=== PATIENT | female | born 1935 | race Caucasian/White ===

== ENCOUNTER 2016-08-18 16:01 | Inpatient (IN) | payer MEDICARE, OTHER ==
[2016-08-18 17:35] LABS: PROTHROMBIN TIME 16.2 SEC (11.4-15.4)
[2016-08-18 17:36] LABS: PARTIAL THROMBOPLASTIN TIME 37.5 SEC (23.5-35.8)
[2016-08-18] MEDS ORDERED: OXYCODONE-ACETAMINOPHEN 5-325 MG TABLET PO ONE (17:42)
[2016-08-18 17:47] LABS: HEMOGLOBIN 9.7 g/dL (12.0-15.5); HGB HCT DIFFERENCE -0.9; MEAN CORPUSCULAR HGB CONC 32.4 g/dL (32.0-36.0); MEAN CORPUSCULAR VOLUME 89 fl (80-97); RED BLOOD COUNT 3.36 10^6/uL (3.72-5.28); RED CELL DISTRIBUTION WIDTH 15.4 % (11.5-14.0); WHITE BLOOD COUNT 16.3 10^3/uL (4.0-10.5)
[2016-08-18 17:50] LABS: ALANINE AMINOTRANSFERASE 32 U/L (9-52); ALKALINE PHOSPHATASE 145 U/L (38-126); ANION GAP 8 (5-19); ASPARTATE AMINO TRANSFERASE 19 U/L (14-36); BILIRUBIN,TOTAL 0.3 mg/dL (0.2-1.3); BLOOD UREA NITROGEN 19 mg/dL (7-20); CALCIUM 9.3 mg/dL (8.4-10.2); CARBON DIOXIDE 27 mmol/L (22-30); CHLORIDE 100 mmol/L (98-107); CREATININE RESULT 0.64 mg/dL (0.52-1.25); GLUCOSE 133 mg/dL (75-110); POTASSIUM 3.1 mmol/L (3.6-5.0); SODIUM 135.3 mmol/L (137-145); TOTAL PROTEIN 6.3 g/dL (6.3-8.2)
[2016-08-18 17:56] LABS: BAND NEUTROPHILS % (MANUAL) 7 % (3-5); BASOPHILS % (MANUAL) 0 % (0-2); EOSINOPHILS % (MANUAL) 0 % (0-6); LYMPHOCYTES % (MANUAL) 4 % (13-45); TOTAL CELLS COUNTED 100
[2016-08-18 17:57] LABS: ANISOCYTOSIS SLIGHT; HYPOCHROMASIA SLIGHT
[2016-08-18 17:58] LABS: PLATELET CLUMPS PRESENT
--- NOTE | 2016-08-18 18:04 | ER Document Report ---
ED Extremity Problem, Lower - General Mode of Arrival: Medic Information source: Patient TRAVEL OUTSIDE OF THE [place] IN LAST 30 DAYS: No - HPI Patient complains to provider of: Pain, Swelling Location: Ankle, Leg Occurred: Other - see HPI Recent injury: No <KARMA MAYEN - Last Filed: 08/18/16 21:47> <ARIANECTOR CRUZ MIKE - Last Filed: 08/18/16 22:16> - General Chief Complaint: Leg Swelling Stated Complaint: LEFT FOOT/LEG SWELLING Notes: Patient is an 80 year old female presenting to the emergency department complaining of leg pain and swelling to her left leg. Patient states that her pain has been present for about 1 week and the swelling was noticed this afternoon. Patient's lower leg is quite swollen but the patient does not have any pain to the lower area of her leg. Patient states that she has some tightness and discomfort in her leg. Patient states that she also has some pain in her groin. Patient ambulates with a walker at home. Patient states she is not short of breath while walking and does not have a history of any blood clots. Patient states that it is difficult to walk since her leg is so swollen. Patient is allergic to sulfa drugs. (KARMA MAYEN) - Related Data Allergies/Adverse Reactions: Sulfa (Sulfonamide Antibiotics) Adverse Reaction (Intermediate, Verified 12:39) tingling Home Medications: Current Home Medications Hydroxychloroquine Sulfate [Plaquenil 200 mg Tablet] 200 mg PO DAILY 08/18/16 [ History] Past Medical History - General Information source: Patient, Relative - Social History Smoking Status: Never Smoker Cigarette use (# per day): No Chew tobacco use (# tins/day): No Frequency of alcohol use: None Drug Abuse: None Family History: Reviewed & Not Pertinent Patient has suicidal ideation: No Patient has homicidal ideation: No - Past Medical History Cardiac Medical History: Reports: Hx Hypercholesterolemia, Hx Hypertension - on meds Pulmonary Medical History: Reports: Hx Bronchitis Endocrine Medical History: Reports: Hx Hyperthyroidism, Hx Hypothyroidism Malignancy Medical History: Reports: Hx Cervical Cancer GI Medical History: Reports: Hx Gastroesophageal Reflux Disease, Hx Ulcer - 1995 Musculoskeltal Medical History: Reports Hx Arthritis Psychiatric Medical History: Reports: Hx Depression - self-diagnosed Infectious Medical History: Reports: Hx MRSA Past Surgical History: Reports: Hx Abdominal Surgery - Hysterectomy, Hx Orthopedic Surgery - left hand - Immunizations Hx Diphtheria, Pertussis, Tetanus Vaccination: Yes Hx Pneumococcal Vaccination: 06/01/11 <WOO MAYENINE - Last Filed: 08/18/16 21:47> Review of Systems - Review of Systems Constitutional: No symptoms reported EENT: No symptoms reported Cardiovascular: No symptoms reported Respiratory: No symptoms reported Gastrointestinal: No symptoms reported Genitourinary: No symptoms reported Female Genitourinary: No symptoms reported Musculoskeletal: See HPI Skin: No symptoms reported Hematologic/Lymphatic: No symptoms reported Neurological/Psychological: No symptoms reported -: Yes All other systems reviewed and negative <KARMA MAYEN - Last Filed: 08/18/16 21:47> Physical Exam - Vital signs Interpretation: Normal - General General appearance: Appears well, Alert In distress: Mild - HEENT Head: Normocephalic, Atraumatic Eyes: Normal Pupils: PERRL Mucous membranes: Normal - Respiratory Respiratory status: No respiratory distress Chest status: Nontender Breath sounds: Normal Chest palpation: Normal - Cardiovascular Rhythm: Regular Heart sounds: Normal auscultation - Abdominal Inspection: Normal Distension: No distension Bowel sounds: Normal Tenderness: Nontender Organomegaly: No organomegaly - Back Back: Normal, Nontender - Extremities General upper extremity: Normal inspection, Normal ROM, Normal strength Thigh: Tender - left proximal medial thigh is tender to palpation Calf: Other - swelling of left calf with ecchymosis to the distal medial left tibia - Neurological Neuro grossly intact: Yes Cognition: Normal Orientation: AAOx4 [place] Coma Scale Eye Opening: Spontaneous Kimberly Coma Scale Verbal: Oriented Kimberly Coma Scale Motor: Obeys Commands Kimbelry Coma Scale Total: 15 Speech: Normal Sensory: Normal - Psychological Associated symptoms: Normal affect, Normal mood - Skin Skin Temperature: Warm Skin Moisture: Dry <KARMA MAYEN - Last Filed: 08/18/16 21:47> Course - Laboratory Result Diagrams: 08/18/16 17:15 08/18/16 17:15 - Consults Dr. Zhao (Oncology) Time consulted: 20:15 Dr. Dan Time consulted: 20:45 <KARMA MAYEN - Last Filed: 08/18/16 21:47> - Laboratory Result Diagrams: 08/18/16 17:15 08/18/16 17:15 - Diagnostic Test Radiology reviewed: Reports reviewed <ECTOR PEREZ - Last Filed: 08/18/16 22:16> - Re-evaluation Re-evalutation: 08/18/16 22:14 Patient is an 80-year-old female with a history of cervical cancer currently undergoing treatment, who presents with leg swelling. Patient has a DVT in her left leg. Patient was discussed with her oncologist who recommends giving the patient Lovenox and then starting her on Xarelto. Patient denies any chest pain or difficulty breathing. Patient was discussed with her primary care doctor who will admit the patient. Stable time of admission. Family agrees with this plan. (CETOR PEREZ) - Vital Signs Vital signs: Temp Pulse Resp BP Pulse Ox 97.7 F 66 12 139/62 H 96 08/18/16 22:06 08/18/16 22:06 08/18/16 22:06 08/18/16 22:06 08/18/16 22:06 (KARMA MAYEN) (ECTOR PEREZ) - Laboratory Laboratory results interpreted by me: 08/18/16 08/18/16 08/18/16 17:15 17:15 17:15 WBC 16.3 H RBC 3.36 L Hgb 9.7 L Hct 30.0 L RDW 15.4 H Seg Neuts % (Manual) 85 H Band Neutrophils % 7 H Lymphocytes % (Manual) 4 L Abs Neuts (Manual) 15.0 H PT 16.2 H APTT 37.5 H Sodium 135.3 L Potassium 3.1 L Glucose 133 H Alkaline Phosphatase 145 H Albumin 3.0 L (KARMA MAYEN) (ECTOR PEREZ) - Consults Dr. Zhao (Oncology) Reason for consultation: 08/18/16 20:[address] Zhao, recommends that the patient be started on blood thinners. (KARMA MAYEN) Dr. Dan Reason for consultation: 08/18/16 20:[address] Dan for possible admission; patient will be admitted. (KARMA MAYEN) Discharge <KARMA MAYEN - Last Filed: 08/18/16 21:47> - Discharge Admitting Provider: Ni Unit Admitted: Medical Floor <ECTOR PEREZ - Last Filed: 08/18/16 22:16> - Discharge Clinical Impression: DVT (deep venous thrombosis) Qualifiers: DVT location: lower extremity Affected thrombotic vein of extremity: popliteal Laterality: left Chronicity: acute Qualified Code(s): I82.432 - Acute embolism and thrombosis of left popliteal vein Condition: Stable Disposition: ADMITTED INPATIENT Scribe Attestation: 08/18/16 22:16 I personally performed the services described in the documentation, reviewed and edited the documentation which was dictated to the scribe in my presence, and it accurately records my words and actions. (ECTOR PEREZ) Scribe Documentation - Scribe Written by Scribe:: Karma Mayen (08/18/16) acting as scribe for :: Zabrina <KARMA MAYEN - Last Filed: 08/18/16 21:47>
[2016-08-18] MEDS ORDERED: NORMAL SALINE 1000 ML 1,000 ML IV ONE (20:50)
[2016-08-18] MEDS ORDERED: ENOXAPARIN SODIUM INJ 100 MG/1 ML DISP.SYRIN SUBCUT SCH (22:00)
--- NOTE | 2016-08-19 01:09 | EKG REPORT ---
SEVERITY:- NORMAL ECG - SINUS RHYTHM : Confirmed by: Pastora Umanzor 19-Aug-2016 01:09:00
[2016-08-19] MEDS: OXYCODONE-ACETAMINOPHEN 5-325 MG TABLET PO PRN ×2 (03:21→14:06)
[2016-08-19 06:40] LABS: HEMATOCRIT 29.4 % (36.0-47.0); HEMOGLOBIN 9.6 g/dL (12.0-15.5); HGB HCT DIFFERENCE -0.6; MEAN CORPUSCULAR HEMOGLOBIN 28.9 pg (27.0-33.4); MEAN CORPUSCULAR HGB CONC 32.6 g/dL (32.0-36.0); MEAN CORPUSCULAR VOLUME 89 fl (80-97); RED BLOOD COUNT 3.31 10^6/uL (3.72-5.28); RED CELL DISTRIBUTION WIDTH 15.4 % (11.5-14.0); WHITE BLOOD COUNT 15.2 10^3/uL (4.0-10.5)
--- NOTE | 2016-08-19 08:35 | PDOC H&P ---
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 17oct hysterectomy BSO. 31oct twisted L knee. 1nov L doppler Screen Stretcher's cyst no dvt. Walker. 8nov carboPlatinum & taxol. 15dec [facility] found joint narrowing & spurs and injected knee & hip. These pains improved. 11d new medial L thigh discomfort & leg swelling. Past Medical History Cardiac Medical History: Reports: Hyperlipidema, Hypertension - on meds Denies: Coronary Artery Disease, Myocardial Infarction Pulmonary Medical History: Reports: Asthma, Bronchitis, Pneumonia Denies: Chronic Obstructive Pulmonary Disease (COPD), Tuberculosis EENT Medical History: Reports: Nose - allergic rhinitis Neurological Medical History: Reports: Migraine Denies: Hemorrhagic CVA, Ischemic CVA, Seizures Endocrine Medical History: Reports: Hypothyroidism Renal/ Medical History: Reports: Other - uti's Malignancy Medical History: Reports: Other - endometrial GI Medical History: Reports: Gastroesophageal Reflux Disease, Peptic Ulcer Disease Musculoskeltal Medical History: Reports: Arthritis Psychiatric Medical History: Reports: Depression Traumatic Medical History: Reports: None Hematology: Reports: Anemia - orif L zygoma & orbit 2010 Infectious Medical History: Reports: Methicillin-Resistant Staph Aureus Past Surgical History Past Surgical History: Reports: Hysterectomy, Orthopedic Surgery - left hand 2014 R knee prosthesis & R bunion Denies: Pacemaker Social History Information Source: Patient, DrJosi Office Lives with: Alone Smoking Status: Never Smoker Frequency of Alcohol Use: None Hx Recreational Drug Use: No Hx Prescription Drug Abuse: No - Advance Directive Resuscitation Status: Full Code Family History Family History: Malignancy, Thyroid Disfunction Parental Family History Reviewed: Yes Children Family History Reviewed: Yes Sibling(s) Family History Reviewed.: Yes Medication/Allergy Home Medications: Omeprazole [Prilosec 20 mg Capsule] 20 cap PO BID 08/01/11 Cyclosporine 0.05% Oph Emulsio [Restasis 0.05% Oph Emulsion Pf 0.4 ml] 1 drop ASDIR PRN 05/23/16 Metoprolol Succinate [Toprol XL 100 mg Tablet] 100 mg PO DAILY 05/23/16 Naproxen [Naprosyn 250 mg Tablet] 500 mg PO ASDIR 05/23/16 Levothyroxine Sodium [Synthroid 0.025 mg Tablet] 0.025 mg PO DAILY #0 tablet Oxycodone HCl/Acetaminophen [Percocet 5-325 mg Tablet] 2 tab PO Q4HP PRN #0 tablet 05/25/16 Simvastatin [Zocor 40 mg Tablet] 40 mg PO QHS #0 tablet 05/25/16 Hydroxychloroquine Sulfate [Plaquenil 200 mg Tablet] 200 mg PO DAILY 08/18/16 Allergies/Adverse Reactions: Sulfa (Sulfonamide Antibiotics) Adverse Reaction (Intermediate, Verified 12:39) tingling Review of Systems Constitutional: ABSENT: fever(s), weight loss Nose, Mouth, and Throat: ABSENT: sore throat Cardiovascular: ABSENT: chest pain, orthropnea Respiratory: ABSENT: cough, dyspnea Gastrointestinal: PRESENT: constipation. ABSENT: abdominal pain, diarrhea, hematochezia, melena, vomiting Genitourinary: ABSENT: dysuria, hematuria Integumentary: ABSENT: rash Physical Exam Vital Signs: Temp Pulse Resp BP Pulse Ox 98 F 74 18 156/90 H 99 08/18/16 23:55 08/18/16 23:55 08/18/16 23:55 08/18/16 23:55 08/18/16 23:55 Intake & Output 08/18/16 08/19/16 08/20/16 07:59 07:59 07:59 Weight 186 lb 8.177 oz General appearance: PRESENT: no acute distress Respiratory exam: PRESENT: clear to auscultation avery Cardiovascular exam: ABSENT: diastolic murmur, irregular rhythm, systolic murmur GI/Abdominal exam: PRESENT: tenderness. ABSENT: mass, organolmegaly Extremities exam: PRESENT: pedal edema - L2+ Homans negative L thigh nontnd Musculoskeletal exam: ABSENT: tenderness - L knee Neurological exam: PRESENT: oriented to situation Psychiatric exam: PRESENT: appropriate affect Results Laboratory Results: 08/19/16 06:30 08/19/16 06:30 WBC 15.2 H RBC 3.31 L Hgb 9.6 L Hct 29.4 L MCV 89 MCH 28.9 MCHC 32.6 RDW 15.4 H Plt Count 138 L Impressions: Venous Doppler Study 08/18/16 16:19 IMPRESSION: 1. Right lower extremity DVT, popliteal and femoral veins. Suspect they meant left Hip X-Ray 08/18/16 17:43 IMPRESSION: No acute findings. DJD. Assessment & Plan - Diagnosis (1) Phlebitis and thrombophlebitis of left popliteal vein Is this a current diagnosis for this admission?: YesPlan: lovenox yesterday and today xarelto 15bid tomorrow consult Dr Zhao - Time Time Spent: 30 to 50 Minutes Medications reviewed and adjusted accordingly: Yes Anticipated discharge: Home Within: within 48 hours - Inpatient Certification Medical Necessity: Failure to Improve With Outpatient Therapy, Significant Comorbidiites Make Outpatient Treatment Too Risky, Need Close Monitoring Due to Risk of Patient Decompensation, Need For Continuous Telemetry Monitoring, Need for Pain Control, Risk of Complication if Not Cared For in Hospital, Risk of Diagnosis Which Will Require Inpatient Eval/Care/Monitoring
--- NOTE | 2016-08-19 08:45 | PDOC CONSULTATION ---
Consultation Consult Date: 08/19/16 Attending physician:: ALFREDO PANDA Consult reason:: Newly noted DVT, hx stage III endometrial ca History of Present Illness Admission Date/PCP: 08/19/16 03:10 ALFREDO PANDA MD Patient complains of: LE swelling and pain, stage III endometrial ca History of Present Illness: 80 y/o F well known to our oncology clinic with Stage III endometrial ca s/p surgery now about 2m ago at [place], Dr. Alexandre. She was seen by our clinic now about 6 wk ago and started on adjuvant chemo/rx. Actually, in our office she had left lower extremity swelling. Ultimately, she had a ultrasound done in [place], and this was negative for DVT at that time. So we felt like it may be arthritic changes causing these problems, and she has severe osteoarthritis and bilateral hips and knees. She recently had a left hip steroid injection, she ultimately had worsening left lower extremity swelling and pain, could not walk on it, came into the ED, ultrasound indicated a DVT in the left lower extremity. Actually, the report says right lower extremity, but I talked with Dr. Boss, it is mislabeled. She actually has a DVT in the left lower extremity. She is on Lovenox right now. Past Medical History Cardiac Medical History: Reports: Hyperlipidema, Hypertension - on meds Denies: Coronary Artery Disease, Myocardial Infarction Pulmonary Medical History: Reports: Asthma, Bronchitis, Pneumonia Denies: Chronic Obstructive Pulmonary Disease (COPD), Tuberculosis EENT Medical History: Reports: Nose - allergic rhinitis Neurological Medical History: Reports: Migraine Denies: Hemorrhagic CVA, Ischemic CVA, Seizures Endocrine Medical History: Reports: Hyperthyroidism, Hypothyroidism Renal/ Medical History: Reports: Other - uti's Malignancy Medical History: Reports: Other - endometrial cancer, stage III, receiving adjuvant chemotherapy with carbo/Taxol, last given about 2 weeks ago, is due for next chemotherapy dose in one week GI Medical History: Reports: Gastroesophageal Reflux Disease, Peptic Ulcer Disease Musculoskeltal Medical History: Reports: Arthritis Psychiatric Medical History: Reports: Depression Hematology: Denies: Anemia - Iron deficiency, given IV iron Infectious Medical History: Reports: Methicillin-Resistant Staph Aureus Past Surgical History Past Surgical History: Reports: Orthopedic Surgery - left hand, Other - STU/BSO Denies: Pacemaker Social History Smoking Status: Never Smoker Frequency of Alcohol Use: None Hx Recreational Drug Use: No Hx Prescription Drug Abuse: No - Advance Directive Resuscitation Status: Full Code Family History Family History: Reviewed & Not Pertinent Parental Family History Reviewed: Yes Children Family History Reviewed: Yes Sibling(s) Family History Reviewed.: Yes Medication/Allergy Home Medications: Omeprazole [Prilosec 20 mg Capsule] 20 cap PO BID 08/01/11 Cyclosporine 0.05% Oph Emulsio [Restasis 0.05% Oph Emulsion Pf 0.4 ml] 1 drop ASDIR PRN 05/23/16 Metoprolol Succinate [Toprol XL 100 mg Tablet] 100 mg PO DAILY 05/23/16 Naproxen [Naprosyn 250 mg Tablet] 500 mg PO ASDIR 05/23/16 Levothyroxine Sodium [Synthroid 0.025 mg Tablet] 0.025 mg PO DAILY #0 tablet Oxycodone HCl/Acetaminophen [Percocet 5-325 mg Tablet] 2 tab PO Q4HP PRN #0 tablet 05/25/16 Simvastatin [Zocor 40 mg Tablet] 40 mg PO QHS #0 tablet 05/25/16 Hydroxychloroquine Sulfate [Plaquenil 200 mg Tablet] 200 mg PO DAILY 08/18/16 Allergies/Adverse Reactions: Sulfa (Sulfonamide Antibiotics) Adverse Reaction (Intermediate, Verified 12:39) tingling Review of Systems Constitutional: ABSENT: chills, fever(s), headache(s), weight gain, weight loss Eyes: ABSENT: visual disturbances Ears: ABSENT: hearing changes Cardiovascular: ABSENT: chest pain, dyspnea on exertion, edema, orthropnea, palpitations Respiratory: ABSENT: cough, hemoptysis Gastrointestinal: ABSENT: abdominal pain, constipation, diarrhea, hematemesis, hematochezia, nausea, vomiting Genitourinary: ABSENT: dysuria, hematuria Musculoskeletal: PRESENT: joint swelling, other - Left lower extremity swelling and pain Integumentary: ABSENT: rash, wounds Neurological: ABSENT: abnormal gait, abnormal speech, confusion, dizziness, focal weakness, syncope Psychiatric: ABSENT: anxiety, depression, homidical ideation, suicidal ideation Endocrine: ABSENT: cold intolerance, heat intolerance, polydipsia, polyuria Hematologic/Lymphatic: ABSENT: easy bleeding, easy bruising Physical Exam Vital Signs: Temp Pulse Resp BP Pulse Ox 98 F 87 18 156/90 H 99 08/18/16 23:55 08/19/16 07:00 08/18/16 23:55 08/18/16 23:55 08/18/16 23:55 Intake & Output 08/18/16 08/19/16 08/20/16 06:59 06:59 06:59 Intake Total 3 Balance 3 Weight 84.6 kg General appearance: PRESENT: no acute distress, well-developed, well-nourished Head exam: PRESENT: atraumatic, normocephalic Eye exam: PRESENT: conjunctiva pink, EOMI, PERRLA. ABSENT: scleral icterus Ear exam: PRESENT: normal external ear exam Mouth exam: PRESENT: moist, tongue midline Neck exam: ABSENT: carotid bruit, JVD, lymphadenopathy, thyromegaly Respiratory exam: PRESENT: clear to auscultation avery. ABSENT: rales, rhonchi, wheezes Cardiovascular exam: PRESENT: RRR. ABSENT: diastolic murmur, rubs, systolic murmur Pulses: PRESENT: normal dorsalis pedis pul Vascular exam: PRESENT: normal capillary refill GI/Abdominal exam: PRESENT: normal bowel sounds, soft. ABSENT: distended, guarding, mass, organolmegaly, rebound, tenderness Rectal exam: PRESENT: deferred Extremities exam: PRESENT: calf tenderness, other - Left lower extremity swelling Neurological exam: PRESENT: alert, awake, oriented to person, oriented to place , oriented to time, oriented to situation, CN II-XII grossly intact. ABSENT: motor sensory deficit Psychiatric exam: PRESENT: appropriate affect, normal mood. ABSENT: homicidal ideation, suicidal ideation Skin exam: PRESENT: dry, intact, warm. ABSENT: cyanosis, rash Results Laboratory Results: 08/19/16 06:30 08/19/16 06:30 WBC 15.2 H RBC 3.31 L Hgb 9.6 L Hct 29.4 L MCV 89 MCH 28.9 MCHC 32.6 RDW 15.4 H Plt Count 138 L Impressions: Venous Doppler Study 08/18/16 16:19 IMPRESSION: 1. Right lower extremity DVT, popliteal and femoral veins. Hip X-Ray 08/18/16 17:43 IMPRESSION: No acute findings. DJD. Status: Image reviewed by me Assessment & Plan - Diagnosis (2) DVT (deep venous thrombosis) Qualifiers: DVT location: lower extremity Affected thrombotic vein of extremity: femoral Laterality: left Chronicity: acute Qualified Code(s): I82.412 - Acute embolism and thrombosis of left femoral vein Plan: New onset left lower extremity DVT, likely provoked by total picture with chemotherapy, immobilization,, continue with Lovenox, agree with transition to Xarelto 15 mg twice a day for 21 days then 20 mg daily. (3) Uterus cancer Qualifiers: Malignant neoplasm of uterus location: body of uterus Malignant neoplasm of body of uterus location: endometrium Qualified Code(s): C54.1 - Malignant neoplasm of endometrium Is this a current diagnosis for this admission?: YesPlan: Known endometrial cancer, continue with chemotherapy as an outpatient, she was due next week but we will hold next week's chemotherapy and probably treat the following week (4) Other iron deficiency anemias Is this a current diagnosis for this admission?: YesPlan: Secondary to previous blood loss from surgery, she was due for IV iron this week in our office, we will hold on that and do that as an outpatient probably next week or the following week. - Time Time Spent: 50 to 70 Minutes Critical Time spent with patient: 35 or more minutes Medications reviewed and adjusted accordingly: Yes - Inpatient Certification Based on my medical assessment, after consideration of the patient's comorbidities, presenting symptoms, or acuity I expect that the services needed warrant INPATIENT care.: Yes I certify that my determination is in accordance with my understanding of Medicare's requirements for reasonable and necessary INPATIENT services [42 CFR 412.3e].: Yes Medical Necessity: Failure to Improve With Outpatient Therapy, Risk of Complication if Not Cared For in Hospital
[2016-08-19] MEDS ORDERED: NA PHOS,M-B/NA PHOS,DI-BA (ADULT) 133 ML ENEMA PR ONE ×2 (10:00→18:00)
[2016-08-19] MEDS ORDERED: METOPROLOL SUCCINATE 50 MG TAB.SR.24H PO SCH (10:00)
[2016-08-19] MEDS ORDERED: OMEPRAZOLE PO SCH (10:00)
[2016-08-19] MEDS: LEVOTHYROXINE SODIUM 0.025 MG TABLET PO SCH (12:19)
[2016-08-19] MEDS: HYDROXYCHLOROQUINE SULFATE 200 MG TABLET PO SCH (12:20)
[2016-08-19] MEDS: SENNOSIDES/DOCUSATE 8.6-50 MG 1 EACH TABLET PO SCH ×2 (12:20→17:15)
[2016-08-19] MEDS: ENOXAPARIN SODIUM INJ 100 MG/1 ML DISP.SYRIN SUBCUT SCH ×2 (12:22→22:22)
[2016-08-19] MEDS ORDERED: LOSARTAN POTASSIUM 50 MG TABLET PO ONE (16:00)
[2016-08-19] MEDS: LANSOPRAZOLE 15 MG TAB.RAP.DR PO SCH (17:15)
[2016-08-19] MEDS: SIMVASTATIN 40 MG TABLET PO SCH (22:22)
[2016-08-19 22:23] LABS: APPEARANCE,URINE SLIGHTLY-CLOUDY; BILIRUBIN,URINE NEGATIVE (NEGATIVE); GLUCOSE, URINE NEGATIVE (NEGATIVE); KETONES,URINE NEGATIVE (NEGATIVE); LEUKOCYTE ESTERASE,URINE SMALL (NEGATIVE); NITRITE,URINE NEGATIVE (NEGATIVE); PROTEIN,URINE NEGATIVE (NEGATIVE); URINE SPECIFIC GRAVITY 1.009; UROBILINOGEN,URINE NEGATIVE mg/dL (<2.0)
[2016-08-20] MEDS: OXYCODONE-ACETAMINOPHEN 5-325 MG TABLET PO PRN ×2 (02:39→21:38)
[2016-08-20] MEDS: LANSOPRAZOLE 15 MG TAB.RAP.DR PO SCH ×2 (06:45→17:00)
--- NOTE | 2016-08-20 07:41 | PDOC PROGRESS REPORT ---
Subjective Progress Note for:: 08/20/16 Subjective:: Still Lleg pain. Cant care for self. No help at home. Physical Exam Vital Signs: Temp Pulse Resp BP Pulse Ox 97.7 F 71 18 178/86 H 97 08/20/16 04:53 08/20/16 04:53 08/20/16 04:53 08/20/16 04:53 08/20/16 04:53 Intake & Output 08/18/16 08/19/16 08/20/16 07:59 07:59 07:59 Intake Total 3 1450 Balance 3 1450 Weight 186 lb 8.177 oz 200 lb 13.458 oz General appearance: PRESENT: no acute distress Respiratory exam: PRESENT: clear to auscultation avery Cardiovascular exam: ABSENT: diastolic murmur, irregular rhythm, systolic murmur GI/Abdominal exam: ABSENT: mass, organolmegaly, tenderness Rectal exam: PRESENT: heme (+) stool Extremities exam: PRESENT: pedal edema - less on L Results Laboratory Results: 08/19/16 06:30 08/19/16 08/19/16 12:58 21:45 Urine Color YELLOW Urine Appearance SLIGHTLY-CLOUDY Urine pH 6.0 Ur Specific [place] 1.009 Urine Protein NEGATIVE Urine Glucose (UA) NEGATIVE Urine Ketones NEGATIVE Urine Blood NEGATIVE Urine Nitrite NEGATIVE Ur Leukocyte Esterase SMALL H Urine WBC (Auto) 43 Urine RBC (Auto) 6 Stool Occult Blood POSITIVE EKG Comments: Abnormal - 24 hr 08/19/16 21:45 Ur Leukocyte Esterase SMALL H Impressions: Venous Doppler Study 08/18/16 16:19 IMPRESSION: 1. Right lower extremity DVT, popliteal and femoral veins. Hip X-Ray 08/18/16 17:43 IMPRESSION: No acute findings. DJD. Assessment & Plan - Diagnosis (1) Phlebitis and thrombophlebitis of left popliteal vein Is this a current diagnosis for this admission?: YesPlan: switch to xarelto today. Needs rehab (2) Essential (primary) hypertension Is this a current diagnosis for this admission?: YesPlan: increase losartan & metoprolol
--- NOTE | 2016-08-20 08:24 | PDOC PROGRESS REPORT ---
Subjective Progress Note for:: 08/20/16 Subjective:: Patient doing better today, energy level has been better, she still hasn't got up from bed. Physical therapy supposed to see her today. Leg pain is less. It looks better. Physical Exam Vital Signs: Temp Pulse Resp BP Pulse Ox 97.7 F 71 18 178/86 H 97 08/20/16 04:53 08/20/16 04:53 08/20/16 04:53 08/20/16 04:53 08/20/16 04:53 Intake & Output 08/19/16 08/20/16 08/21/16 06:59 06:59 06:59 Intake Total 3 1450 Balance 3 1450 Weight 84.6 kg 91.1 kg General appearance: PRESENT: no acute distress, well-developed, well-nourished Head exam: PRESENT: atraumatic, normocephalic Eye exam: PRESENT: conjunctiva pink, EOMI, PERRLA. ABSENT: scleral icterus Ear exam: PRESENT: normal external ear exam Mouth exam: PRESENT: moist, tongue midline Neck exam: ABSENT: carotid bruit, JVD, lymphadenopathy, thyromegaly Respiratory exam: PRESENT: clear to auscultation avery. ABSENT: rales, rhonchi, wheezes Cardiovascular exam: PRESENT: RRR. ABSENT: diastolic murmur, rubs, systolic murmur Pulses: PRESENT: normal dorsalis pedis pul Vascular exam: PRESENT: normal capillary refill GI/Abdominal exam: PRESENT: normal bowel sounds, soft. ABSENT: distended, guarding, mass, organolmegaly, rebound, tenderness Rectal exam: PRESENT: deferred Extremities exam: PRESENT: full ROM. ABSENT: calf tenderness, clubbing, pedal edema Neurological exam: PRESENT: alert, awake, oriented to person, oriented to place , oriented to time, oriented to situation, CN II-XII grossly intact. ABSENT: motor sensory deficit Psychiatric exam: PRESENT: appropriate affect, normal mood. ABSENT: homicidal ideation, suicidal ideation Skin exam: PRESENT: dry, intact, warm. ABSENT: cyanosis, rash Results Laboratory Results: 08/19/16 06:30 08/19/16 08/19/16 12:58 21:45 Urine Color YELLOW Urine Appearance SLIGHTLY-CLOUDY Urine pH 6.0 Ur Specific [place] 1.009 Urine Protein NEGATIVE Urine Glucose (UA) NEGATIVE Urine Ketones NEGATIVE Urine Blood NEGATIVE Urine Nitrite NEGATIVE Ur Leukocyte Esterase SMALL H Urine WBC (Auto) 43 Urine RBC (Auto) 6 Stool Occult Blood POSITIVE Impressions: Venous Doppler Study 08/18/16 16:19 IMPRESSION: 1. Right lower extremity DVT, popliteal and femoral veins. Hip X-Ray 08/18/16 17:43 IMPRESSION: No acute findings. DJD. Assessment & Plan - Diagnosis (1) Lower leg DVT (deep venous thromboembolism), acute Qualifiers: Laterality: left Qualified Code(s): I82.4Z2 - Acute embolism and thrombosis of unspecified deep veins of left distal lower extremity Is this a current diagnosis for this admission?: YesPlan: Continue with anticoagulation, switched to Xarelto 15mg BID for 21 days then 20 mg daily. 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 Is this a current diagnosis for this admission?: YesPlan: Further chemotherapy planned as an outpatient (4) Other iron deficiency anemias Is this a current diagnosis for this admission?: YesPlan: Hemoglobin stable continue to monitor - Time Time Spent with patient: 25-34 minutes Critical Time spent with patient: 25-34 minutes - Inpatient Certification Based on my medical assessment, after consideration of the patient's comorbidities, presenting symptoms, or acuity I expect that the services needed warrant INPATIENT care.: Yes I certify that my determination is in accordance with my understanding of Medicare's requirements for reasonable and necessary INPATIENT services [42 CFR 412.3e].: Yes Medical Necessity: Risk of Complication if Not Cared For in Hospital
[2016-08-20] MEDS: RIVAROXABAN 15 MG TABLET PO SCH ×2 (08:45→17:00)
[2016-08-20] MEDS: METOPROLOL SUCCINATE 50 MG TAB.SR.24H PO SCH (09:12)
[2016-08-20] MEDS: LEVOTHYROXINE SODIUM 0.025 MG TABLET PO SCH (09:12)
[2016-08-20] MEDS: LOSARTAN POTASSIUM 50 MG TABLET PO SCH (09:12)
[2016-08-20] MEDS: SENNOSIDES/DOCUSATE 8.6-50 MG 1 EACH TABLET PO SCH ×2 (09:12→17:00)
[2016-08-20] MEDS: HYDROXYCHLOROQUINE SULFATE 200 MG TABLET PO SCH (09:13)
[2016-08-20] MEDS ORDERED: LOSARTAN POTASSIUM 50 MG TABLET PO SCH (10:00)
[2016-08-20] MEDS: ONDANSETRON 4 MG TAB.RAPDIS SL PRN ×2 (16:59→21:42)
[2016-08-20] MEDS: SIMVASTATIN 40 MG TABLET PO SCH (21:38)
[2016-08-21 04:37] LABS: HEMATOCRIT 29.9 % (36.0-47.0); HEMOGLOBIN 9.9 g/dL (12.0-15.5); HGB HCT DIFFERENCE -0.2; MEAN CORPUSCULAR HGB CONC 32.9 g/dL (32.0-36.0); MEAN CORPUSCULAR VOLUME 88 fl (80-97); RED CELL DISTRIBUTION WIDTH 15.3 % (11.5-14.0); WHITE BLOOD COUNT 20.8 10^3/uL (4.0-10.5)
[2016-08-21] MEDS: OXYCODONE-ACETAMINOPHEN 5-325 MG TABLET PO PRN (06:27)
[2016-08-21] MEDS: LANSOPRAZOLE 15 MG TAB.RAP.DR PO SCH ×2 (06:28→17:52)
[2016-08-21] MEDS ORDERED: SIMVASTATIN 40 MG TABLET PO SCH (08:00)
[2016-08-21] MEDS ORDERED: GABAPENTIN 300 MG CAPSULE PO PRN (08:18)
[2016-08-21] MEDS ORDERED: PROMETHAZINE HCL 25 MG TABLET PO PRN (08:19)
--- NOTE | 2016-08-21 08:23 | PDOC PROGRESS REPORT ---
Subjective Progress Note for:: 08/21/16 Subjective:: Patient got up and moved with physical therapy, walking 30 feet with minimal assist, pain is better. Physical Exam Vital Signs: Temp Pulse Resp BP Pulse Ox 97.9 F 67 16 199/89 H 97 08/21/16 03:13 08/21/16 03:13 08/21/16 03:13 08/21/16 03:13 08/21/16 03:13 Intake & Output 08/20/16 08/21/16 08/22/16 06:59 06:59 06:59 Intake Total 1450 1545 Output Total 800 Balance 1450 745 Weight 91.1 kg 91 kg General appearance: PRESENT: no acute distress, well-developed, well-nourished Head exam: PRESENT: atraumatic, normocephalic Eye exam: PRESENT: conjunctiva pink, EOMI, PERRLA. ABSENT: scleral icterus Ear exam: PRESENT: normal external ear exam Mouth exam: PRESENT: moist, tongue midline Neck exam: ABSENT: carotid bruit, JVD, lymphadenopathy, thyromegaly Respiratory exam: PRESENT: clear to auscultation avery. ABSENT: rales, rhonchi, wheezes Cardiovascular exam: PRESENT: RRR. ABSENT: diastolic murmur, rubs, systolic murmur Pulses: PRESENT: normal dorsalis pedis pul Vascular exam: PRESENT: normal capillary refill GI/Abdominal exam: PRESENT: normal bowel sounds, soft. ABSENT: distended, guarding, mass, organolmegaly, rebound, tenderness Rectal exam: PRESENT: deferred Extremities exam: PRESENT: full ROM. ABSENT: calf tenderness, clubbing, pedal edema Neurological exam: PRESENT: alert, awake, oriented to person, oriented to place , oriented to time, oriented to situation, CN II-XII grossly intact. ABSENT: motor sensory deficit Psychiatric exam: PRESENT: appropriate affect, normal mood. ABSENT: homicidal ideation, suicidal ideation Skin exam: PRESENT: dry, intact, warm. ABSENT: cyanosis, rash Results Laboratory Results: 08/21/16 04:18 08/21/16 04:18 WBC 20.8 H RBC 3.40 L Hgb 9.9 L Hct 29.9 L MCV 88 MCH 29.0 MCHC 32.9 RDW 15.3 H Plt Count 150 08/19/16 07:30 Nasophary ([facility] Only) MRSA Surveillance Culture - Final NO MRSA RECOVERED Impressions: Venous Doppler Study 08/18/16 16:19 IMPRESSION: 1. Right lower extremity DVT, popliteal and femoral veins. Hip X-Ray 08/18/16 17:43 IMPRESSION: No acute findings. DJD. Assessment & Plan - Diagnosis (1) Lower leg DVT (deep venous thromboembolism), acute Qualifiers: Laterality: left Qualified Code(s): I82.4Z2 - Acute embolism and thrombosis of unspecified deep veins of left distal lower extremity Is this a current diagnosis for this admission?: YesPlan: Likely plan for discharge soon with Xarelto 15 mg twice a day for 21 days then 20 mg daily. We will follow this in the office. 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
--- NOTE | 2016-08-21 08:27 | PDOC PROGRESS REPORT ---
Subjective Progress Note for:: 08/21/16 Subjective:: agony & nausea all day on percocet & zofran. Insomnia. No confidence can make it at home but refuses rehab because of chemo. Physical Exam Vital Signs: Temp Pulse Resp BP Pulse Ox 97.9 F 67 16 199/89 H 97 08/21/16 03:13 08/21/16 03:13 08/21/16 03:13 08/21/16 03:13 08/21/16 03:13 Intake & Output 08/20/16 08/21/16 08/22/16 07:59 07:59 07:59 Intake Total 1450 1545 Output Total 800 Balance 1450 745 Weight 200 lb 13.458 oz 200 lb 9.93 oz General appearance: PRESENT: mild distress Respiratory exam: PRESENT: clear to auscultation avery Cardiovascular exam: ABSENT: diastolic murmur, irregular rhythm, systolic murmur GI/Abdominal exam: ABSENT: mass, organolmegaly, soft Extremities exam: PRESENT: pedal edema - L 1+ Results Laboratory Results: 08/21/16 04:18 08/21/16 04:18 WBC 20.8 H RBC 3.40 L Hgb 9.9 L Hct 29.9 L MCV 88 MCH 29.0 MCHC 32.9 RDW 15.3 H Plt Count 150 08/19/16 07:30 Nasophary ([facility] Only) MRSA Surveillance Culture - Final NO MRSA RECOVERED Impressions: Venous Doppler Study 08/18/16 16:19 IMPRESSION: 1. Right lower extremity DVT, popliteal and femoral veins. Hip X-Ray 08/18/16 17:43 IMPRESSION: No acute findings. DJD. Assessment & Plan - Diagnosis (1) Phlebitis and thrombophlebitis of left popliteal vein Is this a current diagnosis for this admission?: YesPlan: switch to gabapentin & promethazine (2) Essential (primary) hypertension Is this a current diagnosis for this admission?: YesPlan: added amlodipine
[2016-08-21] MEDS: RIVAROXABAN 15 MG TABLET PO SCH ×2 (09:39→17:52)
[2016-08-21] MEDS: METOPROLOL SUCCINATE 50 MG TAB.SR.24H PO SCH (09:39)
[2016-08-21] MEDS: AMLODIPINE BESYLATE 10 MG TABLET PO SCH (09:41)
[2016-08-21] MEDS: SENNOSIDES/DOCUSATE 8.6-50 MG 1 EACH TABLET PO SCH ×2 (09:41→18:01)
[2016-08-21] MEDS: LEVOTHYROXINE SODIUM 0.05 MG TABLET PO SCH (09:41)
[2016-08-21] MEDS: LOSARTAN POTASSIUM 50 MG TABLET PO SCH (09:41)
[2016-08-21] MEDS: HYDROXYCHLOROQUINE SULFATE 200 MG TABLET PO SCH (09:43)
[2016-08-21] MEDS: LUBIPROSTONE 24 MCG CAPSULE PO SCH ×2 (09:43→18:01)
[2016-08-21 15:06] LABS: APPEARANCE,URINE CLOUDY; BILIRUBIN,URINE NEGATIVE (NEGATIVE); GLUCOSE, URINE NEGATIVE (NEGATIVE); KETONES,URINE NEGATIVE (NEGATIVE); LEUKOCYTE ESTERASE,URINE NEGATIVE (NEGATIVE); NITRITE,URINE NEGATIVE (NEGATIVE); PROTEIN,URINE NEGATIVE (NEGATIVE); URINE SPECIFIC GRAVITY 1.009; UROBILINOGEN,URINE NEGATIVE mg/dL (<2.0)
[2016-08-21] MEDS: PROCHLORPERAZINE MALEATE 5 MG TABLET PO PRN ×2 (17:59→23:31)
[2016-08-21] MEDS: SIMVASTATIN 10 MG TABLET PO SCH (21:36)
[2016-08-22] MEDS: PROCHLORPERAZINE MALEATE 5 MG TABLET PO PRN (04:44)
[2016-08-22] MEDS: LANSOPRAZOLE 15 MG TAB.RAP.DR PO SCH ×2 (05:09→17:37)
[2016-08-22] MEDS ORDERED: NORMAL SALINE 1000 ML 1,000 ML IV PRN ×2 (07:23→08:37)
[2016-08-22] MEDS ORDERED: PROCHLORPERAZINE MALEATE 5 MG TABLET PO PRN (07:30)
--- NOTE | 2016-08-22 07:37 | PDOC PROGRESS REPORT ---
Subjective Progress Note for:: 08/22/16 Subjective:: vomited stooled. Promethazine failed. Compazine 5mg q4h worked. Cant rest here. Doses but wakes frequently. Pain R flank & L leg. Gabapentin failed. Physical Exam Vital Signs: Temp Pulse Resp BP Pulse Ox 97.4 F 84 20 138/81 H 97 08/22/16 05:17 08/22/16 05:17 08/22/16 05:17 08/22/16 05:17 08/22/16 05:17 Intake & Output 08/20/16 08/21/16 08/22/16 07:59 07:59 07:59 Intake Total 1450 1545 1100 Output Total 800 500 Balance 1450 745 600 Weight 200 lb 13.458 oz 194 lb 14.218 oz 192 lb 14.472 oz General appearance: PRESENT: severe distress Respiratory exam: PRESENT: clear to auscultation avery Cardiovascular exam: ABSENT: diastolic murmur, irregular rhythm, systolic murmur GI/Abdominal exam: PRESENT: hypoactive bowel sounds, tenderness - mild RUQ. ABSENT: distended, guarding, mass, organolmegaly Extremities exam: PRESENT: pedal edema - L trace Psychiatric exam: PRESENT: anxious, depressed Results Laboratory Results: 08/21/16 04:18 08/21/16 14:40 Urine Color YELLOW Urine Appearance CLOUDY Urine pH 6.0 Ur Specific [place] 1.009 Urine Protein NEGATIVE Urine Glucose (UA) NEGATIVE Urine Ketones NEGATIVE Urine Blood NEGATIVE Urine Nitrite NEGATIVE Ur Leukocyte Esterase NEGATIVE Urine WBC (Auto) 1 Urine RBC (Auto) 3 08/19/16 21:45 Clean Catch Midstream Urine Culture - Final Mixed Skin. Possible Pathogen Impressions: Venous Doppler Study 08/18/16 16:19 IMPRESSION: 1. Right lower extremity DVT, popliteal and femoral veins. Hip X-Ray 08/18/16 17:43 IMPRESSION: No acute findings. DJD. Assessment & Plan - Diagnosis (1) Phlebitis and thrombophlebitis of left popliteal vein Is this a current diagnosis for this admission?: YesPlan: stop gabapentin (2) Essential (primary) hypertension Is this a current diagnosis for this admission?: YesPlan: better (3) Chemotherapy-induced vomiting Is this a current diagnosis for this admission?: YesPlan: stop amitiza. Increase compazine to 10mg q4h prn. NS125
--- NOTE | 2016-08-22 08:18 | PDOC PROGRESS REPORT ---
Subjective Progress Note for:: 08/22/16 Subjective:: Confusion this am, pt has some speech difficulty also, pt was uncomfortable yesterday, +nausea, compazine started yesterday. Physical Exam Vital Signs: Temp Pulse Resp BP Pulse Ox 97.4 F 84 20 138/81 H 97 08/22/16 05:17 08/22/16 05:17 08/22/16 05:17 08/22/16 05:17 08/22/16 05:17 Intake & Output 08/21/16 08/22/16 08/23/16 06:59 06:59 06:59 Intake Total 1545 725 375 Output Total 800 500 Balance 745 225 375 Weight 88.4 kg 87.5 kg General appearance: PRESENT: no acute distress, well-developed, well-nourished Head exam: PRESENT: atraumatic, normocephalic Eye exam: PRESENT: conjunctiva pink, EOMI, PERRLA. ABSENT: scleral icterus Ear exam: PRESENT: normal external ear exam Mouth exam: PRESENT: moist, tongue midline Neck exam: ABSENT: carotid bruit, JVD, lymphadenopathy, thyromegaly Respiratory exam: PRESENT: clear to auscultation avery. ABSENT: rales, rhonchi, wheezes Cardiovascular exam: PRESENT: RRR. ABSENT: diastolic murmur, rubs, systolic murmur Pulses: PRESENT: normal dorsalis pedis pul Vascular exam: PRESENT: normal capillary refill GI/Abdominal exam: PRESENT: normal bowel sounds, soft. ABSENT: distended, guarding, mass, organolmegaly, rebound, tenderness Rectal exam: PRESENT: deferred Extremities exam: PRESENT: full ROM. ABSENT: calf tenderness, clubbing, pedal edema Neurological exam: PRESENT: alert, awake, oriented to person, oriented to place , oriented to time, oriented to situation, CN II-XII grossly intact. ABSENT: motor sensory deficit Psychiatric exam: PRESENT: appropriate affect, normal mood. ABSENT: homicidal ideation, suicidal ideation Skin exam: PRESENT: dry, intact, warm. ABSENT: cyanosis, rash Results Laboratory Results: 08/21/16 04:18 08/21/16 14:40 Urine Color YELLOW Urine Appearance CLOUDY Urine pH 6.0 Ur Specific [place] 1.009 Urine Protein NEGATIVE Urine Glucose (UA) NEGATIVE Urine Ketones NEGATIVE Urine Blood NEGATIVE Urine Nitrite NEGATIVE Ur Leukocyte Esterase NEGATIVE Urine WBC (Auto) 1 Urine RBC (Auto) 3 08/19/16 21:45 Clean Catch Midstream Urine Culture - Final Mixed Skin. Possible Pathogen Impressions: Venous Doppler Study 08/18/16 16:19 IMPRESSION: 1. Right lower extremity DVT, popliteal and femoral veins. Hip X-Ray 08/18/16 17:43 IMPRESSION: No acute findings. DJD. Assessment & Plan - Diagnosis (1) Lower leg DVT (deep venous thromboembolism), acute Qualifiers: Laterality: left Qualified Code(s): I82.4Z2 - Acute embolism and thrombosis of unspecified deep veins of left distal lower extremity Is this a current diagnosis for this admission?: YesPlan: Will d/c xarelto and start lovenox, unlikely xarelto causing the confusion but was a new med started so will do that. 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 Is this a current diagnosis for this admission?: YesPlan: Planned for further chemo as outpt but pt definitely has to get stronger (4) Other iron deficiency anemias Is this a current diagnosis for this admission?: YesPlan: Hb stable, monitor (5) Altered mental status Qualifiers: Altered mental status type: disorientation Qualified Code(s): R41.0 - Disorientation, unspecified Is this a current diagnosis for this admission?: YesPlan: Unsure of cause, could be med related so change xarelto, d/c compazine, minimize any sedatory meds, will do CT head w/out contrast to ensure nothing like bleed on going, start IVF as pt w/ poor PO x 1 day so maybe related to dehydration. - Time Time Spent with patient: 35 or more minutes Critical Time spent with patient: 35 or more minutes - Inpatient Certification Based on my medical assessment, after consideration of the patient's comorbidities, presenting symptoms, or acuity I expect that the services needed warrant INPATIENT care.: Yes I certify that my determination is in accordance with my understanding of Medicare's requirements for reasonable and necessary INPATIENT services [42 CFR 412.3e].: Yes Medical Necessity: Need For IV Fluids, Need For Continuous Telemetry Monitoring , Risk of Complication if Not Cared For in Hospital
[2016-08-22] MEDS: METOPROLOL SUCCINATE 50 MG TAB.SR.24H PO SCH (10:48)
[2016-08-22] MEDS: AMLODIPINE BESYLATE 10 MG TABLET PO SCH (10:48)
[2016-08-22] MEDS: LEVOTHYROXINE SODIUM 0.05 MG TABLET PO SCH (10:49)
[2016-08-22] MEDS: SENNOSIDES/DOCUSATE 8.6-50 MG 1 EACH TABLET PO SCH ×2 (10:49→17:37)
[2016-08-22] MEDS: LOSARTAN POTASSIUM 50 MG TABLET PO SCH (10:50)
[2016-08-22] MEDS: HYDROXYCHLOROQUINE SULFATE 200 MG TABLET PO SCH (10:52)
[2016-08-22 16:43] LABS: ANION GAP 11 (5-19); BLOOD UREA NITROGEN 14 mg/dL (7-20); CALCIUM 8.9 mg/dL (8.4-10.2); CARBON DIOXIDE 30 mmol/L (22-30); CHLORIDE 93 mmol/L (98-107); CREATININE RESULT 0.65 mg/dL (0.52-1.25); GLUCOSE 163 mg/dL (75-110); POTASSIUM 3.3 mmol/L (3.6-5.0); SODIUM 133.8 mmol/L (137-145)
[2016-08-22] MEDS: ENOXAPARIN SODIUM INJ 100 MG/1 ML DISP.SYRIN SUBCUT SCH (21:33)
[2016-08-22] MEDS: SIMVASTATIN 10 MG TABLET PO SCH (21:34)
[2016-08-22] MEDS ORDERED: ENOXAPARIN SODIUM INJ 100 MG/1 ML DISP.SYRIN SUBCUT SCH (22:00)
[2016-08-23] MEDS: LANSOPRAZOLE 15 MG TAB.RAP.DR PO SCH ×2 (05:34→18:29)
[2016-08-23 06:07] LABS: HEMATOCRIT 32.3 % (36.0-47.0); HEMOGLOBIN 10.3 g/dL (12.0-15.5); HGB HCT DIFFERENCE -1.4; MEAN CORPUSCULAR HEMOGLOBIN 28.3 pg (27.0-33.4); MEAN CORPUSCULAR VOLUME 88 fl (80-97); RED BLOOD COUNT 3.66 10^6/uL (3.72-5.28); RED CELL DISTRIBUTION WIDTH 15.4 % (11.5-14.0); WHITE BLOOD COUNT 24.4 10^3/uL (4.0-10.5)
--- NOTE | 2016-08-23 06:16 | PDOC PROGRESS REPORT ---
Subjective Progress Note for:: 08/23/16 Subjective:: less nausea & RUQ pain. No cough, dyspnea, chest pain, vomiting, dysuria. Physical Exam Vital Signs: Temp Pulse Resp BP Pulse Ox 97.5 F 69 20 135/76 H 96 08/22/16 20:08 08/23/16 02:00 08/22/16 20:08 08/22/16 20:08 08/22/16 20:08 Intake & Output 08/21/16 08/22/16 08/23/16 07:59 07:59 07:59 Intake Total 1545 1100 720 Output Total 800 500 Balance 745 600 720 Weight 194 lb 14.218 oz 192 lb 14.472 oz 193 lb 12.581 oz General appearance: PRESENT: no acute distress Respiratory exam: PRESENT: clear to auscultation avery Cardiovascular exam: ABSENT: diastolic murmur, irregular rhythm, systolic murmur GI/Abdominal exam: PRESENT: tenderness - moderate RUQ with slight rebound but no guarding. ABSENT: mass, organolmegaly Extremities exam: PRESENT: pedal edema - L 1+ Results Laboratory Results: 08/22/16 16:20 08/22/16 16:20 Sodium 133.8 L Potassium 3.3 L Chloride 93 L Carbon Dioxide 30 Anion Gap 11 BUN 14 Creatinine 0.65 Est GFR ( Amer) > 60 Est GFR (Non-Af Amer) > 60 Glucose 163 H Calcium 8.9 Abnormal - 24 hr 08/22/16 16:20 Sodium 133.8 L Potassium 3.3 L Chloride 93 L Glucose 163 H Impressions: Venous Doppler Study 08/18/16 16:19 IMPRESSION: 1. Right lower extremity DVT, popliteal and femoral veins. Hip X-Ray 08/18/16 17:43 IMPRESSION: No acute findings. DJD. Head CT 08/22/16 00:00 IMPRESSION: MILD CHRONIC CHANGES OF ATROPHY AND MICROVASCULAR ISCHEMIA. NO ACUTE PROCESS. Assessment & Plan - Diagnosis (1) Right upper quadrant pain Is this a current diagnosis for this admission?: YesPlan: June ct negative for gall stones. WBC 16 on 4dec & on admission, now 21. RUQ more tender than yesterday. Repeat lft. Lipase & US. (2) Phlebitis and thrombophlebitis of left popliteal vein Is this a current diagnosis for this admission?: Yes (3) Essential (primary) hypertension Is this a current diagnosis for this admission?: Yes (4) Chemotherapy-induced vomiting Is this a current diagnosis for this admission?: Yes
[2016-08-23 09:02] LABS: ALBUMIN 2.5 g/dL (3.5-5.0); BILIRUBIN,TOTAL 0.5 mg/dL (0.2-1.3); LIPASE 66.2 U/L (23-300); TOTAL PROTEIN 5.2 g/dL (6.3-8.2)
[2016-08-23] MEDS: ENOXAPARIN SODIUM INJ 100 MG/1 ML DISP.SYRIN SUBCUT SCH ×2 (10:14→21:54)
[2016-08-23] MEDS: LOSARTAN POTASSIUM 50 MG TABLET PO SCH (10:15)
[2016-08-23] MEDS: METOPROLOL SUCCINATE 50 MG TAB.SR.24H PO SCH (10:15)
[2016-08-23] MEDS: AMLODIPINE BESYLATE 10 MG TABLET PO SCH (10:15)
[2016-08-23] MEDS: SENNOSIDES/DOCUSATE 8.6-50 MG 1 EACH TABLET PO SCH ×2 (10:16→18:31)
[2016-08-23] MEDS: LEVOTHYROXINE SODIUM 0.05 MG TABLET PO SCH (10:16)
[2016-08-23] MEDS: HYDROXYCHLOROQUINE SULFATE 200 MG TABLET PO SCH (14:57)
[2016-08-23 15:54] LABS: APPEARANCE,URINE SLIGHTLY-CLOUDY; BILIRUBIN,URINE NEGATIVE (NEGATIVE); GLUCOSE, URINE NEGATIVE (NEGATIVE); KETONES,URINE TRACE mg/dL (NEGATIVE); LEUKOCYTE ESTERASE,URINE NEGATIVE (NEGATIVE); NITRITE,URINE NEGATIVE (NEGATIVE); PROTEIN,URINE 30 mg/dL (NEGATIVE); URINE SPECIFIC GRAVITY 1.017
[2016-08-23] MEDS: ERTAPENEM SODIUM 1 GM in NORMAL SALINE 50 ML IV SCH (16:14)
[2016-08-23 16:34] LABS: ANION GAP 11 (5-19); BLOOD UREA NITROGEN 12 mg/dL (7-20); CALCIUM 8.7 mg/dL (8.4-10.2); CARBON DIOXIDE 31 mmol/L (22-30); CHLORIDE 92 mmol/L (98-107); CREATININE RESULT 0.55 mg/dL (0.52-1.25); GLUCOSE 101 mg/dL (75-110); SODIUM 133.7 mmol/L (137-145)
[2016-08-23 16:47] LABS: POTASSIUM 2.8 mmol/L (3.6-5.0)
[2016-08-23] MEDS ORDERED: POTASSI CL 20 MEQ/NS 1L 1000 ML IV PRN (17:02)
[2016-08-23] MEDS: SIMVASTATIN 10 MG TABLET PO SCH (21:54)
[2016-08-24] MEDS: LANSOPRAZOLE 15 MG TAB.RAP.DR PO SCH ×2 (05:40→17:53)
[2016-08-24] MEDS: POTASSI CL 20 MEQ/NS 1L 1,000 ML IV PRN ×2 (06:07→18:53)
--- NOTE | 2016-08-24 09:02 | PDOC PROGRESS REPORT ---
Subjective Progress Note for:: 08/24/16 Subjective:: less nausea Physical Exam Vital Signs: Temp Pulse Resp BP Pulse Ox 97.9 F 74 15 168/81 H 97 08/23/16 23:32 08/24/16 02:00 08/23/16 23:32 08/23/16 23:32 08/23/16 23:32 Intake & Output 08/23/16 08/24/16 08/25/16 07:59 07:59 07:59 Intake Total 2351 1243 Balance 2351 1243 Weight 193 lb 12.581 oz 200 lb 13.458 oz General appearance: PRESENT: no acute distress Respiratory exam: PRESENT: clear to auscultation avery Cardiovascular exam: ABSENT: diastolic murmur, irregular rhythm, systolic murmur GI/Abdominal exam: PRESENT: tenderness - tender RUQ and to deep palpation LLQ and suprapubic. No guarding or rebouond. Neurological exam: PRESENT: alert Psychiatric exam: PRESENT: appropriate affect Results Laboratory Results: 08/23/16 05:04 08/23/16 16:05 08/23/16 08/23/16 08/23/16 08:30 15:17 16:05 Sodium 133.7 L Potassium 2.8 L* Chloride 92 L Carbon Dioxide 31 H Anion Gap 11 BUN 12 Creatinine 0.55 Est GFR ( Amer) > 60 Est GFR (Non-Af Amer) > 60 Glucose 101 Calcium 8.7 Total Bilirubin 0.5 AST 28 ALT 55 H Alkaline Phosphatase 154 H Total Protein 5.2 L Albumin 2.5 L Lipase 66.2 Urine Color YELLOW Urine Appearance SLIGHTLY-CLOUDY Urine pH 5.0 Ur Specific [place] 1.017 Urine Protein 30 H Urine Glucose (UA) NEGATIVE Urine Ketones TRACE H Urine Blood NEGATIVE Urine Nitrite NEGATIVE Ur Leukocyte Esterase NEGATIVE Urine WBC (Auto) 18 Urine RBC (Auto) 1 Stool Occult Blood 08/24/16 03:30 Sodium Potassium Chloride Carbon Dioxide Anion Gap BUN Creatinine Est GFR ( Amer) Est GFR (Non-Af Amer) Glucose Calcium Total Bilirubin AST ALT Alkaline Phosphatase Total Protein Albumin Lipase Urine Color Urine Appearance Urine pH Ur Specific [place] Urine Protein Urine Glucose (UA) Urine Ketones Urine Blood Urine Nitrite Ur Leukocyte Esterase Urine WBC (Auto) Urine RBC (Auto) Stool Occult Blood POSITIVE Impressions: Venous Doppler Study 08/18/16 16:19 IMPRESSION: 1. Right lower extremity DVT, popliteal and femoral veins. Hip X-Ray 08/18/16 17:43 IMPRESSION: No acute findings. DJD. Head CT 08/22/16 00:00 IMPRESSION: MILD CHRONIC CHANGES OF ATROPHY AND MICROVASCULAR ISCHEMIA. NO ACUTE PROCESS. Abdomen Ultrasound 08/23/16 00:00 IMPRESSION: NORMAL RIGHT UPPER QUADRANT ULTRASOUND. Abdomen/Pelvis CT 08/23/16 00:00 IMPRESSION: NORMAL CT OF THE CHEST WITH IV CONTRAST. IMPRESSION: 11 cm multilocular abscess in the left pelvis which extends along the iliopsoas musculature into the left femoral canal. There is also a separate 6.5 cm abscess in the deep right pelvis. Diffuse inflammatory changes are present throughout the pelvic fat. There is thickening throughout the sigmoid colon with probable diverticulitis as the origin of the adjacent abscesses. Chest CT 08/23/16 00:00 IMPRESSION: NORMAL CT OF THE CHEST WITH IV CONTRAST. IMPRESSION: 11 cm multilocular abscess in the left pelvis which extends along the iliopsoas musculature into the left femoral canal. There is also a separate 6.5 cm abscess in the deep right pelvis. Diffuse inflammatory changes are present throughout the pelvic fat. There is thickening throughout the sigmoid colon with probable diverticulitis as the origin of the adjacent abscesses. Assessment & Plan - Diagnosis (1) Right upper quadrant pain Is this a current diagnosis for this admission?: Yes (2) Phlebitis and thrombophlebitis of left popliteal vein Is this a current diagnosis for this admission?: Yes (3) Essential (primary) hypertension Is this a current diagnosis for this admission?: Yes (4) Chemotherapy-induced vomiting Is this a current diagnosis for this admission?: Yes (5) Abdominopelvic abscess Is this a current diagnosis for this admission?: YesPlan: afebrile on ertapenem. May need drainage. Suspect from recent neutropenia and or diverticulitis. Tephlitis is usually cecal, but the sigmoid is thick.
[2016-08-24] MEDS: LEVOTHYROXINE SODIUM 0.05 MG TABLET PO SCH (11:11)
[2016-08-24] MEDS: METOPROLOL SUCCINATE 50 MG TAB.SR.24H PO SCH (11:12)
[2016-08-24] MEDS: LOSARTAN POTASSIUM 50 MG TABLET PO SCH (11:12)
[2016-08-24] MEDS: AMLODIPINE BESYLATE 10 MG TABLET PO SCH (11:12)
[2016-08-24] MEDS: ENOXAPARIN SODIUM INJ 100 MG/1 ML DISP.SYRIN SUBCUT SCH ×2 (11:13→21:37)
[2016-08-24] MEDS: SENNOSIDES/DOCUSATE 8.6-50 MG 1 EACH TABLET PO SCH ×2 (11:18→17:34)
[2016-08-24] MEDS: HYDROXYCHLOROQUINE SULFATE 200 MG TABLET PO SCH (11:28)
--- NOTE | 2016-08-24 11:34 | PDOC PROGRESS REPORT ---
Subjective Progress Note for:: 08/24/16 Subjective:: Pain controlled, still w/ recurrent nausea, CT imaging indicated abcess b/l pelvis. Wt ct increasing. Physical Exam Vital Signs: Temp Pulse Resp BP Pulse Ox 98.4 F 83 21 H 165/77 H 98 08/24/16 08:18 08/24/16 08:18 08/24/16 08:18 08/24/16 08:18 08/24/16 08:18 Intake & Output 08/23/16 08/24/16 08/25/16 06:59 06:59 06:59 Intake Total 2726 1243 Balance 2726 1243 Weight 87.9 kg 91.1 kg General appearance: PRESENT: no acute distress, well-developed, well-nourished Head exam: PRESENT: atraumatic, normocephalic Eye exam: PRESENT: conjunctiva pink, EOMI, PERRLA. ABSENT: scleral icterus Ear exam: PRESENT: normal external ear exam Mouth exam: PRESENT: moist, tongue midline Neck exam: ABSENT: carotid bruit, JVD, lymphadenopathy, thyromegaly Respiratory exam: PRESENT: clear to auscultation avery. ABSENT: rales, rhonchi, wheezes Cardiovascular exam: PRESENT: RRR. ABSENT: diastolic murmur, rubs, systolic murmur Pulses: PRESENT: normal dorsalis pedis pul Vascular exam: PRESENT: normal capillary refill GI/Abdominal exam: PRESENT: normal bowel sounds, soft. ABSENT: distended, guarding, mass, organolmegaly, rebound, tenderness Rectal exam: PRESENT: deferred Extremities exam: PRESENT: full ROM. ABSENT: calf tenderness, clubbing, pedal edema Neurological exam: PRESENT: alert, awake, oriented to person, oriented to place , oriented to time, oriented to situation, CN II-XII grossly intact. ABSENT: motor sensory deficit Psychiatric exam: PRESENT: appropriate affect, normal mood. ABSENT: homicidal ideation, suicidal ideation Skin exam: PRESENT: dry, intact, warm. ABSENT: cyanosis, rash Results Laboratory Results: 08/23/16 05:04 08/23/16 16:05 08/23/16 08/23/16 08/24/16 15:17 16:05 03:30 Sodium 133.7 L Potassium 2.8 L* Chloride 92 L Carbon Dioxide 31 H Anion Gap 11 BUN 12 Creatinine 0.55 Est GFR ( Amer) > 60 Est GFR (Non-Af Amer) > 60 Glucose 101 Calcium 8.7 Urine Color YELLOW Urine Appearance SLIGHTLY-CLOUDY Urine pH 5.0 Ur Specific [place] 1.017 Urine Protein 30 H Urine Glucose (UA) NEGATIVE Urine Ketones TRACE H Urine Blood NEGATIVE Urine Nitrite NEGATIVE Ur Leukocyte Esterase NEGATIVE Urine WBC (Auto) 18 Urine RBC (Auto) 1 Stool Occult Blood POSITIVE Impressions: Venous Doppler Study 08/18/16 16:19 IMPRESSION: 1. Right lower extremity DVT, popliteal and femoral veins. Hip X-Ray 08/18/16 17:43 IMPRESSION: No acute findings. DJD. Head CT 08/22/16 00:00 IMPRESSION: MILD CHRONIC CHANGES OF ATROPHY AND MICROVASCULAR ISCHEMIA. NO ACUTE PROCESS. Abdomen Ultrasound 08/23/16 00:00 IMPRESSION: NORMAL RIGHT UPPER QUADRANT ULTRASOUND. Abdomen/Pelvis CT 08/23/16 00:00 IMPRESSION: NORMAL CT OF THE CHEST WITH IV CONTRAST. IMPRESSION: 11 cm multilocular abscess in the left pelvis which extends along the iliopsoas musculature into the left femoral canal. There is also a separate 6.5 cm abscess in the deep right pelvis. Diffuse inflammatory changes are present throughout the pelvic fat. There is thickening throughout the sigmoid colon with probable diverticulitis as the origin of the adjacent abscesses. Chest CT 08/23/16 00:00 IMPRESSION: NORMAL CT OF THE CHEST WITH IV CONTRAST. IMPRESSION: 11 cm multilocular abscess in the left pelvis which extends along the iliopsoas musculature into the left femoral canal. There is also a separate 6.5 cm abscess in the deep right pelvis. Diffuse inflammatory changes are present throughout the pelvic fat. There is thickening throughout the sigmoid colon with probable diverticulitis as the origin of the adjacent abscesses. Status: Image reviewed by me Assessment & Plan - Diagnosis (1) Lower leg DVT (deep venous thromboembolism), acute Qualifiers: Laterality: left Qualified Code(s): I82.4Z2 - Acute embolism and thrombosis of unspecified deep veins of left distal lower extremity Is this a current diagnosis for this admission?: YesPlan: Con't lovenox. NO bleeding at this time. 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 Dan if he feels any surgical/IR intervention needed. - Time Time Spent with patient: 35 or more minutes Critical Time spent with patient: 35 or more minutes Medications reviewed and adjusted accordingly: Yes - Inpatient Certification Based on my medical assessment, after consideration of the patient's comorbidities, presenting symptoms, or acuity I expect that the services needed warrant INPATIENT care.: Yes I certify that my determination is in accordance with my understanding of Medicare's requirements for reasonable and necessary INPATIENT services [42 CFR 412.3e].: Yes Medical Necessity: Failure to Improve With Outpatient Therapy, Need For IV Fluids, Need for IV Antibiotics, Need for Surgery
[2016-08-24] MEDS: ERTAPENEM SODIUM 1 GM in NORMAL SALINE 50 ML IV SCH (16:28)
[2016-08-24 16:30] LABS: ANION GAP 9 (5-19); BLOOD UREA NITROGEN 11 mg/dL (7-20); CALCIUM 8.4 mg/dL (8.4-10.2); CARBON DIOXIDE 30 mmol/L (22-30); CHLORIDE 95 mmol/L (98-107); CREATININE RESULT 0.55 mg/dL (0.52-1.25); GLUCOSE 91 mg/dL (75-110); SODIUM 133.7 mmol/L (137-145)
[2016-08-24 16:34] LABS: POTASSIUM 2.6 mmol/L (3.6-5.0)
[2016-08-24] MEDS: SPIRONOLACTONE 25 MG TABLET PO SCH (21:37)
[2016-08-24] MEDS: SIMVASTATIN 10 MG TABLET PO SCH (21:38)
[2016-08-25] MEDS: POTASSI CL 20 MEQ/NS 1L 1,000 ML IV PRN ×2 (03:56→16:19)
[2016-08-25] MEDS: LANSOPRAZOLE 15 MG TAB.RAP.DR PO SCH ×2 (05:37→17:24)
--- NOTE | 2016-08-25 09:11 | PDOC PROGRESS REPORT ---
Subjective Progress Note for:: 08/25/16 Subjective:: feels like she could "melt away". No pain, dyspnea, nausea. Physical Exam Vital Signs: Temp Pulse Resp BP Pulse Ox 97.7 F 71 20 157/60 H 96 08/25/16 04:10 08/25/16 07:00 08/25/16 04:10 08/25/16 04:10 08/25/16 04:10 Intake & Output 08/24/16 08/25/16 08/26/16 07:59 07:59 07:59 Intake Total 1243 2724 Balance 1243 2724 Weight 200 lb 13.458 oz 198 lb 6.656 oz General appearance: PRESENT: mild distress Respiratory exam: PRESENT: clear to auscultation avery Cardiovascular exam: ABSENT: diastolic murmur, irregular rhythm, systolic murmur GI/Abdominal exam: PRESENT: tenderness - less LLQ. ABSENT: mass, organolmegaly Extremities exam: ABSENT: pedal edema Neurological exam: PRESENT: alert, oriented to situation Psychiatric exam: PRESENT: depressed Results Laboratory Results: 08/23/16 05:04 08/24/16 15:58 08/24/16 15:58 Sodium 133.7 L Potassium 2.6 L* Chloride 95 L Carbon Dioxide 30 Anion Gap 9 BUN 11 Creatinine 0.55 Est GFR ( Amer) > 60 Est GFR (Non-Af Amer) > 60 Glucose 91 Calcium 8.4 Impressions: Venous Doppler Study 08/18/16 16:19 IMPRESSION: 1. Right lower extremity DVT, popliteal and femoral veins. Hip X-Ray 08/18/16 17:43 IMPRESSION: No acute findings. DJD. Head CT 08/22/16 00:00 IMPRESSION: MILD CHRONIC CHANGES OF ATROPHY AND MICROVASCULAR ISCHEMIA. NO ACUTE PROCESS. Abdomen Ultrasound 08/23/16 00:00 IMPRESSION: NORMAL RIGHT UPPER QUADRANT ULTRASOUND. Abdomen/Pelvis CT 08/23/16 00:00 IMPRESSION: NORMAL CT OF THE CHEST WITH IV CONTRAST. IMPRESSION: 11 cm multilocular abscess in the left pelvis which extends along the iliopsoas musculature into the left femoral canal. There is also a separate 6.5 cm abscess in the deep right pelvis. Diffuse inflammatory changes are present throughout the pelvic fat. There is thickening throughout the sigmoid colon with probable diverticulitis as the origin of the adjacent abscesses. Chest CT 08/23/16 00:00 IMPRESSION: NORMAL CT OF THE CHEST WITH IV CONTRAST. IMPRESSION: 11 cm multilocular abscess in the left pelvis which extends along the iliopsoas musculature into the left femoral canal. There is also a separate 6.5 cm abscess in the deep right pelvis. Diffuse inflammatory changes are present throughout the pelvic fat. There is thickening throughout the sigmoid colon with probable diverticulitis as the origin of the adjacent abscesses. Catheter Change 08/24/16 00:00 IMPRESSION: Successful CT-guided placement of drainage catheter for pelvic abscess as described. Assessment & Plan - Diagnosis (1) Abdominopelvic abscess Is this a current diagnosis for this admission?: YesPlan: Dr Zhao suggested IVR drainage of L abscess which was accomplished. Will culture bag. Will repeat ct tomorrow for status of smaller abscess on R. (2) Hypokalemia Is this a current diagnosis for this admission?: YesPlan: lower inspite of IV potassium & losartan. Started oral & spironolactone (3) Phlebitis and thrombophlebitis of left popliteal vein Is this a current diagnosis for this admission?: Yes (4) Essential (primary) hypertension Is this a current diagnosis for this admission?: Yes (5) Chemotherapy-induced vomiting Is this a current diagnosis for this admission?: Yes (6) Right upper quadrant pain Is this a current diagnosis for this admission?: Yes
[2016-08-25] MEDS: LEVOTHYROXINE SODIUM 0.05 MG TABLET PO SCH (11:08)
[2016-08-25] MEDS: LOSARTAN POTASSIUM 50 MG TABLET PO SCH (11:09)
[2016-08-25] MEDS: AMLODIPINE BESYLATE 10 MG TABLET PO SCH (11:09)
[2016-08-25] MEDS: METOPROLOL SUCCINATE 50 MG TAB.SR.24H PO SCH (11:09)
[2016-08-25] MEDS: POTASSIUM CHLORIDE 10 MEQ TABLET.SA PO SCH ×2 (11:10→17:24)
[2016-08-25] MEDS: HYDROXYCHLOROQUINE SULFATE 200 MG TABLET PO SCH (11:12)
[2016-08-25] MEDS: ENOXAPARIN SODIUM INJ 100 MG/1 ML DISP.SYRIN SUBCUT SCH ×2 (11:12→22:04)
[2016-08-25] MEDS: SENNOSIDES/DOCUSATE 8.6-50 MG 1 EACH TABLET PO SCH ×2 (11:13→17:24)
[2016-08-25] MEDS: ERTAPENEM SODIUM 1 GM in NORMAL SALINE 50 ML IV SCH (16:18)
[2016-08-25 17:47] LABS: ANION GAP 9 (5-19); BLOOD UREA NITROGEN 8 mg/dL (7-20); CALCIUM 8.3 mg/dL (8.4-10.2); CARBON DIOXIDE 28 mmol/L (22-30); CHLORIDE 98 mmol/L (98-107); CREATININE RESULT 0.54 mg/dL (0.52-1.25); GLUCOSE 84 mg/dL (75-110); POTASSIUM 3.2 mmol/L (3.6-5.0); SODIUM 135.2 mmol/L (137-145)
[2016-08-25] MEDS: SIMVASTATIN 10 MG TABLET PO SCH (22:04)
[2016-08-26] MEDS: POTASSI CL 20 MEQ/NS 1L 1,000 ML IV PRN ×2 (02:27→15:19)
[2016-08-26] MEDS: LANSOPRAZOLE 15 MG TAB.RAP.DR PO SCH ×2 (06:23→17:24)
--- NOTE | 2016-08-26 07:46 | PDOC PROGRESS REPORT ---
Subjective Progress Note for:: 08/26/16 Subjective:: no pain dyspnea. Slight nausea Physical Exam Vital Signs: Temp Pulse Resp BP Pulse Ox 97.9 F 80 18 153/86 H 97 08/26/16 03:43 08/26/16 03:43 08/26/16 03:43 08/26/16 03:43 08/26/16 03:43 Intake & Output 08/24/16 08/25/16 08/26/16 07:59 07:59 07:59 Intake Total 1243 2724 3730 Output Total 100 Balance 1243 2724 3630 Weight 200 lb 13.458 oz 198 lb 6.656 oz 199 lb 4.766 oz General appearance: PRESENT: no acute distress Respiratory exam: PRESENT: clear to auscultation avery Cardiovascular exam: ABSENT: diastolic murmur, irregular rhythm, systolic murmur GI/Abdominal exam: PRESENT: tenderness - less LLQ. No guarding rebound Extremities exam: PRESENT: pedal edema - L 1+ Neurological exam: PRESENT: alert, oriented to situation Results Laboratory Results: 08/23/16 05:04 08/25/16 17:08 08/25/16 17:08 Sodium 135.2 L Potassium 3.2 L Chloride 98 Carbon Dioxide 28 Anion Gap 9 BUN 8 Creatinine 0.54 Est GFR ( Amer) > 60 Est GFR (Non-Af Amer) > 60 Glucose 84 Calcium 8.3 L Impressions: Venous Doppler Study 08/18/16 16:19 IMPRESSION: 1. Right lower extremity DVT, popliteal and femoral veins. Hip X-Ray 08/18/16 17:43 IMPRESSION: No acute findings. DJD. Head CT 08/22/16 00:00 IMPRESSION: MILD CHRONIC CHANGES OF ATROPHY AND MICROVASCULAR ISCHEMIA. NO ACUTE PROCESS. Abdomen Ultrasound 08/23/16 00:00 IMPRESSION: NORMAL RIGHT UPPER QUADRANT ULTRASOUND. Abdomen/Pelvis CT 08/23/16 00:00 IMPRESSION: NORMAL CT OF THE CHEST WITH IV CONTRAST. IMPRESSION: 11 cm multilocular abscess in the left pelvis which extends along the iliopsoas musculature into the left femoral canal. There is also a separate 6.5 cm abscess in the deep right pelvis. Diffuse inflammatory changes are present throughout the pelvic fat. There is thickening throughout the sigmoid colon with probable diverticulitis as the origin of the adjacent abscesses. Chest CT 08/23/16 00:00 IMPRESSION: NORMAL CT OF THE CHEST WITH IV CONTRAST. IMPRESSION: 11 cm multilocular abscess in the left pelvis which extends along the iliopsoas musculature into the left femoral canal. There is also a separate 6.5 cm abscess in the deep right pelvis. Diffuse inflammatory changes are present throughout the pelvic fat. There is thickening throughout the sigmoid colon with probable diverticulitis as the origin of the adjacent abscesses. Catheter Change 08/24/16 00:00 IMPRESSION: Successful CT-guided placement of drainage catheter for pelvic abscess as described. Assessment & Plan - Diagnosis (1) Abdominopelvic abscess Is this a current diagnosis for this admission?: YesPlan: 100ml in drain. CT pending (2) Hypokalemia Is this a current diagnosis for this admission?: Yes (3) Phlebitis and thrombophlebitis of left popliteal vein Is this a current diagnosis for this admission?: Yes (4) Essential (primary) hypertension Is this a current diagnosis for this admission?: Yes (5) Chemotherapy-induced vomiting Is this a current diagnosis for this admission?: Yes (6) Right upper quadrant pain Is this a current diagnosis for this admission?: Yes (7) Atrial flutter Qualifiers: Atrial flutter type: typical Qualified Code(s): I48.3 - Typical atrial flutter Is this a current diagnosis for this admission?: YesPlan: about 10s on monitor
[2016-08-26 08:56] LABS: HEMATOCRIT 32.3 % (36.0-47.0); HEMOGLOBIN 10.5 g/dL (12.0-15.5); HGB HCT DIFFERENCE -0.8; MEAN CORPUSCULAR HEMOGLOBIN 28.7 pg (27.0-33.4); MEAN CORPUSCULAR HGB CONC 32.5 g/dL (32.0-36.0); MEAN CORPUSCULAR VOLUME 88 fl (80-97); RED BLOOD COUNT 3.66 10^6/uL (3.72-5.28); RED CELL DISTRIBUTION WIDTH 15.5 % (11.5-14.0)
[2016-08-26 09:10] LABS: ANION GAP 8 (5-19); BLOOD UREA NITROGEN 9 mg/dL (7-20); CALCIUM 8.3 mg/dL (8.4-10.2); CARBON DIOXIDE 29 mmol/L (22-30); CHLORIDE 98 mmol/L (98-107); CREATININE RESULT 0.57 mg/dL (0.52-1.25); GLUCOSE 81 mg/dL (75-110); POTASSIUM 3.4 mmol/L (3.6-5.0); SODIUM 135.4 mmol/L (137-145)
[2016-08-26] MEDS: SENNOSIDES/DOCUSATE 8.6-50 MG 1 EACH TABLET PO SCH ×2 (09:14→17:24)
[2016-08-26] MEDS: AMLODIPINE BESYLATE 10 MG TABLET PO SCH (09:19)
[2016-08-26] MEDS: POTASSIUM CHLORIDE 10 MEQ TABLET.SA PO SCH ×2 (09:19→17:24)
[2016-08-26] MEDS: LOSARTAN POTASSIUM 50 MG TABLET PO SCH (09:20)
[2016-08-26] MEDS: SPIRONOLACTONE 25 MG TABLET PO SCH (09:20)
[2016-08-26] MEDS: LEVOTHYROXINE SODIUM 0.05 MG TABLET PO SCH (09:21)
[2016-08-26] MEDS: METOPROLOL SUCCINATE 50 MG TAB.SR.24H PO SCH (09:21)
[2016-08-26] MEDS: HYDROXYCHLOROQUINE SULFATE 200 MG TABLET PO SCH (09:22)
[2016-08-26] MEDS: ENOXAPARIN SODIUM INJ 100 MG/1 ML DISP.SYRIN SUBCUT SCH ×2 (09:23→21:12)
--- NOTE | 2016-08-26 10:19 | PDOC PROGRESS REPORT ---
Subjective Progress Note for:: 08/26/16 Subjective:: No acute events overnight, since I saw her last she did have interventional radiology place a drain in the left pelvic abscess site, there was purulent drainage, she is drinking contrast now for a CT pelvis with oral contrast to look at the abscess after 2 days post drain. Physical Exam Vital Signs: Temp Pulse Resp BP Pulse Ox 97.9 F 78 14 156/83 H 95 08/26/16 07:54 08/26/16 07:54 08/26/16 07:54 08/26/16 07:54 08/26/16 07:54 Intake & Output 08/25/16 08/26/16 08/27/16 06:59 06:59 06:59 Intake Total 2724 3730 Output Total 100 Balance 2724 3630 Weight 90 kg 90.4 kg General appearance: PRESENT: no acute distress, well-developed, well-nourished Head exam: PRESENT: atraumatic, normocephalic Eye exam: PRESENT: conjunctiva pink, EOMI, PERRLA. ABSENT: scleral icterus Ear exam: PRESENT: normal external ear exam Mouth exam: PRESENT: moist, tongue midline Neck exam: ABSENT: carotid bruit, JVD, lymphadenopathy, thyromegaly Respiratory exam: PRESENT: clear to auscultation avery. ABSENT: rales, rhonchi, wheezes Cardiovascular exam: PRESENT: RRR. ABSENT: diastolic murmur, rubs, systolic murmur Pulses: PRESENT: normal dorsalis pedis pul Vascular exam: PRESENT: normal capillary refill GI/Abdominal exam: PRESENT: normal bowel sounds, soft. ABSENT: distended, guarding, mass, organolmegaly, rebound, tenderness Rectal exam: PRESENT: deferred Extremities exam: PRESENT: full ROM. ABSENT: calf tenderness, clubbing, pedal edema Neurological exam: PRESENT: alert, awake, oriented to person, oriented to place , oriented to time, oriented to situation, CN II-XII grossly intact. ABSENT: motor sensory deficit Psychiatric exam: PRESENT: appropriate affect, normal mood. ABSENT: homicidal ideation, suicidal ideation Skin exam: PRESENT: dry, intact, warm. ABSENT: cyanosis, rash Results Laboratory Results: 08/26/16 08:19 08/26/16 08:19 12/25/16 12/26/16 12/26/16 17:08 08:19 08:19 WBC 12.0 H RBC 3.66 L Hgb 10.5 L Hct 32.3 L MCV 88 MCH 28.7 MCHC 32.5 RDW 15.5 H Plt Count 193 Sodium 135.2 L 135.4 L Potassium 3.2 L 3.4 L Chloride 98 98 Carbon Dioxide 28 29 Anion Gap 9 8 BUN 8 9 Creatinine 0.54 0.57 Est GFR ( Amer) > 60 > 60 Est GFR (Non-Af Amer) > 60 > 60 Glucose 84 81 Calcium 8.3 L 8.3 L 08/23/16 15:17 Clean Catch Midstream Urine Culture - Final Klebsiella Pneumoniae Impressions: Venous Doppler Study 08/18/16 16:19 IMPRESSION: 1. Right lower extremity DVT, popliteal and femoral veins. Hip X-Ray 08/18/16 17:43 IMPRESSION: No acute findings. DJD. Head CT 08/22/16 00:00 IMPRESSION: MILD CHRONIC CHANGES OF ATROPHY AND MICROVASCULAR ISCHEMIA. NO ACUTE PROCESS. Abdomen Ultrasound 08/23/16 00:00 IMPRESSION: NORMAL RIGHT UPPER QUADRANT ULTRASOUND. Abdomen/Pelvis CT 08/23/16 00:00 IMPRESSION: NORMAL CT OF THE CHEST WITH IV CONTRAST. IMPRESSION: 11 cm multilocular abscess in the left pelvis which extends along the iliopsoas musculature into the left femoral canal. There is also a separate 6.5 cm abscess in the deep right pelvis. Diffuse inflammatory changes are present throughout the pelvic fat. There is thickening throughout the sigmoid colon with probable diverticulitis as the origin of the adjacent abscesses. Chest CT 08/23/16 00:00 IMPRESSION: NORMAL CT OF THE CHEST WITH IV CONTRAST. IMPRESSION: 11 cm multilocular abscess in the left pelvis which extends along the iliopsoas musculature into the left femoral canal. There is also a separate 6.5 cm abscess in the deep right pelvis. Diffuse inflammatory changes are present throughout the pelvic fat. There is thickening throughout the sigmoid colon with probable diverticulitis as the origin of the adjacent abscesses. Catheter Change 08/24/16 00:00 IMPRESSION: Successful CT-guided placement of drainage catheter for pelvic abscess as described. Assessment & Plan - Diagnosis (1) Lower leg DVT (deep venous thromboembolism), acute Qualifiers: Laterality: left Qualified Code(s): I82.4Z2 - Acute embolism and thrombosis of unspecified deep veins of left distal lower extremity Is this a current diagnosis for this admission?: YesPlan: Continue with Lovenox, ultimately when we are ready to transition her to rehabilitation, we could switch her to oral anticoagulation, alternatively would be reasonable to continue the Lovenox as well. She will need at least 3 months of therapy and then retesting ultrasound. 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 But most likely , once the abscess issue is worked out, and patient is transition to rehabilitation, we would see her as an outpatient. At that point we would probably just initiate a surveillance approach. (3) Other iron deficiency anemias Is this a current diagnosis for this admission?: YesPlan: Hemoglobin stable, no need for further intervention right now. (4) Abdominopelvic abscess Is this a current diagnosis for this admission?: YesPlan: Drain is placed, this is being managed by primary team, as well as interventional radiology. Further imaging plan today, agree with antibiotic approach. - Time Time Spent with patient: 35 or more minutes Critical Time spent with patient: 35 or more minutes - Inpatient Certification Based on my medical assessment, after consideration of the patient's comorbidities, presenting symptoms, or acuity I expect that the services needed warrant INPATIENT care.: Yes I certify that my determination is in accordance with my understanding of Medicare's requirements for reasonable and necessary INPATIENT services [42 CFR 412.3e].: Yes Medical Necessity: Failure to Improve With Outpatient Therapy, Need For IV Fluids, Need For Continuous Telemetry Monitoring, Need for IV Antibiotics, Need for Surgery
[2016-08-26] MEDS: ERTAPENEM SODIUM 1 GM in NORMAL SALINE 50 ML IV SCH (15:19)
[2016-08-26] MEDS: SIMVASTATIN 10 MG TABLET PO SCH (21:12)
[2016-08-27] MEDS: POTASSI CL 20 MEQ/NS 1L 1,000 ML IV PRN ×3 (00:21→19:55)
[2016-08-27] MEDS: LANSOPRAZOLE 15 MG TAB.RAP.DR PO SCH ×2 (05:46→17:16)
--- NOTE | 2016-08-27 06:38 | PDOC PROGRESS REPORT ---
Subjective Progress Note for:: 08/27/16 Subjective:: "pretty good" Physical Exam Vital Signs: Temp Pulse Resp BP Pulse Ox 97.6 F 82 16 142/74 H 98 08/27/16 04:09 08/27/16 04:09 08/27/16 04:09 08/27/16 04:09 08/27/16 04:09 Intake & Output 08/25/16 08/26/16 08/27/16 07:59 07:59 07:59 Intake Total 2724 3730 3997 Output Total 100 0 Balance 2724 3630 3997 Weight 198 lb 6.656 oz 199 lb 4.766 oz 199 lb 8.293 oz General appearance: PRESENT: no acute distress Respiratory exam: PRESENT: clear to auscultation avery Cardiovascular exam: ABSENT: diastolic murmur, irregular rhythm, systolic murmur GI/Abdominal exam: PRESENT: tenderness - slight LLQ & suprapubic. ABSENT: mass , organolmegaly Extremities exam: PRESENT: pedal edema - L 1+ Results Laboratory Results: 08/26/16 08:19 08/26/16 08:19 08/26/16 08/26/16 08:19 08:19 WBC 12.0 H RBC 3.66 L Hgb 10.5 L Hct 32.3 L MCV 88 MCH 28.7 MCHC 32.5 RDW 15.5 H Plt Count 193 Sodium 135.4 L Potassium 3.4 L Chloride 98 Carbon Dioxide 29 Anion Gap 8 BUN 9 Creatinine 0.57 Est GFR ( Amer) > 60 Est GFR (Non-Af Amer) > 60 Glucose 81 Calcium 8.3 L 08/23/16 15:17 Clean Catch Midstream Urine Culture - Final Klebsiella Pneumoniae Impressions: Venous Doppler Study 08/18/16 16:19 IMPRESSION: 1. Right lower extremity DVT, popliteal and femoral veins. Hip X-Ray 08/18/16 17:43 IMPRESSION: No acute findings. DJD. Head CT 08/22/16 00:00 IMPRESSION: MILD CHRONIC CHANGES OF ATROPHY AND MICROVASCULAR ISCHEMIA. NO ACUTE PROCESS. Abdomen Ultrasound 08/23/16 00:00 IMPRESSION: NORMAL RIGHT UPPER QUADRANT ULTRASOUND. Abdomen/Pelvis CT 08/23/16 00:00 IMPRESSION: NORMAL CT OF THE CHEST WITH IV CONTRAST. IMPRESSION: 11 cm multilocular abscess in the left pelvis which extends along the iliopsoas musculature into the left femoral canal. There is also a separate 6.5 cm abscess in the deep right pelvis. Diffuse inflammatory changes are present throughout the pelvic fat. There is thickening throughout the sigmoid colon with probable diverticulitis as the origin of the adjacent abscesses. Chest CT 08/23/16 00:00 IMPRESSION: NORMAL CT OF THE CHEST WITH IV CONTRAST. IMPRESSION: 11 cm multilocular abscess in the left pelvis which extends along the iliopsoas musculature into the left femoral canal. There is also a separate 6.5 cm abscess in the deep right pelvis. Diffuse inflammatory changes are present throughout the pelvic fat. There is thickening throughout the sigmoid colon with probable diverticulitis as the origin of the adjacent abscesses. Catheter Change 08/24/16 00:00 IMPRESSION: Successful CT-guided placement of drainage catheter for pelvic abscess as described. Pelvis CT 08/26/16 00:00 IMPRESSION: Pelvic abscesses for cyst. Despite the presence of a drainage catheter in the left-sided abscess there has been minimal improvement. Assessment & Plan - Diagnosis (1) Abdominopelvic abscess Is this a current diagnosis for this admission?: YesPlan: wbc down to 12. CT unchanged at R cul de sac abscess. IR plans new drain. Ate yesterday (2) Hypokalemia Is this a current diagnosis for this admission?: Yes (3) Phlebitis and thrombophlebitis of left popliteal vein Is this a current diagnosis for this admission?: Yes (4) Essential (primary) hypertension Is this a current diagnosis for this admission?: Yes (5) Chemotherapy-induced vomiting Is this a current diagnosis for this admission?: Yes (6) Right upper quadrant pain Is this a current diagnosis for this admission?: Yes (7) Atrial flutter Qualifiers: Atrial flutter type: typical Qualified Code(s): I48.3 - Typical atrial flutter Is this a current diagnosis for this admission?: Yes
[2016-08-27] MEDS: ENOXAPARIN SODIUM INJ 100 MG/1 ML DISP.SYRIN SUBCUT SCH (10:35)
[2016-08-27] MEDS: SPIRONOLACTONE 25 MG TABLET PO SCH (10:38)
[2016-08-27] MEDS: METOPROLOL SUCCINATE 50 MG TAB.SR.24H PO SCH (10:39)
[2016-08-27] MEDS: LOSARTAN POTASSIUM 50 MG TABLET PO SCH (10:39)
[2016-08-27] MEDS: POTASSIUM CHLORIDE 10 MEQ TABLET.SA PO SCH ×2 (10:40→17:16)
[2016-08-27] MEDS: LEVOTHYROXINE SODIUM 0.05 MG TABLET PO SCH (10:40)
[2016-08-27] MEDS: AMLODIPINE BESYLATE 10 MG TABLET PO SCH (10:41)
[2016-08-27] MEDS: HYDROXYCHLOROQUINE SULFATE 200 MG TABLET PO SCH (10:48)
[2016-08-27] MEDS: SENNOSIDES/DOCUSATE 8.6-50 MG 1 EACH TABLET PO SCH ×2 (10:49→17:08)
[2016-08-27 16:33] LABS: ANION GAP 7 (5-19); BLOOD UREA NITROGEN 8 mg/dL (7-20); CALCIUM 8.3 mg/dL (8.4-10.2); CARBON DIOXIDE 28 mmol/L (22-30); CHLORIDE 100 mmol/L (98-107); CREATININE RESULT 0.47 mg/dL (0.52-1.25); GLUCOSE 94 mg/dL (75-110); POTASSIUM 3.8 mmol/L (3.6-5.0); SODIUM 134.7 mmol/L (137-145)
[2016-08-27] MEDS: ERTAPENEM SODIUM 1 GM in NORMAL SALINE 50 ML IV SCH (17:16)
[2016-08-27] MEDS: SIMVASTATIN 10 MG TABLET PO SCH (21:06)
[2016-08-28] MEDS: POTASSI CL 20 MEQ/NS 1L 1,000 ML IV PRN ×2 (05:20→15:45)
[2016-08-28] MEDS: LANSOPRAZOLE 15 MG TAB.RAP.DR PO SCH ×2 (05:21→17:45)
--- NOTE | 2016-08-28 06:28 | PDOC PROGRESS REPORT ---
Subjective Progress Note for:: 08/28/16 Subjective:: no pain nausea dyspnea Physical Exam Vital Signs: Temp Pulse Resp BP Pulse Ox 97.5 F 83 16 150/85 H 98 08/28/16 03:46 08/28/16 03:46 08/28/16 03:46 08/28/16 03:46 08/28/16 03:46 Intake & Output 08/26/16 08/27/16 08/28/16 07:59 07:59 07:59 Intake Total 3730 3997 4536 Output Total 100 0 20 Balance 3630 3997 4516 Weight 199 lb 4.766 oz 199 lb 8.293 oz 199 lb 8.293 oz General appearance: PRESENT: no acute distress Respiratory exam: PRESENT: clear to auscultation avery Cardiovascular exam: ABSENT: diastolic murmur, irregular rhythm, systolic murmur GI/Abdominal exam: PRESENT: tenderness - less suprapubic Extremities exam: PRESENT: pedal edema - L1+ Results Laboratory Results: 08/26/16 08:19 08/27/16 16:10 08/27/16 16:10 Sodium 134.7 L Potassium 3.8 Chloride 100 Carbon Dioxide 28 Anion Gap 7 BUN 8 Creatinine 0.47 L Est GFR ( Amer) > 60 Est GFR (Non-Af Amer) > 60 Glucose 94 Calcium 8.3 L Impressions: Venous Doppler Study 08/18/16 16:19 IMPRESSION: 1. Right lower extremity DVT, popliteal and femoral veins. Hip X-Ray 08/18/16 17:43 IMPRESSION: No acute findings. DJD. Head CT 08/22/16 00:00 IMPRESSION: MILD CHRONIC CHANGES OF ATROPHY AND MICROVASCULAR ISCHEMIA. NO ACUTE PROCESS. Abdomen Ultrasound 08/23/16 00:00 IMPRESSION: NORMAL RIGHT UPPER QUADRANT ULTRASOUND. Abdomen/Pelvis CT 08/23/16 00:00 IMPRESSION: NORMAL CT OF THE CHEST WITH IV CONTRAST. IMPRESSION: 11 cm multilocular abscess in the left pelvis which extends along the iliopsoas musculature into the left femoral canal. There is also a separate 6.5 cm abscess in the deep right pelvis. Diffuse inflammatory changes are present throughout the pelvic fat. There is thickening throughout the sigmoid colon with probable diverticulitis as the origin of the adjacent abscesses. Chest CT 08/23/16 00:00 IMPRESSION: NORMAL CT OF THE CHEST WITH IV CONTRAST. IMPRESSION: 11 cm multilocular abscess in the left pelvis which extends along the iliopsoas musculature into the left femoral canal. There is also a separate 6.5 cm abscess in the deep right pelvis. Diffuse inflammatory changes are present throughout the pelvic fat. There is thickening throughout the sigmoid colon with probable diverticulitis as the origin of the adjacent abscesses. Catheter Change 08/24/16 00:00 IMPRESSION: Successful CT-guided placement of drainage catheter for pelvic abscess as described. Pelvis CT 08/26/16 00:00 IMPRESSION: Pelvic abscesses for cyst. Despite the presence of a drainage catheter in the left-sided abscess there has been minimal improvement. Assessment & Plan - Diagnosis (1) Abdominopelvic abscess Is this a current diagnosis for this admission?: YesPlan: CT drain postponed till this am for NPO status (2) Hypokalemia Is this a current diagnosis for this admission?: YesPlan: improved. Stop spironolactone & oral KCl (3) Phlebitis and thrombophlebitis of left popliteal vein Is this a current diagnosis for this admission?: Yes (4) Essential (primary) hypertension Is this a current diagnosis for this admission?: Yes (5) Chemotherapy-induced vomiting Is this a current diagnosis for this admission?: Yes (6) Right upper quadrant pain Is this a current diagnosis for this admission?: Yes (7) Atrial flutter Qualifiers: Atrial flutter type: typical Qualified Code(s): I48.3 - Typical atrial flutter Is this a current diagnosis for this admission?: Yes (8) UTI (urinary tract infection) Qualifiers: Urinary tract infection type: acute cystitis Hematuria presence: without hematuria Qualified Code(s): N30.00 - Acute cystitis without hematuria Is this a current diagnosis for this admission?: YesPlan: urine grew 60k kleb sensitive to ertapenem & others
[2016-08-28 07:11] LABS: HEMATOCRIT 30.4 % (36.0-47.0); HGB HCT DIFFERENCE -0.4; MEAN CORPUSCULAR HEMOGLOBIN 28.8 pg (27.0-33.4); MEAN CORPUSCULAR HGB CONC 32.9 g/dL (32.0-36.0); MEAN CORPUSCULAR VOLUME 88 fl (80-97); RED BLOOD COUNT 3.47 10^6/uL (3.72-5.28); RED CELL DISTRIBUTION WIDTH 15.7 % (11.5-14.0); WHITE BLOOD COUNT 9.1 10^3/uL (4.0-10.5)
--- NOTE | 2016-08-28 08:25 | PDOC PROGRESS REPORT ---
Subjective Progress Note for:: 08/27/16 Subjective:: Left leg still painful Physical Exam Vital Signs: Temp Pulse Resp BP Pulse Ox 97.5 F 83 16 150/85 H 98 08/28/16 03:46 08/28/16 03:46 08/28/16 03:46 08/28/16 03:46 08/28/16 03:46 Intake & Output 08/27/16 08/28/16 08/29/16 06:59 06:59 06:59 Intake Total 3997 4536 Output Total 0 20 Balance 3997 4516 Weight 90.5 kg 90.5 kg General appearance: PRESENT: no acute distress Head exam: PRESENT: other - alopecia Eye exam: PRESENT: EOMI, PERRLA Ear exam: PRESENT: normal external ear exam Mouth exam: PRESENT: dry mucosa Neck exam: PRESENT: full ROM Respiratory exam: PRESENT: clear to auscultation avery Cardiovascular exam: PRESENT: RRR GI/Abdominal exam: PRESENT: soft, other - Left lower quadrant drain Extremities exam: PRESENT: +1 edema - on Left LE Neurological exam: PRESENT: alert, awake Results Laboratory Results: 08/28/16 07:00 08/27/16 16:10 08/27/16 08/28/16 16:10 07:00 WBC 9.1 RBC 3.47 L Hgb 10.0 L Hct 30.4 L MCV 88 MCH 28.8 MCHC 32.9 RDW 15.7 H Plt Count 204 Sodium 134.7 L Potassium 3.8 Chloride 100 Carbon Dioxide 28 Anion Gap 7 BUN 8 Creatinine 0.47 L Est GFR ( Amer) > 60 Est GFR (Non-Af Amer) > 60 Glucose 94 Calcium 8.3 L Impressions: Venous Doppler Study 08/18/16 16:19 IMPRESSION: 1. Right lower extremity DVT, popliteal and femoral veins. Hip X-Ray 08/18/16 17:43 IMPRESSION: No acute findings. DJD. Head CT 08/22/16 00:00 IMPRESSION: MILD CHRONIC CHANGES OF ATROPHY AND MICROVASCULAR ISCHEMIA. NO ACUTE PROCESS. Abdomen Ultrasound 08/23/16 00:00 IMPRESSION: NORMAL RIGHT UPPER QUADRANT ULTRASOUND. Abdomen/Pelvis CT 08/23/16 00:00 IMPRESSION: NORMAL CT OF THE CHEST WITH IV CONTRAST. IMPRESSION: 11 cm multilocular abscess in the left pelvis which extends along the iliopsoas musculature into the left femoral canal. There is also a separate 6.5 cm abscess in the deep right pelvis. Diffuse inflammatory changes are present throughout the pelvic fat. There is thickening throughout the sigmoid colon with probable diverticulitis as the origin of the adjacent abscesses. Chest CT 08/23/16 00:00 IMPRESSION: NORMAL CT OF THE CHEST WITH IV CONTRAST. IMPRESSION: 11 cm multilocular abscess in the left pelvis which extends along the iliopsoas musculature into the left femoral canal. There is also a separate 6.5 cm abscess in the deep right pelvis. Diffuse inflammatory changes are present throughout the pelvic fat. There is thickening throughout the sigmoid colon with probable diverticulitis as the origin of the adjacent abscesses. Catheter Change 08/24/16 00:00 IMPRESSION: Successful CT-guided placement of drainage catheter for pelvic abscess as described. Pelvis CT 08/26/16 00:00 IMPRESSION: Pelvic abscesses for cyst. Despite the presence of a drainage catheter in the left-sided abscess there has been minimal improvement. Assessment & Plan - Diagnosis (1) Abdominopelvic abscess Is this a current diagnosis for this admission?: YesPlan: Continue present drain and plan for the right on 08/28 (2) Lower leg DVT (deep venous thromboembolism), acute Qualifiers: Laterality: left Qualified Code(s): I82.4Z2 - Acute embolism and thrombosis of unspecified deep veins of left distal lower extremity Is this a current diagnosis for this admission?: YesPlan: continue anticoagulation (3) Uterus cancer Qualifiers: Malignant neoplasm of uterus location: body of uterus Malignant neoplasm of body of uterus location: endometrium Qualified Code(s): 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
--- NOTE | 2016-08-28 08:28 | PDOC PROGRESS REPORT ---
Subjective Progress Note for:: 08/28/16 Subjective:: Left leg feeling better but very weak Physical Exam Vital Signs: Temp Pulse Resp BP Pulse Ox 97.5 F 83 16 150/85 H 98 08/28/16 03:46 08/28/16 03:46 08/28/16 03:46 08/28/16 03:46 08/28/16 03:46 Intake & Output 08/27/16 08/28/16 08/29/16 06:59 06:59 06:59 Intake Total 3997 4536 Output Total 0 20 Balance 3997 4516 Weight 90.5 kg 90.5 kg General appearance: PRESENT: no acute distress Head exam: PRESENT: normocephalic, other - alopecia Eye exam: PRESENT: EOMI, PERRLA Mouth exam: PRESENT: dry mucosa Neck exam: PRESENT: full ROM Respiratory exam: PRESENT: clear to auscultation avery Cardiovascular exam: PRESENT: RRR GI/Abdominal exam: PRESENT: soft - LLQ drain Rectal exam: PRESENT: deferred Extremities exam: PRESENT: other - LLE edema improved and SCD on the right Neurological exam: PRESENT: alert, awake Results Laboratory Results: 08/28/16 07:00 08/27/16 16:10 08/27/16 08/28/16 16:10 07:00 WBC 9.1 RBC 3.47 L Hgb 10.0 L Hct 30.4 L MCV 88 MCH 28.8 MCHC 32.9 RDW 15.7 H Plt Count 204 Sodium 134.7 L Potassium 3.8 Chloride 100 Carbon Dioxide 28 Anion Gap 7 BUN 8 Creatinine 0.47 L Est GFR ( Amer) > 60 Est GFR (Non-Af Amer) > 60 Glucose 94 Calcium 8.3 L Impressions: Venous Doppler Study 08/18/16 16:19 IMPRESSION: 1. Right lower extremity DVT, popliteal and femoral veins. Hip X-Ray 08/18/16 17:43 IMPRESSION: No acute findings. DJD. Head CT 08/22/16 00:00 IMPRESSION: MILD CHRONIC CHANGES OF ATROPHY AND MICROVASCULAR ISCHEMIA. NO ACUTE PROCESS. Abdomen Ultrasound 08/23/16 00:00 IMPRESSION: NORMAL RIGHT UPPER QUADRANT ULTRASOUND. Abdomen/Pelvis CT 08/23/16 00:00 IMPRESSION: NORMAL CT OF THE CHEST WITH IV CONTRAST. IMPRESSION: 11 cm multilocular abscess in the left pelvis which extends along the iliopsoas musculature into the left femoral canal. There is also a separate 6.5 cm abscess in the deep right pelvis. Diffuse inflammatory changes are present throughout the pelvic fat. There is thickening throughout the sigmoid colon with probable diverticulitis as the origin of the adjacent abscesses. Chest CT 08/23/16 00:00 IMPRESSION: NORMAL CT OF THE CHEST WITH IV CONTRAST. IMPRESSION: 11 cm multilocular abscess in the left pelvis which extends along the iliopsoas musculature into the left femoral canal. There is also a separate 6.5 cm abscess in the deep right pelvis. Diffuse inflammatory changes are present throughout the pelvic fat. There is thickening throughout the sigmoid colon with probable diverticulitis as the origin of the adjacent abscesses. Catheter Change 08/24/16 00:00 IMPRESSION: Successful CT-guided placement of drainage catheter for pelvic abscess as described. Pelvis CT 08/26/16 00:00 IMPRESSION: Pelvic abscesses for cyst. Despite the presence of a drainage catheter in the left-sided abscess there has been minimal improvement. Assessment & Plan - Diagnosis (1) Abdominopelvic abscess Is this a current diagnosis for this admission?: YesPlan: right sided drain today (2) Lower leg DVT (deep venous thromboembolism), acute Qualifiers: Laterality: left Qualified Code(s): I82.4Z2 - Acute embolism and thrombosis of unspecified deep veins of left distal lower extremity Is this a current diagnosis for this admission?: YesPlan: Hold Lovenox for the procedure then resume (3) Uterus cancer Qualifiers: Malignant neoplasm of uterus location: body of uterus Malignant neoplasm of body of uterus location: endometrium Qualified Code(s): 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
[2016-08-28 11:47] LABS: PARTIAL THROMBOPLASTIN TIME 35.1 SEC (23.5-35.8)
[2016-08-28] MEDS ORDERED: MIDAZOLAM 2 MG/2 ML INJ ONE (13:10)
[2016-08-28] MEDS ORDERED: FENTANYL CITRATE INJ/PF 100 MCG/2 ML AMPUL ONE (13:11)
[2016-08-28] MEDS: LEVOTHYROXINE SODIUM 0.025 MG TABLET PO SCH (15:36)
[2016-08-28] MEDS: LEVOTHYROXINE SODIUM 0.1 MG TABLET PO SCH (15:36)
[2016-08-28] MEDS: ENOXAPARIN SODIUM INJ 100 MG/1 ML DISP.SYRIN SUBCUT SCH ×2 (15:37→21:20)
[2016-08-28] MEDS: ERTAPENEM SODIUM 1 GM in NORMAL SALINE 50 ML IV SCH (15:45)
[2016-08-28] MEDS: SENNOSIDES/DOCUSATE 8.6-50 MG 1 EACH TABLET PO SCH ×2 (16:01→17:46)
[2016-08-28] MEDS: AMLODIPINE BESYLATE 10 MG TABLET PO SCH (16:08)
[2016-08-28] MEDS: METOPROLOL SUCCINATE 50 MG TAB.SR.24H PO SCH (16:10)
[2016-08-28] MEDS: HYDROXYCHLOROQUINE SULFATE 200 MG TABLET PO SCH (16:11)
[2016-08-28] MEDS: LOSARTAN POTASSIUM 50 MG TABLET PO SCH (16:11)
[2016-08-28 17:16] LABS: ANION GAP 13 (5-19); BLOOD UREA NITROGEN 7 mg/dL (7-20); CALCIUM 8.6 mg/dL (8.4-10.2); CARBON DIOXIDE 28 mmol/L (22-30); CHLORIDE 95 mmol/L (98-107); CREATININE RESULT 0.49 mg/dL (0.52-1.25); GLUCOSE 92 mg/dL (75-110); POTASSIUM 3.9 mmol/L (3.6-5.0); SODIUM 135.5 mmol/L (137-145)
[2016-08-28] MEDS: SIMVASTATIN 10 MG TABLET PO SCH (21:19)
[2016-08-29] MEDS: POTASSI CL 20 MEQ/NS 1L 1,000 ML IV PRN ×3 (02:50→21:56)
[2016-08-29] MEDS: LANSOPRAZOLE 15 MG TAB.RAP.DR PO SCH ×2 (05:58→21:50)
--- NOTE | 2016-08-29 07:55 | PDOC PROGRESS REPORT ---
Subjective Progress Note for:: 08/29/16 Subjective:: "good" Physical Exam Vital Signs: Temp Pulse Resp BP Pulse Ox 98.0 F 82 19 126/68 H 96 08/28/16 23:23 08/29/16 02:00 08/28/16 23:23 08/28/16 23:23 08/28/16 23:23 Intake & Output 08/27/16 08/28/16 08/29/16 07:59 07:59 07:59 Intake Total 3997 4536 150 Output Total 0 20 10 Balance 3997 4516 140 Weight 199 lb 8.293 oz 199 lb 8.293 oz 199 lb 8.293 oz General appearance: PRESENT: no acute distress Respiratory exam: PRESENT: clear to auscultation avery Cardiovascular exam: ABSENT: diastolic murmur, irregular rhythm, systolic murmur GI/Abdominal exam: ABSENT: mass, organolmegaly, tenderness Extremities exam: PRESENT: pedal edema - L+ Results Laboratory Results: 08/28/16 07:00 08/28/16 16:46 08/28/16 16:46 Sodium 135.5 L Potassium 3.9 Chloride 95 L Carbon Dioxide 28 Anion Gap 13 BUN 7 Creatinine 0.49 L Est GFR ( Amer) > 60 Est GFR (Non-Af Amer) > 60 Glucose 92 Calcium 8.6 08/23/16 16:38 Blood Blood Culture - Final NO GROWTH IN 5 DAYS 08/23/16 16:05 Blood Blood Culture - Final NO GROWTH IN 5 DAYS Impressions: Venous Doppler Study 08/18/16 16:19 IMPRESSION: 1. Right lower extremity DVT, popliteal and femoral veins. Hip X-Ray 08/18/16 17:43 IMPRESSION: No acute findings. DJD. Head CT 08/22/16 00:00 IMPRESSION: MILD CHRONIC CHANGES OF ATROPHY AND MICROVASCULAR ISCHEMIA. NO ACUTE PROCESS. Abdomen Ultrasound 08/23/16 00:00 IMPRESSION: NORMAL RIGHT UPPER QUADRANT ULTRASOUND. Abdomen/Pelvis CT 08/23/16 00:00 IMPRESSION: NORMAL CT OF THE CHEST WITH IV CONTRAST. IMPRESSION: 11 cm multilocular abscess in the left pelvis which extends along the iliopsoas musculature into the left femoral canal. There is also a separate 6.5 cm abscess in the deep right pelvis. Diffuse inflammatory changes are present throughout the pelvic fat. There is thickening throughout the sigmoid colon with probable diverticulitis as the origin of the adjacent abscesses. Chest CT 08/23/16 00:00 IMPRESSION: NORMAL CT OF THE CHEST WITH IV CONTRAST. IMPRESSION: 11 cm multilocular abscess in the left pelvis which extends along the iliopsoas musculature into the left femoral canal. There is also a separate 6.5 cm abscess in the deep right pelvis. Diffuse inflammatory changes are present throughout the pelvic fat. There is thickening throughout the sigmoid colon with probable diverticulitis as the origin of the adjacent abscesses. Catheter Change 08/24/16 00:00 IMPRESSION: Successful CT-guided placement of drainage catheter for pelvic abscess as described. Pelvis CT 08/26/16 00:00 IMPRESSION: Pelvic abscesses for cyst. Despite the presence of a drainage catheter in the left-sided abscess there has been minimal improvement. Percutaneous Drainage 08/28/16 00:00 IMPRESSION: CT GUIDED DRAINAGE OF TWO SEPARATE PELVIC ABSCESSES PERFORMED WITHOUT IMMEDIATE COMPLICATION. Assessment & Plan - Diagnosis (1) Abdominopelvic abscess Is this a current diagnosis for this admission?: YesPlan: L drain grew+ grpF beta strep. R abscess drained posteriorly. WBC normal. Continue ertapenem. (2) Hypokalemia Is this a current diagnosis for this admission?: Yes (3) Phlebitis and thrombophlebitis of left popliteal vein Is this a current diagnosis for this admission?: Yes (4) Essential (primary) hypertension Is this a current diagnosis for this admission?: Yes (5) Chemotherapy-induced vomiting Is this a current diagnosis for this admission?: Yes (6) Right upper quadrant pain Is this a current diagnosis for this admission?: Yes (7) Atrial flutter Qualifiers: Atrial flutter type: typical Qualified Code(s): I48.3 - Typical atrial flutter Is this a current diagnosis for this admission?: Yes (8) UTI (urinary tract infection) Qualifiers: Urinary tract infection type: acute cystitis Hematuria presence: without hematuria Qualified Code(s): N30.00 - Acute cystitis without hematuria Is this a current diagnosis for this admission?: Yes
[2016-08-29] MEDS: LEVOTHYROXINE SODIUM 0.1 MG TABLET PO SCH (08:04)
[2016-08-29] MEDS: LEVOTHYROXINE SODIUM 0.025 MG TABLET PO SCH (08:04)
[2016-08-29] MEDS: AMLODIPINE BESYLATE 10 MG TABLET PO SCH (10:18)
[2016-08-29] MEDS: ENOXAPARIN SODIUM INJ 100 MG/1 ML DISP.SYRIN SUBCUT SCH ×2 (10:18→21:56)
[2016-08-29] MEDS: LOSARTAN POTASSIUM 50 MG TABLET PO SCH (10:18)
[2016-08-29] MEDS: HYDROXYCHLOROQUINE SULFATE 200 MG TABLET PO SCH (10:19)
[2016-08-29] MEDS: METOPROLOL SUCCINATE 50 MG TAB.SR.24H PO SCH (10:19)
[2016-08-29] MEDS: SENNOSIDES/DOCUSATE 8.6-50 MG 1 EACH TABLET PO SCH ×2 (10:20→21:50)
[2016-08-29] MEDS: ERTAPENEM SODIUM 1 GM in NORMAL SALINE 50 ML IV SCH (15:58)
[2016-08-29] MEDS: SIMVASTATIN 10 MG TABLET PO SCH (21:56)
[2016-08-30 04:48] LABS: APPEARANCE,URINE CLEAR; BILIRUBIN,URINE NEGATIVE (NEGATIVE); GLUCOSE, URINE NEGATIVE (NEGATIVE); KETONES,URINE TRACE mg/dL (NEGATIVE); LEUKOCYTE ESTERASE,URINE NEGATIVE (NEGATIVE); NITRITE,URINE NEGATIVE (NEGATIVE); PROTEIN,URINE NEGATIVE (NEGATIVE); URINE SPECIFIC GRAVITY 1.008
[2016-08-30] MEDS: LANSOPRAZOLE 15 MG TAB.RAP.DR PO SCH ×2 (05:02→17:57)
[2016-08-30 06:49] LABS: HEMATOCRIT 31.9 % (36.0-47.0); HEMOGLOBIN 10.6 g/dL (12.0-15.5); HGB HCT DIFFERENCE -0.1; MEAN CORPUSCULAR HGB CONC 33.1 g/dL (32.0-36.0); MEAN CORPUSCULAR VOLUME 87 fl (80-97); RED BLOOD COUNT 3.66 10^6/uL (3.72-5.28); RED CELL DISTRIBUTION WIDTH 15.6 % (11.5-14.0); WHITE BLOOD COUNT 9.4 10^3/uL (4.0-10.5)
--- NOTE | 2016-08-30 07:54 | PDOC PROGRESS REPORT ---
Subjective Progress Note for:: 08/30/16 Subjective:: hungry Physical Exam Vital Signs: Temp Pulse Resp BP Pulse Ox 97.4 F 89 18 130/86 H 95 08/30/16 04:44 08/30/16 04:44 08/30/16 04:44 08/30/16 04:44 08/30/16 04:44 Intake & Output 08/28/16 08/29/16 08/30/16 07:59 07:59 07:59 Intake Total 4536 150 3682 Output Total 20 10 240 Balance 4516 140 3442 Weight 199 lb 8.293 oz 199 lb 8.293 oz 199 lb 8.293 oz General appearance: PRESENT: no acute distress Respiratory exam: PRESENT: clear to auscultation avery Cardiovascular exam: ABSENT: diastolic murmur, irregular rhythm, systolic murmur GI/Abdominal exam: ABSENT: mass, organolmegaly, tenderness Extremities exam: PRESENT: pedal edema - L trace Results Laboratory Results: 08/30/16 06:22 08/28/16 16:46 08/30/16 08/30/16 04:25 06:22 WBC 9.4 RBC 3.66 L Hgb 10.6 L Hct 31.9 L MCV 87 MCH 29.0 MCHC 33.1 RDW 15.6 H Plt Count 206 Urine Color STRAW Urine Appearance CLEAR Urine pH 7.0 Ur Specific [place] 1.008 Urine Protein NEGATIVE Urine Glucose (UA) NEGATIVE Urine Ketones TRACE H Urine Blood NEGATIVE Urine Nitrite NEGATIVE Ur Leukocyte Esterase NEGATIVE Urine WBC (Auto) 3 Urine RBC (Auto) 6 Impressions: Venous Doppler Study 08/18/16 16:19 IMPRESSION: 1. Right lower extremity DVT, popliteal and femoral veins. Hip X-Ray 08/18/16 17:43 IMPRESSION: No acute findings. DJD. Head CT 08/22/16 00:00 IMPRESSION: MILD CHRONIC CHANGES OF ATROPHY AND MICROVASCULAR ISCHEMIA. NO ACUTE PROCESS. Abdomen Ultrasound 08/23/16 00:00 IMPRESSION: NORMAL RIGHT UPPER QUADRANT ULTRASOUND. Abdomen/Pelvis CT 08/23/16 00:00 IMPRESSION: NORMAL CT OF THE CHEST WITH IV CONTRAST. IMPRESSION: 11 cm multilocular abscess in the left pelvis which extends along the iliopsoas musculature into the left femoral canal. There is also a separate 6.5 cm abscess in the deep right pelvis. Diffuse inflammatory changes are present throughout the pelvic fat. There is thickening throughout the sigmoid colon with probable diverticulitis as the origin of the adjacent abscesses. Chest CT 08/23/16 00:00 IMPRESSION: NORMAL CT OF THE CHEST WITH IV CONTRAST. IMPRESSION: 11 cm multilocular abscess in the left pelvis which extends along the iliopsoas musculature into the left femoral canal. There is also a separate 6.5 cm abscess in the deep right pelvis. Diffuse inflammatory changes are present throughout the pelvic fat. There is thickening throughout the sigmoid colon with probable diverticulitis as the origin of the adjacent abscesses. Catheter Change 08/24/16 00:00 IMPRESSION: Successful CT-guided placement of drainage catheter for pelvic abscess as described. Pelvis CT 08/26/16 00:00 IMPRESSION: Pelvic abscesses for cyst. Despite the presence of a drainage catheter in the left-sided abscess there has been minimal improvement. Percutaneous Drainage 08/28/16 00:00 IMPRESSION: CT GUIDED DRAINAGE OF TWO SEPARATE PELVIC ABSCESSES PERFORMED WITHOUT IMMEDIATE COMPLICATION. Assessment & Plan - Diagnosis (1) Abdominopelvic abscess Is this a current diagnosis for this admission?: YesPlan: 2 drains working. Both abscesses growing grpF strep. R also gram negatives. Continue ertapenem into 2nd week. Up to chair (2) Phlebitis and thrombophlebitis of left popliteal vein Is this a current diagnosis for this admission?: Yes (3) UTI (urinary tract infection) Qualifiers: Urinary tract infection type: acute cystitis Hematuria presence: without hematuria Qualified Code(s): N30.00 - Acute cystitis without hematuria Is this a current diagnosis for this admission?: Yes (4) Hypokalemia Is this a current diagnosis for this admission?: Yes (5) Essential (primary) hypertension Is this a current diagnosis for this admission?: Yes (6) Chemotherapy-induced vomiting Is this a current diagnosis for this admission?: Yes (7) Right upper quadrant pain Is this a current diagnosis for this admission?: Yes (8) Atrial flutter Qualifiers: Atrial flutter type: typical Qualified Code(s): I48.3 - Typical atrial flutter Is this a current diagnosis for this admission?: Yes
[2016-08-30] MEDS: ENOXAPARIN SODIUM INJ 100 MG/1 ML DISP.SYRIN SUBCUT SCH ×2 (10:03→21:24)
[2016-08-30] MEDS: POTASSI CL 20 MEQ/NS 1L 1,000 ML IV PRN ×2 (10:06→21:23)
[2016-08-30] MEDS: METOPROLOL SUCCINATE 50 MG TAB.SR.24H PO SCH (10:08)
[2016-08-30] MEDS: HYDROXYCHLOROQUINE SULFATE 200 MG TABLET PO SCH (10:09)
[2016-08-30] MEDS: SENNOSIDES/DOCUSATE 8.6-50 MG 1 EACH TABLET PO SCH ×2 (10:09→17:57)
[2016-08-30] MEDS: LOSARTAN POTASSIUM 50 MG TABLET PO SCH (10:09)
[2016-08-30] MEDS: AMLODIPINE BESYLATE 10 MG TABLET PO SCH (10:09)
[2016-08-30] MEDS: LEVOTHYROXINE SODIUM 0.025 MG TABLET PO SCH (10:10)
[2016-08-30] MEDS: LEVOTHYROXINE SODIUM 0.1 MG TABLET PO SCH (10:10)
[2016-08-30] MEDS: ERTAPENEM SODIUM 1 GM in NORMAL SALINE 50 ML IV SCH (17:57)
[2016-08-30] MEDS: SIMVASTATIN 10 MG TABLET PO SCH (21:24)
--- NOTE | 2016-08-31 01:32 | PDOC PROGRESS REPORT ---
Subjective Progress Note for:: 08/31/16 Subjective:: Feeling better but so very weak that she can't sit up to feed herself Physical Exam Vital Signs: Temp Pulse Resp BP Pulse Ox 97.6 F 86 16 137/75 H 97 08/30/16 23:37 08/30/16 23:37 08/30/16 23:37 08/30/16 23:37 08/30/16 23:37 Intake & Output 08/29/16 08/30/16 08/31/16 06:59 06:59 06:59 Intake Total 150 3682 1891 Output Total 10 240 Balance 140 3442 1891 Weight 90.5 kg 90.5 kg 88 kg General appearance: PRESENT: no acute distress Head exam: PRESENT: normocephalic Eye exam: PRESENT: EOMI, PERRLA Ear exam: PRESENT: normal external ear exam Mouth exam: PRESENT: dry mucosa Respiratory exam: PRESENT: clear to auscultation avery Cardiovascular exam: PRESENT: RRR GI/Abdominal exam: PRESENT: soft - Drains in place Neurological exam: PRESENT: alert, awake, oriented to person, oriented to place , oriented to time, oriented to situation Results Laboratory Results: 08/30/16 06:22 08/28/16 16:46 08/30/16 08/30/16 04:25 06:22 WBC 9.4 RBC 3.66 L Hgb 10.6 L Hct 31.9 L MCV 87 MCH 29.0 MCHC 33.1 RDW 15.6 H Plt Count 206 Urine Color STRAW Urine Appearance CLEAR Urine pH 7.0 Ur Specific Cameron 1.008 Urine Protein NEGATIVE Urine Glucose (UA) NEGATIVE Urine Ketones TRACE H Urine Blood NEGATIVE Urine Nitrite NEGATIVE Ur Leukocyte Esterase NEGATIVE Urine WBC (Auto) 3 Urine RBC (Auto) 6 08/26/16 15:52 Abdominal Fluid Gram Stain - Final 08/26/16 15:52 Abdominal Fluid Body Fluid Culture - Final Group F Beta Streptococcus Bacteroides Fragilis Group Peptostreptococcus Species Prevotella Species 08/28/16 14:10 Abdominal Fluid Gram Stain - Final 08/23/16 16:38 Blood Blood Culture - Final NO GROWTH IN 5 DAYS 08/23/16 16:05 Blood Blood Culture - Final NO GROWTH IN 5 DAYS Impressions: Venous Doppler Study 08/18/16 16:19 IMPRESSION: 1. Right lower extremity DVT, popliteal and femoral veins. Hip X-Ray 08/18/16 17:43 IMPRESSION: No acute findings. DJD. Head CT 08/22/16 00:00 IMPRESSION: MILD CHRONIC CHANGES OF ATROPHY AND MICROVASCULAR ISCHEMIA. NO ACUTE PROCESS. Abdomen Ultrasound 08/23/16 00:00 IMPRESSION: NORMAL RIGHT UPPER QUADRANT ULTRASOUND. Abdomen/Pelvis CT 08/23/16 00:00 IMPRESSION: NORMAL CT OF THE CHEST WITH IV CONTRAST. IMPRESSION: 11 cm multilocular abscess in the left pelvis which extends along the iliopsoas musculature into the left femoral canal. There is also a separate 6.5 cm abscess in the deep right pelvis. Diffuse inflammatory changes are present throughout the pelvic fat. There is thickening throughout the sigmoid colon with probable diverticulitis as the origin of the adjacent abscesses. Chest CT 08/23/16 00:00 IMPRESSION: NORMAL CT OF THE CHEST WITH IV CONTRAST. IMPRESSION: 11 cm multilocular abscess in the left pelvis which extends along the iliopsoas musculature into the left femoral canal. There is also a separate 6.5 cm abscess in the deep right pelvis. Diffuse inflammatory changes are present throughout the pelvic fat. There is thickening throughout the sigmoid colon with probable diverticulitis as the origin of the adjacent abscesses. Catheter Change 08/24/16 00:00 IMPRESSION: Successful CT-guided placement of drainage catheter for pelvic abscess as described. Pelvis CT 08/26/16 00:00 IMPRESSION: Pelvic abscesses for cyst. Despite the presence of a drainage catheter in the left-sided abscess there has been minimal improvement. Percutaneous Drainage 08/28/16 00:00 IMPRESSION: CT GUIDED DRAINAGE OF TWO SEPARATE PELVIC ABSCESSES PERFORMED WITHOUT IMMEDIATE COMPLICATION. Assessment & Plan - Diagnosis (1) Abdominopelvic abscess Is this a current diagnosis for this admission?: YesPlan: Continue Etrapenem for multiorganism abscess (2) Lower leg DVT (deep venous thromboembolism), acute Qualifiers: Laterality: left Qualified Code(s): I82.4Z2 - Acute embolism and thrombosis of unspecified deep veins of left distal lower extremity Is this a current diagnosis for this admission?: YesPlan: Her leg is improved (3) Uterus cancer Qualifiers: Malignant neoplasm of uterus location: body of uterus Malignant neoplasm of body of uterus location: endometrium Qualified Code(s): C54.1 - Malignant neoplasm of endometrium Is this a current diagnosis for this admission?: YesPlan: Holding therapy - Time Time Spent with patient: 25-34 minutes Critical Time spent with patient: 15-24 minutes Medications reviewed and adjusted accordingly: Yes Anticipated discharge: SNF - Inpatient Certification Based on my medical assessment, after consideration of the patient's comorbidities, presenting symptoms, or acuity I expect that the services needed warrant INPATIENT care.: Yes I certify that my determination is in accordance with my understanding of Medicare's requirements for reasonable and necessary INPATIENT services [42 CFR 412.3e].: Yes Medical Necessity: Need for IV Antibiotics
[2016-08-31] MEDS: LANSOPRAZOLE 15 MG TAB.RAP.DR PO SCH ×2 (05:14→17:47)
[2016-08-31] MEDS: POTASSI CL 20 MEQ/NS 1L 1,000 ML IV PRN ×2 (06:53→16:37)
--- NOTE | 2016-08-31 07:00 | PDOC PROGRESS REPORT ---
Subjective Progress Note for:: 08/31/16 Subjective:: feels too weak to open food on tray and too nauseated to eat it. Still full code. Refused antidepressant because it might change her personality. Knees buckled with PT. Physical Exam Vital Signs: Temp Pulse Resp BP Pulse Ox 97.6 F 82 16 137/75 H 97 08/30/16 23:37 08/31/16 02:00 08/30/16 23:37 08/30/16 23:37 08/30/16 23:37 Intake & Output 08/29/16 08/30/16 08/31/16 07:59 07:59 07:59 Intake Total 150 3904 3391 Output Total 10 240 Balance 140 3664 3391 Weight 199 lb 8.293 oz 199 lb 8.293 oz 194 lb 0.108 oz General appearance: PRESENT: no acute distress Respiratory exam: PRESENT: clear to auscultation avery Cardiovascular exam: ABSENT: diastolic murmur, irregular rhythm, systolic murmur GI/Abdominal exam: PRESENT: tenderness - deep palpation LLQ Extremities exam: ABSENT: pedal edema Psychiatric exam: PRESENT: depressed Results Laboratory Results: 08/30/16 06:22 08/28/16 16:46 08/30/16 06:22 WBC 9.4 RBC 3.66 L Hgb 10.6 L Hct 31.9 L MCV 87 MCH 29.0 MCHC 33.1 RDW 15.6 H Plt Count 206 08/28/16 14:10 Abdominal Fluid Gram Stain - Final 08/28/16 14:10 Abdominal Fluid Body Fluid Culture - Final Citrobacter Freundii Klebsiella Pneumoniae Group F Beta Streptococcus Peptostreptococcus Species Bacteroides Fragilis Group 08/26/16 15:52 Abdominal Fluid Gram Stain - Final 08/26/16 15:52 Abdominal Fluid Body Fluid Culture - Final Group F Beta Streptococcus Bacteroides Fragilis Group Peptostreptococcus Species Prevotella Species 08/23/16 16:38 Blood Blood Culture - Final NO GROWTH IN 5 DAYS 08/23/16 16:05 Blood Blood Culture - Final NO GROWTH IN 5 DAYS Impressions: Venous Doppler Study 08/18/16 16:19 IMPRESSION: 1. Right lower extremity DVT, popliteal and femoral veins. Hip X-Ray 08/18/16 17:43 IMPRESSION: No acute findings. DJD. Head CT 08/22/16 00:00 IMPRESSION: MILD CHRONIC CHANGES OF ATROPHY AND MICROVASCULAR ISCHEMIA. NO ACUTE PROCESS. Abdomen Ultrasound 08/23/16 00:00 IMPRESSION: NORMAL RIGHT UPPER QUADRANT ULTRASOUND. Abdomen/Pelvis CT 08/23/16 00:00 IMPRESSION: NORMAL CT OF THE CHEST WITH IV CONTRAST. IMPRESSION: 11 cm multilocular abscess in the left pelvis which extends along the iliopsoas musculature into the left femoral canal. There is also a separate 6.5 cm abscess in the deep right pelvis. Diffuse inflammatory changes are present throughout the pelvic fat. There is thickening throughout the sigmoid colon with probable diverticulitis as the origin of the adjacent abscesses. Chest CT 08/23/16 00:00 IMPRESSION: NORMAL CT OF THE CHEST WITH IV CONTRAST. IMPRESSION: 11 cm multilocular abscess in the left pelvis which extends along the iliopsoas musculature into the left femoral canal. There is also a separate 6.5 cm abscess in the deep right pelvis. Diffuse inflammatory changes are present throughout the pelvic fat. There is thickening throughout the sigmoid colon with probable diverticulitis as the origin of the adjacent abscesses. Catheter Change 08/24/16 00:00 IMPRESSION: Successful CT-guided placement of drainage catheter for pelvic abscess as described. Pelvis CT 08/26/16 00:00 IMPRESSION: Pelvic abscesses for cyst. Despite the presence of a drainage catheter in the left-sided abscess there has been minimal improvement. Percutaneous Drainage 08/28/16 00:00 IMPRESSION: CT GUIDED DRAINAGE OF TWO SEPARATE PELVIC ABSCESSES PERFORMED WITHOUT IMMEDIATE COMPLICATION. Assessment & Plan - Diagnosis (1) Abdominopelvic abscess Is this a current diagnosis for this admission?: Yes (2) Phlebitis and thrombophlebitis of left popliteal vein Is this a current diagnosis for this admission?: Yes (3) UTI (urinary tract infection) Qualifiers: Urinary tract infection type: acute cystitis Hematuria presence: without hematuria Qualified Code(s): N30.00 - Acute cystitis without hematuria Is this a current diagnosis for this admission?: Yes (4) Hypokalemia Is this a current diagnosis for this admission?: Yes (5) Essential (primary) hypertension Is this a current diagnosis for this admission?: Yes (6) Chemotherapy-induced vomiting Is this a current diagnosis for this admission?: Yes (7) Right upper quadrant pain Is this a current diagnosis for this admission?: Yes (8) Atrial flutter Qualifiers: Atrial flutter type: typical Qualified Code(s): I48.3 - Typical atrial flutter Is this a current diagnosis for this admission?: Yes (9) Nausea Is this a current diagnosis for this admission?: YesPlan: [facility]
[2016-08-31] MEDS: LEVOTHYROXINE SODIUM 0.1 MG TABLET PO SCH (08:53)
[2016-08-31] MEDS: LEVOTHYROXINE SODIUM 0.025 MG TABLET PO SCH (08:53)
[2016-08-31 09:03] LABS: ALANINE AMINOTRANSFERASE 45 U/L (9-52); ALBUMIN 2.3 g/dL (3.5-5.0); ALKALINE PHOSPHATASE 110 U/L (38-126); ANION GAP 9 (5-19); ASPARTATE AMINO TRANSFERASE 26 U/L (14-36); BILIRUBIN,TOTAL 0.3 mg/dL (0.2-1.3); BLOOD UREA NITROGEN 6 mg/dL (7-20); CALCIUM 8.5 mg/dL (8.4-10.2); CARBON DIOXIDE 27 mmol/L (22-30); CHLORIDE 99 mmol/L (98-107); GLUCOSE 79 mg/dL (75-110); POTASSIUM 3.9 mmol/L (3.6-5.0); SODIUM 135.4 mmol/L (137-145); TOTAL PROTEIN 5.7 g/dL (6.3-8.2)
[2016-08-31] MEDS: METOPROLOL SUCCINATE 50 MG TAB.SR.24H PO SCH (09:08)
[2016-08-31] MEDS: SENNOSIDES/DOCUSATE 8.6-50 MG 1 EACH TABLET PO SCH ×2 (09:09→17:41)
[2016-08-31] MEDS: LOSARTAN POTASSIUM 50 MG TABLET PO SCH (09:10)
[2016-08-31] MEDS: AMLODIPINE BESYLATE 10 MG TABLET PO SCH (09:10)
[2016-08-31] MEDS: ENOXAPARIN SODIUM INJ 100 MG/1 ML DISP.SYRIN SUBCUT SCH ×2 (09:10→21:34)
[2016-08-31] MEDS: HYDROXYCHLOROQUINE SULFATE 200 MG TABLET PO SCH (09:16)
[2016-08-31] MEDS: DRONABINOL 2.5 MG CAPSULE PO SCH ×2 (13:03→17:47)
[2016-08-31] MEDS: ERTAPENEM SODIUM 1 GM in NORMAL SALINE 50 ML IV SCH (16:15)
[2016-08-31] MEDS: SIMVASTATIN 10 MG TABLET PO SCH (21:36)
[2016-08-31] MEDS: TRAMADOL HCL 50 MG TABLET PO PRN (21:36)
[2016-09-01] MEDS: DRONABINOL 2.5 MG CAPSULE PO SCH ×5 (02:30→23:25)
[2016-09-01] MEDS: POTASSI CL 20 MEQ/NS 1L 1,000 ML IV PRN ×2 (02:33→11:40)
[2016-09-01] MEDS: LANSOPRAZOLE 15 MG TAB.RAP.DR PO SCH ×2 (05:45→17:50)
--- NOTE | 2016-09-01 07:55 | PDOC PROGRESS REPORT ---
Subjective Progress Note for:: 09/01/16 Subjective:: L drain leaked flush & hurts. Physical Exam Vital Signs: Temp Pulse Resp BP Pulse Ox 98.4 F 73 18 122/69 95 08/31/16 19:53 09/01/16 02:00 08/31/16 19:53 08/31/16 19:53 08/31/16 19:53 Intake & Output 08/30/16 08/31/16 09/01/16 07:59 07:59 07:59 Intake Total 3904 3391 3335 Output Total 240 Balance 3664 3391 3335 Weight 199 lb 8.293 oz 194 lb 0.108 oz 194 lb 14.218 oz General appearance: PRESENT: no acute distress Respiratory exam: PRESENT: clear to auscultation avery Cardiovascular exam: ABSENT: diastolic murmur, irregular rhythm, systolic murmur GI/Abdominal exam: PRESENT: tenderness - just at LLQ drain. Pigtail curl showing. We removed drain.. ABSENT: mass, organolmegaly Extremities exam: ABSENT: pedal edema Neurological exam: PRESENT: oriented to time, oriented to situation Results Laboratory Results: 08/30/16 06:22 08/31/16 07:50 08/31/16 07:50 Sodium 135.4 L Potassium 3.9 Chloride 99 Carbon Dioxide 27 Anion Gap 9 BUN 6 L Creatinine 0.50 L Est GFR ( Amer) > 60 Est GFR (Non-Af Amer) > 60 Glucose 79 Calcium 8.5 Total Bilirubin 0.3 AST 26 ALT 45 Alkaline Phosphatase 110 Total Protein 5.7 L Albumin 2.3 L 08/28/16 14:10 Abdominal Fluid Gram Stain - Final 08/28/16 14:10 Abdominal Fluid Body Fluid Culture - Final Citrobacter Freundii Klebsiella Pneumoniae Group F Beta Streptococcus Peptostreptococcus Species Bacteroides Fragilis Group Impressions: Venous Doppler Study 08/18/16 16:19 IMPRESSION: 1. Right lower extremity DVT, popliteal and femoral veins. Hip X-Ray 08/18/16 17:43 IMPRESSION: No acute findings. DJD. Head CT 08/22/16 00:00 IMPRESSION: MILD CHRONIC CHANGES OF ATROPHY AND MICROVASCULAR ISCHEMIA. NO ACUTE PROCESS. Abdomen Ultrasound 08/23/16 00:00 IMPRESSION: NORMAL RIGHT UPPER QUADRANT ULTRASOUND. Abdomen/Pelvis CT 08/23/16 00:00 IMPRESSION: NORMAL CT OF THE CHEST WITH IV CONTRAST. IMPRESSION: 11 cm multilocular abscess in the left pelvis which extends along the iliopsoas musculature into the left femoral canal. There is also a separate 6.5 cm abscess in the deep right pelvis. Diffuse inflammatory changes are present throughout the pelvic fat. There is thickening throughout the sigmoid colon with probable diverticulitis as the origin of the adjacent abscesses. Chest CT 08/23/16 00:00 IMPRESSION: NORMAL CT OF THE CHEST WITH IV CONTRAST. IMPRESSION: 11 cm multilocular abscess in the left pelvis which extends along the iliopsoas musculature into the left femoral canal. There is also a separate 6.5 cm abscess in the deep right pelvis. Diffuse inflammatory changes are present throughout the pelvic fat. There is thickening throughout the sigmoid colon with probable diverticulitis as the origin of the adjacent abscesses. Catheter Change 08/24/16 00:00 IMPRESSION: Successful CT-guided placement of drainage catheter for pelvic abscess as described. Pelvis CT 08/26/16 00:00 IMPRESSION: Pelvic abscesses for cyst. Despite the presence of a drainage catheter in the left-sided abscess there has been minimal improvement. Percutaneous Drainage 08/28/16 00:00 IMPRESSION: CT GUIDED DRAINAGE OF TWO SEPARATE PELVIC ABSCESSES PERFORMED WITHOUT IMMEDIATE COMPLICATION. Assessment & Plan - Diagnosis (1) Abdominopelvic abscess Is this a current diagnosis for this admission?: YesPlan: IR suggested surgical consult about failed 2nd L drain. Dr Saldaña reviewed record and suggested pelvic clean out after caval filter at [facility] for a better chance of resolving abscesses. She is considering. (2) Phlebitis and thrombophlebitis of left popliteal vein Is this a current diagnosis for this admission?: Yes (3) UTI (urinary tract infection) Qualifiers: Urinary tract infection type: acute cystitis Hematuria presence: without hematuria Qualified Code(s): N30.00 - Acute cystitis without hematuria Is this a current diagnosis for this admission?: Yes (4) Hypokalemia Is this a current diagnosis for this admission?: Yes (5) Essential (primary) hypertension Is this a current diagnosis for this admission?: Yes (6) Chemotherapy-induced vomiting Is this a current diagnosis for this admission?: Yes (7) Right upper quadrant pain Is this a current diagnosis for this admission?: Yes (8) Atrial flutter Qualifiers: Atrial flutter type: typical Qualified Code(s): I48.3 - Typical atrial flutter Is this a current diagnosis for this admission?: Yes (9) Nausea Is this a current diagnosis for this admission?: Yes
[2016-09-01] MEDS: LEVOTHYROXINE SODIUM 0.1 MG TABLET PO SCH (08:33)
[2016-09-01] MEDS: LEVOTHYROXINE SODIUM 0.025 MG TABLET PO SCH (08:33)
[2016-09-01] MEDS: ENOXAPARIN SODIUM INJ 100 MG/1 ML DISP.SYRIN SUBCUT SCH ×2 (09:30→21:02)
[2016-09-01] MEDS: METOPROLOL SUCCINATE 50 MG TAB.SR.24H PO SCH (09:37)
[2016-09-01] MEDS: AMLODIPINE BESYLATE 10 MG TABLET PO SCH (09:39)
[2016-09-01] MEDS: SENNOSIDES/DOCUSATE 8.6-50 MG 1 EACH TABLET PO SCH ×2 (09:39→18:15)
[2016-09-01] MEDS: LOSARTAN POTASSIUM 50 MG TABLET PO SCH (09:39)
[2016-09-01] MEDS: HYDROXYCHLOROQUINE SULFATE 200 MG TABLET PO SCH (09:40)
[2016-09-01] MEDS: ERTAPENEM SODIUM 1 GM in NORMAL SALINE 50 ML IV SCH (16:34)
--- NOTE | 2016-09-01 18:18 | PDOC CONSULTATION ---
History of Present Illness Admission Date/PCP: 08/19/16 03:10 ALFREDO PANDA MD History of Present Illness: 81-year-old white female with stage III endometrial cancer. The patient is somewhat confused and cannot remember the timing of her cancer treatment. According to other providers, she underwent total abdominal hysterectomy 2.5 months ago in [place] by Dr. Alexandre. She has been receiving chemotherapy in [place], having started approximately 2 months ago. Per the patient and her last 2 treatments were on July 30 and August 08. She reports that she has occasional abdominal pain for years as well as hip and joint pain. She's also been diagnosed with left lower shortly DVT and is on 90 mg of Lovenox twice a day. During her hospital course she complained of increased abdominal pain and had an increase in white count, which led to a CT scan approximately week ago. This revealed an 11 cm and a 6 cm abscess in her pelvis. These abscesses were due to perforated diverticular disease while immunocompromise due to chemotherapy. She was managed with antibiotics, nothing by mouth status and she was sent to interventional radiology where a drain was placed in her fluid collection. She was reevaluated on the and another drain was placed. The left-sided drain became loose and was eventually removed/fell out this morning on 09/01/2016. Surgery was consulted for recommendations on continued management drains and pelvic abscesses. The patient reports that she is passing gas, denies nausea or vomiting, denies recent bowel movement. Denies blood in her stools. Reports mild abdominal pain across her lower abdomen and in her pelvis, with moderate pain around the drain sites when manipulated or examined. On 08/23/2016, her white count was 24.4. On 2015 her white count was 9.4. She has been afebrile with normal vital signs for 4 days, with the exception of a transient heart rate 3 days ago of 102. Review of systems: She is somewhat confused but other than weakness, confusion, slurred speech, leg swelling, leg pain, abdominal pain, nausea, bloated stomach and joint pain, she denies extensive review of systems. Past Medical History Cardiac Medical History: Reports: DVT, Hyperlipidema, Hypertension - on meds Denies: Coronary Artery Disease, Myocardial Infarction Pulmonary Medical History: Reports: Asthma, Bronchitis, Pneumonia Denies: Chronic Obstructive Pulmonary Disease (COPD), Tuberculosis EENT Medical History: Reports: Nose - allergic rhinitis Neurological Medical History: Reports: Migraine Denies: Hemorrhagic CVA, Ischemic CVA, Seizures Endocrine Medical History: Reports: Hypothyroidism Renal/ Medical History: Reports: Other - uti's Malignancy Medical History: Reports: Other - endometrial cancer, stage III, receiving adjuvant chemotherapy with carbo/Taxol, last given about 2 weeks ago, is due for next chemotherapy dose in one week GI Medical History: Reports: Gastroesophageal Reflux Disease, Peptic Ulcer Disease Musculoskeltal Medical History: Reports: Arthritis Psychiatric Medical History: Reports: Depression Hematology: Reports: Anemia Past Surgical History Past Surgical History: Reports: Hysterectomy, Orthopedic Surgery - Right foot bunionectomy. Right total knee replacement., Tonsillectomy, Other Social History Information Source: Patient Lives with: Alone Smoking Status: Never Smoker Frequency of Alcohol Use: None Hx Recreational Drug Use: No Hx Prescription Drug Abuse: No - Advance Directive Resuscitation Status: Full Code Family History Family History: Hypertension - Mother age 105., Malignancy - Prostate cancer. Father at age 65. Parental Family History Reviewed: Yes Children Family History Reviewed: Yes Sibling(s) Family History Reviewed.: Yes Medication/Allergy Home Medications: Omeprazole [Prilosec 20 mg Capsule] 20 cap PO BID 08/01/11 Cyclosporine 0.05% Oph Emulsio [Restasis 0.05% Oph Emulsion Pf 0.4 ml] 1 drop ASDIR PRN 05/23/16 Oxycodone HCl/Acetaminophen [Percocet 5-325 mg Tablet] 2 tab PO Q4HP PRN #0 tablet 05/25/16 Hydroxychloroquine Sulfate [Plaquenil 200 mg Tablet] 200 mg PO DAILY 08/18/16 Rivaroxaban [Xarelto 15 mg Tablet] 15 mg PO BIDBS #40 tablet 08/20/16 Amlodipine Besylate [Norvasc 10 mg Tablet] 10 mg PO DAILY #30 tablet 08/21/16 Levothyroxine Sodium [Synthroid] 125 mcg PO DAILY #30 tablet 08/21/16 Metoprolol Tartrate [Lopressor] 100 mg PO BID #60 tablet 08/21/16 Simvastatin [Zocor 40 mg Tablet] 20 mg PO QHS #30 tablet 08/21/16 Allergies/Adverse Reactions: Sulfa (Sulfonamide Antibiotics) Adverse Reaction (Intermediate, Verified 12:39) tingling Review of Systems ROS unobtainable: Due to mental status All systems: reviewed and no additional remarkable complaints except as stated Physical Exam Vital Signs: Temp Pulse Resp BP Pulse Ox 98.4 F 76 18 122/69 95 08/31/16 19:53 09/01/16 14:00 08/31/16 19:53 08/31/16 19:53 08/31/16 19:53 Intake & Output 08/31/16 09/01/16 09/02/16 06:59 06:59 06:59 Intake Total 3391 3335 Balance 3391 3335 Weight 88 kg 88.4 kg General appearance: PRESENT: no acute distress, obese Head exam: PRESENT: other - Acquired alopecia Eye exam: PRESENT: EOMI Mouth exam: PRESENT: tongue midline Neck exam: ABSENT: JVD, lymphadenopathy, tenderness, thyromegaly Respiratory exam: PRESENT: clear to auscultation avery Cardiovascular exam: PRESENT: RRR GI/Abdominal exam: PRESENT: distended, normal bowel sounds, soft, tenderness - Mild tenderness to palpation over the previous left lower quadrant drain site. No significant palpitation over the right posterior drain site. This drain remains in with purulent drainage in the bag.. ABSENT: guarding, rebound, rigid Extremities exam: PRESENT: +1 edema Neurological exam: PRESENT: oriented to person, oriented to place, other - Generally awake and alert, but some mild memory deficits and confusion. Psychiatric exam: PRESENT: normal mood Skin exam: ABSENT: jaundice, rash Results Laboratory Results: 08/30/16 06:22 08/31/16 07:50 Impressions: Venous Doppler Study 08/18/16 16:19 IMPRESSION: 1. Right lower extremity DVT, popliteal and femoral veins. Hip X-Ray 08/18/16 17:43 IMPRESSION: No acute findings. DJD. Head CT 08/22/16 00:00 IMPRESSION: MILD CHRONIC CHANGES OF ATROPHY AND MICROVASCULAR ISCHEMIA. NO ACUTE PROCESS. Abdomen Ultrasound 08/23/16 00:00 IMPRESSION: NORMAL RIGHT UPPER QUADRANT ULTRASOUND. Abdomen/Pelvis CT 08/23/16 00:00 IMPRESSION: NORMAL CT OF THE CHEST WITH IV CONTRAST. IMPRESSION: 11 cm multilocular abscess in the left pelvis which extends along the iliopsoas musculature into the left femoral canal. There is also a separate 6.5 cm abscess in the deep right pelvis. Diffuse inflammatory changes are present throughout the pelvic fat. There is thickening throughout the sigmoid colon with probable diverticulitis as the origin of the adjacent abscesses. Chest CT 08/23/16 00:00 IMPRESSION: NORMAL CT OF THE CHEST WITH IV CONTRAST. IMPRESSION: 11 cm multilocular abscess in the left pelvis which extends along the iliopsoas musculature into the left femoral canal. There is also a separate 6.5 cm abscess in the deep right pelvis. Diffuse inflammatory changes are present throughout the pelvic fat. There is thickening throughout the sigmoid colon with probable diverticulitis as the origin of the adjacent abscesses. Catheter Change 08/24/16 00:00 IMPRESSION: Successful CT-guided placement of drainage catheter for pelvic abscess as described. Pelvis CT 08/26/16 00:00 IMPRESSION: Pelvic abscesses for cyst. Despite the presence of a drainage catheter in the left-sided abscess there has been minimal improvement. Percutaneous Drainage 08/28/16 00:00 IMPRESSION: CT GUIDED DRAINAGE OF TWO SEPARATE PELVIC ABSCESSES PERFORMED WITHOUT IMMEDIATE COMPLICATION. Status: Image reviewed by me Assessment & Plan - Diagnosis (1) Acute abscess of female pelvis Is this a current diagnosis for this admission?: YesPlan: Spoke extensively last night and today with the [facility] care provider. Also spoke with the patient and the radiologist and radiologist Asst. Spoke with the patient about goals of treatment, DO NOT RESUSCITATE/DO NOT INTUBATE versus full code. I spoke with her about her pelvic abscesses and the drainage procedures done less far. We discussed options of transfer to tertiary care center and aggressive management with this exploration, but recommended this is less preferable due to her malnutrition, immunosuppression, weakness, comorbidities, age, DVT with active anticoagulation. Recommend we repeat the CT scan and ask interventional radiology to place more drains if other drainable areas are seen. She seems to be doing well with management of the pelvic abscesses this far with normalization of white count, normal, stable vitals, tolerating oral intake, return of some bowel function. Proceed with CT scan, abdomen and pelvis with oral contrast. (2) Endometrial cancer Is this a current diagnosis for this admission?: Yes (3) Chemotherapy-induced vomiting Is this a current diagnosis for this admission?: Yes (4) Lower leg DVT (deep venous thromboembolism), acute Qualifiers: Laterality: left Qualified Code(s): I82.4Z2 - Acute embolism and thrombosis of unspecified deep veins of left distal lower extremity Is this a current diagnosis for this admission?: Yes (5) Nausea Is this a current diagnosis for this admission?: Yes (6) UTI (urinary tract infection) Qualifiers: Urinary tract infection type: acute cystitis Hematuria presence: without hematuria Qualified Code(s): N30.00 - Acute cystitis without hematuria Is this a current diagnosis for this admission?: Yes
[2016-09-01] MEDS: SIMVASTATIN 10 MG TABLET PO SCH (21:03)
[2016-09-02] MEDS: POTASSI CL 20 MEQ/NS 1L 1,000 ML IV PRN ×3 (01:15→23:26)
[2016-09-02] MEDS: LANSOPRAZOLE 15 MG TAB.RAP.DR PO SCH ×2 (05:35→18:34)
[2016-09-02] MEDS: DRONABINOL 2.5 MG CAPSULE PO SCH ×4 (05:35→23:27)
[2016-09-02 07:00] LABS: HEMATOCRIT 29.4 % (36.0-47.0); HEMOGLOBIN 9.9 g/dL (12.0-15.5); HGB HCT DIFFERENCE 0.3; MEAN CORPUSCULAR HEMOGLOBIN 29.6 pg (27.0-33.4); MEAN CORPUSCULAR HGB CONC 33.5 g/dL (32.0-36.0); MEAN CORPUSCULAR VOLUME 89 fl (80-97); RED BLOOD COUNT 3.32 10^6/uL (3.72-5.28); WHITE BLOOD COUNT 5.5 10^3/uL (4.0-10.5)
--- NOTE | 2016-09-02 08:38 | PDOC PROGRESS REPORT ---
Subjective Progress Note for:: 09/02/16 Subjective:: no pain. No nausea on marinol Physical Exam Vital Signs: Temp Pulse Resp BP Pulse Ox 98.3 F 82 16 146/75 H 97 09/02/16 07:47 09/02/16 07:47 09/02/16 07:47 09/02/16 07:47 09/02/16 07:47 Intake & Output 09/01/16 09/02/16 09/03/16 07:59 07:59 07:59 Intake Total 3335 7633 Balance 3335 7633 Weight 194 lb 14.218 oz 188 lb 7.924 oz General appearance: PRESENT: no acute distress Respiratory exam: PRESENT: clear to auscultation avery Cardiovascular exam: ABSENT: diastolic murmur, irregular rhythm, systolic murmur GI/Abdominal exam: ABSENT: mass, organolmegaly, tenderness Extremities exam: ABSENT: pedal edema Neurological exam: PRESENT: other - lelthargic Results Laboratory Results: 09/02/16 06:33 08/31/16 07:50 09/02/16 06:33 WBC 5.5 RBC 3.32 L Hgb 9.9 L Hct 29.4 L MCV 89 MCH 29.6 MCHC 33.5 RDW 16.0 H Plt Count 212 Impressions: Venous Doppler Study 08/18/16 16:19 IMPRESSION: 1. Right lower extremity DVT, popliteal and femoral veins. Hip X-Ray 08/18/16 17:43 IMPRESSION: No acute findings. DJD. Head CT 08/22/16 00:00 IMPRESSION: MILD CHRONIC CHANGES OF ATROPHY AND MICROVASCULAR ISCHEMIA. NO ACUTE PROCESS. Abdomen Ultrasound 08/23/16 00:00 IMPRESSION: NORMAL RIGHT UPPER QUADRANT ULTRASOUND. Chest CT 08/23/16 00:00 IMPRESSION: NORMAL CT OF THE CHEST WITH IV CONTRAST. IMPRESSION: 11 cm multilocular abscess in the left pelvis which extends along the iliopsoas musculature into the left femoral canal. There is also a separate 6.5 cm abscess in the deep right pelvis. Diffuse inflammatory changes are present throughout the pelvic fat. There is thickening throughout the sigmoid colon with probable diverticulitis as the origin of the adjacent abscesses. Catheter Change 08/24/16 00:00 IMPRESSION: Successful CT-guided placement of drainage catheter for pelvic abscess as described. Pelvis CT 08/26/16 00:00 IMPRESSION: Pelvic abscesses for cyst. Despite the presence of a drainage catheter in the left-sided abscess there has been minimal improvement. Percutaneous Drainage 08/28/16 00:00 IMPRESSION: CT GUIDED DRAINAGE OF TWO SEPARATE PELVIC ABSCESSES PERFORMED WITHOUT IMMEDIATE COMPLICATION. Abdomen/Pelvis CT 09/01/16 00:00 IMPRESSION: 1. Pelvic abscesses. Left iliopsoas collection looks smaller but no drain in place. Right jesu pelvic collection has decreased in size, drain in place with minimal persistent fluid. Assessment & Plan - Diagnosis (1) Abdominopelvic abscess Is this a current diagnosis for this admission?: YesPlan: R abscess 4cm draining. L abscess smaller at 10cm, to be drained. Dr Saldaña suggested drains rather than major surgery in view of comorbidities. (2) Nausea Is this a current diagnosis for this admission?: YesPlan: albumin 2.3. Continue marinol. (3) Phlebitis and thrombophlebitis of left popliteal vein Is this a current diagnosis for this admission?: YesPlan: resume lovenox after drain placed (4) UTI (urinary tract infection) Qualifiers: Urinary tract infection type: acute cystitis Hematuria presence: without hematuria Qualified Code(s): N30.00 - Acute cystitis without hematuria Is this a current diagnosis for this admission?: Yes (5) Hypokalemia Is this a current diagnosis for this admission?: Yes (6) Essential (primary) hypertension Is this a current diagnosis for this admission?: Yes (7) Chemotherapy-induced vomiting Is this a current diagnosis for this admission?: Yes (8) Right upper quadrant pain Is this a current diagnosis for this admission?: Yes (9) Atrial flutter Qualifiers: Atrial flutter type: typical Qualified Code(s): I48.3 - Typical atrial flutter Is this a current diagnosis for this admission?: Yes
[2016-09-02] MEDS ORDERED: MIDAZOLAM 2 MG/2 ML INJ ONE (09:15)
[2016-09-02] MEDS ORDERED: FENTANYL CITRATE INJ/PF 100 MCG/2 ML AMPUL ONE (09:15)
[2016-09-02] MEDS ORDERED: ONDANSETRON HCL INJ/PF 4 MG/2 ML SDV ONE (09:40)
--- NOTE | 2016-09-02 10:36 | PDOC PROGRESS REPORT ---
Subjective Progress Note for:: 09/02/16 Subjective:: No complaints; patient pleasantly confused Physical Exam Vital Signs: Temp Pulse Resp BP Pulse Ox 98.3 F 83 20 144/85 H 97 09/02/16 07:47 09/02/16 09:41 09/02/16 09:41 09/02/16 09:41 09/02/16 09:41 Intake & Output 09/01/16 09/02/16 09/03/16 06:59 06:59 06:59 Intake Total 3335 7633 Balance 3335 7633 Weight 88.4 kg 85.5 kg General appearance: PRESENT: no acute distress GI/Abdominal exam: PRESENT: other - Abdomen is soft; there is active pus draining from the previous low left lower quadrant drain site Results Laboratory Results: 09/02/16 06:33 08/31/16 07:50 09/02/16 06:33 WBC 5.5 RBC 3.32 L Hgb 9.9 L Hct 29.4 L MCV 89 MCH 29.6 MCHC 33.5 RDW 16.0 H Plt Count 212 Impressions: Venous Doppler Study 08/18/16 16:19 IMPRESSION: 1. Right lower extremity DVT, popliteal and femoral veins. Hip X-Ray 08/18/16 17:43 IMPRESSION: No acute findings. DJD. Head CT 08/22/16 00:00 IMPRESSION: MILD CHRONIC CHANGES OF ATROPHY AND MICROVASCULAR ISCHEMIA. NO ACUTE PROCESS. Abdomen Ultrasound 08/23/16 00:00 IMPRESSION: NORMAL RIGHT UPPER QUADRANT ULTRASOUND. Chest CT 08/23/16 00:00 IMPRESSION: NORMAL CT OF THE CHEST WITH IV CONTRAST. IMPRESSION: 11 cm multilocular abscess in the left pelvis which extends along the iliopsoas musculature into the left femoral canal. There is also a separate 6.5 cm abscess in the deep right pelvis. Diffuse inflammatory changes are present throughout the pelvic fat. There is thickening throughout the sigmoid colon with probable diverticulitis as the origin of the adjacent abscesses. Catheter Change 08/24/16 00:00 IMPRESSION: Successful CT-guided placement of drainage catheter for pelvic abscess as described. Pelvis CT 08/26/16 00:00 IMPRESSION: Pelvic abscesses for cyst. Despite the presence of a drainage catheter in the left-sided abscess there has been minimal improvement. Percutaneous Drainage 08/28/16 00:00 IMPRESSION: CT GUIDED DRAINAGE OF TWO SEPARATE PELVIC ABSCESSES PERFORMED WITHOUT IMMEDIATE COMPLICATION. Abdomen/Pelvis CT 09/01/16 00:00 IMPRESSION: 1. Pelvic abscesses. Left iliopsoas collection looks smaller but no drain in place. Right jesu pelvic collection has decreased in size, drain in place with minimal persistent fluid. Assessment & Plan - Diagnosis (1) Abdominopelvic abscess Is this a current diagnosis for this admission?: YesPlan: 1. Abscess appears to be spontaneously draining through previous percutaneous drainage tract. I spoke with Dr. Kenney, radiologist, and suggested the largest caliber tube reinserted into this tract facilitate drainage. We'll continue to follow the patient with the primary care team. If more vigorous drainage required, a visit to the operating room under local LMAC anesthesia with mechanical debridement may be required. Spoke with Dr. Green regarding the above. - Time Time Spent with patient: 15-24 minutes
[2016-09-02] MEDS: LEVOTHYROXINE SODIUM 0.1 MG TABLET PO SCH (11:30)
[2016-09-02] MEDS: LEVOTHYROXINE SODIUM 0.025 MG TABLET PO SCH (11:30)
[2016-09-02] MEDS: HYDROXYCHLOROQUINE SULFATE 200 MG TABLET PO SCH (11:31)
[2016-09-02] MEDS: AMLODIPINE BESYLATE 10 MG TABLET PO SCH (11:31)
[2016-09-02] MEDS: SENNOSIDES/DOCUSATE 8.6-50 MG 1 EACH TABLET PO SCH ×2 (11:31→18:34)
[2016-09-02] MEDS: LOSARTAN POTASSIUM 50 MG TABLET PO SCH (11:32)
[2016-09-02] MEDS: METOPROLOL SUCCINATE 50 MG TAB.SR.24H PO SCH (11:32)
[2016-09-02] MEDS: ERTAPENEM SODIUM 1 GM in NORMAL SALINE 50 ML IV SCH (15:09)
[2016-09-02] MEDS: SIMVASTATIN 10 MG TABLET PO SCH (21:07)
[2016-09-03] MEDS: DRONABINOL 2.5 MG CAPSULE PO SCH ×4 (06:39→23:00)
[2016-09-03] MEDS: LANSOPRAZOLE 15 MG TAB.RAP.DR PO SCH ×2 (06:39→18:24)
--- NOTE | 2016-09-03 06:43 | PDOC PROGRESS REPORT ---
Subjective Progress Note for:: 09/03/16 Subjective:: no pain Physical Exam Vital Signs: Temp Pulse Resp BP Pulse Ox 97.8 F 75 17 134/73 H 96 09/03/16 03:28 09/03/16 03:28 09/03/16 03:28 09/02/16 22:47 09/03/16 03:28 Intake & Output 09/01/16 09/02/16 09/03/16 07:59 07:59 07:59 Intake Total 3335 7633 2385 Balance 3335 7633 2385 Weight 194 lb 14.218 oz 188 lb 7.924 oz 186 lb 15.232 oz General appearance: PRESENT: no acute distress Respiratory exam: PRESENT: clear to auscultation avery Cardiovascular exam: ABSENT: diastolic murmur, irregular rhythm, systolic murmur GI/Abdominal exam: ABSENT: tenderness Extremities exam: ABSENT: pedal edema Results Laboratory Results: 09/02/16 06:33 08/31/16 07:50 09/02/16 06:33 WBC 5.5 RBC 3.32 L Hgb 9.9 L Hct 29.4 L MCV 89 MCH 29.6 MCHC 33.5 RDW 16.0 H Plt Count 212 Impressions: Venous Doppler Study 08/18/16 16:19 IMPRESSION: 1. Right lower extremity DVT, popliteal and femoral veins. Hip X-Ray 08/18/16 17:43 IMPRESSION: No acute findings. DJD. Head CT 08/22/16 00:00 IMPRESSION: MILD CHRONIC CHANGES OF ATROPHY AND MICROVASCULAR ISCHEMIA. NO ACUTE PROCESS. Abdomen Ultrasound 08/23/16 00:00 IMPRESSION: NORMAL RIGHT UPPER QUADRANT ULTRASOUND. Chest CT 08/23/16 00:00 IMPRESSION: NORMAL CT OF THE CHEST WITH IV CONTRAST. IMPRESSION: 11 cm multilocular abscess in the left pelvis which extends along the iliopsoas musculature into the left femoral canal. There is also a separate 6.5 cm abscess in the deep right pelvis. Diffuse inflammatory changes are present throughout the pelvic fat. There is thickening throughout the sigmoid colon with probable diverticulitis as the origin of the adjacent abscesses. Catheter Change 08/24/16 00:00 IMPRESSION: Successful CT-guided placement of drainage catheter for pelvic abscess as described. Pelvis CT 08/26/16 00:00 IMPRESSION: Pelvic abscesses for cyst. Despite the presence of a drainage catheter in the left-sided abscess there has been minimal improvement. Percutaneous Drainage 08/28/16 00:00 IMPRESSION: CT GUIDED DRAINAGE OF TWO SEPARATE PELVIC ABSCESSES PERFORMED WITHOUT IMMEDIATE COMPLICATION. Abdomen/Pelvis CT 09/01/16 00:00 IMPRESSION: 1. Pelvic abscesses. Left iliopsoas collection looks smaller but no drain in place. Right jesu pelvic collection has decreased in size, drain in place with minimal persistent fluid. Retroperitoneal Abscess Drainage 09/02/16 07:00 IMPRESSION: CT guided replacement of left lower quadrant abdominal abscess drain (12 [place] pigtail catheter placed). Assessment & Plan - Diagnosis (1) Abdominopelvic abscess Is this a current diagnosis for this admission?: YesPlan: ct drain now deep into L abscess again (2) Nausea Is this a current diagnosis for this admission?: YesPlan: ate all of full liquid dinner. Adding beneprotein snacks (3) Phlebitis and thrombophlebitis of left popliteal vein Is this a current diagnosis for this admission?: Yes (4) UTI (urinary tract infection) Qualifiers: Urinary tract infection type: acute cystitis Hematuria presence: without hematuria Qualified Code(s): N30.00 - Acute cystitis without hematuria Is this a current diagnosis for this admission?: Yes (5) Hypokalemia Is this a current diagnosis for this admission?: Yes (6) Essential (primary) hypertension Is this a current diagnosis for this admission?: Yes (7) Chemotherapy-induced vomiting Is this a current diagnosis for this admission?: Yes (8) Right upper quadrant pain Is this a current diagnosis for this admission?: Yes (9) Atrial flutter Qualifiers: Atrial flutter type: typical Qualified Code(s): I48.3 - Typical atrial flutter Is this a current diagnosis for this admission?: Yes
--- NOTE | 2016-09-03 07:48 | PDOC PROGRESS REPORT ---
Subjective Progress Note for:: 09/03/16 Subjective:: Pt had CT guided drain yesterday, per nursing, after procedure did have output from drain. Surgery following also. Pt not having pain at present in flank or legs Physical Exam Vital Signs: Temp Pulse Resp BP Pulse Ox 97.8 F 71 17 134/73 H 96 09/03/16 03:28 09/03/16 07:00 09/03/16 03:28 09/02/16 22:47 09/03/16 03:28 Intake & Output 09/02/16 09/03/16 09/04/16 06:59 06:59 06:59 Intake Total 7633 3731 Balance 7633 3731 Weight 85.5 kg 84.8 kg General appearance: PRESENT: thin Head exam: PRESENT: atraumatic Mouth exam: PRESENT: dry mucosa Neck exam: ABSENT: carotid bruit, JVD, lymphadenopathy, thyromegaly Respiratory exam: PRESENT: clear to auscultation avery. ABSENT: rales, rhonchi, wheezes Cardiovascular exam: PRESENT: RRR. ABSENT: diastolic murmur, rubs, systolic murmur GI/Abdominal exam: PRESENT: soft Rectal exam: PRESENT: deferred Extremities exam: PRESENT: full ROM. ABSENT: calf tenderness, clubbing, pedal edema Neurological exam: PRESENT: alert, awake Results Laboratory Results: 09/02/16 06:33 08/31/16 07:50 Impressions: Venous Doppler Study 08/18/16 16:19 IMPRESSION: 1. Right lower extremity DVT, popliteal and femoral veins. Hip X-Ray 08/18/16 17:43 IMPRESSION: No acute findings. DJD. Head CT 08/22/16 00:00 IMPRESSION: MILD CHRONIC CHANGES OF ATROPHY AND MICROVASCULAR ISCHEMIA. NO ACUTE PROCESS. Abdomen Ultrasound 08/23/16 00:00 IMPRESSION: NORMAL RIGHT UPPER QUADRANT ULTRASOUND. Chest CT 08/23/16 00:00 IMPRESSION: NORMAL CT OF THE CHEST WITH IV CONTRAST. IMPRESSION: 11 cm multilocular abscess in the left pelvis which extends along the iliopsoas musculature into the left femoral canal. There is also a separate 6.5 cm abscess in the deep right pelvis. Diffuse inflammatory changes are present throughout the pelvic fat. There is thickening throughout the sigmoid colon with probable diverticulitis as the origin of the adjacent abscesses. Catheter Change 08/24/16 00:00 IMPRESSION: Successful CT-guided placement of drainage catheter for pelvic abscess as described. Pelvis CT 08/26/16 00:00 IMPRESSION: Pelvic abscesses for cyst. Despite the presence of a drainage catheter in the left-sided abscess there has been minimal improvement. Percutaneous Drainage 08/28/16 00:00 IMPRESSION: CT GUIDED DRAINAGE OF TWO SEPARATE PELVIC ABSCESSES PERFORMED WITHOUT IMMEDIATE COMPLICATION. Abdomen/Pelvis CT 09/01/16 00:00 IMPRESSION: 1. Pelvic abscesses. Left iliopsoas collection looks smaller but no drain in place. Right jesu pelvic collection has decreased in size, drain in place with minimal persistent fluid. Retroperitoneal Abscess Drainage 09/02/16 07:00 IMPRESSION: CT guided replacement of left lower quadrant abdominal abscess drain (12 [place] pigtail catheter placed). Status: Image reviewed by me Assessment & Plan - Diagnosis (1) Lower leg DVT (deep venous thromboembolism), acute Qualifiers: Laterality: left Qualified Code(s): I82.4Z2 - Acute embolism and thrombosis of unspecified deep veins of left distal lower extremity Is this a current diagnosis for this admission?: YesPlan: As noted prev, con't w/ anticoagulation, will need atleast 3m but we will re- eval that as outpt. Once we are sure no further surgical procedures needed, can transition to oral anticoag like Xarelto or Eliquis. Con't lovenox for now. 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 multiple CT imaging negative for any recurrence at present. her abcess and fluid collection is 2nd to diverticular abcess. (3) Other iron deficiency anemias Is this a current diagnosis for this admission?: Yes (4) Abdominopelvic abscess Is this a current diagnosis for this admission?: YesPlan: S/P another CT guided drain, thus far the antibx coverage is appropriate. Con't per medical and surgical teams. (5) Physical deconditioning Is this a current diagnosis for this admission?: YesPlan: 2nd to complicated hospital stay. Con't w/ PT/OT as tolerated. Will ultimately need rehab placement. - Time Time Spent with patient: 35 or more minutes Critical Time spent with patient: 35 or more minutes - Inpatient Certification Based on my medical assessment, after consideration of the patient's comorbidities, presenting symptoms, or acuity I expect that the services needed warrant INPATIENT care.: Yes I certify that my determination is in accordance with my understanding of Medicare's requirements for reasonable and necessary INPATIENT services [42 CFR 412.3e].: Yes Medical Necessity: Need for IV Antibiotics, Need for Surgery
[2016-09-03] MEDS: LEVOTHYROXINE SODIUM 0.025 MG TABLET PO SCH (08:12)
[2016-09-03] MEDS: LEVOTHYROXINE SODIUM 0.1 MG TABLET PO SCH (08:13)
[2016-09-03] MEDS: POTASSI CL 20 MEQ/NS 1L 1,000 ML IV PRN ×2 (09:44→18:26)
[2016-09-03] MEDS: SENNOSIDES/DOCUSATE 8.6-50 MG 1 EACH TABLET PO SCH ×2 (09:47→18:25)
[2016-09-03] MEDS: AMLODIPINE BESYLATE 10 MG TABLET PO SCH (09:47)
[2016-09-03] MEDS: METOPROLOL SUCCINATE 50 MG TAB.SR.24H PO SCH (09:47)
[2016-09-03] MEDS: LOSARTAN POTASSIUM 50 MG TABLET PO SCH (09:47)
[2016-09-03] MEDS: HYDROXYCHLOROQUINE SULFATE 200 MG TABLET PO SCH (09:48)
[2016-09-03] MEDS: ERTAPENEM SODIUM 1 GM in NORMAL SALINE 50 ML IV SCH (15:10)
--- NOTE | 2016-09-03 16:08 | PDOC PROGRESS REPORT ---
Subjective Progress Note for:: 09/03/16 Subjective:: Patient denies nausea, vomiting, fever, she underwent percutaneous placement of drain in the left pelvic abscess yesterday. Physical Exam Vital Signs: Temp Pulse Resp BP Pulse Ox 99.2 F 81 20 117/70 97 09/03/16 11:40 09/03/16 14:00 09/03/16 11:40 09/03/16 11:40 09/03/16 11:40 Intake & Output 09/02/16 09/03/16 09/04/16 06:59 06:59 06:59 Intake Total 7633 3731 Balance 7633 3731 Weight 85.5 kg 84.8 kg General appearance: PRESENT: no acute distress Head exam: PRESENT: atraumatic, normocephalic GI/Abdominal exam: PRESENT: soft, tenderness, other - Anterior and posterior drains are in place.. ABSENT: firm, guarding, rigid Rectal exam: PRESENT: deferred Neurological exam: PRESENT: alert Results Laboratory Results: 09/02/16 06:33 08/31/16 07:50 Impressions: Venous Doppler Study 08/18/16 16:19 IMPRESSION: 1. Right lower extremity DVT, popliteal and femoral veins. Hip X-Ray 08/18/16 17:43 IMPRESSION: No acute findings. DJD. Head CT 08/22/16 00:00 IMPRESSION: MILD CHRONIC CHANGES OF ATROPHY AND MICROVASCULAR ISCHEMIA. NO ACUTE PROCESS. Abdomen Ultrasound 08/23/16 00:00 IMPRESSION: NORMAL RIGHT UPPER QUADRANT ULTRASOUND. Chest CT 08/23/16 00:00 IMPRESSION: NORMAL CT OF THE CHEST WITH IV CONTRAST. IMPRESSION: 11 cm multilocular abscess in the left pelvis which extends along the iliopsoas musculature into the left femoral canal. There is also a separate 6.5 cm abscess in the deep right pelvis. Diffuse inflammatory changes are present throughout the pelvic fat. There is thickening throughout the sigmoid colon with probable diverticulitis as the origin of the adjacent abscesses. Catheter Change 08/24/16 00:00 IMPRESSION: Successful CT-guided placement of drainage catheter for pelvic abscess as described. Pelvis CT 08/26/16 00:00 IMPRESSION: Pelvic abscesses for cyst. Despite the presence of a drainage catheter in the left-sided abscess there has been minimal improvement. Percutaneous Drainage 08/28/16 00:00 IMPRESSION: CT GUIDED DRAINAGE OF TWO SEPARATE PELVIC ABSCESSES PERFORMED WITHOUT IMMEDIATE COMPLICATION. Abdomen/Pelvis CT 09/01/16 00:00 IMPRESSION: 1. Pelvic abscesses. Left iliopsoas collection looks smaller but no drain in place. Right jesu pelvic collection has decreased in size, drain in place with minimal persistent fluid. Retroperitoneal Abscess Drainage 09/02/16 07:00 IMPRESSION: CT guided replacement of left lower quadrant abdominal abscess drain (12 Citizen [place] pigtail catheter placed). Assessment & Plan - Diagnosis (1) Abdominopelvic abscess Is this a current diagnosis for this admission?: YesPlan: Likely due to perforated diverticulitis, patient status post percutaneous drains placement in the abscess cavity, she tolerated full liquid diet, she has no leukocytosis and no fever. plan: Monitor drain output, continue IV antibiotics, full liquid diet. We'll follow.
[2016-09-03] MEDS: TRAMADOL HCL 50 MG TABLET PO PRN (16:49)
[2016-09-03] MEDS ORDERED: ENOXAPARIN SODIUM INJ 100 MG/1 ML DISP.SYRIN SUBCUT ONE (22:45)
[2016-09-03] MEDS: SIMVASTATIN 10 MG TABLET PO SCH (22:54)
[2016-09-04 04:44] LABS: HEMATOCRIT 29.6 % (36.0-47.0); HEMOGLOBIN 9.8 g/dL (12.0-15.5); HGB HCT DIFFERENCE -0.2; MEAN CORPUSCULAR HGB CONC 33.1 g/dL (32.0-36.0); MEAN CORPUSCULAR VOLUME 88 fl (80-97); RED BLOOD COUNT 3.38 10^6/uL (3.72-5.28); RED CELL DISTRIBUTION WIDTH 16.2 % (11.5-14.0); WHITE BLOOD COUNT 4.8 10^3/uL (4.0-10.5)
[2016-09-04] MEDS: LANSOPRAZOLE 15 MG TAB.RAP.DR PO SCH ×2 (05:10→18:15)
[2016-09-04] MEDS: DRONABINOL 2.5 MG CAPSULE PO SCH ×3 (05:16→18:15)
--- NOTE | 2016-09-04 07:23 | PDOC PROGRESS REPORT ---
Subjective Progress Note for:: 09/04/16 Subjective:: intermittant confusion noted by son. Denies pain,nausea Physical Exam Vital Signs: Temp Pulse Resp BP Pulse Ox 97.9 F 66 16 132/59 H 95 09/04/16 03:43 09/04/16 03:43 09/04/16 03:43 09/04/16 03:43 09/04/16 03:43 Intake & Output 09/02/16 09/03/16 09/04/16 07:59 07:59 07:59 Intake Total 7633 3731 2727 Balance 7633 3731 2729 Weight 188 lb 7.924 oz 186 lb 15.232 oz 185 lb 10.067 oz General appearance: PRESENT: no acute distress Respiratory exam: PRESENT: clear to auscultation avery Cardiovascular exam: ABSENT: diastolic murmur, irregular rhythm, systolic murmur GI/Abdominal exam: PRESENT: tenderness - minimal LLQ to deep palpaiton. ABSENT : mass, organolmegaly Extremities exam: ABSENT: pedal edema Results Laboratory Results: 09/04/16 04:12 08/31/16 07:50 09/04/16 04:12 WBC 4.8 RBC 3.38 L Hgb 9.8 L Hct 29.6 L MCV 88 MCH 29.0 MCHC 33.1 RDW 16.2 H Plt Count 197 Impressions: Venous Doppler Study 08/18/16 16:19 IMPRESSION: 1. Right lower extremity DVT, popliteal and femoral veins. Hip X-Ray 08/18/16 17:43 IMPRESSION: No acute findings. DJD. Head CT 08/22/16 00:00 IMPRESSION: MILD CHRONIC CHANGES OF ATROPHY AND MICROVASCULAR ISCHEMIA. NO ACUTE PROCESS. Abdomen Ultrasound 08/23/16 00:00 IMPRESSION: NORMAL RIGHT UPPER QUADRANT ULTRASOUND. Chest CT 08/23/16 00:00 IMPRESSION: NORMAL CT OF THE CHEST WITH IV CONTRAST. IMPRESSION: 11 cm multilocular abscess in the left pelvis which extends along the iliopsoas musculature into the left femoral canal. There is also a separate 6.5 cm abscess in the deep right pelvis. Diffuse inflammatory changes are present throughout the pelvic fat. There is thickening throughout the sigmoid colon with probable diverticulitis as the origin of the adjacent abscesses. Catheter Change 08/24/16 00:00 IMPRESSION: Successful CT-guided placement of drainage catheter for pelvic abscess as described. Pelvis CT 08/26/16 00:00 IMPRESSION: Pelvic abscesses for cyst. Despite the presence of a drainage catheter in the left-sided abscess there has been minimal improvement. Percutaneous Drainage 08/28/16 00:00 IMPRESSION: CT GUIDED DRAINAGE OF TWO SEPARATE PELVIC ABSCESSES PERFORMED WITHOUT IMMEDIATE COMPLICATION. Abdomen/Pelvis CT 09/01/16 00:00 IMPRESSION: 1. Pelvic abscesses. Left iliopsoas collection looks smaller but no drain in place. Right jesu pelvic collection has decreased in size, drain in place with minimal persistent fluid. Retroperitoneal Abscess Drainage 09/02/16 07:00 IMPRESSION: CT guided replacement of left lower quadrant abdominal abscess drain (12 [place] pigtail catheter placed). Assessment & Plan - Diagnosis (1) Abdominopelvic abscess Is this a current diagnosis for this admission?: YesPlan: wbc trending under 5. Continue ertapenem d13 (2) Nausea Is this a current diagnosis for this admission?: YesPlan: marinol contributes to confusion but megace would contribute to dvt (3) Phlebitis and thrombophlebitis of left popliteal vein Is this a current diagnosis for this admission?: Yes (4) UTI (urinary tract infection) Qualifiers: Urinary tract infection type: acute cystitis Hematuria presence: without hematuria Qualified Code(s): N30.00 - Acute cystitis without hematuria Is this a current diagnosis for this admission?: Yes (5) Hypokalemia Is this a current diagnosis for this admission?: Yes (6) Essential (primary) hypertension Is this a current diagnosis for this admission?: YesPlan: under 120 at times. Stop metoprolol. (7) Chemotherapy-induced vomiting Is this a current diagnosis for this admission?: Yes (8) Right upper quadrant pain Is this a current diagnosis for this admission?: Yes (9) Atrial flutter Qualifiers: Atrial flutter type: typical Qualified Code(s): I48.3 - Typical atrial flutter Is this a current diagnosis for this admission?: Yes
[2016-09-04] MEDS: LEVOTHYROXINE SODIUM 0.025 MG TABLET PO SCH (08:12)
[2016-09-04] MEDS: LEVOTHYROXINE SODIUM 0.1 MG TABLET PO SCH (08:12)
[2016-09-04] MEDS: POTASSI CL 20 MEQ/NS 1L 1,000 ML IV PRN (09:55)
[2016-09-04] MEDS: AMLODIPINE BESYLATE 10 MG TABLET PO SCH (10:30)
[2016-09-04] MEDS: LOSARTAN POTASSIUM 50 MG TABLET PO SCH (10:30)
[2016-09-04] MEDS: SENNOSIDES/DOCUSATE 8.6-50 MG 1 EACH TABLET PO SCH ×2 (10:30→18:15)
[2016-09-04] MEDS: ENOXAPARIN SODIUM INJ 100 MG/1 ML DISP.SYRIN SUBCUT SCH ×2 (10:31→21:37)
[2016-09-04] MEDS: HYDROXYCHLOROQUINE SULFATE 200 MG TABLET PO SCH (10:31)
[2016-09-04] MEDS ORDERED: MAGNESIUM CITRATE 296 ML BOTTLE PO ONE (11:27)
--- NOTE | 2016-09-04 11:27 | PDOC PROGRESS REPORT ---
Subjective Progress Note for:: 09/04/16 Subjective:: No nausea or vomiting. Passing gas. No bowel movement. Tolerating diet. Little to no abdominal pain. Physical Exam Vital Signs: Temp Pulse Resp BP Pulse Ox 97.9 F 73 14 111/62 95 09/04/16 08:26 09/04/16 08:26 09/04/16 08:26 09/04/16 08:26 09/04/16 08:26 Intake & Output 09/03/16 09/04/16 09/05/16 06:59 06:59 06:59 Intake Total 3731 2727 Balance 3731 2727 Weight 84.8 kg 84.2 kg General appearance: PRESENT: no acute distress Eye exam: PRESENT: EOMI Mouth exam: PRESENT: tongue midline, other - Slightly slurred speech, better than last visit. GI/Abdominal exam: PRESENT: soft, tenderness - Tenderness to palpation over the drain site only. Bilateral drains in place, left anterior and right posterior. Both with some purulent drainage. Left drain site also has some purulence at the skin when expressed with both hands.. ABSENT: distended Neurological exam: PRESENT: alert, oriented to situation Results Laboratory Results: 09/04/16 04:12 08/31/16 07:50 09/04/16 04:12 WBC 4.8 RBC 3.38 L Hgb 9.8 L Hct 29.6 L MCV 88 MCH 29.0 MCHC 33.1 RDW 16.2 H Plt Count 197 Impressions: Venous Doppler Study 08/18/16 16:19 IMPRESSION: 1. Right lower extremity DVT, popliteal and femoral veins. Hip X-Ray 08/18/16 17:43 IMPRESSION: No acute findings. DJD. Head CT 08/22/16 00:00 IMPRESSION: MILD CHRONIC CHANGES OF ATROPHY AND MICROVASCULAR ISCHEMIA. NO ACUTE PROCESS. Abdomen Ultrasound 08/23/16 00:00 IMPRESSION: NORMAL RIGHT UPPER QUADRANT ULTRASOUND. Chest CT 08/23/16 00:00 IMPRESSION: NORMAL CT OF THE CHEST WITH IV CONTRAST. IMPRESSION: 11 cm multilocular abscess in the left pelvis which extends along the iliopsoas musculature into the left femoral canal. There is also a separate 6.5 cm abscess in the deep right pelvis. Diffuse inflammatory changes are present throughout the pelvic fat. There is thickening throughout the sigmoid colon with probable diverticulitis as the origin of the adjacent abscesses. Catheter Change 08/24/16 00:00 IMPRESSION: Successful CT-guided placement of drainage catheter for pelvic abscess as described. Pelvis CT 08/26/16 00:00 IMPRESSION: Pelvic abscesses for cyst. Despite the presence of a drainage catheter in the left-sided abscess there has been minimal improvement. Percutaneous Drainage 08/28/16 00:00 IMPRESSION: CT GUIDED DRAINAGE OF TWO SEPARATE PELVIC ABSCESSES PERFORMED WITHOUT IMMEDIATE COMPLICATION. Abdomen/Pelvis CT 09/01/16 00:00 IMPRESSION: 1. Pelvic abscesses. Left iliopsoas collection looks smaller but no drain in place. Right jesu pelvic collection has decreased in size, drain in place with minimal persistent fluid. Retroperitoneal Abscess Drainage 09/02/16 07:00 IMPRESSION: CT guided replacement of left lower quadrant abdominal abscess drain (12 Yakut pigtail catheter placed). Assessment & Plan - Diagnosis (1) Acute abscess of female pelvis Is this a current diagnosis for this admission?: YesPlan: Being managed conservatively with percutaneously placed drains and IV antibiotics due to patient's overall illness, debility and comorbidities. Doing well. White count has normalized. Afebrile vital signs stable. Little to no pain. Tolerating diet. Continue conservative management. (2) Endometrial cancer Is this a current diagnosis for this admission?: Yes (3) Chemotherapy-induced vomiting Is this a current diagnosis for this admission?: Yes (4) Lower leg DVT (deep venous thromboembolism), acute Qualifiers: Laterality: left Qualified Code(s): I82.4Z2 - Acute embolism and thrombosis of unspecified deep veins of left distal lower extremity Is this a current diagnosis for this admission?: Yes (5) Nausea Is this a current diagnosis for this admission?: Yes (6) UTI (urinary tract infection) Qualifiers: Urinary tract infection type: acute cystitis Hematuria presence: without hematuria Qualified Code(s): N30.00 - Acute cystitis without hematuria Is this a current diagnosis for this admission?: Yes
[2016-09-04] MEDS: ERTAPENEM SODIUM 1 GM in NORMAL SALINE 50 ML IV SCH (18:14)
[2016-09-04] MEDS: SIMVASTATIN 10 MG TABLET PO SCH (21:37)
[2016-09-05] MEDS: DRONABINOL 2.5 MG CAPSULE PO SCH ×4 (00:16→18:22)
[2016-09-05] MEDS: LANSOPRAZOLE 15 MG TAB.RAP.DR PO SCH ×2 (05:55→18:23)
[2016-09-05] MEDS: SENNOSIDES/DOCUSATE 8.6-50 MG 1 EACH TABLET PO SCH (07:03)
--- NOTE | 2016-09-05 07:31 | PDOC PROGRESS REPORT ---
Subjective Progress Note for:: 09/05/16 Subjective:: no pain. Wants solid food. Physical Exam Vital Signs: Temp Pulse Resp BP Pulse Ox 97.8 F 77 15 134/67 H 94 09/05/16 03:39 09/05/16 03:39 09/05/16 03:39 09/05/16 03:39 09/05/16 03:39 Intake & Output 09/03/16 09/04/16 09/05/16 07:59 07:59 07:59 Intake Total 3731 2727 9917 Output Total 465 Balance 3731 2723 2049 Weight 186 lb 15.232 oz 185 lb 10.067 oz 185 lb 10.067 oz General appearance: PRESENT: no acute distress Respiratory exam: PRESENT: clear to auscultation avery Cardiovascular exam: ABSENT: diastolic murmur, irregular rhythm, systolic murmur GI/Abdominal exam: ABSENT: tenderness Extremities exam: ABSENT: pedal edema Results Laboratory Results: 09/04/16 04:12 08/31/16 07:50 09/04/16 14:25 Stool Occult Blood POSITIVE Impressions: Venous Doppler Study 08/18/16 16:19 IMPRESSION: 1. Right lower extremity DVT, popliteal and femoral veins. Hip X-Ray 08/18/16 17:43 IMPRESSION: No acute findings. DJD. Head CT 08/22/16 00:00 IMPRESSION: MILD CHRONIC CHANGES OF ATROPHY AND MICROVASCULAR ISCHEMIA. NO ACUTE PROCESS. Abdomen Ultrasound 08/23/16 00:00 IMPRESSION: NORMAL RIGHT UPPER QUADRANT ULTRASOUND. Chest CT 08/23/16 00:00 IMPRESSION: NORMAL CT OF THE CHEST WITH IV CONTRAST. IMPRESSION: 11 cm multilocular abscess in the left pelvis which extends along the iliopsoas musculature into the left femoral canal. There is also a separate 6.5 cm abscess in the deep right pelvis. Diffuse inflammatory changes are present throughout the pelvic fat. There is thickening throughout the sigmoid colon with probable diverticulitis as the origin of the adjacent abscesses. Catheter Change 08/24/16 00:00 IMPRESSION: Successful CT-guided placement of drainage catheter for pelvic abscess as described. Pelvis CT 08/26/16 00:00 IMPRESSION: Pelvic abscesses for cyst. Despite the presence of a drainage catheter in the left-sided abscess there has been minimal improvement. Percutaneous Drainage 08/28/16 00:00 IMPRESSION: CT GUIDED DRAINAGE OF TWO SEPARATE PELVIC ABSCESSES PERFORMED WITHOUT IMMEDIATE COMPLICATION. Abdomen/Pelvis CT 09/01/16 00:00 IMPRESSION: 1. Pelvic abscesses. Left iliopsoas collection looks smaller but no drain in place. Right jesu pelvic collection has decreased in size, drain in place with minimal persistent fluid. Retroperitoneal Abscess Drainage 09/02/16 07:00 IMPRESSION: CT guided replacement of left lower quadrant abdominal abscess drain (12 [place]ian pigtail catheter placed). Assessment & Plan - Diagnosis (1) Abdominopelvic abscess Is this a current diagnosis for this admission?: YesPlan: d14 ertapenem. Citrobacter & Klebsiela sensitive. 6 bugs:strep, peptostrep, bacteroides, prevotella. Draining (2) Nausea Is this a current diagnosis for this admission?: Yes (3) Phlebitis and thrombophlebitis of left popliteal vein Is this a current diagnosis for this admission?: Yes (4) UTI (urinary tract infection) Qualifiers: Urinary tract infection type: acute cystitis Hematuria presence: without hematuria Qualified Code(s): N30.00 - Acute cystitis without hematuria Is this a current diagnosis for this admission?: Yes (5) Hypokalemia Is this a current diagnosis for this admission?: Yes (6) Essential (primary) hypertension Is this a current diagnosis for this admission?: Yes (7) Chemotherapy-induced vomiting Is this a current diagnosis for this admission?: Yes (8) Right upper quadrant pain Is this a current diagnosis for this admission?: Yes (9) Atrial flutter Qualifiers: Atrial flutter type: typical Qualified Code(s): I48.3 - Typical atrial flutter Is this a current diagnosis for this admission?: Yes (10) Muscular deconditioning Is this a current diagnosis for this admission?: YesPlan: up to chair tid. Bedside commode. (Huge stool last night went everywhere.)
[2016-09-05] MEDS: LEVOTHYROXINE SODIUM 0.1 MG TABLET PO SCH (08:26)
[2016-09-05] MEDS: LEVOTHYROXINE SODIUM 0.025 MG TABLET PO SCH (08:26)
--- NOTE | 2016-09-05 08:48 | PDOC PROGRESS REPORT ---
Subjective Progress Note for:: 09/05/16 Subjective:: no acute events overnight, Drain still putting out Physical Exam Vital Signs: Temp Pulse Resp BP Pulse Ox 97.8 F 92 15 134/67 H 94 09/05/16 03:39 09/05/16 07:00 09/05/16 03:39 09/05/16 03:39 09/05/16 03:39 Intake & Output 09/04/16 09/05/16 09/06/16 06:59 06:59 06:59 Intake Total 2727 2514 Output Total 465 Balance 2727 9 Weight 84.2 kg 84.2 kg General appearance: PRESENT: no acute distress, well-developed, well-nourished Head exam: PRESENT: atraumatic, normocephalic Eye exam: PRESENT: conjunctiva pink, EOMI, PERRLA. ABSENT: scleral icterus Ear exam: PRESENT: normal external ear exam Mouth exam: PRESENT: moist, tongue midline Neck exam: ABSENT: carotid bruit, JVD, lymphadenopathy, thyromegaly Respiratory exam: PRESENT: clear to auscultation avery. ABSENT: rales, rhonchi, wheezes Cardiovascular exam: PRESENT: RRR. ABSENT: diastolic murmur, rubs, systolic murmur Pulses: PRESENT: normal dorsalis pedis pul Vascular exam: PRESENT: normal capillary refill GI/Abdominal exam: PRESENT: normal bowel sounds, soft. ABSENT: distended, guarding, mass, organolmegaly, rebound, tenderness Rectal exam: PRESENT: deferred Extremities exam: PRESENT: full ROM. ABSENT: calf tenderness, clubbing, pedal edema Neurological exam: PRESENT: alert, awake, oriented to person, oriented to place , oriented to time, oriented to situation, CN II-XII grossly intact. ABSENT: motor sensory deficit Psychiatric exam: PRESENT: appropriate affect, normal mood. ABSENT: homicidal ideation, suicidal ideation Skin exam: PRESENT: dry, intact, warm. ABSENT: cyanosis, rash Results Laboratory Results: 09/04/16 04:12 08/31/16 07:50 09/04/16 14:25 Stool Occult Blood POSITIVE Impressions: Venous Doppler Study 08/18/16 16:19 IMPRESSION: 1. Right lower extremity DVT, popliteal and femoral veins. Hip X-Ray 08/18/16 17:43 IMPRESSION: No acute findings. DJD. Head CT 08/22/16 00:00 IMPRESSION: MILD CHRONIC CHANGES OF ATROPHY AND MICROVASCULAR ISCHEMIA. NO ACUTE PROCESS. Abdomen Ultrasound 08/23/16 00:00 IMPRESSION: NORMAL RIGHT UPPER QUADRANT ULTRASOUND. Chest CT 08/23/16 00:00 IMPRESSION: NORMAL CT OF THE CHEST WITH IV CONTRAST. IMPRESSION: 11 cm multilocular abscess in the left pelvis which extends along the iliopsoas musculature into the left femoral canal. There is also a separate 6.5 cm abscess in the deep right pelvis. Diffuse inflammatory changes are present throughout the pelvic fat. There is thickening throughout the sigmoid colon with probable diverticulitis as the origin of the adjacent abscesses. Catheter Change 08/24/16 00:00 IMPRESSION: Successful CT-guided placement of drainage catheter for pelvic abscess as described. Pelvis CT 08/26/16 00:00 IMPRESSION: Pelvic abscesses for cyst. Despite the presence of a drainage catheter in the left-sided abscess there has been minimal improvement. Percutaneous Drainage 08/28/16 00:00 IMPRESSION: CT GUIDED DRAINAGE OF TWO SEPARATE PELVIC ABSCESSES PERFORMED WITHOUT IMMEDIATE COMPLICATION. Abdomen/Pelvis CT 09/01/16 00:00 IMPRESSION: 1. Pelvic abscesses. Left iliopsoas collection looks smaller but no drain in place. Right jesu pelvic collection has decreased in size, drain in place with minimal persistent fluid. Retroperitoneal Abscess Drainage 09/02/16 07:00 IMPRESSION: CT guided replacement of left lower quadrant abdominal abscess drain (12 Ethiopian pigtail catheter placed). Assessment & Plan - Diagnosis (1) Lower leg DVT (deep venous thromboembolism), acute Qualifiers: Laterality: left Qualified Code(s): I82.4Z2 - Acute embolism and thrombosis of unspecified deep veins of left distal lower extremity Is this a current diagnosis for this admission?: YesPlan: Continue with current anticoagulation (2) Uterus cancer Qualifiers: Malignant neoplasm of uterus location: body of uterus Malignant neoplasm of body of uterus location: endometrium Qualified Code(s): C54.1 - Malignant neoplasm of endometrium Is this a current diagnosis for this admission?: YesPlan: No further treatment planned as an outpatient (3) Other iron deficiency anemias Is this a current diagnosis for this admission?: YesPlan: Hemoglobin stable continue to monitor (4) Abdominopelvic abscess Is this a current diagnosis for this admission?: YesPlan: Drain still putting out fluid, told nursing to monitor 24 hour output very closely and document appropriately, that way surgery can decide when to remove those drains as well as went to reimage her. Given her debilitated status, she would not be a candidate for any intense surgical intervention. (5) Physical deconditioning Is this a current diagnosis for this admission?: YesPlan: She will ultimately require rehabilitation placement. - Time Time Spent with patient: 25-34 minutes Critical Time spent with patient: 15-24 minutes - Inpatient Certification Based on my medical assessment, after consideration of the patient's comorbidities, presenting symptoms, or acuity I expect that the services needed warrant INPATIENT care.: Yes I certify that my determination is in accordance with my understanding of Medicare's requirements for reasonable and necessary INPATIENT services [42 CFR 412.3e].: Yes Medical Necessity: Failure to Improve With Outpatient Therapy, Need For Continuous Telemetry Monitoring, Need for IV Antibiotics, Risk of Complication if Not Cared For in Hospital
--- NOTE | 2016-09-05 08:51 | PDOC PROGRESS REPORT ---
Subjective Progress Note for:: 09/05/16 Subjective:: Patient states she feels a little better; drain being flushed. Physical Exam Vital Signs: Temp Pulse Resp BP Pulse Ox 97.8 F 92 15 134/67 H 94 09/05/16 03:39 09/05/16 07:00 09/05/16 03:39 09/05/16 03:39 09/05/16 03:39 Intake & Output 09/04/16 09/05/16 09/06/16 06:59 06:59 06:59 Intake Total 2727 2514 Output Total 465 Balance 2727 2049 Weight 84.2 kg 84.2 kg General appearance: PRESENT: no acute distress GI/Abdominal exam: PRESENT: other - Abdomen soft; there is some firmness in the left lower quadrant; drain is putting out seropurulent material. Results Laboratory Results: 09/04/16 04:12 08/31/16 07:50 09/04/16 14:25 Stool Occult Blood POSITIVE Impressions: Venous Doppler Study 08/18/16 16:19 IMPRESSION: 1. Right lower extremity DVT, popliteal and femoral veins. Hip X-Ray 08/18/16 17:43 IMPRESSION: No acute findings. DJD. Head CT 08/22/16 00:00 IMPRESSION: MILD CHRONIC CHANGES OF ATROPHY AND MICROVASCULAR ISCHEMIA. NO ACUTE PROCESS. Abdomen Ultrasound 08/23/16 00:00 IMPRESSION: NORMAL RIGHT UPPER QUADRANT ULTRASOUND. Chest CT 08/23/16 00:00 IMPRESSION: NORMAL CT OF THE CHEST WITH IV CONTRAST. IMPRESSION: 11 cm multilocular abscess in the left pelvis which extends along the iliopsoas musculature into the left femoral canal. There is also a separate 6.5 cm abscess in the deep right pelvis. Diffuse inflammatory changes are present throughout the pelvic fat. There is thickening throughout the sigmoid colon with probable diverticulitis as the origin of the adjacent abscesses. Catheter Change 08/24/16 00:00 IMPRESSION: Successful CT-guided placement of drainage catheter for pelvic abscess as described. Pelvis CT 08/26/16 00:00 IMPRESSION: Pelvic abscesses for cyst. Despite the presence of a drainage catheter in the left-sided abscess there has been minimal improvement. Percutaneous Drainage 08/28/16 00:00 IMPRESSION: CT GUIDED DRAINAGE OF TWO SEPARATE PELVIC ABSCESSES PERFORMED WITHOUT IMMEDIATE COMPLICATION. Abdomen/Pelvis CT 09/01/16 00:00 IMPRESSION: 1. Pelvic abscesses. Left iliopsoas collection looks smaller but no drain in place. Right jesu pelvic collection has decreased in size, drain in place with minimal persistent fluid. Retroperitoneal Abscess Drainage 09/02/16 07:00 IMPRESSION: CT guided replacement of left lower quadrant abdominal abscess drain (12 Irish pigtail catheter placed). Assessment & Plan - Diagnosis (1) Abdominopelvic abscess Is this a current diagnosis for this admission?: YesPlan: Abdomen soft, drain functioning reasonably well. Will sign off for now; reconsult if needed. - Time Time Spent with patient: Less than 15 minutes
[2016-09-05] MEDS: AMLODIPINE BESYLATE 10 MG TABLET PO SCH (10:30)
[2016-09-05] MEDS: LOSARTAN POTASSIUM 50 MG TABLET PO SCH (10:30)
[2016-09-05] MEDS: ENOXAPARIN SODIUM INJ 100 MG/1 ML DISP.SYRIN SUBCUT SCH ×2 (10:32→22:31)
[2016-09-05] MEDS: HYDROXYCHLOROQUINE SULFATE 200 MG TABLET PO SCH (10:34)
[2016-09-05] MEDS: ERTAPENEM SODIUM 1 GM in NORMAL SALINE 50 ML IV SCH (16:33)
[2016-09-05] MEDS: SIMVASTATIN 10 MG TABLET PO SCH (22:31)
[2016-09-06] MEDS: DRONABINOL 2.5 MG CAPSULE PO SCH ×4 (00:21→18:05)
[2016-09-06] MEDS: LANSOPRAZOLE 15 MG TAB.RAP.DR PO SCH ×2 (05:35→18:06)
[2016-09-06 06:57] LABS: HEMATOCRIT 30.3 % (36.0-47.0); HEMOGLOBIN 9.8 g/dL (12.0-15.5); HGB HCT DIFFERENCE -0.9; MEAN CORPUSCULAR HEMOGLOBIN 29.2 pg (27.0-33.4); MEAN CORPUSCULAR HGB CONC 32.5 g/dL (32.0-36.0); MEAN CORPUSCULAR VOLUME 90 fl (80-97); RED BLOOD COUNT 3.37 10^6/uL (3.72-5.28); RED CELL DISTRIBUTION WIDTH 16.9 % (11.5-14.0); WHITE BLOOD COUNT 3.6 10^3/uL (4.0-10.5)
--- NOTE | 2016-09-06 07:33 | PDOC PROGRESS REPORT ---
Subjective Progress Note for:: 09/06/16 Subjective:: refused to get up for bedside commode. Ate 50% hospital food but all of family' s oysters. Asked appropriate questions about illness. Physical Exam Vital Signs: Temp Pulse Resp BP Pulse Ox 98.0 F 88 17 141/83 H 99 09/06/16 03:29 09/06/16 03:29 09/06/16 03:29 09/06/16 03:29 09/06/16 03:29 Intake & Output 09/04/16 09/05/16 09/06/16 07:59 07:59 07:59 Intake Total 2727 2514 1177 Output Total 465 740 Balance 2727 2049 437 Weight 185 lb 10.067 oz 185 lb 10.067 oz 185 lb 10.067 oz General appearance: PRESENT: no acute distress Respiratory exam: PRESENT: clear to auscultation avery Cardiovascular exam: PRESENT: systolic murmur. ABSENT: clicks, irregular rhythm GI/Abdominal exam: PRESENT: tenderness - minimal at LLQ drain. ABSENT: mass, organolmegaly Extremities exam: ABSENT: pedal edema Neurological exam: PRESENT: alert, oriented to person, oriented to place, oriented to time, oriented to situation Psychiatric exam: PRESENT: depressed Results Laboratory Results: 09/06/16 06:28 08/31/16 07:50 09/06/16 06:28 WBC 3.6 L RBC 3.37 L Hgb 9.8 L Hct 30.3 L MCV 90 MCH 29.2 MCHC 32.5 RDW 16.9 H Plt Count 234 Impressions: Venous Doppler Study 08/18/16 16:19 IMPRESSION: 1. Right lower extremity DVT, popliteal and femoral veins. Hip X-Ray 08/18/16 17:43 IMPRESSION: No acute findings. DJD. Head CT 08/22/16 00:00 IMPRESSION: MILD CHRONIC CHANGES OF ATROPHY AND MICROVASCULAR ISCHEMIA. NO ACUTE PROCESS. Abdomen Ultrasound 08/23/16 00:00 IMPRESSION: NORMAL RIGHT UPPER QUADRANT ULTRASOUND. Chest CT 08/23/16 00:00 IMPRESSION: NORMAL CT OF THE CHEST WITH IV CONTRAST. IMPRESSION: 11 cm multilocular abscess in the left pelvis which extends along the iliopsoas musculature into the left femoral canal. There is also a separate 6.5 cm abscess in the deep right pelvis. Diffuse inflammatory changes are present throughout the pelvic fat. There is thickening throughout the sigmoid colon with probable diverticulitis as the origin of the adjacent abscesses. Catheter Change 08/24/16 00:00 IMPRESSION: Successful CT-guided placement of drainage catheter for pelvic abscess as described. Pelvis CT 08/26/16 00:00 IMPRESSION: Pelvic abscesses for cyst. Despite the presence of a drainage catheter in the left-sided abscess there has been minimal improvement. Percutaneous Drainage 08/28/16 00:00 IMPRESSION: CT GUIDED DRAINAGE OF TWO SEPARATE PELVIC ABSCESSES PERFORMED WITHOUT IMMEDIATE COMPLICATION. Abdomen/Pelvis CT 09/01/16 00:00 IMPRESSION: 1. Pelvic abscesses. Left iliopsoas collection looks smaller but no drain in place. Right jesu pelvic collection has decreased in size, drain in place with minimal persistent fluid. Retroperitoneal Abscess Drainage 09/02/16 07:00 IMPRESSION: CT guided replacement of left lower quadrant abdominal abscess drain (12 [place]an pigtail catheter placed). Assessment & Plan - Diagnosis (1) Abdominopelvic abscess Is this a current diagnosis for this admission?: YesPlan: [id number]. Day16 ertapenem. Encouraged mobility to help drainage. Encouraged food to help immune function. (2) Nausea Is this a current diagnosis for this admission?: Yes (3) Phlebitis and thrombophlebitis of left popliteal vein Is this a current diagnosis for this admission?: Yes (4) UTI (urinary tract infection) Qualifiers: Urinary tract infection type: acute cystitis Hematuria presence: without hematuria Qualified Code(s): N30.00 - Acute cystitis without hematuria Is this a current diagnosis for this admission?: Yes (5) Hypokalemia Is this a current diagnosis for this admission?: Yes (6) Essential (primary) hypertension Is this a current diagnosis for this admission?: Yes (7) Chemotherapy-induced vomiting Is this a current diagnosis for this admission?: Yes (8) Right upper quadrant pain Is this a current diagnosis for this admission?: Yes (9) Atrial flutter Qualifiers: Atrial flutter type: typical Qualified Code(s): I48.3 - Typical atrial flutter Is this a current diagnosis for this admission?: Yes (10) Muscular deconditioning Is this a current diagnosis for this admission?: Yes (11) Major depressive disorder, single episode, moderate Is this a current diagnosis for this admission?: YesPlan: bupropion for motivation
[2016-09-06] MEDS: AMLODIPINE BESYLATE 10 MG TABLET PO SCH (10:33)
[2016-09-06] MEDS: LOSARTAN POTASSIUM 50 MG TABLET PO SCH (10:34)
[2016-09-06] MEDS: LEVOTHYROXINE SODIUM 0.1 MG TABLET PO SCH (10:34)
[2016-09-06] MEDS: LEVOTHYROXINE SODIUM 0.025 MG TABLET PO SCH (10:34)
[2016-09-06] MEDS: ENOXAPARIN SODIUM INJ 100 MG/1 ML DISP.SYRIN SUBCUT SCH ×2 (10:35→21:57)
[2016-09-06] MEDS: HYDROXYCHLOROQUINE SULFATE 200 MG TABLET PO SCH (10:38)
[2016-09-06 10:55] LABS: AMORPHOUS SEDIMENT,URINE TRACE /HPF; APPEARANCE,URINE CLOUDY; BILIRUBIN,URINE NEGATIVE (NEGATIVE); GLUCOSE, URINE NEGATIVE (NEGATIVE); KETONES,URINE NEGATIVE (NEGATIVE); LEUKOCYTE ESTERASE,URINE SMALL (NEGATIVE); NITRITE,URINE NEGATIVE (NEGATIVE); PROTEIN,URINE NEGATIVE (NEGATIVE); URINE SPECIFIC GRAVITY 1.008; UROBILINOGEN,URINE NEGATIVE mg/dL (<2.0)
[2016-09-06] MEDS: ERTAPENEM SODIUM 1 GM in NORMAL SALINE 50 ML IV SCH (15:56)
[2016-09-06] MEDS: BUPROPION HCL 75 MG TABLET PO SCH ×2 (15:57→21:56)
[2016-09-06] MEDS: SIMVASTATIN 10 MG TABLET PO SCH (21:56)
[2016-09-07] MEDS: DRONABINOL 2.5 MG CAPSULE PO SCH ×2 (00:31→06:49)
--- NOTE | 2016-09-07 04:07 | PDOC PROGRESS REPORT ---
Subjective Progress Note for:: 09/07/16 Subjective:: no pain. Nurses say appetite improved. OOB yesterday. Physical Exam Vital Signs: Temp Pulse Resp BP Pulse Ox 98.1 F 93 15 126/80 H 98 09/07/16 00:10 09/07/16 00:10 09/07/16 00:10 09/07/16 00:10 09/07/16 00:10 Intake & Output 09/05/16 09/06/16 09/07/16 07:59 07:59 07:59 Intake Total 2514 1177 757 Output Total 465 740 Balance 2049 437 757 Weight 185 lb 10.067 oz 185 lb 10.067 oz General appearance: PRESENT: no acute distress Respiratory exam: PRESENT: clear to auscultation avery Cardiovascular exam: ABSENT: diastolic murmur, irregular rhythm, systolic murmur GI/Abdominal exam: ABSENT: mass, organolmegaly, tenderness Extremities exam: ABSENT: pedal edema Results Laboratory Results: 09/06/16 06:28 08/31/16 07:50 09/06/16 09/06/16 06:28 10:11 WBC 3.6 L RBC 3.37 L Hgb 9.8 L Hct 30.3 L MCV 90 MCH 29.2 MCHC 32.5 RDW 16.9 H Plt Count 234 Urine Color YELLOW Urine Appearance CLOUDY Urine pH 7.0 Ur Specific [place] 1.008 Urine Protein NEGATIVE Urine Glucose (UA) NEGATIVE Urine Ketones NEGATIVE Urine Blood NEGATIVE Urine Nitrite NEGATIVE Ur Leukocyte Esterase SMALL H Urine WBC (Auto) 15 Urine RBC (Auto) 4 Impressions: Venous Doppler Study 08/18/16 16:19 IMPRESSION: 1. Right lower extremity DVT, popliteal and femoral veins. Hip X-Ray 08/18/16 17:43 IMPRESSION: No acute findings. DJD. Head CT 08/22/16 00:00 IMPRESSION: MILD CHRONIC CHANGES OF ATROPHY AND MICROVASCULAR ISCHEMIA. NO ACUTE PROCESS. Abdomen Ultrasound 08/23/16 00:00 IMPRESSION: NORMAL RIGHT UPPER QUADRANT ULTRASOUND. Chest CT 08/23/16 00:00 IMPRESSION: NORMAL CT OF THE CHEST WITH IV CONTRAST. IMPRESSION: 11 cm multilocular abscess in the left pelvis which extends along the iliopsoas musculature into the left femoral canal. There is also a separate 6.5 cm abscess in the deep right pelvis. Diffuse inflammatory changes are present throughout the pelvic fat. There is thickening throughout the sigmoid colon with probable diverticulitis as the origin of the adjacent abscesses. Catheter Change 08/24/16 00:00 IMPRESSION: Successful CT-guided placement of drainage catheter for pelvic abscess as described. Pelvis CT 08/26/16 00:00 IMPRESSION: Pelvic abscesses for cyst. Despite the presence of a drainage catheter in the left-sided abscess there has been minimal improvement. Percutaneous Drainage 08/28/16 00:00 IMPRESSION: CT GUIDED DRAINAGE OF TWO SEPARATE PELVIC ABSCESSES PERFORMED WITHOUT IMMEDIATE COMPLICATION. Abdomen/Pelvis CT 09/01/16 00:00 IMPRESSION: 1. Pelvic abscesses. Left iliopsoas collection looks smaller but no drain in place. Right jesu pelvic collection has decreased in size, drain in place with minimal persistent fluid. Retroperitoneal Abscess Drainage 09/02/16 07:00 IMPRESSION: CT guided replacement of left lower quadrant abdominal abscess drain (12 Yi pigtail catheter placed). Assessment & Plan - Diagnosis (1) Abdominopelvic abscess Is this a current diagnosis for this admission?: YesPlan: L drain bag half full for first time, possibly because she got up. (2) Nausea Is this a current diagnosis for this admission?: Yes (3) Phlebitis and thrombophlebitis of left popliteal vein Is this a current diagnosis for this admission?: Yes (4) UTI (urinary tract infection) Qualifiers: Urinary tract infection type: acute cystitis Hematuria presence: without hematuria Qualified Code(s): N30.00 - Acute cystitis without hematuria Is this a current diagnosis for this admission?: Yes (5) Hypokalemia Is this a current diagnosis for this admission?: Yes (6) Essential (primary) hypertension Is this a current diagnosis for this admission?: Yes (7) Chemotherapy-induced vomiting Is this a current diagnosis for this admission?: Yes (8) Right upper quadrant pain Is this a current diagnosis for this admission?: Yes (9) Atrial flutter Qualifiers: Atrial flutter type: typical Qualified Code(s): I48.3 - Typical atrial flutter Is this a current diagnosis for this admission?: Yes (10) Muscular deconditioning Is this a current diagnosis for this admission?: Yes (11) Major depressive disorder, single episode, moderate Is this a current diagnosis for this admission?: Yes (12) Essential (primary) hypertension Is this a current diagnosis for this admission?: YesPlan: bp under 120 usually now. Stop amlodipine
[2016-09-07] MEDS: LANSOPRAZOLE 15 MG TAB.RAP.DR PO SCH ×2 (06:49→17:11)
[2016-09-07] MEDS: BUPROPION HCL 75 MG TABLET PO SCH ×3 (06:49→23:58)
[2016-09-07] MEDS: ENOXAPARIN SODIUM INJ 100 MG/1 ML DISP.SYRIN SUBCUT SCH ×2 (09:22→23:59)
[2016-09-07] MEDS: LOSARTAN POTASSIUM 50 MG TABLET PO SCH (09:22)
[2016-09-07] MEDS: LEVOTHYROXINE SODIUM 0.1 MG TABLET PO SCH (09:22)
[2016-09-07] MEDS: LEVOTHYROXINE SODIUM 0.025 MG TABLET PO SCH (09:23)
[2016-09-07] MEDS: HYDROXYCHLOROQUINE SULFATE 200 MG TABLET PO SCH (09:23)
[2016-09-07] MEDS: ERTAPENEM SODIUM 1 GM in NORMAL SALINE 50 ML IV SCH (15:44)
[2016-09-07] MEDS: SIMVASTATIN 10 MG TABLET PO SCH (23:58)
[2016-09-08] MEDS: BUPROPION HCL 75 MG TABLET PO SCH (05:25)
[2016-09-08] MEDS: LANSOPRAZOLE 15 MG TAB.RAP.DR PO SCH ×2 (05:25→18:21)
--- NOTE | 2016-09-08 07:25 | PDOC PROGRESS REPORT ---
Subjective Progress Note for:: 09/08/16 Subjective:: couldnt stand with help. Fears nurses will drop her. No pain, dyspnea, nausea. Physical Exam Vital Signs: Temp Pulse Resp BP Pulse Ox 98.0 F 94 18 147/76 H 99 09/08/16 03:39 09/08/16 03:39 09/08/16 03:39 09/08/16 03:39 09/08/16 03:39 Intake & Output 09/06/16 09/07/16 09/08/16 07:59 07:59 07:59 Intake Total 1080 422 0208 Output Total 740 55 35 Balance 726 548 8899 Weight 185 lb 10.067 oz 183 lb 6.793 oz 178 lb 2.136 oz General appearance: PRESENT: no acute distress Respiratory exam: PRESENT: clear to auscultation avery Cardiovascular exam: ABSENT: diastolic murmur, irregular rhythm, systolic murmur GI/Abdominal exam: PRESENT: tenderness - slight RLQ. ABSENT: mass, organolmegaly Extremities exam: ABSENT: pedal edema Neurological exam: ABSENT: motor sensory deficit - plantar dorsiflexion 5of5 Psychiatric exam: PRESENT: depressed Results Laboratory Results: 09/06/16 06:28 08/31/16 07:50 Impressions: Venous Doppler Study 08/18/16 16:19 IMPRESSION: 1. Right lower extremity DVT, popliteal and femoral veins. Hip X-Ray 08/18/16 17:43 IMPRESSION: No acute findings. DJD. Head CT 08/22/16 00:00 IMPRESSION: MILD CHRONIC CHANGES OF ATROPHY AND MICROVASCULAR ISCHEMIA. NO ACUTE PROCESS. Abdomen Ultrasound 08/23/16 00:00 IMPRESSION: NORMAL RIGHT UPPER QUADRANT ULTRASOUND. Chest CT 08/23/16 00:00 IMPRESSION: NORMAL CT OF THE CHEST WITH IV CONTRAST. IMPRESSION: 11 cm multilocular abscess in the left pelvis which extends along the iliopsoas musculature into the left femoral canal. There is also a separate 6.5 cm abscess in the deep right pelvis. Diffuse inflammatory changes are present throughout the pelvic fat. There is thickening throughout the sigmoid colon with probable diverticulitis as the origin of the adjacent abscesses. Catheter Change 08/24/16 00:00 IMPRESSION: Successful CT-guided placement of drainage catheter for pelvic abscess as described. Pelvis CT 08/26/16 00:00 IMPRESSION: Pelvic abscesses for cyst. Despite the presence of a drainage catheter in the left-sided abscess there has been minimal improvement. Percutaneous Drainage 08/28/16 00:00 IMPRESSION: CT GUIDED DRAINAGE OF TWO SEPARATE PELVIC ABSCESSES PERFORMED WITHOUT IMMEDIATE COMPLICATION. Abdomen/Pelvis CT 09/01/16 00:00 IMPRESSION: 1. Pelvic abscesses. Left iliopsoas collection looks smaller but no drain in place. Right jesu pelvic collection has decreased in size, drain in place with minimal persistent fluid. Retroperitoneal Abscess Drainage 09/02/16 07:00 IMPRESSION: CT guided replacement of left lower quadrant abdominal abscess drain (12 Bengali pigtail catheter placed). Assessment & Plan - Diagnosis (1) Malnutrition of moderate degree Is this a current diagnosis for this admission?: YesPlan: down 22#. Continue beneprotein (2) Major depressive disorder, single episode, moderate Is this a current diagnosis for this admission?: YesPlan: increase bupropion 100tid (3) Abdominopelvic abscess Is this a current diagnosis for this admission?: YesPlan: afebrile (4) Essential (primary) hypertension Is this a current diagnosis for this admission?: Yes (5) Chemotherapy-induced vomiting Is this a current diagnosis for this admission?: Yes (6) Right upper quadrant pain Is this a current diagnosis for this admission?: Yes (7) Atrial flutter Qualifiers: Atrial flutter type: typical Qualified Code(s): I48.3 - Typical atrial flutter Is this a current diagnosis for this admission?: Yes (8) Muscular deconditioning Is this a current diagnosis for this admission?: Yes (9) Essential (primary) hypertension Is this a current diagnosis for this admission?: Yes (10) Nausea Is this a current diagnosis for this admission?: Yes (11) Phlebitis and thrombophlebitis of left popliteal vein Is this a current diagnosis for this admission?: Yes (12) UTI (urinary tract infection) Qualifiers: Urinary tract infection type: acute cystitis Hematuria presence: without hematuria Qualified Code(s): N30.00 - Acute cystitis without hematuria Is this a current diagnosis for this admission?: Yes (13) Hypokalemia Is this a current diagnosis for this admission?: Yes
[2016-09-08] MEDS: LEVOTHYROXINE SODIUM 0.1 MG TABLET PO SCH (08:27)
[2016-09-08] MEDS: LEVOTHYROXINE SODIUM 0.025 MG TABLET PO SCH (08:27)
[2016-09-08] MEDS: ENOXAPARIN SODIUM INJ 100 MG/1 ML DISP.SYRIN SUBCUT SCH ×2 (09:52→21:44)
[2016-09-08] MEDS: HYDROXYCHLOROQUINE SULFATE 200 MG TABLET PO SCH (09:52)
[2016-09-08] MEDS: LOSARTAN POTASSIUM 50 MG TABLET PO SCH (09:52)
[2016-09-08] MEDS: BUPROPION HCL 100 MG TABLET PO SCH ×2 (14:52→21:41)
[2016-09-08] MEDS: ERTAPENEM SODIUM 1 GM in NORMAL SALINE 50 ML IV SCH (16:35)
[2016-09-08] MEDS: SIMVASTATIN 10 MG TABLET PO SCH (21:41)
[2016-09-09] MEDS: BUPROPION HCL 100 MG TABLET PO SCH ×3 (05:37→21:08)
[2016-09-09] MEDS: LANSOPRAZOLE 15 MG TAB.RAP.DR PO SCH ×2 (05:37→17:39)
--- NOTE | 2016-09-09 07:11 | PDOC PROGRESS REPORT ---
Subjective Progress Note for:: 09/09/16 Subjective:: nurses made her get up to chair yesterday. Occasional nausea. No pain. Physical Exam Vital Signs: Temp Pulse Resp BP Pulse Ox 97.5 F 89 16 138/70 H 100 09/09/16 03:38 09/09/16 03:38 09/09/16 03:38 09/09/16 03:38 09/09/16 03:38 Intake & Output 09/07/16 09/08/16 09/09/16 07:59 07:59 07:59 Intake Total 957 1600 620 Output Total 55 35 Balance 902 1565 620 Weight 183 lb 6.793 oz 178 lb 2.136 oz 179 lb 0.246 oz General appearance: PRESENT: no acute distress Respiratory exam: PRESENT: clear to auscultation avery Cardiovascular exam: ABSENT: diastolic murmur, irregular rhythm, systolic murmur GI/Abdominal exam: ABSENT: mass, organolmegaly, tenderness Extremities exam: ABSENT: pedal edema Neurological exam: PRESENT: oriented to situation Psychiatric exam: PRESENT: normal mood Results Laboratory Results: 09/06/16 06:28 08/31/16 07:50 09/08/16 09:45 Stool Occult Blood NEGATIVE Impressions: Venous Doppler Study 08/18/16 16:19 IMPRESSION: 1. Right lower extremity DVT, popliteal and femoral veins. Hip X-Ray 08/18/16 17:43 IMPRESSION: No acute findings. DJD. Head CT 08/22/16 00:00 IMPRESSION: MILD CHRONIC CHANGES OF ATROPHY AND MICROVASCULAR ISCHEMIA. NO ACUTE PROCESS. Abdomen Ultrasound 08/23/16 00:00 IMPRESSION: NORMAL RIGHT UPPER QUADRANT ULTRASOUND. Chest CT 08/23/16 00:00 IMPRESSION: NORMAL CT OF THE CHEST WITH IV CONTRAST. IMPRESSION: 11 cm multilocular abscess in the left pelvis which extends along the iliopsoas musculature into the left femoral canal. There is also a separate 6.5 cm abscess in the deep right pelvis. Diffuse inflammatory changes are present throughout the pelvic fat. There is thickening throughout the sigmoid colon with probable diverticulitis as the origin of the adjacent abscesses. Catheter Change 08/24/16 00:00 IMPRESSION: Successful CT-guided placement of drainage catheter for pelvic abscess as described. Pelvis CT 08/26/16 00:00 IMPRESSION: Pelvic abscesses for cyst. Despite the presence of a drainage catheter in the left-sided abscess there has been minimal improvement. Percutaneous Drainage 08/28/16 00:00 IMPRESSION: CT GUIDED DRAINAGE OF TWO SEPARATE PELVIC ABSCESSES PERFORMED WITHOUT IMMEDIATE COMPLICATION. Abdomen/Pelvis CT 09/01/16 00:00 IMPRESSION: 1. Pelvic abscesses. Left iliopsoas collection looks smaller but no drain in place. Right jesu pelvic collection has decreased in size, drain in place with minimal persistent fluid. Retroperitoneal Abscess Drainage 09/02/16 07:00 IMPRESSION: CT guided replacement of left lower quadrant abdominal abscess drain (12 Jamaican pigtail catheter placed). Assessment & Plan - Diagnosis (1) Abdominopelvic abscess Is this a current diagnosis for this admission?: YesPlan: d18 ertapenem. Drains each about an oz daily. ?ct later this week (2) Malnutrition of moderate degree Is this a current diagnosis for this admission?: Yes (3) Major depressive disorder, single episode, moderate Is this a current diagnosis for this admission?: Yes (4) Essential (primary) hypertension Is this a current diagnosis for this admission?: Yes (5) Chemotherapy-induced vomiting Is this a current diagnosis for this admission?: Yes (6) Right upper quadrant pain Is this a current diagnosis for this admission?: Yes (7) Atrial flutter Qualifiers: Atrial flutter type: typical Qualified Code(s): I48.3 - Typical atrial flutter Is this a current diagnosis for this admission?: Yes (8) Muscular deconditioning Is this a current diagnosis for this admission?: Yes (9) Nausea Is this a current diagnosis for this admission?: Yes (10) Phlebitis and thrombophlebitis of left popliteal vein Is this a current diagnosis for this admission?: Yes (11) UTI (urinary tract infection) Qualifiers: Urinary tract infection type: acute cystitis Hematuria presence: without hematuria Qualified Code(s): N30.00 - Acute cystitis without hematuria Is this a current diagnosis for this admission?: Yes (12) Hypokalemia Is this a current diagnosis for this admission?: Yes
[2016-09-09 07:34] LABS: HEMOGLOBIN 10.5 g/dL (12.0-15.5); HGB HCT DIFFERENCE -0.5; MEAN CORPUSCULAR HEMOGLOBIN 29.3 pg (27.0-33.4); MEAN CORPUSCULAR HGB CONC 32.8 g/dL (32.0-36.0); MEAN CORPUSCULAR VOLUME 90 fl (80-97); RED BLOOD COUNT 3.58 10^6/uL (3.72-5.28); RED CELL DISTRIBUTION WIDTH 18.1 % (11.5-14.0); WHITE BLOOD COUNT 3.5 10^3/uL (4.0-10.5)
[2016-09-09] MEDS: LEVOTHYROXINE SODIUM 0.1 MG TABLET PO SCH (08:31)
[2016-09-09] MEDS: LEVOTHYROXINE SODIUM 0.025 MG TABLET PO SCH (08:31)
[2016-09-09] MEDS: ENOXAPARIN SODIUM INJ 100 MG/1 ML DISP.SYRIN SUBCUT SCH ×2 (09:24→21:08)
[2016-09-09] MEDS: LOSARTAN POTASSIUM 50 MG TABLET PO SCH (09:25)
[2016-09-09] MEDS: HYDROXYCHLOROQUINE SULFATE 200 MG TABLET PO SCH (09:25)
[2016-09-09] MEDS: ERTAPENEM SODIUM 1 GM in NORMAL SALINE 50 ML IV SCH (15:03)
[2016-09-09 16:23] LABS: AMORPHOUS SEDIMENT,URINE TRACE /HPF; APPEARANCE,URINE CLOUDY; BILIRUBIN,URINE NEGATIVE (NEGATIVE); GLUCOSE, URINE NEGATIVE (NEGATIVE); KETONES,URINE NEGATIVE (NEGATIVE); LEUKOCYTE ESTERASE,URINE SMALL (NEGATIVE); NITRITE,URINE NEGATIVE (NEGATIVE); PROTEIN,URINE NEGATIVE (NEGATIVE); URINE SPECIFIC GRAVITY 1.008; UROBILINOGEN,URINE NEGATIVE mg/dL (<2.0)
[2016-09-09] MEDS: SIMVASTATIN 10 MG TABLET PO SCH (21:08)
[2016-09-10] MEDS: LANSOPRAZOLE 15 MG TAB.RAP.DR PO SCH ×2 (05:53→17:12)
[2016-09-10] MEDS: BUPROPION HCL 100 MG TABLET PO SCH ×3 (05:53→21:45)
[2016-09-10] MEDS ORDERED: SENNOSIDES/DOCUSATE 8.6-50 MG 1 EACH TABLET PO PRN (06:46)
--- NOTE | 2016-09-10 06:52 | PDOC PROGRESS REPORT ---
Subjective Progress Note for:: 09/10/16 Subjective:: 2d no stool. L groin pain. Physical Exam Vital Signs: Temp Pulse Resp BP Pulse Ox 97.9 F 98 16 127/94 H 100 09/10/16 03:50 09/10/16 03:50 09/10/16 03:50 09/10/16 03:50 09/10/16 03:50 Intake & Output 09/08/16 09/09/16 09/10/16 07:59 07:59 07:59 Intake Total 1600 620 519 Output Total 35 60 Balance 1565 620 459 Weight 178 lb 2.136 oz 179 lb 0.246 oz 175 lb 14.862 oz General appearance: PRESENT: no acute distress Respiratory exam: PRESENT: clear to auscultation avery Cardiovascular exam: ABSENT: diastolic murmur, irregular rhythm, systolic murmur GI/Abdominal exam: PRESENT: other - no groin tenderness. ABSENT: mass, organolmegaly, tenderness Extremities exam: ABSENT: pedal edema Psychiatric exam: PRESENT: appropriate affect Results Laboratory Results: 09/09/16 07:05 08/31/16 07:50 09/09/16 09/09/16 07:05 16:05 WBC 3.5 L RBC 3.58 L Hgb 10.5 L Hct 32.0 L MCV 90 MCH 29.3 MCHC 32.8 RDW 18.1 H Plt Count 181 Urine Color YELLOW Urine Appearance CLOUDY Urine pH 7.0 Ur Specific [place] 1.008 Urine Protein NEGATIVE Urine Glucose (UA) NEGATIVE Urine Ketones NEGATIVE Urine Blood SMALL H Urine Nitrite NEGATIVE Ur Leukocyte Esterase SMALL H Urine WBC (Auto) 8 Urine RBC (Auto) 8 Impressions: Venous Doppler Study 08/18/16 16:19 IMPRESSION: 1. Right lower extremity DVT, popliteal and femoral veins. Hip X-Ray 08/18/16 17:43 IMPRESSION: No acute findings. DJD. Head CT 08/22/16 00:00 IMPRESSION: MILD CHRONIC CHANGES OF ATROPHY AND MICROVASCULAR ISCHEMIA. NO ACUTE PROCESS. Abdomen Ultrasound 08/23/16 00:00 IMPRESSION: NORMAL RIGHT UPPER QUADRANT ULTRASOUND. Chest CT 08/23/16 00:00 IMPRESSION: NORMAL CT OF THE CHEST WITH IV CONTRAST. IMPRESSION: 11 cm multilocular abscess in the left pelvis which extends along the iliopsoas musculature into the left femoral canal. There is also a separate 6.5 cm abscess in the deep right pelvis. Diffuse inflammatory changes are present throughout the pelvic fat. There is thickening throughout the sigmoid colon with probable diverticulitis as the origin of the adjacent abscesses. Catheter Change 08/24/16 00:00 IMPRESSION: Successful CT-guided placement of drainage catheter for pelvic abscess as described. Pelvis CT 08/26/16 00:00 IMPRESSION: Pelvic abscesses for cyst. Despite the presence of a drainage catheter in the left-sided abscess there has been minimal improvement. Percutaneous Drainage 08/28/16 00:00 IMPRESSION: CT GUIDED DRAINAGE OF TWO SEPARATE PELVIC ABSCESSES PERFORMED WITHOUT IMMEDIATE COMPLICATION. Abdomen/Pelvis CT 09/01/16 00:00 IMPRESSION: 1. Pelvic abscesses. Left iliopsoas collection looks smaller but no drain in place. Right jesu pelvic collection has decreased in size, drain in place with minimal persistent fluid. Retroperitoneal Abscess Drainage 09/02/16 07:00 IMPRESSION: CT guided replacement of left lower quadrant abdominal abscess drain (12 Kinyarwanda pigtail catheter placed). Assessment & Plan - Diagnosis (1) Abdominopelvic abscess Is this a current diagnosis for this admission?: YesPlan: vaginal US to check progress of abscess drains (2) Constipation Qualifiers: Constipation type: slow transit constipation Qualified Code(s): K59.01 - Slow transit constipation Is this a current diagnosis for this admission?: YesPlan: resume senna plus (3) Malnutrition of moderate degree Is this a current diagnosis for this admission?: Yes (4) Major depressive disorder, single episode, moderate Is this a current diagnosis for this admission?: Yes (5) Essential (primary) hypertension Is this a current diagnosis for this admission?: Yes (6) Chemotherapy-induced vomiting Is this a current diagnosis for this admission?: Yes (7) Right upper quadrant pain Is this a current diagnosis for this admission?: Yes (8) Atrial flutter Qualifiers: Atrial flutter type: typical Qualified Code(s): I48.3 - Typical atrial flutter Is this a current diagnosis for this admission?: Yes (9) Muscular deconditioning Is this a current diagnosis for this admission?: Yes (10) Nausea Is this a current diagnosis for this admission?: Yes (11) Phlebitis and thrombophlebitis of left popliteal vein Is this a current diagnosis for this admission?: Yes (12) UTI (urinary tract infection) Qualifiers: Urinary tract infection type: acute cystitis Hematuria presence: without hematuria Qualified Code(s): N30.00 - Acute cystitis without hematuria Is this a current diagnosis for this admission?: Yes (13) Hypokalemia Is this a current diagnosis for this admission?: Yes
[2016-09-10] MEDS: LEVOTHYROXINE SODIUM 0.025 MG TABLET PO SCH (08:26)
[2016-09-10] MEDS: LEVOTHYROXINE SODIUM 0.1 MG TABLET PO SCH (08:26)
[2016-09-10] MEDS: ENOXAPARIN SODIUM INJ 100 MG/1 ML DISP.SYRIN SUBCUT SCH ×2 (11:26→21:45)
[2016-09-10] MEDS: LOSARTAN POTASSIUM 50 MG TABLET PO SCH (11:28)
[2016-09-10] MEDS: HYDROXYCHLOROQUINE SULFATE 200 MG TABLET PO SCH (11:28)
[2016-09-10] MEDS: ERTAPENEM SODIUM 1 GM in NORMAL SALINE 50 ML IV SCH (15:43)
[2016-09-10] MEDS: SIMVASTATIN 10 MG TABLET PO SCH (21:45)
[2016-09-11 08:06] LABS: HEMOGLOBIN 10.5 g/dL (12.0-15.5); HGB HCT DIFFERENCE -0.5; MEAN CORPUSCULAR HEMOGLOBIN 29.6 pg (27.0-33.4); MEAN CORPUSCULAR VOLUME 90 fl (80-97); RED BLOOD COUNT 3.55 10^6/uL (3.72-5.28); RED CELL DISTRIBUTION WIDTH 19.1 % (11.5-14.0); WHITE BLOOD COUNT 3.6 10^3/uL (4.0-10.5)
[2016-09-11] MEDS: LANSOPRAZOLE 15 MG TAB.RAP.DR PO SCH ×2 (08:06→17:07)
[2016-09-11] MEDS: BUPROPION HCL 100 MG TABLET PO SCH ×3 (08:06→21:46)
--- NOTE | 2016-09-11 08:08 | PDOC PROGRESS REPORT ---
Subjective Progress Note for:: 09/11/16 Subjective:: Pt had drain bulb exchange yesterday and had about 60ml dumped from both sites, still w/ drainage after this. Having nausea yesterday so started pt on zofran again. Pt feeling depressed this am. Physical Exam Vital Signs: Temp Pulse Resp BP Pulse Ox 98.1 F 89 18 129/81 H 96 09/11/16 07:30 09/11/16 07:30 09/11/16 07:30 09/11/16 07:30 09/11/16 07:30 Intake & Output 09/10/16 09/11/16 09/12/16 06:59 06:59 06:59 Intake Total 519 216 Output Total 60 150 Balance 459 66 Weight 79.8 kg General appearance: PRESENT: no acute distress, well-developed, well-nourished Head exam: PRESENT: atraumatic, normocephalic Eye exam: PRESENT: conjunctiva pink, EOMI, PERRLA. ABSENT: scleral icterus Ear exam: PRESENT: normal external ear exam Mouth exam: PRESENT: moist, tongue midline Neck exam: ABSENT: carotid bruit, JVD, lymphadenopathy, thyromegaly Respiratory exam: PRESENT: clear to auscultation avery. ABSENT: rales, rhonchi, wheezes Cardiovascular exam: PRESENT: RRR. ABSENT: diastolic murmur, rubs, systolic murmur Pulses: PRESENT: normal dorsalis pedis pul Vascular exam: PRESENT: normal capillary refill GI/Abdominal exam: PRESENT: normal bowel sounds, soft. ABSENT: distended, guarding, mass, organolmegaly, rebound, tenderness Rectal exam: PRESENT: deferred Extremities exam: PRESENT: full ROM. ABSENT: calf tenderness, clubbing, pedal edema Neurological exam: PRESENT: alert, awake, oriented to person, oriented to place , oriented to time, oriented to situation, CN II-XII grossly intact. ABSENT: motor sensory deficit Psychiatric exam: PRESENT: appropriate affect, normal mood. ABSENT: homicidal ideation, suicidal ideation Skin exam: PRESENT: dry, intact, warm. ABSENT: cyanosis, rash Results Laboratory Results: 08/31/16 07:50 Impressions: Venous Doppler Study 08/18/16 16:19 IMPRESSION: 1. Right lower extremity DVT, popliteal and femoral veins. Hip X-Ray 08/18/16 17:43 IMPRESSION: No acute findings. DJD. Head CT 08/22/16 00:00 IMPRESSION: MILD CHRONIC CHANGES OF ATROPHY AND MICROVASCULAR ISCHEMIA. NO ACUTE PROCESS. Abdomen Ultrasound 08/23/16 00:00 IMPRESSION: NORMAL RIGHT UPPER QUADRANT ULTRASOUND. Chest CT 08/23/16 00:00 IMPRESSION: NORMAL CT OF THE CHEST WITH IV CONTRAST. IMPRESSION: 11 cm multilocular abscess in the left pelvis which extends along the iliopsoas musculature into the left femoral canal. There is also a separate 6.5 cm abscess in the deep right pelvis. Diffuse inflammatory changes are present throughout the pelvic fat. There is thickening throughout the sigmoid colon with probable diverticulitis as the origin of the adjacent abscesses. Catheter Change 08/24/16 00:00 IMPRESSION: Successful CT-guided placement of drainage catheter for pelvic abscess as described. Pelvis CT 08/26/16 00:00 IMPRESSION: Pelvic abscesses for cyst. Despite the presence of a drainage catheter in the left-sided abscess there has been minimal improvement. Percutaneous Drainage 08/28/16 00:00 IMPRESSION: CT GUIDED DRAINAGE OF TWO SEPARATE PELVIC ABSCESSES PERFORMED WITHOUT IMMEDIATE COMPLICATION. Abdomen/Pelvis CT 09/01/16 00:00 IMPRESSION: 1. Pelvic abscesses. Left iliopsoas collection looks smaller but no drain in place. Right jesu pelvic collection has decreased in size, drain in place with minimal persistent fluid. Retroperitoneal Abscess Drainage 09/02/16 07:00 IMPRESSION: CT guided replacement of left lower quadrant abdominal abscess drain (12 Mongolian pigtail catheter placed). 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 If abcess still present, would consider transfer to institution that could consider more aggressive surgical intervention. Con't w/ antbx per medical team. (5) Physical deconditioning Is this a current diagnosis for this admission?: YesPlan: Con't w/ aggressive PT.OT. Ultimately will require rehab placement. - Time Time Spent with patient: 35 or more minutes Critical Time spent with patient: 35 or more minutes Anticipated discharge: Acute Rehab - Inpatient Certification Based on my medical assessment, after consideration of the patient's comorbidities, presenting symptoms, or acuity I expect that the services needed warrant INPATIENT care.: Yes I certify that my determination is in accordance with my understanding of Medicare's requirements for reasonable and necessary INPATIENT services [42 CFR 412.3e].: Yes Medical Necessity: Failure to Improve With Outpatient Therapy, Need for IV Antibiotics, Need for Surgery, Risk of Complication if Not Cared For in Hospital
[2016-09-11] MEDS: LEVOTHYROXINE SODIUM 0.025 MG TABLET PO SCH (08:09)
[2016-09-11] MEDS: LEVOTHYROXINE SODIUM 0.1 MG TABLET PO SCH (08:09)
--- NOTE | 2016-09-11 08:44 | PDOC PROGRESS REPORT ---
Subjective Progress Note for:: 09/11/16 Subjective:: After sat up 2h yesterday got nauseated. Physical Exam Vital Signs: Temp Pulse Resp BP Pulse Ox 98.1 F 89 18 129/81 H 96 09/11/16 08:00 09/11/16 08:00 09/11/16 08:00 09/11/16 08:00 09/11/16 08:00 Intake & Output 09/10/16 09/11/16 09/12/16 07:59 07:59 07:59 Intake Total 519 216 Output Total 60 150 Balance 459 66 Weight 175 lb 14.862 oz 174 lb 2.643 oz General appearance: PRESENT: no acute distress Respiratory exam: PRESENT: clear to auscultation avery Cardiovascular exam: ABSENT: diastolic murmur, irregular rhythm, systolic murmur GI/Abdominal exam: ABSENT: mass, organolmegaly, tenderness Extremities exam: ABSENT: pedal edema Results Laboratory Results: 09/11/16 05:33 08/31/16 07:50 09/11/16 05:33 WBC 3.6 L RBC 3.55 L Hgb 10.5 L Hct 32.0 L MCV 90 MCH 29.6 MCHC 33.0 RDW 19.1 H Plt Count 170 Impressions: Venous Doppler Study 08/18/16 16:19 IMPRESSION: 1. Right lower extremity DVT, popliteal and femoral veins. Hip X-Ray 08/18/16 17:43 IMPRESSION: No acute findings. DJD. Head CT 08/22/16 00:00 IMPRESSION: MILD CHRONIC CHANGES OF ATROPHY AND MICROVASCULAR ISCHEMIA. NO ACUTE PROCESS. Abdomen Ultrasound 08/23/16 00:00 IMPRESSION: NORMAL RIGHT UPPER QUADRANT ULTRASOUND. Chest CT 08/23/16 00:00 IMPRESSION: NORMAL CT OF THE CHEST WITH IV CONTRAST. IMPRESSION: 11 cm multilocular abscess in the left pelvis which extends along the iliopsoas musculature into the left femoral canal. There is also a separate 6.5 cm abscess in the deep right pelvis. Diffuse inflammatory changes are present throughout the pelvic fat. There is thickening throughout the sigmoid colon with probable diverticulitis as the origin of the adjacent abscesses. Catheter Change 08/24/16 00:00 IMPRESSION: Successful CT-guided placement of drainage catheter for pelvic abscess as described. Pelvis CT 08/26/16 00:00 IMPRESSION: Pelvic abscesses for cyst. Despite the presence of a drainage catheter in the left-sided abscess there has been minimal improvement. Percutaneous Drainage 08/28/16 00:00 IMPRESSION: CT GUIDED DRAINAGE OF TWO SEPARATE PELVIC ABSCESSES PERFORMED WITHOUT IMMEDIATE COMPLICATION. Abdomen/Pelvis CT 09/01/16 00:00 IMPRESSION: 1. Pelvic abscesses. Left iliopsoas collection looks smaller but no drain in place. Right jesu pelvic collection has decreased in size, drain in place with minimal persistent fluid. Retroperitoneal Abscess Drainage 09/02/16 07:00 IMPRESSION: CT guided replacement of left lower quadrant abdominal abscess drain (12 Estonian pigtail catheter placed). Transvaginal US 09/10/16 00:00 IMPRESSION: Nondiagnostic transabdominal and endovaginal ultrasound study Assessment & Plan - Diagnosis (1) Abdominopelvic abscess Is this a current diagnosis for this admission?: YesPlan: US not helpful. Drain output: L80 R70. Ct with oral contrast (2) Constipation Qualifiers: Constipation type: slow transit constipation Qualified Code(s): K59.01 - Slow transit constipation Is this a current diagnosis for this admission?: Yes (3) Malnutrition of moderate degree Is this a current diagnosis for this admission?: Yes (4) Major depressive disorder, single episode, moderate Is this a current diagnosis for this admission?: Yes (5) Essential (primary) hypertension Is this a current diagnosis for this admission?: Yes (6) Chemotherapy-induced vomiting Is this a current diagnosis for this admission?: Yes (7) Right upper quadrant pain Is this a current diagnosis for this admission?: Yes (8) Atrial flutter Qualifiers: Atrial flutter type: typical Qualified Code(s): I48.3 - Typical atrial flutter Is this a current diagnosis for this admission?: Yes (9) Muscular deconditioning Is this a current diagnosis for this admission?: Yes (10) Nausea Is this a current diagnosis for this admission?: Yes (11) Phlebitis and thrombophlebitis of left popliteal vein Is this a current diagnosis for this admission?: Yes (12) UTI (urinary tract infection) Qualifiers: Urinary tract infection type: acute cystitis Hematuria presence: without hematuria Qualified Code(s): N30.00 - Acute cystitis without hematuria Is this a current diagnosis for this admission?: Yes (13) Hypokalemia Is this a current diagnosis for this admission?: Yes
[2016-09-11] MEDS: ENOXAPARIN SODIUM INJ 100 MG/1 ML DISP.SYRIN SUBCUT SCH ×2 (09:23→21:46)
[2016-09-11] MEDS: HYDROXYCHLOROQUINE SULFATE 200 MG TABLET PO SCH (09:24)
[2016-09-11] MEDS: LOSARTAN POTASSIUM 50 MG TABLET PO SCH (09:24)
[2016-09-11] MEDS: ONDANSETRON HCL INJ/PF 4 MG/2 ML SDV IV PRN (11:06)
[2016-09-11 14:08] LABS: AMORPHOUS SEDIMENT,URINE TRACE /HPF; APPEARANCE,URINE CLOUDY; BILIRUBIN,URINE NEGATIVE (NEGATIVE); GLUCOSE, URINE NEGATIVE (NEGATIVE); KETONES,URINE NEGATIVE (NEGATIVE); LEUKOCYTE ESTERASE,URINE LARGE (NEGATIVE); NITRITE,URINE NEGATIVE (NEGATIVE); PROTEIN,URINE NEGATIVE (NEGATIVE); URINE SPECIFIC GRAVITY 1.004; UROBILINOGEN,URINE NEGATIVE mg/dL (<2.0)
[2016-09-11] MEDS: ERTAPENEM SODIUM 1 GM in NORMAL SALINE 50 ML IV SCH (15:18)
[2016-09-11] MEDS: SIMVASTATIN 10 MG TABLET PO SCH (21:45)
[2016-09-11] MEDS: ACETAMINOPHEN 325 MG TABLET PO PRN (22:15)
[2016-09-12] MEDS: ACETAMINOPHEN 325 MG TABLET PO PRN (04:09)
[2016-09-12] MEDS: BUPROPION HCL 100 MG TABLET PO SCH ×3 (05:28→23:12)
[2016-09-12] MEDS: LANSOPRAZOLE 15 MG TAB.RAP.DR PO SCH ×2 (05:28→19:09)
--- NOTE | 2016-09-12 07:52 | PDOC PROGRESS REPORT ---
Subjective Progress Note for:: 09/12/16 Subjective:: anal burning Physical Exam Vital Signs: Temp Pulse Resp BP Pulse Ox 98.1 F 93 16 131/66 H 95 09/12/16 03:48 09/12/16 07:00 09/12/16 03:48 09/12/16 03:48 09/12/16 03:48 Intake & Output 09/10/16 09/11/16 09/12/16 07:59 07:59 07:59 Intake Total 917 712 4239 Output Total 60 150 90 Balance 729 50 3266 Weight 175 lb 14.862 oz 174 lb 2.643 oz 174 lb 9.698 oz General appearance: PRESENT: mild distress Respiratory exam: PRESENT: clear to auscultation avery Cardiovascular exam: ABSENT: diastolic murmur, irregular rhythm, systolic murmur GI/Abdominal exam: ABSENT: mass, organolmegaly, tenderness Rectal exam: PRESENT: fecal impaction Extremities exam: ABSENT: pedal edema Results Laboratory Results: 09/11/16 05:33 08/31/16 07:50 09/11/16 09/11/16 05:33 13:29 WBC 3.6 L RBC 3.55 L Hgb 10.5 L Hct 32.0 L MCV 90 MCH 29.6 MCHC 33.0 RDW 19.1 H Plt Count 170 Urine Color YELLOW Urine Appearance CLOUDY Urine pH 6.0 Ur Specific [place] 1.004 Urine Protein NEGATIVE Urine Glucose (UA) NEGATIVE Urine Ketones NEGATIVE Urine Blood MODERATE H Urine Nitrite NEGATIVE Ur Leukocyte Esterase LARGE H Urine WBC (Auto) 20 Urine RBC (Auto) 13 Impressions: Venous Doppler Study 08/18/16 16:19 IMPRESSION: 1. Right lower extremity DVT, popliteal and femoral veins. Hip X-Ray 08/18/16 17:43 IMPRESSION: No acute findings. DJD. Head CT 08/22/16 00:00 IMPRESSION: MILD CHRONIC CHANGES OF ATROPHY AND MICROVASCULAR ISCHEMIA. NO ACUTE PROCESS. Abdomen Ultrasound 08/23/16 00:00 IMPRESSION: NORMAL RIGHT UPPER QUADRANT ULTRASOUND. Chest CT 08/23/16 00:00 IMPRESSION: NORMAL CT OF THE CHEST WITH IV CONTRAST. IMPRESSION: 11 cm multilocular abscess in the left pelvis which extends along the iliopsoas musculature into the left femoral canal. There is also a separate 6.5 cm abscess in the deep right pelvis. Diffuse inflammatory changes are present throughout the pelvic fat. There is thickening throughout the sigmoid colon with probable diverticulitis as the origin of the adjacent abscesses. Catheter Change 08/24/16 00:00 IMPRESSION: Successful CT-guided placement of drainage catheter for pelvic abscess as described. Percutaneous Drainage 08/28/16 00:00 IMPRESSION: CT GUIDED DRAINAGE OF TWO SEPARATE PELVIC ABSCESSES PERFORMED WITHOUT IMMEDIATE COMPLICATION. Abdomen/Pelvis CT 09/01/16 00:00 IMPRESSION: 1. Pelvic abscesses. Left iliopsoas collection looks smaller but no drain in place. Right jesu pelvic collection has decreased in size, drain in place with minimal persistent fluid. Retroperitoneal Abscess Drainage 09/02/16 07:00 IMPRESSION: CT guided replacement of left lower quadrant abdominal abscess drain (12 Malay pigtail catheter placed). Transvaginal US 09/10/16 00:00 IMPRESSION: Nondiagnostic transabdominal and endovaginal ultrasound study Pelvis CT 09/11/16 00:00 IMPRESSION: 1. No reaccumulation of fluid along the right perirectal drain. 2. Drain in the superficial left jesu pelvic collection with improving gas and fluid here. Assessment & Plan - Diagnosis (1) Abdominopelvic abscess Is this a current diagnosis for this admission?: YesPlan: R abscess minimal with drain in place but no longer draining. L 8cm with drain near anterior wall of cavity but still draining. Much fewer & smaller gas bubbles than on previous scans. Will let ertapenem tomorrow rather than start 4th week. Will let drains come out or remove them in a few days. (2) Constipation Qualifiers: Constipation type: slow transit constipation Qualified Code(s): K59.01 - Slow transit constipation Is this a current diagnosis for this admission?: YesPlan: disempaction & SS enema (3) Malnutrition of moderate degree Is this a current diagnosis for this admission?: Yes (4) Major depressive disorder, single episode, moderate Is this a current diagnosis for this admission?: Yes (5) Essential (primary) hypertension Is this a current diagnosis for this admission?: Yes (6) Chemotherapy-induced vomiting Is this a current diagnosis for this admission?: Yes (7) Right upper quadrant pain Is this a current diagnosis for this admission?: Yes (8) Atrial flutter Qualifiers: Atrial flutter type: typical Qualified Code(s): I48.3 - Typical atrial flutter Is this a current diagnosis for this admission?: Yes (9) Muscular deconditioning Is this a current diagnosis for this admission?: Yes (10) Nausea Is this a current diagnosis for this admission?: Yes (11) Phlebitis and thrombophlebitis of left popliteal vein Is this a current diagnosis for this admission?: Yes (12) UTI (urinary tract infection) Qualifiers: Urinary tract infection type: acute cystitis Hematuria presence: without hematuria Qualified Code(s): N30.00 - Acute cystitis without hematuria Is this a current diagnosis for this admission?: Yes (13) Hypokalemia Is this a current diagnosis for this admission?: Yes
[2016-09-12] MEDS: LEVOTHYROXINE SODIUM 0.025 MG TABLET PO SCH (08:37)
[2016-09-12] MEDS: LEVOTHYROXINE SODIUM 0.1 MG TABLET PO SCH (08:38)
--- NOTE | 2016-09-12 08:42 | PDOC TRANSFER SUMMARY ---
General Admission Date/PCP: 08/19/16 03:10 ALFREDO PANDA MD Transfer Date: 09/12/16 Accepting Facility: [facility] Accepting Physician: Sony Aldridge Resuscitation Status: Full Code - Transfer Diagnosis (1) Abdominopelvic abscess Current Visit: Yes Diagnosis Summary: R abscess much smaller. L smaller but still has bubbles. Drains in place. Day 21 ertapenem for 6 bugs. WBC down. VSS. Local surgeons were against aggressive surgery, but we worry L abscess may flare without more vigorous drainage. (2) Constipation Current Visit: Yes Diagnosis Summary: disempacted today (3) Malnutrition of moderate degree Current Visit: Yes (4) Major depressive disorder, single episode, moderate Current Visit: Yes Diagnosis Summary: has not wanted to eat or move much. Now on bupropion. (5) Essential (primary) hypertension Current Visit: No Diagnosis Summary: required 3 drugs at first (6) Chemotherapy-induced vomiting Current Visit: Yes Diagnosis Summary: gone (7) Right upper quadrant pain Current Visit: Yes Diagnosis Summary: source was pelvic abscesses (8) Atrial flutter Current Visit: Yes Diagnosis Summary: transient (9) Muscular deconditioning Current Visit: Yes Diagnosis Summary: gets up to chair with help but was driving 6m ago (10) Nausea Current Visit: Yes Diagnosis Summary: gone (11) Phlebitis and thrombophlebitis of left popliteal vein Current Visit: Yes Diagnosis Summary: originally admitted for L dvt but groin pain turned out to be pelvic abscesses. Now on lovenox (12) UTI (urinary tract infection) Current Visit: Yes Diagnosis Summary: 23dec 60k klebsiella (13) Hypokalemia Current Visit: Yes Diagnosis Summary: improved on KCl - Transfer Medications Home Medications: Omeprazole [Prilosec 20 mg Capsule] 20 cap PO BID 08/01/11 Transfer Medications: Current Medications Acetaminophen (Tylenol 325 Mg Tablet) 650 mg PO Q6HP PRN PRN Reason: [employer]OR [employer]IN Stop: 10/11/16 22:05 Last Admin: 09/12/16 04:09 Dose: 650 mg Bupropion HCl (Wellbutrin 100 Mg Tablet) 100 mg PO Q8 [facility] Stop: 10/08/16 07:04 Last Admin: 09/12/16 05:28 Dose: 100 mg Enoxaparin Sodium (Lovenox Inj 100 Mg/1 Ml Disp.Syrin) 90 mg SUBCUT Q12 [facility] Stop: 10/04/16 09:59 Last Admin: 09/11/16 21:46 Dose: 90 mg Hydroxychloroquine Sulfate (Plaquenil 200 Mg Tablet) 200 mg PO DAILY [facility] Stop: 09/18/16 09:59 Last Admin: 09/11/16 09:24 Dose: 200 mg Ertapenem 1 gm/ Sodium (Chloride) 50 mls @ 100 mls/hr IV DAILY@1600 [facility] Stop: 09/13/16 15:59 Last Admin: 09/11/16 15:18 Dose: 1 gm Lansoprazole (Prevacid 15 Mg Odt Tablet) 15 mg PO Q12A [facility] Stop: 09/18/16 17:59 Last Admin: 09/12/16 05:28 Dose: 15 mg Levothyroxine Sodium (Synthroid 0.1 Mg Tablet) 0.1 mg PO QAM [facility] Stop: 09/27/16 07:59 Last Admin: 09/11/16 08:09 Dose: 0.1 mg Levothyroxine Sodium (Synthroid 0.025 Mg Tablet) 0.025 mg PO QAM [facility] Stop: 09/27/16 07:59 Last Admin: 09/11/16 08:09 Dose: 0.025 mg Losartan Potassium (Cozaar 50 Mg Tablet) 100 mg PO DAILY [facility] Stop: 09/19/16 09:59 Last Admin: 09/11/16 09:24 Dose: 100 mg Ondansetron HCl (Zofran Inj/Pf 4 Mg/2 Ml Sdv) 4 mg IV Q8HP PRN PRN Reason: NAUSEA Stop: 10/10/16 17:38 Last Admin: 09/11/16 11:06 Dose: 4 mg Senna/Docusate Sodium (Senna Plus Tablet) 1 each PO BIDP PRN Stop: 10/10/16 06:45 Last Admin: 09/11/16 21:45 Dose: 1 each Simvastatin (Zocor 10 Mg Tablet) 20 mg PO QHS [facility] Stop: 09/20/16 21:59 Last Admin: 09/11/16 21:45 Dose: 20 mg - Allergies Allergies/Adverse Reactions: Sulfa (Sulfonamide Antibiotics) Adverse Reaction (Intermediate, Verified 12:39) tingling - Diet/Activity Discharge Diet: Cardiac Hospital Course Hospital Course: see problem list above Physical Exam Vital Signs: Temp Pulse Resp BP Pulse Ox 98.0 F 87 16 135/78 H 93 09/12/16 07:46 09/12/16 07:46 09/12/16 07:46 09/12/16 07:46 09/12/16 07:46 Intake & Output 09/11/16 09/12/16 09/13/16 07:59 07:59 07:59 Intake Total 216 2106 Output Total 150 90 Balance 2015 Weight 174 lb 2.643 oz 174 lb 9.698 oz General appearance: PRESENT: no acute distress Respiratory exam: PRESENT: clear to auscultation avery Cardiovascular exam: ABSENT: diastolic murmur, irregular rhythm, tachycardia GI/Abdominal exam: ABSENT: mass, organolmegaly, tenderness Rectal exam: PRESENT: fecal impaction Extremities exam: ABSENT: pedal edema Neurological exam: PRESENT: oriented to situation Psychiatric exam: PRESENT: appropriate affect Results Laboratory Results: 09/11/16 05:33 08/31/16 07:50 09/11/16 09/12/16 13:29 07:10 Urine Color YELLOW Urine Appearance CLOUDY Urine pH 6.0 Ur Specific [place] 1.004 Urine Protein NEGATIVE Urine Glucose (UA) NEGATIVE Urine Ketones NEGATIVE Urine Blood MODERATE H Urine Nitrite NEGATIVE Ur Leukocyte Esterase LARGE H Urine WBC (Auto) 20 Urine RBC (Auto) 13 Stool Occult Blood NEGATIVE Labs- Last Values WBC 3.6 10^3/uL (4.0-10.5) L 09/11/16 05:33 RBC 3.55 10^6/uL (3.72-5.28) L 09/11/16 05:33 Hgb 10.5 g/dL (12.0-15.5) L 09/11/16 05:33 Hct 32.0 % (36.0-47.0) L 09/11/16 05:33 MCV 90 fl (80-97) 09/11/16 05:33 MCH 29.6 pg (27.0-33.4) 09/11/16 05:33 MCHC 33.0 g/dL (32.0-36.0) 09/11/16 05:33 RDW 19.1 % (11.5-14.0) H 09/11/16 05:33 Plt Count 170 10^3/uL (150-450) 09/11/16 05:33 Total Counted 100 08/18/16 17:15 Seg Neutrophils % Not Reportable 08/18/16 17:15 Seg Neuts % (Manual) 85 % (42-78) H 08/18/16 17:15 Band Neutrophils % 7 % (3-5) H 08/18/16 17:15 Lymphocytes % Not Reportable 08/18/16 17:15 Lymphocytes % (Manual) 4 % (13-45) L 08/18/16 17:15 Atypical Lymphs % 1 % (0) 08/18/16 17:15 Monocytes % Not Reportable 08/18/16 17:15 Monocytes % (Manual) 3 % (3-13) 08/18/16 17:15 Eosinophils % Not Reportable 08/18/16 17:15 Eosinophils % (Manual) 0 % (0-6) 08/18/16 17:15 Basophils % Not Reportable 08/18/16 17:15 Basophils % (Manual) 0 % (0-2) 08/18/16 17:15 Absolute Neutrophils Not Reportable 08/18/16 17:15 Abs Neuts (Manual) 15.0 10^3/uL (1.7-8.2) H 08/18/16 17:15 Absolute Lymphocytes Not Reportable 08/18/16 17:15 Abs Lymphs (Manual) 0.8 10^3/uL (0.5-4.7) 08/18/16 17:15 Absolute Monocytes Not Reportable 08/18/16 17:15 Abs Monocytes (Manual) 0.5 10^3/uL (0.1-1.4) 08/18/16 17:15 Absolute Eosinophils Not Reportable 08/18/16 17:15 Absolute Eos (Manual) 0.0 10^3/uL (0.0-0.6) 08/18/16 17:15 Absolute Basophils Not Reportable 08/18/16 17:15 Abs Basophils (Manual) 0.0 10^3/uL (0.0-0.2) 08/18/16 17:15 Clumped Platelets PRESENT 08/18/16 17:15 Platelet Comment ADEQUATE 08/18/16 17:15 Hypochromasia SLIGHT 08/18/16 17:15 Anisocytosis SLIGHT 08/18/16 17:15 PT 15.0 SEC (11.4-15.4) 08/28/16 11:22 INR 1.14 08/28/16 11:22 APTT 35.1 SEC (23.5-35.8) 08/28/16 11:22 Sodium 135.4 mmol/L (137-145) L 08/31/16 07:50 Potassium 3.9 mmol/L (3.6-5.0) 08/31/16 07:50 Chloride 99 mmol/L (98-107) 08/31/16 07:50 Carbon Dioxide 27 mmol/L (22-30) 08/31/16 07:50 Anion Gap 9 (5-19) 08/31/16 07:50 BUN 6 mg/dL (7-20) L 08/31/16 07:50 Creatinine 0.50 mg/dL (0.52-1.25) L 08/31/16 07:50 Est GFR ( Amer) > 60 (>60) 08/31/16 07:50 Est GFR (Non-Af Amer) > 60 (>60) 08/31/16 07:50 Glucose 79 mg/dL (75-110) 08/31/16 07:50 Calcium 8.5 mg/dL (8.4-10.2) 08/31/16 07:50 Total Bilirubin 0.3 mg/dL (0.2-1.3) 08/31/16 07:50 Direct Bilirubin 0.0 mg/dL (0.0-0.3) 08/31/16 07:50 AST 26 U/L (14-36) 08/31/16 07:50 ALT 45 U/L (9-52) 08/31/16 07:50 Alkaline Phosphatase 110 U/L (38-126) 08/31/16 07:50 Total Protein 5.7 g/dL (6.3-8.2) L 08/31/16 07:50 Albumin 2.3 g/dL (3.5-5.0) L 08/31/16 07:50 Lipase 66.2 U/L (23-300) 08/23/16 08:30 Urine Color YELLOW 09/11/16 13:29 Urine Appearance CLOUDY 09/11/16 13:29 Urine pH 6.0 (5.0-9.0) 09/11/16 13:29 Ur Specific [place] 1.004 09/11/16 13:29 Urine Protein NEGATIVE mg/dL (NEGATIVE) 09/11/16 13:29 Urine Glucose (UA) NEGATIVE mg/dL (NEGATIVE) 09/11/16 13:29 Urine Ketones NEGATIVE mg/dL (NEGATIVE) 09/11/16 13:29 Urine Blood MODERATE (NEGATIVE) H 09/11/16 13:29 Urine Nitrite NEGATIVE (NEGATIVE) 09/11/16 13:29 Urine Bilirubin NEGATIVE (NEGATIVE) 09/11/16 13:29 Urine Urobilinogen NEGATIVE mg/dL (<2.0) 09/11/16 13:29 Ur Leukocyte Esterase LARGE (NEGATIVE) H 09/11/16 13:29 Urine WBC (Auto) 20 /HPF 09/11/16 13:29 Urine RBC (Auto) 13 /HPF 09/11/16 13:29 U Hyaline Cast (Auto) 2 /LPF 08/23/16 15:17 Urine Bacteria (Auto) 2+ /HPF 09/11/16 13:29 Squamous Epi Cells Auto 7 /HPF 09/11/16 13:29 U Non-Squamous Epis Auto 2 /HPF 09/11/16 13:29 Amorphous Sediment Auto TRACE /HPF 09/11/16 13:29 Urine Mucus (Auto) RARE /LPF 09/11/16 13:29 Urine Ascorbic Acid NEGATIVE (NEGATIVE) 09/11/16 13:29 Stool Occult Blood NEGATIVE (NEGATIVE) 09/12/16 07:10 C. difficile Tox (PCR) NEGATIVE (NEGATIVE) 09/01/16 21:30 Impressions: Venous Doppler Study 08/18/16 16:19 IMPRESSION: 1. Right lower extremity DVT, popliteal and femoral veins. Hip X-Ray 08/18/16 17:43 IMPRESSION: No acute findings. DJD. Head CT 08/22/16 00:00 IMPRESSION: MILD CHRONIC CHANGES OF ATROPHY AND MICROVASCULAR ISCHEMIA. NO ACUTE PROCESS. Abdomen Ultrasound 08/23/16 00:00 IMPRESSION: NORMAL RIGHT UPPER QUADRANT ULTRASOUND. Chest CT 08/23/16 00:00 IMPRESSION: NORMAL CT OF THE CHEST WITH IV CONTRAST. IMPRESSION: 11 cm multilocular abscess in the left pelvis which extends along the iliopsoas musculature into the left femoral canal. There is also a separate 6.5 cm abscess in the deep right pelvis. Diffuse inflammatory changes are present throughout the pelvic fat. There is thickening throughout the sigmoid colon with probable diverticulitis as the origin of the adjacent abscesses. Catheter Change 08/24/16 00:00 IMPRESSION: Successful CT-guided placement of drainage catheter for pelvic abscess as described. Percutaneous Drainage 08/28/16 00:00 IMPRESSION: CT GUIDED DRAINAGE OF TWO SEPARATE PELVIC ABSCESSES PERFORMED WITHOUT IMMEDIATE COMPLICATION. Abdomen/Pelvis CT 09/01/16 00:00 IMPRESSION: 1. Pelvic abscesses. Left iliopsoas collection looks smaller but no drain in place. Right jesu pelvic collection has decreased in size, drain in place with minimal persistent fluid. Retroperitoneal Abscess Drainage 09/02/16 07:00 IMPRESSION: CT guided replacement of left lower quadrant abdominal abscess drain (12 Israeli pigtail catheter placed). Transvaginal US 09/10/16 00:00 IMPRESSION: Nondiagnostic transabdominal and endovaginal ultrasound study Pelvis CT 09/11/16 00:00 IMPRESSION: 1. No reaccumulation of fluid along the right perirectal drain. 2. Drain in the superficial left jesu pelvic collection with improving gas and fluid here. Plan Discharge Plan: to Dr Luis Carlos dillard [facility] Time Spent: Greater than 30 Minutes
--- NOTE | 2016-09-12 09:06 | PDOC PROGRESS REPORT ---
Subjective Progress Note for:: 09/12/16 Subjective:: No acute events overnight, left drain still had about 60 mL over 12 hours, still puslike fluid coming Physical Exam Vital Signs: Temp Pulse Resp BP Pulse Ox 98.0 F 87 16 135/78 H 93 09/12/16 07:46 09/12/16 07:46 09/12/16 07:46 09/12/16 07:46 09/12/16 07:46 Intake & Output 09/11/16 09/12/16 09/13/16 06:59 06:59 06:59 Intake Total 216 2106 Output Total 150 90 Balance 66 2015 Weight 79 kg 79.2 kg General appearance: PRESENT: no acute distress, well-developed, well-nourished Head exam: PRESENT: atraumatic, normocephalic Eye exam: PRESENT: conjunctiva pink, EOMI, PERRLA. ABSENT: scleral icterus Ear exam: PRESENT: normal external ear exam Mouth exam: PRESENT: moist, tongue midline Neck exam: ABSENT: carotid bruit, JVD, lymphadenopathy, thyromegaly Respiratory exam: PRESENT: clear to auscultation avery. ABSENT: rales, rhonchi, wheezes Cardiovascular exam: PRESENT: RRR. ABSENT: diastolic murmur, rubs, systolic murmur Pulses: PRESENT: normal dorsalis pedis pul Vascular exam: PRESENT: normal capillary refill GI/Abdominal exam: PRESENT: normal bowel sounds, soft. ABSENT: distended, guarding, mass, organolmegaly, rebound, tenderness Rectal exam: PRESENT: deferred Extremities exam: PRESENT: full ROM. ABSENT: calf tenderness, clubbing, pedal edema Neurological exam: PRESENT: alert, awake, oriented to person, oriented to place , oriented to time, oriented to situation, CN II-XII grossly intact. ABSENT: motor sensory deficit Psychiatric exam: PRESENT: appropriate affect, normal mood. ABSENT: homicidal ideation, suicidal ideation Skin exam: PRESENT: dry, intact, warm. ABSENT: cyanosis, rash Results Laboratory Results: 09/11/16 05:33 08/31/16 07:50 09/11/16 09/12/16 13:29 07:10 Urine Color YELLOW Urine Appearance CLOUDY Urine pH 6.0 Ur Specific [place] 1.004 Urine Protein NEGATIVE Urine Glucose (UA) NEGATIVE Urine Ketones NEGATIVE Urine Blood MODERATE H Urine Nitrite NEGATIVE Ur Leukocyte Esterase LARGE H Urine WBC (Auto) 20 Urine RBC (Auto) 13 Stool Occult Blood NEGATIVE Impressions: Venous Doppler Study 08/18/16 16:19 IMPRESSION: 1. Right lower extremity DVT, popliteal and femoral veins. Hip X-Ray 08/18/16 17:43 IMPRESSION: No acute findings. DJD. Head CT 08/22/16 00:00 IMPRESSION: MILD CHRONIC CHANGES OF ATROPHY AND MICROVASCULAR ISCHEMIA. NO ACUTE PROCESS. Abdomen Ultrasound 08/23/16 00:00 IMPRESSION: NORMAL RIGHT UPPER QUADRANT ULTRASOUND. Chest CT 08/23/16 00:00 IMPRESSION: NORMAL CT OF THE CHEST WITH IV CONTRAST. IMPRESSION: 11 cm multilocular abscess in the left pelvis which extends along the iliopsoas musculature into the left femoral canal. There is also a separate 6.5 cm abscess in the deep right pelvis. Diffuse inflammatory changes are present throughout the pelvic fat. There is thickening throughout the sigmoid colon with probable diverticulitis as the origin of the adjacent abscesses. Catheter Change 08/24/16 00:00 IMPRESSION: Successful CT-guided placement of drainage catheter for pelvic abscess as described. Percutaneous Drainage 08/28/16 00:00 IMPRESSION: CT GUIDED DRAINAGE OF TWO SEPARATE PELVIC ABSCESSES PERFORMED WITHOUT IMMEDIATE COMPLICATION. Abdomen/Pelvis CT 09/01/16 00:00 IMPRESSION: 1. Pelvic abscesses. Left iliopsoas collection looks smaller but no drain in place. Right jesu pelvic collection has decreased in size, drain in place with minimal persistent fluid. Retroperitoneal Abscess Drainage 09/02/16 07:00 IMPRESSION: CT guided replacement of left lower quadrant abdominal abscess drain (12 Nigerian pigtail catheter placed). Transvaginal US 09/10/16 00:00 IMPRESSION: Nondiagnostic transabdominal and endovaginal ultrasound study Pelvis CT 09/11/16 00:00 IMPRESSION: 1. No reaccumulation of fluid along the right perirectal drain. 2. Drain in the superficial left jesu pelvic collection with improving gas and fluid here. Assessment & Plan - Diagnosis (1) Lower leg DVT (deep venous thromboembolism), acute Qualifiers: Laterality: left Qualified Code(s): I82.4Z2 - Acute embolism and thrombosis of unspecified deep veins of left distal lower extremity Is this a current diagnosis for this admission?: YesPlan: Continue with anticoagulation, at least 3 months of anticoagulation but may need lifelong if she is continually immobile. 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 (3) Other iron deficiency anemias Is this a current diagnosis for this admission?: YesPlan: Hemoglobin has been stable, continue to monitor (4) Abdominopelvic abscess Is this a current diagnosis for this admission?: YesPlan: Discussed this extensively with Dr. Dan, also discussed with Dr. Benitez colorectal surgery at [place], don't believe that pulling drain at this point would benefit her, I believe the fluid will reaccumulate and the abscess will not resolve this way. She really needs an appropriate surgical evaluation by colorectal surgery who would consider intervention if needed. To that extent I believe transfer to [place] is the appropriate decision, so we have made these arrangements, today I spent nearly 60 minutes and coordination of care. (5) Physical deconditioning Is this a current diagnosis for this admission?: Yes - Time Time Spent with patient: 35 or more minutes Critical Time spent with patient: 35 or more minutes Anticipated discharge: [facility] Within: within 24 hours - Inpatient Certification Based on my medical assessment, after consideration of the patient's comorbidities, presenting symptoms, or acuity I expect that the services needed warrant INPATIENT care.: Yes I certify that my determination is in accordance with my understanding of Medicare's requirements for reasonable and necessary INPATIENT services [42 CFR 412.3e].: Yes Medical Necessity: Failure to Improve With Outpatient Therapy, Need for Pain Control, Need for Surgery
[2016-09-12] MEDS: LOSARTAN POTASSIUM 50 MG TABLET PO SCH (09:26)
[2016-09-12] MEDS: HYDROXYCHLOROQUINE SULFATE 200 MG TABLET PO SCH (09:26)
[2016-09-12] MEDS: ENOXAPARIN SODIUM INJ 100 MG/1 ML DISP.SYRIN SUBCUT SCH ×2 (09:26→23:12)
[2016-09-12] MEDS: ONDANSETRON HCL INJ/PF 4 MG/2 ML SDV IV PRN (13:39)
[2016-09-12] MEDS: ERTAPENEM SODIUM 1 GM in NORMAL SALINE 50 ML IV SCH (19:08)
[2016-09-12] MEDS: SIMVASTATIN 10 MG TABLET PO SCH (23:13)
[2016-09-13 02:53] VITALS: BP 144/80
== END 2016-09-13 02:15 | disposition short-term general hospital (02) | DRG 392 ==
LOC: ER 16:01 → EH 21:02 → UNDOADMIN 21:02 → EH 22:57 → 5 22:57 → EH 08-19 03:10
PROVIDERS: ADMIT Family Medicine; ATTEND Family Medicine
PROC: 0W9F30Z Drainage of Abdominal Wall with Drainage Device, Percutaneous Approach (ICD-10-PCS; principal; 2016-08-24)
PROC: 0W9J3ZZ Drainage of Pelvic Cavity, Percutaneous Approach (ICD-10-PCS; 2016-08-28)
PROC: 0W2JX0Z Change Drainage Device in Pelvic Cavity, External Approach (ICD-10-PCS; 2016-09-02)
DX: K57.20 Diverticulitis of large intestine with perforation and abscess without bleeding (principal); E44.0 Moderate protein-calorie malnutrition; F32.1 Major depressive disorder, single episode, moderate; I80.222 Phlebitis and thrombophlebitis of left popliteal vein; N30.00 Acute cystitis without hematuria; I48.3 Typical atrial flutter; K59.00 Constipation, unspecified; Z68.28 Body mass index [BMI] 28.0-28.9, adult; I10 Essential (primary) hypertension; R11.2 Nausea with vomiting, unspecified; T45.1X5A Adverse effect of antineoplastic and immunosuppressive drugs, initial encounter; B96.1 Klebsiella pneumoniae [K. pneumoniae] as the cause of diseases classified elsewhere; E87.6 Hypokalemia; C54.1 Malignant neoplasm of endometrium; E78.5 Hyperlipidemia, unspecified; J45.909 Unspecified asthma, uncomplicated; G43.909 Migraine, unspecified, not intractable, without status migrainosus; M19.90 Unspecified osteoarthritis, unspecified site; D64.9 Anemia, unspecified; E03.9 Hypothyroidism, unspecified; K21.9 Gastro-esophageal reflux disease without esophagitis; N94.89 Other specified conditions associated with female genital organs and menstrual cycle; M16.0 Bilateral primary osteoarthritis of hip; M17.0 Bilateral primary osteoarthritis of knee; D50.9 Iron deficiency anemia, unspecified; B96.6 Bacteroides fragilis [B. fragilis] as the cause of diseases classified elsewhere; K59.01 Slow transit constipation; B95.1 Streptococcus, group B, as the cause of diseases classified elsewhere; N73.9 Female pelvic inflammatory disease, unspecified; Z79.899 Other long term (current) drug therapy; Z88.2 Allergy status to sulfonamides; Z90.710 Acquired absence of both cervix and uterus; Z86.14 Personal history of Methicillin resistant Staphylococcus aureus infection; Z87.11 Personal history of peptic ulcer disease; Z96.651 Presence of right artificial knee joint; Z60.2 Problems related to living alone; Z82.49 Family history of ischemic heart disease and other diseases of the circulatory system; Z80.42 Family history of malignant neoplasm of prostate
CPT/HCPCS: 36415; 49406; 49423; 70450; 71260; 72192; 72193; 74176; 74177; 75989; 76705; 76830; 80048; 80053; 80076; 81001; 82272; 83690; 85025; 85027; 85610; 85730; 87040; 87070; 87075; 87077; 87086; 87088; 87186; 87205; 87493; 93005; 93010; 93971; 99285; C1729; C1769; C1887; C1892; C1894; G8978-GP; G8979-GP; J1335; J1650; J2250; J2405; J3010; J3480; J3490; J7030; Q0167; S0119; S0183

== ENCOUNTER → 2016-10-02 | Outpatient (CLI) | payer MEDICARE, OTHER | LOC: RAD 13:25 | PROVIDERS: ATTEND Family Medicine | DX: L02.31 Cutaneous abscess of buttock (principal) | CPT/HCPCS: 72192 ==

== ENCOUNTER → 2017-01-23 | Outpatient (CLI) | payer MEDICARE, OTHER ==
--- NOTE | 2017-01-23 12:18 | RADIOLOGY REPORT (SQ) ---
EXAM DESCRIPTION: CHEST PA/LATERAL COMPLETED DATE/TIME: 01/23/2017 11:58 am REASON FOR STUDY: PRE OP COMPARISON: 06/23/2016 EXAM PARAMETERS: NUMBER OF VIEWS: two views TECHNIQUE: Digital Frontal and Lateral radiographic views of the chest acquired. RADIATION DOSE: NA LIMITATIONS: none FINDINGS: LUNGS AND PLEURA: No opacities, masses or pneumothorax. No pleural effusion. MEDIASTINUM AND HILAR STRUCTURES: No masses or contour abnormalities. HEART AND VASCULAR STRUCTURES: Heart normal size. No evidence for failure. BONES: No acute findings. HARDWARE: None in the chest. OTHER: No other significant finding. IMPRESSION: NO SIGNIFICANT RADIOGRAPHIC FINDING IN THE CHEST. TECHNICAL DOCUMENTATION: JOB ID: [id number] [employer] All Rights Reserved
[2017-01-23 12:53] LABS: ABSOLUTE LYMPHOCYTES (AUTO) 1.5 10^3/uL (0.5-4.7); ABSOLUTE MONOCYTES (AUTO) 0.4 10^3/uL (0.1-1.4); ABSOLUTE NEUT (AUTO) 2.8 10^3/uL (1.7-8.2); BASOPHILS % (AUTO) 0.3 % (0-2); EOSINOPHILS % (AUTO) 0.7 % (0-6); HEMATOCRIT 39.1 % (36.0-47.0); HEMOGLOBIN 12.8 g/dL (12.0-15.5); HGB HCT DIFFERENCE -0.7; LYMPHOCYTES % (AUTO) 32.1 % (13-45); MEAN CORPUSCULAR HEMOGLOBIN 29.8 pg (27.0-33.4); MEAN CORPUSCULAR HGB CONC 32.6 g/dL (32.0-36.0); MEAN CORPUSCULAR VOLUME 92 fl (80-97); MONOCYTES % (AUTO) 9.2 % (3-13); RED BLOOD COUNT 4.27 10^6/uL (3.72-5.28); RED CELL DISTRIBUTION WIDTH 16.8 % (11.5-14.0); SEGMENTED NEUTROPHILS % (AUTO) 57.7 % (42-78); WHITE BLOOD COUNT 4.8 10^3/uL (4.0-10.5)
[2017-01-23 12:58] LABS: APPEARANCE,URINE SLIGHTLY-CLOUDY; BILIRUBIN,URINE NEGATIVE (NEGATIVE); GLUCOSE, URINE NEGATIVE (NEGATIVE); KETONES,URINE NEGATIVE (NEGATIVE); LEUKOCYTE ESTERASE,URINE TRACE (NEGATIVE); NITRITE,URINE NEGATIVE (NEGATIVE); PROTEIN,URINE NEGATIVE (NEGATIVE); URINE SPECIFIC GRAVITY 1.017; UROBILINOGEN,URINE NEGATIVE mg/dL (<2.0)
[2017-01-23 13:19] LABS: ANION GAP 10 (5-19); BLOOD UREA NITROGEN 15 mg/dL (7-20); CALCIUM 9.9 mg/dL (8.4-10.2); CARBON DIOXIDE 29 mmol/L (22-30); CHLORIDE 104 mmol/L (98-107); CREATININE RESULT 0.87 mg/dL (0.52-1.25); GLUCOSE 83 mg/dL (75-110); POTASSIUM 4.7 mmol/L (3.6-5.0); SODIUM 142.6 mmol/L (137-145)
--- NOTE | 2017-01-23 18:31 | EKG REPORT ---
SEVERITY:- OTHERWISE NORMAL ECG - SINUS RHYTHM BORDERLINE LEFT AXIS DEVIATION : Confirmed by: Teodoro Leahy MD 23-Jan-2017 18:30:54
== END ==
LOC: OD 11:09
PROVIDERS: ATTEND Orthopaedic Surgery
DX: Z01.810 Encounter for preprocedural cardiovascular examination (principal); Z01.812 Encounter for preprocedural laboratory examination; Z01.818 Encounter for other preprocedural examination
CPT/HCPCS: 36415; 71020; 80048; 81001; 85025; 93005; 93010

== ENCOUNTER → 2017-02-03 | Outpatient (CLI) | payer MEDICARE, OTHER | LOC: OD 08:54 | PROVIDERS: ATTEND Orthopaedic Surgery | DX: Z01.810 Encounter for preprocedural cardiovascular examination (principal); Z53.8 Procedure and treatment not carried out for other reasons ==

== ENCOUNTER 2017-02-12 06:39 | Inpatient (IN) | payer MEDICARE, OTHER ==
[2017-02-17] MEDS ORDERED: LANSOPRAZOLE 15 MG TAB.RAP.DR PO PRN (05:00)
[2017-02-17] MEDS ORDERED: LACTATED RINGERS 1000 ML IV PRN (05:00)
[2017-02-17] MEDS ORDERED: OXYCODONE HCL SR 10 MG TABLET PO PRN (05:00)
[2017-02-17] MEDS ORDERED: LIDOCAINE 0.5% INJ-PF (5 MG/ML) 50 ML SDV SUBCUT PRN (05:00)
[2017-02-17] MEDS ORDERED: IBUPROFEN 800 MG/NS 250 ML IV PRN ×2 (05:00)
[2017-02-17] MEDS ORDERED: VANCOMYCIN HCL 1,000 MG in DEXTROSE 5%-WATER 250 ML IV PRN (05:00)
[2017-02-17] MEDS ORDERED: BUPIVACAINE INJ/PF LIPOSOME/PF 266 MG/20 ML SDV IJ PRN (05:00)
[2017-02-17] MEDS ORDERED: SCOPOLAMINE HYDROBROMIDE 1.5 MG PATCH.TD72 TOP PRN (05:00)
[2017-02-17] MEDS ORDERED: CEFAZOLIN INJ 1 GM VIAL IV PRN (05:00)
[2017-02-24 11:06] LABS: HEMATOCRIT 41.1 % (36.0-47.0); HEMOGLOBIN 13.2 g/dL (12.0-15.5); HGB HCT DIFFERENCE -1.5; MEAN CORPUSCULAR HEMOGLOBIN 30.4 pg (27.0-33.4); MEAN CORPUSCULAR HGB CONC 32.2 g/dL (32.0-36.0); MEAN CORPUSCULAR VOLUME 94 fl (80-97); RED BLOOD COUNT 4.36 10^6/uL (3.72-5.28); RED CELL DISTRIBUTION WIDTH 17.4 % (11.5-14.0); WHITE BLOOD COUNT 4.7 10^3/uL (4.0-10.5)
[2017-02-24 11:32] LABS: ANION GAP 11 (5-19); BLOOD UREA NITROGEN 16 mg/dL (7-20); CALCIUM 9.3 mg/dL (8.4-10.2); CARBON DIOXIDE 26 mmol/L (22-30); CHLORIDE 105 mmol/L (98-107); CREATININE RESULT 0.88 mg/dL (0.52-1.25); GLUCOSE 69 mg/dL (75-110); POTASSIUM 4.1 mmol/L (3.6-5.0); SODIUM 141.8 mmol/L (137-145)
[2017-02-24 12:27] LABS: APPEARANCE,URINE CLEAR; BILIRUBIN,URINE NEGATIVE (NEGATIVE); GLUCOSE, URINE NEGATIVE (NEGATIVE); KETONES,URINE NEGATIVE (NEGATIVE); PROTEIN,URINE 30 mg/dL (NEGATIVE); URINE SPECIFIC GRAVITY 1.026; UROBILINOGEN,URINE NEGATIVE mg/dL (<2.0)
[2017-02-24 12:28] LABS: BACTERIA,URINE TRACE /HPF; LEUKOCYTE ESTERASE,URINE TRACE (NEGATIVE); NITRITE,URINE NEGATIVE (NEGATIVE); RBC,URINE NONE SEEN /HPF; WBC,URINE 0-1 /HPF
[2017-03-12] MEDS ORDERED: VANCOMYCIN HCL 1,000 MG in DEXTROSE 5%-WATER 250 ML IV PRN (05:00)
[2017-03-12] MEDS ORDERED: LANSOPRAZOLE 15 MG TAB.RAP.DR PO PRN ×2 (05:00→10:30)
[2017-03-12] MEDS ORDERED: IBUPROFEN 800 MG in NORMAL SALINE 250 ML IV PRN (05:00)
[2017-03-12] MEDS ORDERED: BUPIVACAINE INJ/PF LIPOSOME/PF 266 MG/20 ML SDV INJ PRN (05:00)
[2017-03-12] MEDS ORDERED: CEFAZOLIN INJ 1 GM VIAL IV PRN (05:00)
[2017-03-12] MEDS ORDERED: OXYCODONE HCL SR 10 MG TABLET PO PRN (05:00)
[2017-03-12] MEDS ORDERED: THROMBIN (BOVINE) 5000 UNIT EPITAXIS KIT ONE (07:31)
[2017-03-12] MEDS ORDERED: BUPIVACAINE INJ/PF LIPOSOME/PF 266 MG/20 ML SDV ONE (07:31)
[2017-03-12] MEDS ORDERED: THROMBIN (BOVINE) TOPICAL 20000 UNIT VIAL ONE (07:31)
[2017-03-12] MEDS ORDERED: PROPOFOL INJ 200 MG/20 ML VIAL IV ONE (08:14)
[2017-03-12] MEDS ORDERED: MIDAZOLAM 2 MG/2 ML INJ ONE (08:14)
[2017-03-12] MEDS ORDERED: FENTANYL CITRATE INJ/PF 100 MCG/2 ML AMPUL ONE (08:14)
[2017-03-12] MEDS ORDERED: TRANEXAMIC ACID INJ/PF 1,000 MG/10 ML SDV IV ONE ×3 (08:15→15:30)
[2017-03-12] MEDS ORDERED: DEXMEDETOMIDINE INJ 80 MCG/20 ML VIAL IV ONE (08:15)
[2017-03-12] MEDS ORDERED: DIPHENHYDRAMINE HCL 50 MG/ML VIAL IV PRN ×2 (09:33→09:57)
[2017-03-12] MEDS ORDERED: FENTANYL CITRATE INJ/PF 100 MCG/2 ML AMPUL IV PRN ×2 (09:33)
[2017-03-12] MEDS ORDERED: SENNOSIDES/DOCUSATE 8.6-50 MG 1 EACH TABLET PO PRN (09:57)
[2017-03-12] MEDS ORDERED: ZOLPIDEM TARTRATE 5 MG TABLET PO PRN (09:57)
[2017-03-12] MEDS ORDERED: MAG HYDROX/AL HYDROX/SIMETH SUSP 30 ML UDCUP PO PRN (09:57)
[2017-03-12] MEDS ORDERED: RINGERS SOLUTION,LACTATED 1,000 ML IV PRN (09:57)
[2017-03-12] MEDS ORDERED: MORPHINE SULFATE 10 MG/ML INJ IM PRN (09:57)
[2017-03-12] MEDS ORDERED: MORPHINE SULFATE 10 MG/ML INJ IV PRN ×2 (09:57)
[2017-03-12] MEDS ORDERED: OXYCODONE HCL IR 5 MG TABLET PO PRN (09:57)
[2017-03-12] MEDS ORDERED: ONDANSETRON HCL INJ/PF 4 MG/2 ML SDV IV PRN (09:57)
[2017-03-12] MEDS ORDERED: ONDANSETRON 4 MG TAB.RAPDIS PO PRN (09:57)
--- NOTE | 2017-03-12 09:57 | Operative Report ---
Operative Report DATE OF SURGERY: 03/12/17 PREOPERATIVE DIAGNOSIS: Left knee arthritis OPERATION: Left knee arthroplasty SURGEON: BARB LARSEN ANESTHESIA: Spinal TISSUE REMOVED OR ALTERED: Bone to pathology ESTIMATED BLOOD LOSS: 100 PROCEDURE: Implants used: Femur: Triathlon #4 CR femur Tibia: 3 tibia Tibial liner: 9 Millimeters CS insert Patella: 32 mm oval patella Procedure with the patient supine on the operating table the left the limb is prepped and draped in a sterile fashion. The limb was elevated for exsanguination and the tourniquet inflated to 280 torr. A standard midline median parapatellar approach the knee is taken. Access is gained to the femoral canal through the intercondylar notch. Intramedullary alignment instrumentation used to resect 10 mm of distal femur in 5 of valgus. Sizing guide indicated a size 4 femur. Appropriate cutting jig is then used to fashion anterior posterior and chamfer cuts. A trial reduction femurs performed and this is judged to be adequate. Attention was next turned to the tibia. Using an extra medullary alignment system 9 millimeters was resected off the lateral tibial plateau. This is sized to a size 3 tibia. A trial reduction was now performed with a for femur and a 3 tibia using a 9 millimeters spacer. It is full extension and central patellofemoral tracking. The articular surface the patella was next resected using an oscillating saw. All trial implants were removed. Polymethylmethacrylate is mixed and used to cement the above implants in place. On adequate curing the cement excess cement was removed the tourniquet was deflated hemostasis obtained the wound is then closed in layers using interrupted Vicryl followed by [facility]. A sterile compressive dressing was applied and the patient returned to recovery room in satisfactory condition.
[2017-03-12] MEDS ORDERED: CYANOCOBALAMIN PO SCH (10:00)
--- NOTE | 2017-03-12 10:50 | RADIOLOGY REPORT (SQ) ---
EXAM DESCRIPTION: KNEE LEFT 2 VIEWS COMPLETED DATE/TIME: 03/12/2017 10:41 am REASON FOR STUDY: Post OP -Long Cassette in PACU M17.12 UNILATERAL PRIMARY OSTEOARTHRITIS, LEFT KNE E COMPARISON: None. NUMBER OF VIEWS: Two view(s). TECHNIQUE: Digital radiographic images of the left knee post-procedure. LIMITATIONS: None. FINDINGS: BONES: No worrisome or unexpected findings post-procedure. DEVICE: Total knee arthroplasty. SOFT TISSUES: No worrisome findings. Expected postoperative soft tissue changes. IMPRESSION: SATISFACTORY POSTOPERATIVE LEFT KNEE. TECHNICAL DOCUMENTATION: JOB ID: [id number] [employer]- All Rights Reserved
[2017-03-12] MEDS ORDERED: ONDANSETRON HCL INJ/PF 4 MG/2 ML SDV ONE (13:05)
[2017-03-12] MEDS ORDERED: LIDOCAINE 2% INJ-PF (20 MG/ML) 10 ML AMPUL ONE (13:05)
[2017-03-12] MEDS: MORPHINE SULFATE 10 MG/ML INJ IV PRN ×3 (13:09→16:59)
[2017-03-12] MEDS: OXYCODONE HCL SR 10 MG TABLET PO SCH ×2 (14:20→22:14)
[2017-03-12] MEDS: GABAPENTIN 300 MG CAPSULE PO SCH ×2 (14:23→22:14)
[2017-03-12] MEDS: PRENATAL VITAMIN W-O CA NO5/FE FUMARATE/FA CAPSULE PO SCH (14:24)
[2017-03-12] MEDS: IBUPROFEN 800 MG in NORMAL SALINE 250 ML IV SCH (16:59)
[2017-03-12] MEDS: ACETAMINOPHEN 325 MG TABLET PO PRN (16:59)
[2017-03-12] MEDS: ROPINIROLE HCL 1 MG TABLET PO SCH (17:51)
[2017-03-12] MEDS: TRAZODONE HCL 50 MG TABLET PO SCH (17:52)
[2017-03-12] MEDS ORDERED: VANCOMYCIN HCL 1,000 MG in DEXTROSE 5%-WATER 250 ML IV ONE (22:00)
[2017-03-12] MEDS: RIVAROXABAN 10 MG TABLET PO SCH (22:14)
[2017-03-12] MEDS: SIMVASTATIN 10 MG TABLET PO SCH (22:14)
[2017-03-13] MEDS: IBUPROFEN 800 MG in NORMAL SALINE 250 ML IV SCH ×3 (02:04→17:16)
[2017-03-13] MEDS: GABAPENTIN 300 MG CAPSULE PO SCH ×3 (05:38→21:31)
[2017-03-13] MEDS: LANSOPRAZOLE 30 MG TAB.RAP.DR PO SCH (05:38)
[2017-03-13 05:49] LABS: HEMATOCRIT 32.3 % (36.0-47.0); HEMOGLOBIN 10.4 g/dL (12.0-15.5); HGB HCT DIFFERENCE -1.1; MEAN CORPUSCULAR HEMOGLOBIN 30.9 pg (27.0-33.4); MEAN CORPUSCULAR HGB CONC 32.3 g/dL (32.0-36.0); MEAN CORPUSCULAR VOLUME 96 fl (80-97); RED BLOOD COUNT 3.37 10^6/uL (3.72-5.28); RED CELL DISTRIBUTION WIDTH 15.9 % (11.5-14.0); WHITE BLOOD COUNT 4.6 10^3/uL (4.0-10.5)
[2017-03-13 05:55] LABS: ANION GAP 7 (5-19); BLOOD UREA NITROGEN 16 mg/dL (7-20); CALCIUM 8.4 mg/dL (8.4-10.2); CARBON DIOXIDE 28 mmol/L (22-30); CHLORIDE 106 mmol/L (98-107); CREATININE RESULT 0.94 mg/dL (0.52-1.25); GLUCOSE 100 mg/dL (75-110); POTASSIUM 4.6 mmol/L (3.6-5.0); SODIUM 141.3 mmol/L (137-145)
[2017-03-13] MEDS ORDERED: LEVOTHYROXINE SODIUM 0.1 MG TABLET PO SCH (08:00)
[2017-03-13] MEDS: MORPHINE SULFATE 10 MG/ML INJ IV PRN (08:32)
[2017-03-13] MEDS: LEVOTHYROXINE SODIUM 0.025 MG TABLET PO SCH (09:09)
[2017-03-13] MEDS: CYANOCOBALAMIN (VITAMIN B-12) 1,000 MCG TABLET PO SCH (09:10)
[2017-03-13] MEDS: LEVOTHYROXINE SODIUM 0.1 MG TABLET PO SCH (09:10)
[2017-03-13] MEDS: PRENATAL VITAMIN W-O CA NO5/FE FUMARATE/FA CAPSULE PO SCH (09:11)
[2017-03-13] MEDS: OXYCODONE HCL SR 10 MG TABLET PO SCH ×2 (09:11→21:31)
[2017-03-13] MEDS ORDERED: MORPHINE SULFATE 10 MG/ML INJ IV PRN (14:38)
[2017-03-13] MEDS ORDERED: MORPHINE SULFATE 10 MG/ML INJ IM PRN (14:38)
[2017-03-13] MEDS ORDERED: ONDANSETRON HCL INJ/PF 4 MG/2 ML SDV IV PRN (14:39)
[2017-03-13] MEDS ORDERED: OXYCODONE HCL IR 5 MG TABLET PO PRN (14:39)
[2017-03-13] MEDS: TRAZODONE HCL 50 MG TABLET PO SCH (17:17)
[2017-03-13] MEDS: ROPINIROLE HCL 1 MG TABLET PO SCH (17:17)
[2017-03-13] MEDS: SIMVASTATIN 10 MG TABLET PO SCH (21:31)
[2017-03-13] MEDS: RIVAROXABAN 10 MG TABLET PO SCH (21:32)
[2017-03-14] MEDS: MAG HYDROX/AL HYDROX/SIMETH SUSP 30 ML UDCUP PO PRN (01:42)
[2017-03-14] MEDS: IBUPROFEN 800 MG in NORMAL SALINE 250 ML IV SCH ×2 (01:51→09:46)
[2017-03-14 05:08] LABS: HEMATOCRIT 32.5 % (36.0-47.0); HEMOGLOBIN 10.6 g/dL (12.0-15.5); HGB HCT DIFFERENCE -0.7; MEAN CORPUSCULAR HEMOGLOBIN 31.5 pg (27.0-33.4); MEAN CORPUSCULAR HGB CONC 32.5 g/dL (32.0-36.0); MEAN CORPUSCULAR VOLUME 97 fl (80-97); RED BLOOD COUNT 3.37 10^6/uL (3.72-5.28); WHITE BLOOD COUNT 6.4 10^3/uL (4.0-10.5)
[2017-03-14] MEDS: LANSOPRAZOLE 30 MG TAB.RAP.DR PO SCH (05:42)
[2017-03-14] MEDS: GABAPENTIN 300 MG CAPSULE PO SCH ×3 (05:42→21:22)
--- NOTE | 2017-03-14 07:17 | PDOC PROGRESS REPORT ---
Subjective Progress Note for:: 03/14/17 Subjective:: 81-year-old white female postop day 2 from left knee arthroplasty Physical Exam Vital Signs: Temp Pulse Resp BP Pulse Ox 36.8 C 69 22 H 123/69 96 03/13/17 23:34 03/13/17 23:34 03/13/17 23:34 03/13/17 23:34 03/14/17 01:02 Intake & Output 03/13/17 03/14/17 03/15/17 06:59 06:59 06:59 Intake Total 2660 1550 Output Total 1900 550 Balance 760 1000 Weight 92.2 kg 91.8 kg General appearance: PRESENT: no acute distress Head exam: PRESENT: normocephalic Eye exam: PRESENT: EOMI Respiratory exam: PRESENT: unlabored Cardiovascular exam: PRESENT: RRR Pulses: PRESENT: +1 pedal pulses bilateral Vascular exam: PRESENT: normal capillary refill GI/Abdominal exam: PRESENT: soft Rectal exam: PRESENT: deferred Extremities exam: PRESENT: other Musculoskeletal exam: PRESENT: other - Picot dressing is changed today. There is some surrounding erythema but no drainage. Foot compression devices have not been applied. Distal neurovascular examination is intact. Neurological exam: PRESENT: alert, awake, oriented to person, oriented to place , oriented to time, oriented to situation. ABSENT: motor sensory deficit Psychiatric exam: PRESENT: appropriate affect, normal mood. ABSENT: homicidal ideation, suicidal ideation Skin exam: PRESENT: dry, intact, warm. ABSENT: cyanosis, rash Results Laboratory Results: 03/14/17 04:35 03/13/17 05:25 03/14/17 04:35 WBC 6.4 RBC 3.37 L Hgb 10.6 L Hct 32.5 L MCV 97 MCH 31.5 MCHC 32.5 RDW 16.0 H Plt Count 73 L Impressions: Knee X-Ray 03/12/17 09:58 IMPRESSION: SATISFACTORY POSTOPERATIVE LEFT KNEE. Status: Imported from PACS Assessment & Plan - Diagnosis (1) Arthritis of knee, left Is this a current diagnosis for this admission?: YesPlan: 81-year-old female status post left knee arthroplasty. Plan will be for transfer to a [facility] facility when bed available. - Time Time Spent with patient: 15-24 minutes Anticipated discharge: SNF Within: when bed available
[2017-03-14] MEDS: LEVOTHYROXINE SODIUM 0.1 MG TABLET PO SCH (09:16)
[2017-03-14] MEDS: LEVOTHYROXINE SODIUM 0.025 MG TABLET PO SCH (09:17)
[2017-03-14] MEDS: CYANOCOBALAMIN (VITAMIN B-12) 1,000 MCG TABLET PO SCH (09:17)
[2017-03-14] MEDS: PRENATAL VITAMIN W-O CA NO5/FE FUMARATE/FA CAPSULE PO SCH (09:49)
[2017-03-14] MEDS: ACETAMINOPHEN 325 MG TABLET PO PRN (16:16)
[2017-03-14] MEDS: ROPINIROLE HCL 1 MG TABLET PO SCH (18:57)
[2017-03-14] MEDS: TRAZODONE HCL 50 MG TABLET PO SCH (18:57)
[2017-03-14] MEDS ORDERED: MAGNESIUM CITRATE 296 ML BOTTLE PO ONE (20:00)
[2017-03-14] MEDS: SIMVASTATIN 10 MG TABLET PO SCH (21:22)
[2017-03-14] MEDS: RIVAROXABAN 10 MG TABLET PO SCH (21:22)
[2017-03-15] MEDS: ACETAMINOPHEN 325 MG TABLET PO PRN ×2 (02:07→19:52)
[2017-03-15 05:33] LABS: HEMATOCRIT 30.4 % (36.0-47.0); HEMOGLOBIN 9.9 g/dL (12.0-15.5); HGB HCT DIFFERENCE -0.7; MEAN CORPUSCULAR HEMOGLOBIN 31.2 pg (27.0-33.4); MEAN CORPUSCULAR HGB CONC 32.6 g/dL (32.0-36.0); MEAN CORPUSCULAR VOLUME 96 fl (80-97); RED BLOOD COUNT 3.19 10^6/uL (3.72-5.28); RED CELL DISTRIBUTION WIDTH 15.9 % (11.5-14.0)
[2017-03-15] MEDS: GABAPENTIN 300 MG CAPSULE PO SCH ×3 (06:13→21:30)
[2017-03-15] MEDS: LANSOPRAZOLE 30 MG TAB.RAP.DR PO SCH (06:13)
--- NOTE | 2017-03-15 08:25 | PDOC PROGRESS REPORT ---
Subjective Progress Note for:: 03/15/17 Subjective:: Patient continues to complain of constipation in spite of Dulcolax and mag citrate Physical Exam Vital Signs: Temp Pulse Resp BP Pulse Ox 36.9 C 72 21 H 173/63 H 96 03/14/17 23:00 03/14/17 23:00 03/14/17 23:00 03/14/17 23:00 03/14/17 23:00 Intake & Output 03/14/17 03/15/17 03/16/17 06:59 06:59 06:59 Intake Total 1550 2130 Output Total 550 2400 Balance 1000 -270 Weight 91.8 kg 92.8 kg General appearance: PRESENT: no acute distress Head exam: PRESENT: normocephalic Respiratory exam: PRESENT: unlabored Pulses: PRESENT: +1 pedal pulses bilateral Vascular exam: PRESENT: normal capillary refill Extremities exam: PRESENT: other - Dressing with a small amount of drainage. Neurological exam: PRESENT: alert, awake, oriented to person, oriented to place , oriented to time, oriented to situation. ABSENT: motor sensory deficit Psychiatric exam: PRESENT: appropriate affect, normal mood. ABSENT: homicidal ideation, suicidal ideation Skin exam: PRESENT: dry, intact, warm. ABSENT: cyanosis, rash Results Laboratory Results: 03/15/17 04:59 03/13/17 05:25 03/15/17 04:59 WBC 7.0 RBC 3.19 L Hgb 9.9 L Hct 30.4 L MCV 96 MCH 31.2 MCHC 32.6 RDW 15.9 H Plt Count 76 L Impressions: Knee X-Ray 03/12/17 09:58 IMPRESSION: SATISFACTORY POSTOPERATIVE LEFT KNEE. Status: Imported from PACS Assessment & Plan - Diagnosis (1) Arthritis of knee, left Is this a current diagnosis for this admission?: YesPlan: Patient doing well status post knee replacement anticipate discharge to a [facility] facility on Friday. (2) Constipation Qualifiers: Constipation type: slow transit constipation Qualified Code(s): K59.01 - Slow transit constipation Is this a current diagnosis for this admission?: YesPlan: Will be for an enema of nursing choice - Time Time Spent with patient: 15-24 minutes Anticipated discharge: SNF Within: within 48 hours
[2017-03-15] MEDS: LEVOTHYROXINE SODIUM 0.025 MG TABLET PO SCH (09:44)
[2017-03-15] MEDS: PRENATAL VITAMIN W-O CA NO5/FE FUMARATE/FA CAPSULE PO SCH (09:44)
[2017-03-15] MEDS: CYANOCOBALAMIN (VITAMIN B-12) 1,000 MCG TABLET PO SCH (09:44)
[2017-03-15] MEDS: LEVOTHYROXINE SODIUM 0.1 MG TABLET PO SCH (09:44)
[2017-03-15] MEDS: TRAZODONE HCL 50 MG TABLET PO SCH (17:45)
[2017-03-15] MEDS: ROPINIROLE HCL 1 MG TABLET PO SCH (17:45)
[2017-03-15] MEDS: RIVAROXABAN 10 MG TABLET PO SCH (21:30)
[2017-03-15] MEDS: SIMVASTATIN 10 MG TABLET PO SCH (21:30)
[2017-03-16] MEDS: LANSOPRAZOLE 30 MG TAB.RAP.DR PO SCH (05:46)
[2017-03-16] MEDS: GABAPENTIN 300 MG CAPSULE PO SCH ×3 (05:46→21:12)
[2017-03-16] MEDS: LEVOTHYROXINE SODIUM 0.1 MG TABLET PO SCH (09:04)
[2017-03-16] MEDS: LEVOTHYROXINE SODIUM 0.025 MG TABLET PO SCH (09:04)
[2017-03-16] MEDS: CYANOCOBALAMIN (VITAMIN B-12) 1,000 MCG TABLET PO SCH (09:04)
[2017-03-16] MEDS: PRENATAL VITAMIN W-O CA NO5/FE FUMARATE/FA CAPSULE PO SCH (09:04)
[2017-03-16] MEDS ORDERED: METOPROLOL TARTRATE PF/INJ 5 MG/5 ML SDV IV ONE ×2 (15:20→15:43)
[2017-03-16] MEDS ORDERED: METOPROLOL TARTRATE PF/INJ 5 MG/5 ML SDV IV PRN (15:28)
[2017-03-16 15:56] LABS: PROTHROMBIN TIME 15.4 SEC (11.4-15.4)
[2017-03-16 15:57] LABS: PARTIAL THROMBOPLASTIN TIME 38.1 SEC (23.5-35.8)
[2017-03-16 16:00] LABS: ABSOLUTE BASOPHILS # (AUTO) 0.1 10^3/uL (0.0-0.2); ABSOLUTE EOSINOPHILS # (AUTO) 0.2 10^3/uL (0.0-0.6); ABSOLUTE LYMPHOCYTES (AUTO) 1.6 10^3/uL (0.5-4.7); ABSOLUTE NEUT (AUTO) 7.2 10^3/uL (1.7-8.2); BASOPHILS % (AUTO) 0.6 % (0-2); EOSINOPHILS % (AUTO) 2.2 % (0-6); HEMATOCRIT 32.5 % (36.0-47.0); HEMOGLOBIN 10.8 g/dL (12.0-15.5); HGB HCT DIFFERENCE -0.1; LYMPHOCYTES % (AUTO) 15.8 % (13-45); MEAN CORPUSCULAR HEMOGLOBIN 31.3 pg (27.0-33.4); MEAN CORPUSCULAR HGB CONC 33.1 g/dL (32.0-36.0); MEAN CORPUSCULAR VOLUME 94 fl (80-97); MONOCYTES % (AUTO) 9.7 % (3-13); RED BLOOD COUNT 3.44 10^6/uL (3.72-5.28); RED CELL DISTRIBUTION WIDTH 16.1 % (11.5-14.0); SEGMENTED NEUTROPHILS % (AUTO) 71.7 % (42-78); WHITE BLOOD COUNT 10.1 10^3/uL (4.0-10.5)
[2017-03-16 16:08] LABS: ANION GAP 9 (5-19); BLOOD UREA NITROGEN 15 mg/dL (7-20); CARBON DIOXIDE 28 mmol/L (22-30); CHLORIDE 102 mmol/L (98-107); CREATININE RESULT 0.77 mg/dL (0.52-1.25); GLUCOSE 104 mg/dL (75-110); MAGNESIUM 2.1 mg/dL (1.6-2.3); PHOSPHORUS 2.9 mg/dL (2.5-4.5); POTASSIUM 3.7 mmol/L (3.6-5.0); SODIUM 138.6 mmol/L (137-145)
--- NOTE | 2017-03-16 16:08 | RADIOLOGY REPORT (SQ) ---
EXAM DESCRIPTION: CT HEAD WITHOUT COMPLETED DATE/TIME: 03/16/2017 3:58 pm REASON FOR STUDY: acute neurologic syndrome M17.12 UNILATERAL PRIMARY OSTEOARTHRITIS, LEFT KNEE COMPARISON: 2016 TECHNIQUE: Axial images acquired through the brain without intravenous contrast. Images reviewed wi th bone, brain and subdural windows. Images stored on PACS. All CT scanners at this facility use dose modulation, iterative reconstruction, and/or weight based d osing when appropriate to reduce radiation dose to as low as reasonably achievable (ALARA). [facility]: Dose Right [facility]: CareDose [facility]: Dose Right [facility]: Teradose 4D [facility]: [employer] RADIATION DOSE: Up-to-date CT equipment and radiation dose reduction techniques were employed. CTDIv ol: 64.6 mGy. DLP: 1163 mGy-cm. mGy. LIMITATIONS: None. FINDINGS: VENTRICLES: Age-appropriate. CEREBRUM: No masses. No hemorrhage. No midline shift. Normal bhandari/white matter differentiation. N o evidence for acute infarction. CEREBELLUM: No masses. No hemorrhage. No alteration of density. No evidence for acute infarction. EXTRAAXIAL SPACES: No fluid collections. No masses. ORBITS AND GLOBE: No intra- or extraconal masses. Normal contour of globe without masses. CALVARIUM: No fracture. PARANASAL SINUSES: No fluid or mucosal thickening. SOFT TISSUES: No mass or hematoma. OTHER: No other significant finding. IMPRESSION: NORMAL BRAIN CT WITHOUT CONTRAST. TECHNICAL DOCUMENTATION: JOB ID: [id number] Quality ID # [id number]: Final reports with documentation of one or more dose reduction techniques (e.g., Au tomated exposure control, adjustment of the mA and/or kV according to patient size, use of iterative reconstruction technique) 2010 [employer]- All Rights Reserved
--- NOTE | 2017-03-16 16:13 | PDOC CONSULTATION ---
Consultation Consult Date: 03/16/17 Attending physician:: HIMA LARSEN - DR DAN Consult reason:: Evaluation of HTN and slurred speech History of Present Illness Admission Date/PCP: 03/12/17 06:20 ALFREDO DAN MD Patient complains of: slurred speech this morning History of Present Illness: CARISA CAMPOS is a 81 year old female presented to the hospital for elective total knee arthroplasty this past friday and has been undergoing PT ever since awaiting placement in rehab bed on Friday. During this time she is noted to have elevated BPs trending up and peaking today with SBP >200 and DBP >95 with cephalgia and end organ effects manifesting as global MESA with dull aching throbbing sensation in her temples, non radiating and no exac or alleviating factors with asct'd slurred speech, blurred vision and expressive aphasia ( difficulty getting my mouth to work) but without difficulty swallowing, N/T, unilateral weakness, facial asymmetry, tinnitus, chest pain, palpitations, fevers/chills, n/v/d. This resolved shortly thereafter. she's never had anything like this before. no prior CAD/ASCVD in fact had a negative stress test 05/2016 with no reversible ischemia correlating with perfusion deficit and EF 57%. she has hx of HTN but not currently on medication according to the patient; on review of the record she was hospitalized for 3 wks in late August to early September 2016 with pelvic abscess, ultimately transferred to [facility] for further treatment and during her stay was noted HTN and treated with toprol and losartan. currently her BP is 209 and she is once again having symptoms of MESA, slurred speech and blurred vision. stat lopressor ordered with further workup as described below. Past Medical History Cardiac Medical History: Reports: DVT, Hyperlipidema, Hypertension - on meds Denies: Atrial Fibrillation, Congestive Heart Failure, Coronary Artery Disease, Myocardial Infarction, Peripheral Vascular Disease, Pulmonary Embolism , Heart Murmur Pulmonary Medical History: Reports: Asthma, Bronchitis, Pneumonia Denies: Chronic Obstructive Pulmonary Disease (COPD), Respiratory Failure, Sleep Apnea, Tuberculosis Neurological Medical History: Reports: Migraine Denies: Hemorrhagic CVA, Ischemic CVA, Seizures Endocrine Medical History: Reports: Hyperthyroidism, Hypothyroidism Renal/ Medical History: Denies: End Stage Renal Disease Malignancy Medical History: Reports: Cervical Cancer Denies: Breast Cancer, Leukemia, Lung Cancer, Ovarian Cancer GI Medical History: Reports: Gastroesophageal Reflux Disease Denies: Crohn's Disease, Hiatal Hernia Musculoskeltal Medical History: Reports: Arthritis Denies: Fibromyalgia Psychiatric Medical History: Reports: Depression Denies: Bipolar Disorder, Dementia, Post Traumatic Stress Disorder Hematology: Reports: Anemia Denies: Hemophilia, Sickle Cell Disease Infectious Medical History: Reports: Methicillin-Resistant Staph Aureus Denies: HIV Past Surgical History Past Surgical History: Reports: Hysterectomy, Orthopedic Surgery - Right foot bunionectomy. Right total knee replacement., Tonsillectomy, Other Denies: Amputation, Appendectomy, Section, Cholecystectomy, Colostomy, Coronary Artery Bypass Graft, Gastric Bypass Surgery, Herniorrhaphy, Mastectomy, Pacemaker, Tubal Ligation Social History Information Source: Patient Smoking Status: Never Smoker Frequency of Alcohol Use: None Hx Recreational Drug Use: No Hx Prescription Drug Abuse: No - Advance Directive Resuscitation Status: Full Code Family History Family History: Hypertension - Mother age 105., Malignancy - Prostate cancer. Father at age 65. Parental Family History Reviewed: Yes Children Family History Reviewed: Yes Sibling(s) Family History Reviewed.: Yes Medication/Allergy Home Medications: Omeprazole [Prilosec 20 mg Capsule] 20 cap PO BID PRN 08/01/11 Acetaminophen [Tylenol 325 mg Tablet] 650 mg PO Q6HP PRN #0 tablet 09/12/16 Hydroxychloroquine Sulfate [Plaquenil 200 mg Tablet] 200 mg PO DAILY #0 tablet 09/12/16 Sennosides/Docusate 8.6-50 mg [Senna Plus Tablet] 1 each PO BIDP PRN #0 tablet 09/12/16 Simvastatin [Zocor 10 mg Tablet] 20 mg PO QHS #0 tablet 09/12/16 Cyanocobalamin (Vitamin B-12) [Vitamin B12] 1 mg PO DAILY 03/10/17 Gabapentin 300 mg PO TID 03/10/17 Levothyroxine Sodium [Synthroid 0.1 mg Tablet] 125 mcg PO QAM 03/10/17 Ropinirole HCl 1 mg PO QPM 03/10/17 Trazodone HCl 150 mg PO QPM 03/10/17 Allergies/Adverse Reactions: Sulfa (Sulfonamide Antibiotics) Adverse Reaction (Intermediate, Verified 13:25) tingling, itching Review of Systems All systems: reviewed and no additional remarkable complaints except as stated - all systems reviewed, see above, remaining systems negative Physical Exam Vital Signs: Temp Pulse Resp BP Pulse Ox 98.1 F 90 18 209/99 H 95 03/16/17 15:15 03/16/17 15:15 03/16/17 15:15 03/16/17 15:15 03/16/17 15:15 Intake & Output 03/15/17 03/16/17 03/17/17 06:59 06:59 06:59 Intake Total 2130 1207 970 Output Total 2400 3700 800 Balance -270 -2493 170 Weight 92.8 kg 91.8 kg General appearance: PRESENT: no acute distress, well-developed, well-nourished Head exam: PRESENT: atraumatic, normocephalic Eye exam: PRESENT: EOMI, nystagmus - rapid phase to the Right. ABSENT: conjunctival injection, PERRLA, scleral icterus Mouth exam: PRESENT: moist, neck supple Neck exam: PRESENT: carotid bruit - Rt bruit, full ROM. ABSENT: JVD, lymphadenopathy, meningismus, tenderness Respiratory exam: PRESENT: clear to auscultation avery. ABSENT: accessory muscle use Cardiovascular exam: PRESENT: RRR. ABSENT: diastolic murmur, systolic murmur, tachycardia Pulses: PRESENT: normal radial pulses, normal dorsalis pedis pul Vascular exam: PRESENT: normal capillary refill GI/Abdominal exam: PRESENT: normal bowel sounds, soft. ABSENT: tenderness Extremities exam: PRESENT: pedal edema - left leg. ABSENT: calf tenderness Musculoskeletal exam: PRESENT: full ROM - limited on left due to pain in knee Neurological exam: PRESENT: alert, awake, oriented to person, oriented to place , oriented to time, oriented to situation, other - slurred speech with difficulty expressing herself now. ABSENT: motor sensory deficit Psychiatric exam: PRESENT: appropriate affect, normal mood Skin exam: PRESENT: warm, other - SANDY drain in place with blood soaked bandage covering the surgical wound; good sensation in the foot Results Laboratory Results: 03/15/17 04:59 03/13/17 05:25 Assessment & Plan - Diagnosis (1) Cephalalgia Qualifiers: Headache type: other vascular headache Qualified Code(s): G44.1 - Vascular headache, not elsewhere classified Is this a current diagnosis for this admission?: YesPlan: likely 2/2 accelerated HTN; add beta delvin and monitor for effect (2) Dysphasia Is this a current diagnosis for this admission?: YesPlan: hopefully 2/2 above, will ck ct head to r/o CVA as she's been on xarelto for postop DVT proph. order routine labs to look for metabolic causes. ck stat ecg for cardiac arrhythmia. (3) Essential (primary) hypertension Is this a current diagnosis for this admission?: YesPlan: malignant in nature due to end organ damage; treat as above (4) Anemia Qualifiers: Anemia type: unspecified type Qualified Code(s): D64.9 - Anemia, unspecified Is this a current diagnosis for this admission?: YesPlan: chronic NC NC anemia with slight worsening (5) Arthritis of knee, left Is this a current diagnosis for this admission?: YesPlan: s/p TKA, wound care, PT/OT, weight bearing status per dr larsen - Time Time Spent: 50 to 70 Minutes Medications reviewed and adjusted accordingly: Yes - Plan Summary Plan Summary: workup as above, hopefully her symptoms will resolve with improvement in her BP. Dr Dan back in the morning to assume medical management at that time.
[2017-03-16] MEDS ORDERED: LISINOPRIL 10 MG TABLET PO ONE (17:15)
[2017-03-16] MEDS: TRAZODONE HCL 50 MG TABLET PO SCH (17:35)
[2017-03-16] MEDS: ROPINIROLE HCL 1 MG TABLET PO SCH (17:35)
[2017-03-16] MEDS: SIMVASTATIN 10 MG TABLET PO SCH (21:13)
[2017-03-16] MEDS: METOPROLOL TARTRATE 50 MG TABLET PO SCH (21:13)
[2017-03-16] MEDS: RIVAROXABAN 10 MG TABLET PO SCH (21:13)
--- NOTE | 2017-03-16 21:51 | EKG REPORT ---
SEVERITY:- ABNORMAL ECG - SINUS RHYTHM PROBABLE INFERIOR INFARCT, OLD : Confirmed by: Teodoro Leahy MD 16-Mar-2017 21:51:36
[2017-03-17] MEDS ORDERED: LEVOTHYROXINE SODIUM 0.112 MG TABLET PO SCH (05:18)
[2017-03-17] MEDS: GABAPENTIN 300 MG CAPSULE PO SCH ×3 (06:32→21:17)
[2017-03-17] MEDS: LANSOPRAZOLE 30 MG TAB.RAP.DR PO SCH (06:32)
--- NOTE | 2017-03-17 07:31 | PDOC PROGRESS REPORT ---
Subjective Progress Note for:: 03/17/17 Subjective:: headache better till fell against wall getting back in bed this am. Physical Exam Vital Signs: Temp Pulse Resp BP Pulse Ox 98.2 F 67 18 181/74 H 97 03/17/17 03:30 03/17/17 03:30 03/17/17 03:30 03/17/17 03:30 03/17/17 03:30 Intake & Output 03/15/17 03/16/17 03/17/17 07:59 07:59 07:59 Intake Total 2130 1207 1570 Output Total 2400 3700 1900 Balance -270 -1236 -577 Weight 204 lb 9.423 oz 202 lb 6.15 oz General appearance: PRESENT: no acute distress Eye exam: PRESENT: PERRLA Respiratory exam: PRESENT: clear to auscultation avery Cardiovascular exam: ABSENT: diastolic murmur, irregular rhythm, systolic murmur GI/Abdominal exam: ABSENT: mass, organolmegaly, tenderness Extremities exam: ABSENT: pedal edema Musculoskeletal exam: ABSENT: tenderness - R elbow Neurological exam: PRESENT: alert, oriented to situation, CN II-XII grossly intact, other - normal:cn2-12,ftn,hts,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 ABSENT: motor sensory deficit, aphasic Psychiatric exam: PRESENT: appropriate affect Skin exam: PRESENT: abrasion - superficial R elbow 1*3cm Results Laboratory Results: 03/16/17 15:45 03/16/17 15:45 03/16/17 03/16/17 03/16/17 15:45 15:45 15:45 WBC 10.1 RBC 3.44 L Hgb 10.8 L Hct 32.5 L MCV 94 MCH 31.3 MCHC 33.1 RDW 16.1 H Plt Count 119 L Seg Neutrophils % 71.7 Lymphocytes % 15.8 Monocytes % 9.7 Eosinophils % 2.2 Basophils % 0.6 Absolute Neutrophils 7.2 Absolute Lymphocytes 1.6 Absolute Monocytes 1.0 Absolute Eosinophils 0.2 Absolute Basophils 0.1 Sodium 138.6 Potassium 3.7 Chloride 102 Carbon Dioxide 28 Anion Gap 9 BUN 15 Creatinine 0.77 Est GFR ( Amer) > 60 Est GFR (Non-Af Amer) > 60 Glucose 104 Calcium 9.0 Phosphorus 2.9 Magnesium 2.1 Vitamin B12 > 1000.0 H TSH 0.33 L 03/16/17 15:45 Troponin I 0.012 Impressions: Knee X-Ray 03/12/17 09:58 IMPRESSION: SATISFACTORY POSTOPERATIVE LEFT KNEE. Head CT 03/16/17 00:00 IMPRESSION: NORMAL BRAIN CT WITHOUT CONTRAST. 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
[2017-03-17] MEDS: LISINOPRIL 10 MG TABLET PO SCH (09:11)
[2017-03-17] MEDS: PRENATAL VITAMIN W-O CA NO5/FE FUMARATE/FA CAPSULE PO SCH (09:12)
[2017-03-17] MEDS: METOPROLOL TARTRATE 50 MG TABLET PO SCH ×2 (09:12→21:17)
[2017-03-17] MEDS: LEVOTHYROXINE SODIUM 0.112 MG TABLET PO SCH (09:12)
[2017-03-17] MEDS: CYANOCOBALAMIN (VITAMIN B-12) 1,000 MCG TABLET PO SCH (09:12)
[2017-03-17] MEDS ORDERED: LISINOPRIL 10 MG TABLET PO SCH (10:00)
[2017-03-17] MEDS: ACETAMINOPHEN 325 MG TABLET PO PRN ×2 (11:04→23:42)
--- NOTE | 2017-03-17 13:22 | RADIOLOGY REPORT (SQ) ---
EXAM DESCRIPTION: CAROTID DOPPLER COMPLETED DATE/TIME: 03/17/2017 1:08 pm REASON FOR STUDY: carotid bruit M17.12 UNILATERAL PRIMARY OSTEOARTHRITIS, LEFT KNEE COMPARISON: None. TECHNIQUE: Grayscale ultrasound, Doppler velocity and spectra, and color Doppler images acquired of the extra-cranial carotid and vertebral arteries. Images stored on PACS. LIMITATIONS: None. FINDINGS: RIGHT CAROTID CCA Velocities: Within normal limits. ICA Velocities Peak systolic 1 m/s. End diastolic 0.22 m/s. Proximal ICA/CCA peak systolic ratio 1.5. Spectra normal. No significant plaque. LEFT CAROTID CCA Velocities: Within normal limits. ICA Velocities Peak systolic 0.97 m/s. End diastolic 0.29 m/s. Proximal ICA/CCA peak systolic ratio 1.4. Spectra normal. No significant plaque. VERTEBRAL ARTERIES: Antegrade flow. Normal waveforms. SUBCLAVIAN ARTERIES: No finding. OTHER: No other significant finding. IMPRESSION: NO HEMODYNAMICALLY SIGNIFICANT STENOSIS. COMMENT: Quality ID #[id number]: Velocity criteria are extrapolated from the diameter data as defined by t he Society of Radiologists in Ultrasound Consensus Conference. Radiology 2003: 229; 340-346. TECHNICAL DOCUMENTATION: JOB ID: [id number] [employer]- All Rights Reserved
[2017-03-17] MEDS: TRAZODONE HCL 50 MG TABLET PO SCH (17:12)
[2017-03-17] MEDS: ROPINIROLE HCL 1 MG TABLET PO SCH (17:12)
[2017-03-17] MEDS: MAG HYDROX/AL HYDROX/SIMETH SUSP 30 ML UDCUP PO PRN (18:50)
[2017-03-17] MEDS: SIMVASTATIN 10 MG TABLET PO SCH (21:17)
[2017-03-17] MEDS: RIVAROXABAN 10 MG TABLET PO SCH (21:17)
[2017-03-18] MEDS: GABAPENTIN 300 MG CAPSULE PO SCH (05:25)
[2017-03-18] MEDS: LANSOPRAZOLE 30 MG TAB.RAP.DR PO SCH (05:25)
[2017-03-18] MEDS: MAG HYDROX/AL HYDROX/SIMETH SUSP 30 ML UDCUP PO PRN (05:31)
--- NOTE | 2017-03-18 07:52 | PDOC TRANSFER SUMMARY ---
General - Admit/Disc Date/PCP Admission Date/Primary Care Provider: 03/12/17 06:20 ALFREDO PANDA MD Discharge Date: 03/18/17 - Discharge Diagnosis (1) Arthritis of knee, left Is this a current diagnosis for this admission?: Yes (2) Constipation Is this a current diagnosis for this admission?: Yes - Additional Information Resuscitation Status: Full Code Discharge Diet: As Tolerated, Regular Discharge Activity: Balance Activity w/Rest, No Driving, No tub bath Home Medications: Omeprazole [Prilosec 20 mg Capsule] 20 cap PO BID PRN 08/01/11 Acetaminophen [Tylenol 325 mg Tablet] 650 mg PO Q6HP PRN #0 tablet 09/12/16 Hydroxychloroquine Sulfate [Plaquenil 200 mg Tablet] 200 mg PO DAILY #0 tablet 09/12/16 Sennosides/Docusate 8.6-50 mg [Senna Plus Tablet] 1 each PO BIDP PRN #0 tablet 09/12/16 Simvastatin [Zocor 10 mg Tablet] 20 mg PO QHS #0 tablet 09/12/16 Cyanocobalamin (Vitamin B-12) [Vitamin B12] 1 mg PO DAILY 03/10/17 Gabapentin 300 mg PO TID 03/10/17 Levothyroxine Sodium [Synthroid 0.1 mg Tablet] 125 mcg PO QAM 03/10/17 Ropinirole HCl 1 mg PO QPM 03/10/17 Trazodone HCl 150 mg PO QPM 03/10/17 Oxycodone HCl [Oxy-Ir 5 mg Tablet] 5 mg PO Q6HP PRN #0 tablet 03/18/17 Rivaroxaban [Xarelto 10 mg Tablet] 10 mg PO QHS #0 tablet 03/18/17 History of Present Illness Admission Date/PCP: 03/12/17 06:20 ALFREDO PANDA MD History of Present Illness: Patient is an 81-year-old white female with progressive left knee pain and functional disability secondary osteoarthritis. She is admitted for elective left knee arthroplasty. Hospital Course Hospital Course: Admitted to the operating room where she undergoes an uncomplicated left knee arthroplasty. She is returned to the floor in satisfactory condition. She has some postoperative issues with hypertension and also potentially with mild mental status changes. She was evaluated by the hospitalist service and a carotid Dopplers negative. She has her antihypertensive medication reevaluated by Dr. Panda. She makes progress with physical therapy and is ambulating 25 feet with a walker. Hematocrit remains above 32%. Physical Exam Vital Signs: Temp Pulse Resp BP Pulse Ox 36.8 C 57 L 19 180/69 H 98 03/18/17 00:00 03/18/17 00:00 03/18/17 00:00 03/18/17 00:00 03/18/17 00:00 Intake & Output 03/17/17 03/18/17 03/19/17 06:59 06:59 06:59 Intake Total 1570 780 Output Total 1900 500 Balance -330 280 Weight 86.5 kg Results Laboratory Results: 03/16/17 15:45 03/16/17 15:45 03/16/17 15:45 Troponin I 0.012 Impressions: Knee X-Ray 03/12/17 09:58 IMPRESSION: SATISFACTORY POSTOPERATIVE LEFT KNEE. Head CT 03/16/17 00:00 IMPRESSION: NORMAL BRAIN CT WITHOUT CONTRAST. Carotid Doppler Study 03/17/17 00:00 IMPRESSION: NO HEMODYNAMICALLY SIGNIFICANT STENOSIS. Transfer Plan - Disposition Transfer Plan: Transfer to a halfway facility with physical therapy for weightbearing as tolerated ambulation. Picot dressing can be removed on postop day 7 replaced with an OpSite. Follow-up weekly with Dr. Israel and [facility] for surgery in 2 weeks for staple removal.
--- NOTE | 2017-03-18 08:32 | PDOC PROGRESS REPORT ---
Subjective Progress Note for:: 03/18/17 Subjective:: ready for SNF Physical Exam Vital Signs: Temp Pulse Resp BP Pulse Ox 98.2 F 57 L 19 180/69 H 98 03/18/17 00:00 03/18/17 00:00 03/18/17 00:00 03/18/17 00:00 03/18/17 00:00 Intake & Output 03/17/17 03/18/17 03/19/17 07:59 07:59 07:59 Intake Total 1570 780 Output Total 1900 500 Balance -330 280 Weight 190 lb 11.198 oz General appearance: PRESENT: no acute distress Respiratory exam: PRESENT: clear to auscultation avery Cardiovascular exam: ABSENT: diastolic murmur, irregular rhythm, systolic murmur GI/Abdominal exam: ABSENT: mass, organolmegaly, tenderness Extremities exam: ABSENT: pedal edema Neurological exam: PRESENT: oriented to situation Psychiatric exam: PRESENT: appropriate affect Results Laboratory Results: 03/16/17 15:45 03/16/17 15:45 Labs- Last Values WBC 10.1 10^3/uL (4.0-10.5) 03/16/17 15:45 RBC 3.44 10^6/uL (3.72-5.28) L 03/16/17 15:45 Hgb 10.8 g/dL (12.0-15.5) L 03/16/17 15:45 Hct 32.5 % (36.0-47.0) L 03/16/17 15:45 MCV 94 fl (80-97) 03/16/17 15:45 MCH 31.3 pg (27.0-33.4) 03/16/17 15:45 MCHC 33.1 g/dL (32.0-36.0) 03/16/17 15:45 RDW 16.1 % (11.5-14.0) H 03/16/17 15:45 Plt Count 119 10^3/uL (150-450) L 03/16/17 15:45 Seg Neutrophils % 71.7 % (42-78) 03/16/17 15:45 Lymphocytes % 15.8 % (13-45) 03/16/17 15:45 Monocytes % 9.7 % (3-13) 03/16/17 15:45 Eosinophils % 2.2 % (0-6) 03/16/17 15:45 Basophils % 0.6 % (0-2) 03/16/17 15:45 Absolute Neutrophils 7.2 10^3/uL (1.7-8.2) 03/16/17 15:45 Absolute Lymphocytes 1.6 10^3/uL (0.5-4.7) 03/16/17 15:45 Absolute Monocytes 1.0 10^3/uL (0.1-1.4) 03/16/17 15:45 Absolute Eosinophils 0.2 10^3/uL (0.0-0.6) 03/16/17 15:45 Absolute Basophils 0.1 10^3/uL (0.0-0.2) 03/16/17 15:45 PT 15.4 SEC (11.4-15.4) 03/16/17 15:45 INR 1.14 03/16/17 15:45 APTT 38.1 SEC (23.5-35.8) H 03/16/17 15:45 Sodium 138.6 mmol/L (137-145) 03/16/17 15:45 Potassium 3.7 mmol/L (3.6-5.0) 03/16/17 15:45 Chloride 102 mmol/L (98-107) 03/16/17 15:45 Carbon Dioxide 28 mmol/L (22-30) 03/16/17 15:45 Anion Gap 9 (5-19) 03/16/17 15:45 BUN 15 mg/dL (7-20) 03/16/17 15:45 Creatinine 0.77 mg/dL (0.52-1.25) 03/16/17 15:45 Est GFR ( Amer) > 60 (>60) 03/16/17 15:45 Est GFR (Non-Af Amer) > 60 (>60) 03/16/17 15:45 Glucose 104 mg/dL (75-110) 03/16/17 15:45 Calcium 9.0 mg/dL (8.4-10.2) 03/16/17 15:45 Phosphorus 2.9 mg/dL (2.5-4.5) 03/16/17 15:45 Magnesium 2.1 mg/dL (1.6-2.3) 03/16/17 15:45 Troponin I 0.012 ng/mL 03/16/17 15:45 Vitamin B12 > 1000.0 pg/mL (239-931) H 03/16/17 15:45 TSH 0.33 uIU/mL (0.47-4.68) L 03/16/17 15:45 Urine Color YELLOW 02/24/17 10:40 Urine Appearance CLEAR 02/24/17 10:40 Urine pH 6.0 (5.0-9.0) 02/24/17 10:40 Ur Specific [place] 1.026 02/24/17 10:40 Urine Protein 30 mg/dL (NEGATIVE) H 02/24/17 10:40 Urine Glucose (UA) NEGATIVE mg/dL (NEGATIVE) 02/24/17 10:40 Urine Ketones NEGATIVE mg/dL (NEGATIVE) 02/24/17 10:40 Urine Blood NEGATIVE (NEGATIVE) 02/24/17 10:40 Urine Nitrite NEGATIVE (NEGATIVE) 02/24/17 10:40 Urine Bilirubin NEGATIVE (NEGATIVE) 02/24/17 10:40 Urine Urobilinogen NEGATIVE mg/dL (<2.0) 02/24/17 10:40 Ur Leukocyte Esterase TRACE (NEGATIVE) H 02/24/17 10:40 Urine RBC NONE SEEN /HPF 02/24/17 10:40 Urine WBC 0-1 /HPF 02/24/17 10:40 Ur Squamous Epith Cells FEW /HPF 02/24/17 10:40 Calcium Oxalate Crystal MANY /HPF 02/24/17 10:40 Urine Bacteria TRACE /HPF 02/24/17 10:40 Urine Ascorbic Acid NEGATIVE (NEGATIVE) 02/24/17 10:40 Impressions: Knee X-Ray 03/12/17 09:58 IMPRESSION: SATISFACTORY POSTOPERATIVE LEFT KNEE. Head CT 03/16/17 00:00 IMPRESSION: NORMAL BRAIN CT WITHOUT CONTRAST. Carotid Doppler Study 03/17/17 00:00 IMPRESSION: NO HEMODYNAMICALLY SIGNIFICANT STENOSIS. 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
[2017-03-18] MEDS: ACETAMINOPHEN 325 MG TABLET PO PRN (09:02)
[2017-03-18] MEDS ORDERED: AMLODIPINE BESYLATE 10 MG TABLET PO SCH (10:00)
[2017-03-18] MEDS: LEVOTHYROXINE SODIUM 0.112 MG TABLET PO SCH (10:10)
[2017-03-18] MEDS: PRENATAL VITAMIN W-O CA NO5/FE FUMARATE/FA CAPSULE PO SCH (10:11)
[2017-03-18] MEDS: CYANOCOBALAMIN (VITAMIN B-12) 1,000 MCG TABLET PO SCH (10:11)
[2017-03-18] MEDS: METOPROLOL TARTRATE 50 MG TABLET PO SCH (10:11)
[2017-03-18] MEDS: LISINOPRIL 10 MG TABLET PO SCH (10:12)
[2017-03-18 12:26] VITALS: BP 160/75
== END 2017-03-18 12:57 | DRG 470 ==
LOC: INOR 03-12 06:20 → 4S 03-12 11:38
PROVIDERS: ADMIT Orthopaedic Surgery; ATTEND Orthopaedic Surgery
PROC: 0SRD0J9 Replacement of Left Knee Joint with Synthetic Substitute, Cemented, Open Approach (ICD-10-PCS; principal; 2017-03-12 08:30)
DX: M17.12 Unilateral primary osteoarthritis, left knee (principal); K59.01 Slow transit constipation; I97.3 Postprocedural hypertension; Y83.1 Surgical operation with implant of artificial internal device as the cause of abnormal reaction of the patient, or of later complication, without mention of misadventure at the time of the procedure; R47.81 Slurred speech; E78.5 Hyperlipidemia, unspecified; J45.909 Unspecified asthma, uncomplicated; G43.909 Migraine, unspecified, not intractable, without status migrainosus; K21.9 Gastro-esophageal reflux disease without esophagitis; F32.9 Major depressive disorder, single episode, unspecified; D64.9 Anemia, unspecified; G44.1 Vascular headache, not elsewhere classified; E06.3 Autoimmune thyroiditis; Z79.899 Other long term (current) drug therapy; Z88.2 Allergy status to sulfonamides; Z86.718 Personal history of other venous thrombosis and embolism; Z85.41 Personal history of malignant neoplasm of cervix uteri; Z86.14 Personal history of Methicillin resistant Staphylococcus aureus infection; Z90.710 Acquired absence of both cervix and uterus; Z96.651 Presence of right artificial knee joint; Z80.42 Family history of malignant neoplasm of prostate; Z82.49 Family history of ischemic heart disease and other diseases of the circulatory system
CPT/HCPCS: 01402; 36415; 70450; 80048; 81001; 82607; 83735; 84100; 84443; 84484; 85025; 85027; 85610; 85730; 88305; 88311; 93005; 93010; 93880; 94799; C9290; G8978-GP; G8979-GP; J0690; J1741; J2250; J2270; J2405; J2704; J3010; J3370; J3490; J7050; J7060; J7120; S0119

== ENCOUNTER 2017-05-13 10:33 | Observation (INO) | payer MEDICARE, OTHER ==
--- NOTE | 2017-05-13 11:12 | RADIOLOGY REPORT (SQ) ---
EXAM DESCRIPTION: CT HEAD WITHOUT COMPLETED DATE/TIME: 05/13/2017 10:57 am REASON FOR STUDY: slurred speech COMPARISON: CT brain 03/16/2017, 08/22/2016, 05/26/2010 TECHNIQUE: Axial images acquired through the brain without intravenous contrast. Images reviewed wi th bone, brain and subdural windows. Images stored on PACS. All CT scanners at this facility use dose modulation, iterative reconstruction, and/or weight based d osing when appropriate to reduce radiation dose to as low as reasonably achievable (ALARA). [facility]: Dose Right [facility]: CareDose [facility]: Dose Right [facility]: Teradose 4D [facility]: Smart Technologies RADIATION DOSE: Up-to-date CT equipment and radiation dose reduction techniques were employed. CTDIv ol: 64.3 mGy. DLP: 1034 mGy-cm. mGy. LIMITATIONS: None. FINDINGS: VENTRICLES: Normal size and contour. CEREBRUM: No masses. No hemorrhage. No midline shift. No evidence for acute infarction. Minimal bi frontal and biparietal small vessel disease with tiny right frontal chronic deep periventricular whit e matter infarct axial image 21. No acute findings. CEREBELLUM: No masses. No hemorrhage. No alteration of density. No evidence for acute infarction. EXTRAAXIAL SPACES: No fluid collections. No masses. ORBITS AND GLOBE: No intra- or extraconal masses. Normal contour of globe without masses. CALVARIUM: No fracture. PARANASAL SINUSES: No fluid or mucosal thickening. SOFT TISSUES: No mass or hematoma. OTHER: No other significant finding. IMPRESSION: Age-appropriate small vessel disease. No acute findings COMMENT: Quality ID # [id number]: Final reports with documentation of one or more dose reduction techniques (e.g., Automated exposure control, adjustment of the mA and/or kV according to patient size, use of iterative reconstruction technique) TECHNICAL DOCUMENTATION: JOB ID: [id number] [employer]- All Rights Reserved
[2017-05-13 12:01] LABS: ABSOLUTE EOSINOPHILS # (AUTO) 0.1 10^3/uL (0.0-0.6); ABSOLUTE LYMPHOCYTES (AUTO) 1.7 10^3/uL (0.5-4.7); ABSOLUTE MONOCYTES (AUTO) 0.5 10^3/uL (0.1-1.4); ABSOLUTE NEUT (AUTO) 3.8 10^3/uL (1.7-8.2); BASOPHILS % (AUTO) 0.7 % (0-2); EOSINOPHILS % (AUTO) 1.5 % (0-6); HEMATOCRIT 41.2 % (36.0-47.0); HEMOGLOBIN 13.8 g/dL (12.0-15.5); HGB HCT DIFFERENCE 0.2; MEAN CORPUSCULAR HEMOGLOBIN 31.6 pg (27.0-33.4); MEAN CORPUSCULAR HGB CONC 33.3 g/dL (32.0-36.0); MEAN CORPUSCULAR VOLUME 95 fl (80-97); RED BLOOD COUNT 4.36 10^6/uL (3.72-5.28); RED CELL DISTRIBUTION WIDTH 14.1 % (11.5-14.0); SEGMENTED NEUTROPHILS % (AUTO) 61.8 % (42-78); WHITE BLOOD COUNT 6.2 10^3/uL (4.0-10.5)
[2017-05-13] MEDS ORDERED: ASPIRIN 325 MG TABLET PO ONE (12:08)
--- NOTE | 2017-05-13 12:14 | ER Document Report ---
ED Neuro Symptoms/Deficit - General Chief Complaint: Slurred Speech Stated Complaint: SLURRED SPEECH Time Seen by Provider: 05/13/17 11:24 Information source: Patient Notes: 81-year-old female with past medical history as recorded 81-year-old female with past medical history as recorded who presents today with a witnessed episode of some slowed speech. Patient according to the son who is in the room as well as the patient has had some intermittent episodes of slurred speech since one year ago when she was diagnosed with ovarian cancer. She is status post resection and chemotherapy being cleared by any cancer pathology in August of this past year. Patient states she is also had a knee replacement March 20 and recently finished rehabilitation. Patient has had episodes of recent "lightheadedness" getting slightly confused. The well care nurse today at the patient's home witnessed an episode. Patient has had no chest pain, nausea, vomiting, or fevers. She supposedly did fall 5 days ago onto her left knee and ankle. She denies any head trauma at that time. Patient has no history of being on blood thinning medications. She currently does not take any aspirin. Patient denies any and all weakness or numbness. TRAVEL OUTSIDE OF THE [place] IN LAST 30 DAYS: No - HPI Patient complains to provider of: Other - See above Onset: Other - See above Awoke with symptoms: No Symptoms are: Intermittent episodes Duration: Better, Gone now Quality of pain: No pain Severity: Mild Pain Level: Denies Context: Other - See above Loss of consciousness: No loss of consciousness Baseline Cognitive: Alert, oriented X 3 Baseline Gait: Walks only w/ assistance Alert To: Name/Voice Patient Orientation: Person, Place, Time, Events Impaired speech/swallowing: Difficult Vision problem/glaucoma: No Associated symptoms: Other - See above Similar symptoms previously: Yes Recently seen / treated by doctor: Yes - Related Data Allergies/Adverse Reactions: Sulfa (Sulfonamide Antibiotics) Adverse Reaction (Intermediate, Verified 10:45) tingling, itching Past Medical History - General Information source: Patient - Social History Smoking Status: Never Smoker Chew tobacco use (# tins/day): No Frequency of alcohol use: None Drug Abuse: None Family History: Hypertension - Mother age 105., Malignancy - Prostate cancer. Father at age 65. - Past Medical History Cardiac Medical History: Reports: Hx DVT, Hx Hypercholesterolemia, Hx Hypertension - on meds Denies: Hx Atrial Fibrillation, Hx Congestive Heart Failure, Hx Coronary Artery Disease, Hx Heart Attack, Hx Peripheral Vascular Disease, Hx Pulmonary Embolism, Hx Heart Murmur Pulmonary Medical History: Reports: Hx Asthma, Hx Bronchitis, Hx Pneumonia Denies: Hx COPD, Hx Respiratory Failure, Hx Sleep Apnea, Hx Tuberculosis Neurological Medical History: Reports: Hx Migraine. Denies: Hx Cerebrovascular Accident, Hx Seizures Endocrine Medical History: Reports: Hx Hyperthyroidism, Hx Hypothyroidism. Denies: Hx Graves' Disease Renal/ Medical History: Denies: Hx End Stage Renal Disease, Hx Kidney Stones, Hx Ovarian Cysts, Hx Peritoneal Dialysis, Hx Pelvic Inflammatory Disease Malignancy Medical History: Reports: Hx Cervical Cancer. Denies: Hx Breast Cancer, Hx Leukemia, Hx Lung Cancer, Hx Ovarian Cancer GI Medical History: Reports: Hx Gastroesophageal Reflux Disease, Hx Ulcer - 1995. Denies: Hx Crohn's Disease, Hx Hiatal Hernia, Hx Irritable Bowel, Hx Liver Failure Musculoskeltal Medical History: Reports Hx Arthritis, Denies Hx Fibromyalgia, Denies Hx Multiple Sclerosis, Denies Hx Muscular Dystrophy Psychiatric Medical History: Reports: Hx Depression Denies: Hx Bipolar Disorder, Hx Dementia, Hx Post Traumatic Stress Disorder, Hx Schizophrenia Traumatic Medical History: Denies: Hx Fractures Infectious Medical History: Reports: Hx MRSA. Denies: Hx HIV Past Surgical History: Reports: Hx Abdominal Surgery - Hysterectomy, Hx Hysterectomy, Hx Orthopedic Surgery - Right foot bunionectomy. Right total knee replacement., Hx Tonsillectomy, Other. Denies: Hx Appendectomy, Hx Bowel Surgery, Hx Section, Hx Cholecystectomy, Hx Colostomy, Hx Coronary Artery Bypass Graft, Hx Gastric Bypass Surgery, Hx Herniorrhaphy, Hx Mastectomy , Hx Pacemaker, Hx Tubal Ligation - Immunizations Hx Diphtheria, Pertussis, Tetanus Vaccination: Yes Hx Pneumococcal Vaccination: 06/01/11 Review of Systems - Review of Systems Constitutional: denies: Fever EENT: denies: Eye discharge, Nose discharge Cardiovascular: denies: Chest pain, Palpitations Respiratory: denies: Short of breath Gastrointestinal: denies: Vomiting Genitourinary: denies: Dysuria Skin: denies: Rash Neurological/Psychological: Other - no slurred speech -: Yes All other systems reviewed and negative Physical Exam - Vital signs Vitals: Temp Pulse Resp BP Pulse Ox 98.3 F 89 18 150/103 H 97 05/13/17 10:40 05/13/17 10:40 05/13/17 10:40 05/13/17 10:40 05/13/17 10:40 Notes: Reviewed vital signs and nursing note as charted by RN. CONSTITUTIONAL: Alert and oriented and responds appropriately to questions. Well -appearing; well-nourished HEAD: Normocephalic; atraumatic EYES: PERRL; Conjunctivae clear, sclerae non-icteric ENT: Normal nose; no rhinorrhea; moist mucous membranes; pharynx without lesions noted NECK: Supple without meningismus; non-tender; no cervical lymphadenopathy, no masses CARD: Regular rate and rhythm; no murmurs, no clicks, no rubs, no gallops; symmetric distal pulses RESP: Normal chest excursion without splinting or tachypnea; breath sounds clear and equal bilaterally ABD/GI: Normal bowel sounds; non-distended; soft, non-tender BACK: The back appears normal and is non-tender to palpation, there is no CVA tenderness EXT: Patient has some tenderness to palpation of the left medial and lateral malleolus. Some mild swelling and bruising. No proximal tibia/fibula tenderness. Patient has some mild tenderness with an old surgical scar to the left lateral knee. No swelling or deformity noted. Neurovascularly intact distally SKIN: Normal color for age and race; warm; dry; good turgor; capillary refill < 2 seconds; no acute lesions noted NEURO: CN 2-12 intact. Pt has 5/5 bilateral upper and lower extremity strength with sensation intact to light touch. Pt has normal bilateral finger to nose. PSYCH: The patient's mood and manner are appropriate. Grooming and personal hygiene are appropriate. Course - Re-evaluation Re-evalutation: Given the history and physical examination, CT scan of the head as well as basic laboratory values, EKG, troponin, urine analysis, and an x-ray of the left knee and ankle have been ordered. I am concerned about a possible TIA/ stroke. I am also concerned about a transient ischemic event. 05/13/17 12:13 CT scan is recorded. Aspirin has been provided. Patient still has no focal neurological deficits. Given the NIH score of 0, I do not believe that the patient is a TPA candidate at this time. 05/13/17 12:37 EKG shows a heart rate of 79, normal sinus rhythm, minimal left axis deviation, poor R-wave progression, inverted T waves in leads V2. 05/13/17 13:01 X-ray of the ankle shows a medial malleolus fracture. X-ray of the knee shows no acute fractures. Labs as recorded. Still no focal neurological deficits. Patient will be admitted to the primary care physician. - Vital Signs Vital signs: Temp Pulse Resp BP Pulse Ox 98.3 F 92 17 165/87 H 97 05/13/17 10:40 05/13/17 12:22 05/13/17 12:36 05/13/17 12:36 05/13/17 12:36 - Laboratory Result Diagrams: 05/13/17 11:50 05/13/17 12:26 Laboratory results interpreted by me: 05/13/17 05/13/17 11:50 12:26 RDW 14.1 H Plt Count 147 L Calcium 10.4 H Discharge - Discharge Clinical Impression: Slurred speech Closed left ankle fracture Qualifiers: Encounter type: initial encounter Qualified Code(s): S82.892A - Other fracture of left lower leg, initial encounter for closed fracture Condition: Fair Disposition: ADMITTED OBSERVATION Admitting Provider: Dan Unit Admitted: Telemetry
--- NOTE | 2017-05-13 12:25 | RADIOLOGY REPORT (SQ) ---
EXAM DESCRIPTION: ANKLE LEFT COMPLETE COMPLETED DATE/TIME: 05/13/2017 11:54 am REASON FOR STUDY: 1, left ankle pain COMPARISON: None. NUMBER OF VIEWS: Three views. TECHNIQUE: AP, lateral, and oblique radiographic images acquired of the left ankle. LIMITATIONS: None. FINDINGS: MINERALIZATION: Osteopenic BONES: Acute fracture, left medial malleolus nondisplaced, marked with an arrow on the AP view. JOINTS: Tibiotalar joint effusion. No widening of the ankle mortise. SOFT TISSUES: Diffuse medial soft tissue swelling OTHER: No other significant finding. IMPRESSION: Acute fracture right medial malleolus. No widening of the ankle mortise. Associated an kle joint effusion and medial soft tissue swelling TECHNICAL DOCUMENTATION: JOB ID: [id number] [employer]- All Rights Reserved
[2017-05-13 12:48] LABS: ANION GAP 11 (5-19); BLOOD UREA NITROGEN 14 mg/dL (7-20); CALCIUM 10.4 mg/dL (8.4-10.2); CARBON DIOXIDE 30 mmol/L (22-30); CHLORIDE 100 mmol/L (98-107); CREATININE RESULT 0.78 mg/dL (0.52-1.25); GLUCOSE 93 mg/dL (75-110); POTASSIUM 4.5 mmol/L (3.6-5.0); SODIUM 140.9 mmol/L (137-145)
--- NOTE | 2017-05-13 13:51 | RADIOLOGY REPORT (SQ) ---
EXAM DESCRIPTION: KNEE LEFT 4 VIEW COMPLETED DATE/TIME: 05/13/2017 12:55 pm REASON FOR STUDY: 1, fall; recent knee replacement COMPARISON: 03/12/2017 NUMBER OF VIEWS: Four views. TECHNIQUE: AP, lateral, and both oblique radiographic images acquired of the left knee. LIMITATIONS: None. FINDINGS: MINERALIZATION: Osteopenia. BONES: No acute fracture or dislocation. No worrisome bone lesions. JOINT: Intact knee arthroplasty. SOFT TISSUES: No soft tissue swelling. No radio-opaque foreign body. OTHER: No other significant finding. IMPRESSION: NO RADIOGRAPHIC EVIDENCE OF ACUTE INJURY. TECHNICAL DOCUMENTATION: JOB ID: [id number] [employer]- All Rights Reserved
[2017-05-13 14:15] LABS: APPEARANCE,URINE SLIGHTLY-CLOUDY; BILIRUBIN,URINE NEGATIVE (NEGATIVE); GLUCOSE, URINE NEGATIVE (NEGATIVE); KETONES,URINE NEGATIVE (NEGATIVE); LEUKOCYTE ESTERASE,URINE SMALL (NEGATIVE); NITRITE,URINE NEGATIVE (NEGATIVE); PROTEIN,URINE 30 mg/dL (NEGATIVE); URINE SPECIFIC GRAVITY 1.016; UROBILINOGEN,URINE NEGATIVE mg/dL (<2.0)
--- NOTE | 2017-05-13 19:55 | EKG REPORT ---
SEVERITY:- OTHERWISE NORMAL ECG - SINUS RHYTHM LEFT AXIS DEVIATION CONSIDER INFERIOR AL OLD : Confirmed by: Pastora Umanzor 13-May-2017 19:55:35
--- NOTE | 2017-05-13 21:25 | RADIOLOGY REPORT (SQ) ---
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 TECHNIQUE: Multiplanar imaging includes non-contrasted T1, T2, FLAIR, and diffusion with ADC map seq uences. Images stored on PACS. LIMITATIONS: None. FINDINGS: ANATOMY: No anomalies. Normal vascular flow voids. Pituitary fossa normal. CSF SPACES: Normal size and contour for the patient's age. CEREBRUM: Sulci and gyri normal in size and contour. Normal white matter signal on FLAIR imaging. No evidence of hemorrhage, mass, or extraaxial fluid collection. Mild generalized atrophy. POSTERIOR FOSSA: No signal alteration. No hemorrhage. No edema, masses or mass effect. Internal jyotsna tory canals, cerebello-pontine angles, mastoids normal. DIFFUSION IMAGING: Negative for acute or sub-acute infarction. ORBITS: No masses. Globes normal. PARANASAL SINUSES: No fluid levels. Mucosa normal. OTHER: No other significant finding. IMPRESSION: Age-appropriate MRI of the brain. No acute findings. EVIDENCE OF ACUTE STROKE: NO. TECHNICAL DOCUMENTATION: JOB ID: [id number] [email or web address]- All Rights Reserved
[2017-05-13] MEDS ORDERED: SIMVASTATIN 10 MG TABLET PO SCH (22:00)
[2017-05-13] MEDS: FAMOTIDINE INJ/PF 20 MG/2 ML SDV IV SCH (22:27)
--- NOTE | 2017-05-14 04:20 | PDOC H&P ---
History of Present Illness Admission Date/PCP: 05/13/17 13:36 Patient complains of: 2w intermittant slurred speech & vertigo History of Present Illness: CARISA CAMPOS is a 81 year old female with a 34y history of paroxysmal vertigo and a 12y history of intermittant slurred speech. 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 She went to dizzy school at [facility]. In march carotid doppler was normal. 2w these symptoms returned. 2d ago she fell hurting her R ankle. This morning nurse noted increased slurrilng and called EMS. Past Medical History Cardiac Medical History: Reports: DVT, Hyperlipidema, Hypertension - on meds Denies: Atrial Fibrillation, Congestive Heart Failure, Coronary Artery Disease, Myocardial Infarction, Peripheral Vascular Disease, Pulmonary Embolism , Heart Murmur Pulmonary Medical History: Reports: Asthma, Bronchitis, Pneumonia Denies: Chronic Obstructive Pulmonary Disease (COPD), Respiratory Failure, Sleep Apnea, Tuberculosis Neurological Medical History: Reports: Migraine Denies: Seizures Endocrine Medical History: Reports: Hypothyroidism Renal/ Medical History: Reports: Other - uti's Malignancy Medical History: Reports: Other - endometrial chemo surgery Denies: Breast Cancer, Leukemia, Lung Cancer, Ovarian Cancer GI Medical History: Reports: Gastroesophageal Reflux Disease Denies: Crohn's Disease, Hiatal Hernia Musculoskeltal Medical History: Reports: Arthritis Denies: Fibromyalgia Psychiatric Medical History: Reports: Depression Denies: Bipolar Disorder, Dementia, Post Traumatic Stress Disorder Traumatic Medical History: Reports: None Hematology: Reports: Anemia Denies: Hemophilia, Sickle Cell Disease Infectious Medical History: Reports: Methicillin-Resistant Staph Aureus Denies: HIV Past Surgical History Past Surgical History: Reports: Hysterectomy, Orthopedic Surgery - Right foot bunionectomy. Right total knee replacement., Tonsillectomy, Other Denies: Amputation, Appendectomy, Section, Cholecystectomy, Colostomy, Coronary Artery Bypass Graft, Gastric Bypass Surgery, Herniorrhaphy, Mastectomy, Pacemaker, Tubal Ligation Social History Information Source: Dr. Aguilar Lives with: Family Smoking Status: Never Smoker Frequency of Alcohol Use: None Hx Recreational Drug Use: No Hx Prescription Drug Abuse: No - Advance Directive Resuscitation Status: Full Code Family History Family History: Hypertension - Mother age 105., Malignancy - Prostate cancer. Father at age 65., Thyroid Disfunction Parental Family History Reviewed: Yes Children Family History Reviewed: Yes Sibling(s) Family History Reviewed.: Yes Medication/Allergy Home Medications: Acetaminophen [Tylenol Extra Strength 500 mg Tablet] 2 tab PO DAILYP PRN Amlodipine Besylate [Norvasc 5 mg Tablet] 5 mg PO DAILY 05/13/17 Benzonatate [Tessalon Perles 100 mg Capsule] 100 mg PO TIDP PRN 05/13/17 Docusate Sodium [Colace 100 mg Capsule] 100 mg PO DAILYP PRN 05/13/17 Hydroxychloroquine Sulfate [Plaquenil 200 mg Tablet] 200 mg PO DAILY 05/13/17 Levothyroxine Sodium [Synthroid] 125 mcg PO DAILY 05/13/17 Nitroglycerin [Nitrostat 0.4 mg (1/150 Gr) Tabs 25/Bottle] 1 tab SL Q5MP PRN 08/17 Ropinirole HCl 1 mg PO QHS 05/13/17 Simvastatin [Zocor 20 mg Tablet] 20 mg PO QHS 05/13/17 Allergies/Adverse Reactions: Sulfa (Sulfonamide Antibiotics) Adverse Reaction (Intermediate, Verified 10:45) tingling, itching Review of Systems ROS unobtainable: Other - She requested hospitalist take over her care. Physical Exam Vital Signs: Temp Pulse Resp BP Pulse Ox 98.3 F 92 16 139/88 H 95 05/13/17 10:40 05/13/17 12:22 05/13/17 14:01 05/13/17 14:01 05/13/17 14:01 Physical Exam: not done because she requested hospitalist take over her care. Results Impressions: Head CT 05/13/17 00:00 IMPRESSION: Age-appropriate small vessel disease. No acute findings Ankle X-Ray 05/13/17 11:25 IMPRESSION: Acute fracture right medial malleolus. No widening of the ankle mortise. Associated ankle joint effusion and medial soft tissue swelling Knee X-Ray 05/13/17 12:07 IMPRESSION: NO RADIOGRAPHIC EVIDENCE OF ACUTE INJURY.
[2017-05-14] MEDS ORDERED: ACETAMINOPHEN 325 MG TABLET PO PRN (09:46)
[2017-05-14] MEDS ORDERED: ACETAMINOPHEN 325 MG TABLET ONE (09:48)
[2017-05-14] MEDS ORDERED: ASPIRIN 81 MG TABLET, ENT COATED PO SCH (10:00)
[2017-05-14] MEDS ORDERED: ENOXAPARIN SODIUM INJ 40 MG/0.4 ML DISP.SYRIN SUBCUT SCH (10:00)
[2017-05-14] MEDS: FAMOTIDINE INJ/PF 20 MG/2 ML SDV IV SCH (10:10)
[2017-05-14 10:26] VITALS: BP 168/78
--- NOTE | 2017-05-14 10:53 | Physician Advisory Note ---
Physician Advisor ProgressNote .: Pursuant to the plan for [facility], I have reviewed the medical record for this patient. Physician Advisor Statement: We still need a completed H&P by hospitalist (Dr. Dan's was not completed due to pt request), as well as transfer summary. Thanks! CK
--- NOTE | 2017-05-14 11:35 | PDOC H&P ---
History of Present Illness Admission Date/PCP: 05/13/17 14:08 History of Present Illness: CARISA CAMPOS is a 81 year old female with a 34y history of paroxysmal vertigo and a 12y history of intermittant slurred speech. 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 She went to dizzy school at [facility] [employer] [facility]. In march carotid doppler was normal. 2w these symptoms returned. 2d ago she fell hurting her R ankle. This morning nurse noted increased slurring and called EMS. Patient is now symptom-free. Past Medical History Cardiac Medical History: Reports: DVT, Hyperlipidema, Hypertension - on meds Denies: Atrial Fibrillation, Congestive Heart Failure, Coronary Artery Disease, Myocardial Infarction, Peripheral Vascular Disease, Pulmonary Embolism , Heart Murmur Pulmonary Medical History: Reports: Asthma, Bronchitis, Pneumonia Denies: Chronic Obstructive Pulmonary Disease (COPD), Respiratory Failure, Sleep Apnea, Tuberculosis Neurological Medical History: Reports: Migraine Denies: Seizures Endocrine Medical History: Reports: Hyperthyroidism, Hypothyroidism Renal/ Medical History: Reports: Other - uti's Denies: End Stage Renal Disease Malignancy Medical History: Reports: Cervical Cancer, Other - endometrial chemo surgery Denies: Breast Cancer, Leukemia, Lung Cancer, Ovarian Cancer GI Medical History: Reports: Gastroesophageal Reflux Disease Denies: Crohn's Disease, Hiatal Hernia Musculoskeltal Medical History: Reports: Arthritis Denies: Fibromyalgia Psychiatric Medical History: Reports: Depression Denies: Bipolar Disorder, Dementia, Post Traumatic Stress Disorder Traumatic Medical History: Reports: None Hematology: Reports: Anemia Denies: Hemophilia, Sickle Cell Disease Infectious Medical History: Reports: Methicillin-Resistant Staph Aureus Denies: HIV Past Surgical History Past Surgical History: Reports: Hysterectomy, Orthopedic Surgery - Right foot bunionectomy. Right total knee replacement., Tonsillectomy, Other Denies: Amputation, Appendectomy, Section, Cholecystectomy, Colostomy, Coronary Artery Bypass Graft, Gastric Bypass Surgery, Herniorrhaphy, Mastectomy, Pacemaker, Tubal Ligation Social History Information Source: Patient Lives with: Family Smoking Status: Never Smoker Frequency of Alcohol Use: None Hx Recreational Drug Use: No Hx Prescription Drug Abuse: No - Advance Directive Resuscitation Status: Full Code Family History Family History: Hypertension - Mother age 105., Malignancy - Prostate cancer. Father at age 65., Thyroid Disfunction Parental Family History Reviewed: No Children Family History Reviewed: No Sibling(s) Family History Reviewed.: No Medication/Allergy Home Medications: Acetaminophen [Tylenol Extra Strength 500 mg Tablet] 2 tab PO DAILYP PRN Amlodipine Besylate [Norvasc 5 mg Tablet] 5 mg PO DAILY 05/13/17 Benzonatate [Tessalon Perles 100 mg Capsule] 100 mg PO TIDP PRN 05/13/17 Docusate Sodium [Colace 100 mg Capsule] 100 mg PO DAILYP PRN 05/13/17 Hydroxychloroquine Sulfate [Plaquenil 200 mg Tablet] 200 mg PO DAILY 05/13/17 Levothyroxine Sodium [Synthroid] 125 mcg PO DAILY 05/13/17 Nitroglycerin [Nitrostat 0.4 mg (1/150 Gr) Tabs 25/Bottle] 1 tab SL Q5MP PRN 08/17 Ropinirole HCl 1 mg PO QHS 05/13/17 Simvastatin [Zocor 20 mg Tablet] 20 mg PO QHS 05/13/17 Aspirin [Ecotrin 81 mg EC Tablet] 81 mg PO DAILY tabec 05/14/17 Allergies/Adverse Reactions: Sulfa (Sulfonamide Antibiotics) Adverse Reaction (Intermediate, Verified 10:45) tingling, itching Review of Systems Constitutional: ABSENT: chills, fever(s), headache(s), weight gain, weight loss Eyes: ABSENT: visual disturbances Ears: ABSENT: hearing changes Cardiovascular: ABSENT: chest pain, dyspnea on exertion, edema, orthropnea, palpitations Respiratory: ABSENT: cough, hemoptysis Gastrointestinal: ABSENT: abdominal pain, constipation, diarrhea, hematemesis, hematochezia, nausea, vomiting Neurological: PRESENT: as per HPI Psychiatric: ABSENT: anxiety, depression Endocrine: ABSENT: cold intolerance, heat intolerance, polydipsia, polyuria Hematologic/Lymphatic: ABSENT: easy bleeding, easy bruising Physical Exam Vital Signs: Temp Pulse Resp BP Pulse Ox 97.7 F 74 19 168/78 H 98 05/14/17 10:24 05/14/17 10:24 05/14/17 10:24 05/14/17 10:24 05/14/17 10:24 Intake & Output 05/13/17 05/14/17 05/15/17 06:59 06:59 06:59 Intake Total 587 Output Total 1250 Balance -663 Weight 78.7 kg General appearance: PRESENT: no acute distress Eye exam: PRESENT: conjunctiva pink, EOMI, PERRLA. ABSENT: scleral icterus Ear exam: PRESENT: normal external ear exam Mouth exam: PRESENT: moist, tongue midline Neck exam: ABSENT: carotid bruit, JVD, lymphadenopathy, thyromegaly Respiratory exam: PRESENT: clear to auscultation avery. ABSENT: rales, rhonchi, wheezes Cardiovascular exam: PRESENT: RRR. ABSENT: diastolic murmur, rubs, systolic murmur GI/Abdominal exam: PRESENT: normal bowel sounds, soft. ABSENT: distended, guarding, mass, organolmegaly, rebound, tenderness Rectal exam: PRESENT: deferred Extremities exam: PRESENT: other - Cast on the left leg. ABSENT: calf tenderness, clubbing, pedal edema Neurological exam: PRESENT: alert, awake, oriented to person, oriented to place , oriented to time, oriented to situation, CN II-XII grossly intact. ABSENT: motor sensory deficit Psychiatric exam: PRESENT: appropriate affect Skin exam: PRESENT: dry, intact, warm. ABSENT: cyanosis, rash Results Impressions: Head CT 05/13/17 00:00 IMPRESSION: Age-appropriate small vessel disease. No acute findings Head MRI 05/13/17 00:00 IMPRESSION: Age-appropriate MRI of the brain. No acute findings. EVIDENCE OF ACUTE STROKE: NO. Ankle X-Ray 05/13/17 11:25 IMPRESSION: Acute fracture right medial malleolus. No widening of the ankle mortise. Associated ankle joint effusion and medial soft tissue swelling Knee X-Ray 05/13/17 12:07 IMPRESSION: NO RADIOGRAPHIC EVIDENCE OF ACUTE INJURY. Assessment & Plan - Diagnosis (1) TIA (transient ischemic attack) Is this a current diagnosis for this admission?: Yes Plan: Patient has already had an MRI and a CT. Carotid Dopplers were done in March and showed no significant stenosis. Will also get an echocardiogram. She has not been taking aspirin and will start her on aspirin daily. (2) Anemia Qualifiers: Anemia type: unspecified type Qualified Code(s): D64.9 - Anemia, unspecified Is this a current diagnosis for this admission?: Yes (3) Closed left ankle fracture Qualifiers: Encounter type: initial encounter Qualified Code(s): S82.892A - Other fracture of left lower leg, initial encounter for closed fracture Is this a current diagnosis for this admission?: Yes (4) Essential (primary) hypertension Is this a current diagnosis for this admission?: Yes - Time Time Spent: 30 to 50 Minutes
--- NOTE | 2017-05-14 11:37 | PDOC DISCHARGE SUMMARY ---
General - Admit/Disc Date/PCP Admission Date/Primary Care Provider: 05/13/17 14:08 Discharge Date: 05/14/17 - Discharge Diagnosis (1) TIA (transient ischemic attack) Is this a current diagnosis for this admission?: Yes Summary: MRI negative for acute CVA. Patient is started on aspirin daily. (2) Anemia Is this a current diagnosis for this admission?: Yes (3) Closed left ankle fracture Is this a current diagnosis for this admission?: Yes Summary: Patient will see Dr. Israel as an outpatient for follow-up of this. (4) Essential (primary) hypertension Is this a current diagnosis for this admission?: Yes - Additional Information Resuscitation Status: Full Code Discharge Diet: Regular Discharge Activity: Activity As Tolerated Home Medications: Acetaminophen [Tylenol Extra Strength 500 mg Tablet] 2 tab PO DAILYP PRN Amlodipine Besylate [Norvasc 5 mg Tablet] 5 mg PO DAILY 05/13/17 Benzonatate [Tessalon Perles 100 mg Capsule] 100 mg PO TIDP PRN 05/13/17 Docusate Sodium [Colace 100 mg Capsule] 100 mg PO DAILYP PRN 05/13/17 Hydroxychloroquine Sulfate [Plaquenil 200 mg Tablet] 200 mg PO DAILY 05/13/17 Levothyroxine Sodium [Synthroid] 125 mcg PO DAILY 05/13/17 Nitroglycerin [Nitrostat 0.4 mg (1/150 Gr) Tabs 25/Bottle] 1 tab SL Q5MP PRN 08/17 Ropinirole HCl 1 mg PO QHS 05/13/17 Simvastatin [Zocor 20 mg Tablet] 20 mg PO QHS 05/13/17 Aspirin [Ecotrin 81 mg EC Tablet] 81 mg PO DAILY tabec 05/14/17 History of Present Illness History of Present Illness: CARISA CAMPOS is a 81 year old female with a 34y history of paroxysmal vertigo and a 12y history of intermittant slurred speech. 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 She went to dizzy school at [facility]. In march carotid doppler was normal. 2w these symptoms returned. 2d ago she fell hurting her R ankle. This morning nurse noted increased slurring and called EMS. Patient is now symptom-free. Hospital Course Hospital Course: 81-year-old female who presented with slurred speech consistent with a TIA. The patient was monitored overnight and had no further symptoms. She was started on aspirin which she was not taking prior to this admission. Patient also has a left ankle fracture and we will set up an appointment for her to see orthopedic surgery as an outpatient. Patient has echocardiogram results of which are pending at the time of this dictation. Physical Exam Vital Signs: Temp Pulse Resp BP Pulse Ox 97.7 F 74 19 168/78 H 98 05/14/17 10:24 05/14/17 10:24 05/14/17 10:24 05/14/17 10:24 05/14/17 10:24 Intake & Output 05/13/17 05/14/17 05/15/17 06:59 06:59 06:59 Intake Total 587 Output Total 1250 Balance -663 Weight 78.7 kg General appearance: PRESENT: no acute distress Eye exam: PRESENT: conjunctiva pink. ABSENT: scleral icterus Mouth exam: PRESENT: moist, tongue midline Neck exam: ABSENT: JVD Respiratory exam: PRESENT: clear to auscultation avery. ABSENT: rales, rhonchi, wheezes Cardiovascular exam: PRESENT: RRR. ABSENT: diastolic murmur, rubs, systolic murmur GI/Abdominal exam: PRESENT: normal bowel sounds, soft. ABSENT: distended, guarding, mass, organolmegaly, rebound, tenderness Extremities exam: PRESENT: other - Cast on the left leg.. ABSENT: calf tenderness, clubbing, pedal edema Neurological exam: PRESENT: alert, awake, oriented to person, oriented to place , oriented to time, oriented to situation, CN II-XII grossly intact. ABSENT: motor sensory deficit Psychiatric exam: PRESENT: appropriate affect Results Impressions: Head CT 05/13/17 00:00 IMPRESSION: Age-appropriate small vessel disease. No acute findings Head MRI 05/13/17 00:00 IMPRESSION: Age-appropriate MRI of the brain. No acute findings. EVIDENCE OF ACUTE STROKE: NO. Ankle X-Ray 05/13/17 11:25 IMPRESSION: Acute fracture right medial malleolus. No widening of the ankle mortise. Associated ankle joint effusion and medial soft tissue swelling Knee X-Ray 05/13/17 12:07 IMPRESSION: NO RADIOGRAPHIC EVIDENCE OF ACUTE INJURY. Qualifiers PATEINT BEING DISCHARGED WITH ANY OF THE FOLLOWING DIAGNOSIS?: No Plan Discharge Plan: Patient is changing her primary care physician. She is to follow-up in 1-2 weeks. Also follow-up with orthopedic surgery in the next week. Time Spent: Less than 30 Minutes
--- NOTE | 2017-05-16 09:59 | XCELERA REPORT ---
[address] [address] Transthoracic Echocardiogram Report Name: CARISA CAMPOS Age: 81 yrs Gender: Female : 1935 Patient Status: Inpatient Patient Location: [place] [address]^A Study Date: 05/13/2017 02:33 PM Height: 65 in Weight: 160 lb BSA: 1.8 m2 Procedure: A complete two-dimensional transthoracic echocardiogram was performed (2D, M-mode, spectral and color flow Doppler). The study was technically difficult with many images being suboptimal in quality. Reason For Study: tia Ordering Physician: ALFREDO PANDA Performed By: Celia Short Interpretation Summary The study was technically difficult with many images being suboptimal in quality. The left ventricular ejection fraction is within normal limits. There is mild concentric left ventricular hypertrophy. Doppler measurements suggest impaired left ventricular relaxation, which is associated with grade I/IV or mild diastolic dysfunction Regional wall motion abnormalities cannot be excluded due to limited visualization. The left ventricle is grossly normal size. The right ventricle is mildly dilated. The right ventricular systolic function is normal. There is no mitral valve stenosis. There is a trace to mild amount of mitral regurgitation There is no aortic valve stenosis There is a trace amount of aortic regurgitation There is a trace amount of tricuspid regurgitation Tricuspid regurgitation jet envelope not well defined to measure RV systolic pressure accurately. The right atrium is mildly dilated. The left atrial size is normal. Minimal pericardial effusion. No definite cardiac source of CVA/TIA noted on this particular trans- thoracic study. Consider BHASKAR if clinically indicated. May consider mobile cardiac telemetry monitoring (MCT) for ruling out transient AFIB. MMode/2D Measurements & Calculations RVDd: 3.3 cm LVIDd: 3.7 cm FS: 29.3 % Ao root diam: 3.2 cm IVSd: 1.1 cm LVIDs: 2.6 cm EDV(Teich): 57.5 ml LVPWd: 1.1 cm ESV(Teich): 24.7 ml Ao root area: 8.2 cm2 EF(Teich): 57.0 % LA dimension: 3.3 cm LVOT diam: 2.4 cm LVOT area: 4.5 cm2 Doppler Measurements & Calculations MV E max nora: MV P1/2t max nora: Ao V2 max: LV V1 max P.3 cm/sec 60.0 cm/sec 124.9 cm/sec 4.2 mmHg MV A max nora: MV P1/2t: 55.3 msec Ao max PG: LV V1 max: 99.8 cm/sec MVA(P1/2t): 4.0 cm2 6.2 mmHg 102.6 cm/sec MV E/A: 0.59 MV dec slope: JOYA(V,D): 3.7 cm2 317.8 cm/sec2 PA V2 max: 65.1 cm/sec PA max P.7 mmHg Left Ventricle The left ventricle is grossly normal size. There is mild concentric left ventricular hypertrophy. The left ventricular ejection fraction is within normal limits. Doppler measurements suggest impaired left ventricular relaxation, which is associated with grade I/IV or mild diastolic dysfunction. Not all wall segments were well visualized. Regional wall motion abnormalities cannot be excluded due to limited visualization. Right Ventricle The right ventricle is mildly dilated. There is normal right ventricular wall thickness. The right ventricular systolic function is normal. Atria The right atrium is mildly dilated. The left atrial size is normal. Interarterial septum not well visualized and not well dopplered. Cannot comment on ASD/PFO presence. Mitral Valve There is mild mitral annular calcification. There is no mitral valve stenosis. There is a trace to mild amount of mitral regurgitation. Aortic Valve The aortic valve is not well visualized secondary to technical limitations. There is no aortic valve stenosis. There is a trace amount of aortic regurgitation. Tricuspid Valve The tricuspid valve is not well visualized secondary to technical limitations. There is no tricuspid stenosis. There is a trace amount of tricuspid regurgitation. Tricuspid regurgitation jet envelope not well defined to measure RV systolic pressure accurately. Pulmonic Valve The pulmonic valve is not well visualized. Great Vessels The aortic root is not well visualized. The inferior vena cava appeared normal. Effusions Minimal pericardial effusion. Incidental Findings Consider BHASKAR if clinically indicated. May consider mobile cardiac telemetry monitoring (MCT) for ruling out transient AFIB. No definite cardiac source of CVA/TIA noted on this particular trans-thoracic study. : ALFREDO PANDA > Pastora Umanzor
== END 2017-05-14 11:28 | disposition home health service (06) ==
LOC: ER 10:33 → UNDOADMOB 13:36 → EH 13:36 → 3N 16:15
PROVIDERS: ADMIT Internal Medicine; ATTEND Internal Medicine
DX: G45.9 Transient cerebral ischemic attack, unspecified (principal); D64.9 Anemia, unspecified; S82.52XA Displaced fracture of medial malleolus of left tibia, initial encounter for closed fracture; W19.XXXA Unspecified fall, initial encounter; R47.81 Slurred speech; I10 Essential (primary) hypertension; E05.90 Thyrotoxicosis, unspecified without thyrotoxic crisis or storm; E03.9 Hypothyroidism, unspecified; E78.5 Hyperlipidemia, unspecified; Z85.43 Personal history of malignant neoplasm of ovary; Z92.21 Personal history of antineoplastic chemotherapy; Z82.49 Family history of ischemic heart disease and other diseases of the circulatory system; Z96.651 Presence of right artificial knee joint; Z90.710 Acquired absence of both cervix and uterus; Z79.899 Other long term (current) drug therapy; Z85.41 Personal history of malignant neoplasm of cervix uteri; Z86.14 Personal history of Methicillin resistant Staphylococcus aureus infection
CPT/HCPCS: 93005; 99285; 36415; 85025; 80048; 81001; 84484; 93306; 70551; 73610; 73562; 70450; 93010; 97163; 92522; 97166; G0378 ×3; A9270 ×4; J1650; J3490 ×2; S0028; G8978; G8979; G8999; G9186; G9158; G8987; G8988; G8989

== ENCOUNTER 2017-10-03 00:12 | Inpatient (IN) | payer MEDICARE, OTHER ==
[2017-10-03] MEDS ORDERED: NORMAL SALINE 500 ML IV ONE ×2 (01:12→03:40)
[2017-10-03 01:58] LABS: ABSOLUTE LYMPHOCYTES (AUTO) 0.6 10^3/uL (0.5-4.7); ABSOLUTE MONOCYTES (AUTO) 0.7 10^3/uL (0.1-1.4); ABSOLUTE NEUT (AUTO) 7.5 10^3/uL (1.7-8.2); BASOPHILS % (AUTO) 0.3 % (0-2); EOSINOPHILS % (AUTO) 0.2 % (0-6); HEMOGLOBIN 13.2 g/dL (12.0-15.5); LYMPHOCYTES % (AUTO) 7.2 % (13-45); MEAN CORPUSCULAR HEMOGLOBIN 31.2 pg (27.0-33.4); MEAN CORPUSCULAR HGB CONC 33.7 g/dL (32.0-36.0); MEAN CORPUSCULAR VOLUME 93 fl (80-97); MONOCYTES % (AUTO) 7.7 % (3-13); PLATELET COUNT 105 10^3/uL (150-450); RED BLOOD COUNT 4.21 10^6/uL (3.72-5.28); RED CELL DISTRIBUTION WIDTH 14.4 % (11.5-14.0); SEGMENTED NEUTROPHILS % (AUTO) 84.6 % (42-78); TOTAL CELLS COUNTED % (AUTO) 100 %; WHITE BLOOD COUNT 8.8 10^3/uL (4.0-10.5)
[2017-10-03 03:12] LABS: ALANINE AMINOTRANSFERASE 20 U/L (9-52); ALBUMIN 3.8 g/dL (3.5-5.0); ALKALINE PHOSPHATASE 177 U/L (38-126); ANION GAP 14 (5-19); ASPARTATE AMINO TRANSFERASE 20 U/L (14-36); BILIRUBIN,DIRECT 0.5 mg/dL (0.0-0.4); BILIRUBIN,TOTAL 0.7 mg/dL (0.2-1.3); BLOOD UREA NITROGEN 33 mg/dL (7-20); CALCIUM 10.5 mg/dL (8.4-10.2); CARBON DIOXIDE 20 mmol/L (22-30); CHLORIDE 109 mmol/L (98-107); GLUCOSE 134 mg/dL (75-110); POTASSIUM 3.7 mmol/L (3.6-5.0); SODIUM 143.2 mmol/L (137-145); TOTAL PROTEIN 6.1 g/dL (6.3-8.2)
--- NOTE | 2017-10-03 03:41 | ER Document Report ---
ED General - General TRAVEL OUTSIDE OF THE [place] IN LAST 30 DAYS: No <PETR BOYER - Last Filed: 10/03/17 06:53> <MARISA BOOGIE - Last Filed: 10/03/17 08:17> - General Chief Complaint: Diarrhea Stated Complaint: DIARRHEA Time Seen by Provider: 10/03/17 01:01 Notes: Patient is an 82-year-old female presents with complaint of pain over left side of her abdomen lower abdomen. Said she thought she was constipated took MiraLAX. Since then she has had a lot of diarrhea and has had some maroon colored stools. Patient said she had very similar symptoms when she had diverticulitis in the past. She said with the previous diverticulitis to progress and eventually she developed an abscess and needed drains placed. She denies any fevers or vomiting. She has had a colonoscopy about 15 years ago. This was performed by Dr. Navarro. No other complaints at this time. (PETR BOYER) - Related Data Allergies/Adverse Reactions: Sulfa (Sulfonamide Antibiotics) Adverse Reaction (Intermediate, Verified 10:45) tingling, itching Past Medical History - Social History Smoking Status: Never Smoker Chew tobacco use (# tins/day): No Frequency of alcohol use: None Family History: Hypertension - Mother age 105., Malignancy - Prostate cancer. Father at age 65., Thyroid Disfunction Patient has suicidal ideation: No Patient has homicidal ideation: No - Past Medical History Cardiac Medical History: Reports: Hx DVT, Hx Hypercholesterolemia, Hx Hypertension - on meds Denies: Hx Atrial Fibrillation, Hx Congestive Heart Failure, Hx Coronary Artery Disease, Hx Heart Attack, Hx Peripheral Vascular Disease, Hx Pulmonary Embolism, Hx Heart Murmur Pulmonary Medical History: Reports: Hx Asthma, Hx Bronchitis, Hx Pneumonia Denies: Hx COPD, Hx Respiratory Failure, Hx Sleep Apnea, Hx Tuberculosis Neurological Medical History: Reports: Hx Migraine. Denies: Hx Cerebrovascular Accident, Hx Seizures Endocrine Medical History: Reports: Hx Hyperthyroidism, Hx Hypothyroidism. Denies: Hx Graves' Disease Renal/ Medical History: Denies: Hx End Stage Renal Disease, Hx Kidney Stones, Hx Ovarian Cysts, Hx Peritoneal Dialysis, Hx Pelvic Inflammatory Disease Malignancy Medical History: Reports: Hx Cervical Cancer. Denies: Hx Breast Cancer, Hx Leukemia, Hx Lung Cancer, Hx Ovarian Cancer GI Medical History: Reports: Hx Gastroesophageal Reflux Disease, Hx Ulcer - 1995. Denies: Hx Crohn's Disease, Hx Hiatal Hernia, Hx Irritable Bowel, Hx Liver Failure, Hx Pancreatitis Musculoskeltal Medical History: Reports Hx Arthritis, Denies Hx Fibromyalgia, Denies Hx Multiple Sclerosis, Denies Hx Muscular Dystrophy Psychiatric Medical History: Reports: Hx Depression Denies: Hx Bipolar Disorder, Hx Dementia, Hx Post Traumatic Stress Disorder, Hx Schizophrenia Traumatic Medical History: Denies: Hx Fractures Infectious Medical History: Reports: Hx MRSA. Denies: Hx HIV Past Surgical History: Reports: Hx Abdominal Surgery - Hysterectomy, Hx Hysterectomy, Hx Orthopedic Surgery - Right foot bunionectomy. Right total knee replacement., Hx Tonsillectomy, Other. Denies: Hx Appendectomy, Hx Bowel Surgery, Hx Section, Hx Cholecystectomy, Hx Colostomy, Hx Coronary Artery Bypass Graft, Hx Gastric Bypass Surgery, Hx Herniorrhaphy, Hx Mastectomy , Hx Pacemaker, Hx Tubal Ligation - Immunizations Hx Diphtheria, Pertussis, Tetanus Vaccination: Yes Hx Pneumococcal Vaccination: 06/01/11 <PETR BOYER - Last Filed: 10/03/17 06:53> Review of Systems <PETR BOYER - Last Filed: 10/03/17 06:53> <MARISA BOOGIE - Last Filed: 10/03/17 08:17> - Review of Systems Notes: My Normal Review Basic REVIEW OF SYSTEMS: CONSTITUTIONAL : Denies fever, chills, or sweats. Denies recent illness. EENT: Denies eye, ear, throat, or mouth pain or symptoms. Denies nasal or sinus congestion. CARDIOVASCULAR: Denies chest pain. RESPIRATORY: Denies cough, cold, or chest congestion. Denies shortness of breath, difficulty breathing, or wheezing. GASTROINTESTINAL: abdominal pain. marooned colored stool. MUSCULOSKELETAL: Denies neck or back pain or joint pain or swelling. SKIN: Denies rash or skin lesions. NEUROLOGICAL: Denies altered mental status or loss of consciousness. Denies headache. Denies weakness or paralysis or loss of use of either side. Denies problems with gait or speech. Denies sensory or motor loss. ALL OTHER SYSTEMS REVIEWED AND NEGATIVE. (PETR BOYER) Physical Exam <PETR BOYER - Last Filed: 10/03/17 06:53> <MARISA BOOGIE - Last Filed: 10/03/17 08:17> - Vital signs Vitals: Temp Pulse Resp BP Pulse Ox 97.6 F 78 16 135/78 H 98 10/03/17 00:13 10/03/17 00:13 10/03/17 00:13 10/03/17 00:13 10/03/17 00:13 - Notes Notes: General Appearance: Well nourished, alert, cooperative, no acute distress, mild to moderate obvious discomfort. Vitals: reviewed, See vital signs table. Head: no swelling or tenderness to the head Eyes: PERRL, EOMI, Conjuctiva clear Mouth: No decreasd moisture Lungs: No wheezing, No rales, No rhonci, No accessory muscle use, good air exchange bilaterally. Heart: Normal rate, Regular rythm, No murmur, no rub Abdomen: Normal BS, soft, No rigidity, pain to palpation mainly over the left side of the abdomen., No guarding, no rebound, no abdominal masses, no organomegaly Rectal exam: Small amount of dark dried blood around the rectal area. No hemorrhoids. Extremities: strength 5/5 in all extremities, good pulses in all extremities, no swelling or tenderness in the extremities, no edema. Skin: warm, dry, appropriate color, no rash Neuro: speech clear, oriented x 3, normal affect, responds appropriately to questions. (PETR BOYER) Course - Laboratory Result Diagrams: 10/03/17 04:32 10/03/17 01:40 <PETR BOYER - Last Filed: 10/03/17 06:53> - Laboratory Result Diagrams: 10/03/17 04:32 10/03/17 01:40 <MARISA BOOGIE - Last Filed: 10/03/17 08:17> - Re-evaluation Re-evalutation: 10/03/17 03:40 Patient has not had any further bloody bowel movements. Her hemoglobin is stable. I will obtain a CT scan mainly because of her age and the bleeding she had earlier. I will also repeat the hemoglobin to make sure it is staying stable. 10/03/17 03:41 10/03/17 06:49 Patient's repeat hemoglobin did go up a little. Patient's CT scan does show some stranding around the transverse and descending colon. Her pain is on the left side to this makes sense with the location of her pain. She does have some red colored stools but has not had any further bowel movements there is blood per rectum since she has been here. She has no leukocytosis. She does not have a gap acidosis. Vital signs are completely normal. I think ischemic bowel is unlikely, but I will stilll order the lactic acid level because of her age. I suspect the most likely she might be developing diverticulitis like she has in the past. Also a lot of straining could be related to the large amount of diarrhea that she had after taking the laxative. Currently she does also some pain in her abdomen. I will give her small dose of morphine. I have ordered antibiotics. I checked out the patient to Dr. Boogie who will call the daytime hospitalist about potential admission. Dictation of this chart was performed using voice recognition software; therefore, there may be some unintended grammatical errors. 10/03/17 06:51 10/03/17 06:53 (PETR BOYER) - Vital Signs Vital signs: Temp Pulse Resp BP Pulse Ox 97.6 F 78 18 125/65 95 10/03/17 00:13 10/03/17 00:13 10/03/17 04:01 10/03/17 04:01 10/03/17 04:01 - Laboratory Laboratory results interpreted by me: 10/03/17 10/03/17 10/03/17 01:40 01:40 04:32 RDW 14.4 H 14.6 H Plt Count 105 L 101 L Seg Neutrophils % 84.6 H 82.4 H Lymphocytes % 7.2 L 8.4 L Chloride 109 H Carbon Dioxide 20 L BUN 33 H Est GFR (Non-Af Amer) 50 L Glucose 134 H Calcium 10.5 H Direct Bilirubin 0.5 H Alkaline Phosphatase 177 H Total Protein 6.1 L Urine Blood Urine Urobilinogen Ur Leukocyte Esterase Urine Ascorbic Acid 10/03/17 04:50 RDW Plt Count Seg Neutrophils % Lymphocytes % Chloride Carbon Dioxide BUN Est GFR (Non-Af Amer) Glucose Calcium Direct Bilirubin Alkaline Phosphatase Total Protein Urine Blood SMALL H Urine Urobilinogen 4.0 H Ur Leukocyte Esterase SMALL H Urine Ascorbic Acid 20 H Discharge <PETR BOYER - Last Filed: 10/03/17 06:53> - Discharge Admitting Provider: Hospitalist Unit Admitted: Medical Floor <MARISA BOOGIE - Last Filed: 10/03/17 08:17> - Discharge Clinical Impression: Colitis, Dehydration Condition: Stable Disposition: ADMITTED INPATIENT Referrals: CARLOS SEPULVEDA MD [Primary Care Provider] - Follow up as needed
[2017-10-03 04:56] LABS: ABSOLUTE LYMPHOCYTES (AUTO) 0.7 10^3/uL (0.5-4.7); ABSOLUTE MONOCYTES (AUTO) 0.7 10^3/uL (0.1-1.4); ABSOLUTE NEUT (AUTO) 7.1 10^3/uL (1.7-8.2); BASOPHILS % (AUTO) 0.3 % (0-2); EOSINOPHILS % (AUTO) 0.2 % (0-6); HEMATOCRIT 40.5 % (36.0-47.0); HEMOGLOBIN 13.3 g/dL (12.0-15.5); LYMPHOCYTES % (AUTO) 8.4 % (13-45); MEAN CORPUSCULAR HEMOGLOBIN 30.7 pg (27.0-33.4); MEAN CORPUSCULAR HGB CONC 32.8 g/dL (32.0-36.0); MEAN CORPUSCULAR VOLUME 94 fl (80-97); MONOCYTES % (AUTO) 8.7 % (3-13); PLATELET COUNT 101 10^3/uL (150-450); RED BLOOD COUNT 4.33 10^6/uL (3.72-5.28); RED CELL DISTRIBUTION WIDTH 14.6 % (11.5-14.0); SEGMENTED NEUTROPHILS % (AUTO) 82.4 % (42-78); TOTAL CELLS COUNTED % (AUTO) 100 %; WHITE BLOOD COUNT 8.6 10^3/uL (4.0-10.5)
--- NOTE | 2017-10-03 05:45 | RADIOLOGY REPORT (SQ) ---
EXAM DESCRIPTION: CT ABD/PELVIS COMBO COMPLETED DATE/TIME: 10/03/2017 5:22 am REASON FOR STUDY: blood in stools COMPARISON: CT abdomen and pelvis 09/01/2016. CT chest/abdomen/pelvis 08/23/2016. TECHNIQUE: CT scan of the abdomen and pelvis performed with and without intravenous contrast. Images reviewed with lung, soft tissue, and bone windows. Reconstructed coronal and sagittal MPR images rev iewed. Delayed images for evaluation of possible gastrointestinal hemorrhage. All images stored on PA CS. All CT scanners at this facility use dose modulation, iterative reconstruction, and/or weight based d osing when appropriate to reduce radiation dose to as low as reasonably achievable (ALARA). [facility]: Dose Right [facility]: CareDose [facility]: Dose Right [facility]: Teradose 4D [facility]: CytoViva CONTRAST TYPE AND DOSE: contrast/concentration: Isovue 370.00 mg/ml; Total Contrast Delivered: 91.0 ml; Total Saline Delivered: 70.0 ml RENAL FUNCTION: Creatinine 1.05. RADIATION DOSE: CT Rad equipment meets quality standard of care and radiation dose reduction techniq ues were employed. CTDIvol: 11.4 - 11.4 mGy. DLP: 1672 mGy-cm.. LIMITATIONS: None. FINDINGS: NON-CONTRASTED IMAGING: No significant renal or bladder calcifications. Atherosclerotic c alcifications at the abdominal aorta and its branches. POST-CONTRASTED IMAGING: LOWER CHEST: No consolidation or pleural effusion. There is a small hiatal hernia. LIVER: There is a 1 cm cyst at the junction of the right and left hepatic lobes. No dilated ducts. SPLEEN: Normal size. PANCREAS: No significant calcifications. Soft tissue stranding is noted adjacent to the pancreatic t ail. Pancreatic duct not dilated. GALLBLADDER: Present. ADRENAL GLANDS: No significant masses or asymmetry. RIGHT KIDNEY AND URETER: No significant calcification. No hydronephrosis or hydroureter. LEFT KIDNEY AND URETER: There is a 1.4 cm cyst at the superior pole of the left kidney No significant calcification. No hydronephrosis or hydroureter. AORTA AND VESSELS: No abdominal aortic aneurysm. RETROPERITONEUM: No retroperitoneal hemorrhage or masses. BOWEL AND PERITONEAL CAVITY: No dilated small bowel loops. There is wall thickening with inflammator y changes at the transverse colon, descending colon, sigmoid colon and rectum. No active contrast ext ravasation into the bowel lumen or other findings of active gastrointestinal bleeding. APPENDIX: Not visualized. PELVIS: The urinary bladder is decompressed. No pelvic mass. No free fluid. ABDOMINAL WALL: No hernias. BONES: Degenerative changes in the spine. There is anterior wedging with compression deformity at T1 2 vertebral body, not significantly changed in the interval. There is mild anterolisthesis of L4 on L5. IMPRESSION: 1. No CT evidence of active gastrointestinal hemorrhage. 2. Wall thickening with inflammatory changes at the transverse colon, descending colon, sigmoid colon and rectum, most consistent with colitis and proctitis. 3. Soft tissue stranding adjacent to the pancreatic tail, may be secondary to the above findings. Pl ease correlate with lipase level to exclude superimposed acute pancreatitis. 4. Small hiatal hernia. TECHNICAL DOCUMENTATION: JOB ID: [id number] [facility] Quality ID # [id number]: Final reports with documentation of one or more dose reduction techniques (e.g., Au tomated exposure control, adjustment of the mA and/or kV according to patient size, use of iterative reconstruction technique) 2010 [employer]- All Rights Reserved
[2017-10-03] MEDS ORDERED: METRONIDAZOLE 500 MG TABLET PO ONE (06:00)
[2017-10-03] MEDS ORDERED: CIPROFLOXACIN HCL 500 MG TABLET PO ONE (06:00)
[2017-10-03 06:42] LABS: APPEARANCE,URINE SLIGHTLY-CLOUDY; BILIRUBIN,URINE NEGATIVE (NEGATIVE); COLOR,URINE AMBER; GLUCOSE, URINE NEGATIVE (NEGATIVE); KETONES,URINE NEGATIVE (NEGATIVE); LEUKOCYTE ESTERASE,URINE SMALL (NEGATIVE); NITRITE,URINE NEGATIVE (NEGATIVE); PROTEIN,URINE NEGATIVE (NEGATIVE); URINE SPECIFIC GRAVITY 1.031
[2017-10-03] MEDS ORDERED: MORPHINE SULFATE 10 MG/ML INJ IV ONE ×2 (06:49→11:00)
[2017-10-03] MEDS ORDERED: PROMETHAZINE HCL INJ 25 MG/1 ML VIAL IV PRN (09:32)
[2017-10-03] MEDS ORDERED: ONDANSETRON HCL INJ/PF 4 MG/2 ML SDV IV PRN (09:32)
[2017-10-03] MEDS ORDERED: ACETAMINOPHEN 325 MG TABLET PO PRN (09:32)
[2017-10-03] MEDS ORDERED: IPRATROPIUM/ALBUTEROL 0.5-2.5 MG/3 ML AMPUL NEB PRN (09:32)
[2017-10-03] MEDS ORDERED: ZOLPIDEM TARTRATE 5 MG TABLET PO PRN (09:32)
[2017-10-03] MEDS: FAMOTIDINE 20 MG TABLET PO SCH ×2 (11:21→22:20)
[2017-10-03] MEDS: CIPROFLOXACIN 400 MG/D5W RTU 400 MG/200 ML RTUPB IV SCH ×2 (11:26→22:24)
[2017-10-03] MEDS: ENOXAPARIN SODIUM INJ 40 MG/0.4 ML DISP.SYRIN SUBCUT SCH (11:29)
[2017-10-03] MEDS: NORMAL SALINE 1000 ML 1,000 ML IV PRN ×2 (11:32→20:09)
[2017-10-03] MEDS: METRONIDAZOLE 500 MG/NS RTU 100 ML IV SCH ×2 (14:01→20:10)
[2017-10-03] MEDS ORDERED: HYDRALAZINE HCL INJ/PF 20 MG/1 ML SDV IV PRN (15:03)
--- NOTE | 2017-10-03 15:04 | PDOC H&P ---
History of Present Illness Admission Date/PCP: 10/03/17 08:29 CARLOS SEPULVEDA MD Patient complains of: Abdominal pain and diarrhea History of Present Illness: CARISA CAMPOS is a 82 year old female with a past medical history of diverticulitis, hypertension, hyperlipidemia, hypothyroidism, restless leg syndrome, arthritis, TIAs and a recent history of multiple falls at home who presented to the emergency room last evening with a complaint of abdominal pain. She states that her abdominal pain has been present for nearly a year and has gradually worsened over the last 4 months. She has seen her primary care provider for this and had an outpatient CT last week which, per the patient , was normal. The patient states that she has seen Dr. Henley, gastroenterology , in the past and that her PCP was in the process of setting up a new referral. The patient reports that she felt quite constipated yesterday and so took MiraLAX which was followed by greater than 30 watery bowel movements and severe abdominal pain and nausea. She denies fever or emesis. Evaluation in the emergency department revealed thrombocytopenia with a platelet count of 105, dehydration with a BUN of 33 but a normal creatinine a normal lipase and LFTs. CT of the abdomen and pelvis, however, demonstrated wall thickening of the transverse colon, descending colon, sigmoid colon and rectum consistent with colitis and proctitis. She is referred to the hospitalist service for admission. Past Medical History Cardiac Medical History: Reports: DVT, Hyperlipidema, Hypertension Denies: Atrial Fibrillation, Congestive Heart Failure, Coronary Artery Disease, Myocardial Infarction, Peripheral Vascular Disease, Pulmonary Embolism , Heart Murmur Pulmonary Medical History: Reports: Asthma, Bronchitis, Pneumonia Denies: Chronic Obstructive Pulmonary Disease (COPD), Respiratory Failure, Sleep Apnea, Tuberculosis Neurological Medical History: Reports: Migraine, Other - TIA Denies: Seizures Endocrine Medical History: Reports: Hypothyroidism Renal/ Medical History: Denies: Chronic Kidney Disease, End Stage Renal Disease Malignancy Medical History: Reports: Cervical Cancer Denies: Breast Cancer, Leukemia, Lung Cancer, Ovarian Cancer GI Medical History: Reports: Diverticulitis, Gastroesophageal Reflux Disease Denies: Crohn's Disease, Hiatal Hernia Musculoskeltal Medical History: Reports: Arthritis Denies: Fibromyalgia Psychiatric Medical History: Reports: Depression Denies: Bipolar Disorder, Dementia, Post Traumatic Stress Disorder Traumatic Medical History: Reports: None Hematology: Reports: Anemia Denies: Hemophilia, Sickle Cell Disease Infectious Medical History: Reports: Methicillin-Resistant Staph Aureus Denies: HIV Past Surgical History Past Surgical History: Reports: Hysterectomy, Knee Replacement, Orthopedic Surgery - Right foot bunionectomy. Bilateral total knee replacement. Left wrist CORNELIUS, Tonsillectomy Denies: Amputation, Appendectomy, Section, Cholecystectomy, Colostomy, Coronary Artery Bypass Graft, Gastric Bypass Surgery, Herniorrhaphy, Mastectomy, Pacemaker, Tubal Ligation Social History Information Source: Patient Lives with: Alone Smoking Status: Never Smoker Frequency of Alcohol Use: None Hx Recreational Drug Use: No Hx Prescription Drug Abuse: No - Advance Directive Resuscitation Status: Full Code Surrogate healthcare decision maker:: The patient's daughter, Majo Adams Family History Family History: Hypertension - Mother age 105., Malignancy - Prostate cancer. Father at age 65., Thyroid Disfunction Parental Family History Reviewed: Yes Children Family History Reviewed: Yes Sibling(s) Family History Reviewed.: Yes Medication/Allergy Home Medications: Amlodipine Besylate [Norvasc 5 mg Tablet] 5 mg PO DAILY 10/03/17 Gabapentin [Neurontin 300 mg Capsule] 300 mg PO Q8HP PRN 10/03/17 Hydroxychloroquine Sulfate [Plaquenil 200 mg Tablet] 200 mg PO DAILY 10/03/17 Ibuprofen [Motrin 800 mg Tablet] 800 mg PO TIDP PRN 10/03/17 Levothyroxine Sodium [Synthroid] 125 mcg PO Q6AM 10/03/17 Meloxicam [Mobic] 7.5 mg PO DAILY 10/03/17 Omeprazole 20 mg PO DAILY 10/03/17 Ropinirole HCl [Requip] 1 mg PO QHS 10/03/17 Simvastatin [Zocor 20 mg Tablet] 20 mg PO QHS 10/03/17 Allergies/Adverse Reactions: Sulfa (Sulfonamide Antibiotics) Adverse Reaction (Intermediate, Verified 10:45) tingling, itching Review of Systems Constitutional: ABSENT: chills, fever(s), headache(s), weight gain, weight loss Eyes: ABSENT: visual disturbances Ears: ABSENT: hearing changes Cardiovascular: ABSENT: chest pain, dyspnea on exertion, edema, orthropnea, palpitations Respiratory: ABSENT: cough, hemoptysis Gastrointestinal: PRESENT: as per HPI, abdominal pain, diarrhea, nausea. ABSENT : constipation, hematemesis, hematochezia, melena, vomiting Genitourinary: ABSENT: dysuria, hematuria Musculoskeletal: ABSENT: joint swelling Integumentary: ABSENT: rash, wounds Neurological: ABSENT: abnormal gait, abnormal speech, confusion, dizziness, focal weakness, syncope Psychiatric: ABSENT: anxiety, depression, homidical ideation, suicidal ideation Endocrine: ABSENT: cold intolerance, heat intolerance, polydipsia, polyuria Hematologic/Lymphatic: ABSENT: easy bleeding, easy bruising Physical Exam Vital Signs: Temp Pulse Resp BP Pulse Ox 97.6 F 80 18 118/62 97 10/03/17 00:13 10/03/17 12:04 10/03/17 12:04 10/03/17 10:01 10/03/17 12:04 Intake & Output 10/02/17 10/03/17 10/04/17 06:59 06:59 06:59 Intake Total 400 Balance 400 Weight 87 kg General appearance: PRESENT: no acute distress, well-developed, well-nourished Head exam: PRESENT: atraumatic, normocephalic Eye exam: PRESENT: conjunctiva pink, EOMI, PERRLA. ABSENT: scleral icterus Ear exam: PRESENT: normal external ear exam Mouth exam: PRESENT: moist, tongue midline Neck exam: ABSENT: carotid bruit, JVD, lymphadenopathy, thyromegaly Respiratory exam: PRESENT: clear to auscultation avery, symmetrical, unlabored. ABSENT: rales, rhonchi, wheezes Cardiovascular exam: PRESENT: RRR, +S1, +S2. ABSENT: diastolic murmur, rubs, systolic murmur Pulses: PRESENT: normal dorsalis pedis pul Vascular exam: PRESENT: normal capillary refill GI/Abdominal exam: PRESENT: hyperactive bowel sounds, soft, tenderness. ABSENT : distended, guarding, mass, organolmegaly, rebound Rectal exam: PRESENT: deferred Extremities exam: PRESENT: full ROM. ABSENT: calf tenderness, clubbing, pedal edema Neurological exam: PRESENT: alert, awake, oriented to person, oriented to place , oriented to time, oriented to situation, CN II-XII grossly intact. ABSENT: motor sensory deficit Psychiatric exam: PRESENT: appropriate affect, normal mood. ABSENT: homicidal ideation, suicidal ideation Skin exam: PRESENT: dry, intact, warm. ABSENT: cyanosis, rash Results Impressions: Abdomen/Pelvis CT 10/03/17 00:00 IMPRESSION: 1. No CT evidence of active gastrointestinal hemorrhage. 2. Wall thickening with inflammatory changes at the transverse colon, descending colon, sigmoid colon and rectum, most consistent with colitis and proctitis. 3. Soft tissue stranding adjacent to the pancreatic tail, may be secondary to the above findings. Please correlate with lipase level to exclude superimposed acute pancreatitis. 4. Small hiatal hernia. Assessment & Plan - Diagnosis (1) Colitis Is this a current diagnosis for this admission?: Yes Plan: The patient presented with sudden onset abdominal pain and numerous loose stools. ABD/Pelvis CT demonstrates colitis of the transverse colon, descending colon, sigmoid colon and rectum. C. difficile is negative. Blood, urine, stool cultures are pending. The patient is placed on IV maintenance fluids. She is empirically placed on ciprofloxacin and Flagyl. Antiemetics and pain medications are provided as needed. (2) Dehydration Is this a current diagnosis for this admission?: Yes Plan: Secondary to diarrhea in the setting of colitis. The patient received a 1 L normal saline bolus in the emergency department. She will be placed on maintenance IV fluids. Encourage p.o. fluids. Antiemetics as needed. (3) UTI (urinary tract infection) Qualifiers: Urinary tract infection type: acute cystitis Hematuria presence: without hematuria Qualified Code(s): N30.00 - Acute cystitis without hematuria (4) Nausea Is this a current diagnosis for this admission?: Yes Plan: Secondary to #1. Antiemetics as needed. (5) Thrombocytopenia Is this a current diagnosis for this admission?: Yes Plan: Unclear etiology; does appear to be chronic in nature when reviewing historical labs. Will monitor closely and hold DVT prophylaxis for platelet count less than 100. (6) Hypertension Is this a current diagnosis for this admission?: Yes Plan: The patient's home dose amlodipine is continued. Hydralazine is available as needed. (7) Restless leg syndrome Is this a current diagnosis for this admission?: Yes Plan: We will continue the patient's home medication Requip 1 mg nightly. (8) Hypothyroidism Is this a current diagnosis for this admission?: Yes Plan: We will continue the patient's home dose of levothyroxine. (9) Hyperlipidemia Is this a current diagnosis for this admission?: Yes Plan: We will continue the patient's home dose of simvastatin. - Time Time Spent: 50 to 70 Minutes Medications reviewed and adjusted accordingly: Yes Anticipated discharge: Home - Inpatient Certification Based on my medical assessment, after consideration of the patient's comorbidities, presenting symptoms, or acuity I expect that the services needed warrant INPATIENT care.: Yes I certify that my determination is in accordance with my understanding of Medicare's requirements for reasonable and necessary INPATIENT services [42 CFR 412.3e].: Yes Medical Necessity: Need For IV Fluids, Need for IV Antibiotics
[2017-10-03] MEDS: OXYCODONE HCL IR 5 MG TABLET PO PRN (20:43)
[2017-10-03] MEDS: SIMVASTATIN 10 MG TABLET PO SCH (22:21)
[2017-10-03] MEDS: ROPINIROLE HCL 1 MG TABLET PO SCH (22:23)
[2017-10-04] MEDS: METRONIDAZOLE 500 MG/NS RTU 100 ML IV SCH ×2 (02:13→05:34)
[2017-10-04] MEDS: LEVOTHYROXINE SODIUM 0.1 MG TABLET PO SCH (05:34)
[2017-10-04] MEDS: LEVOTHYROXINE SODIUM 0.025 MG TABLET PO SCH (05:34)
[2017-10-04] MEDS ORDERED: (PENDING PHARMACY ID) (Levothyroxine Sodium [Synthroid] 125 MCG) PO SCH (06:00)
[2017-10-04 08:00] LABS: HEMATOCRIT 30.4 % (36.0-47.0); MEAN CORPUSCULAR HEMOGLOBIN 31.1 pg (27.0-33.4); MEAN CORPUSCULAR HGB CONC 33.3 g/dL (32.0-36.0); MEAN CORPUSCULAR VOLUME 93 fl (80-97); RED BLOOD COUNT 3.26 10^6/uL (3.72-5.28); RED CELL DISTRIBUTION WIDTH 14.9 % (11.5-14.0); WHITE BLOOD COUNT 6.1 10^3/uL (4.0-10.5)
[2017-10-04 08:13] LABS: ANION GAP 7 (5-19); BLOOD UREA NITROGEN 19 mg/dL (7-20); CALCIUM 8.5 mg/dL (8.4-10.2); CARBON DIOXIDE 20 mmol/L (22-30); CHLORIDE 111 mmol/L (98-107); GLUCOSE 77 mg/dL (75-110); POTASSIUM 3.5 mmol/L (3.6-5.0); SODIUM 138.1 mmol/L (137-145)
[2017-10-04 08:42] LABS: ABSOLUTE LYMPHOCYTES# (MANUAL) 0.6 10^3/uL (0.5-4.7); ABSOLUTE MONOCYTES # (MANUAL) 0.7 10^3/uL (0.1-1.4); ABSOLUTE NEUTROPHILS# (MANUAL) 4.6 10^3/uL (1.7-8.2); BASOPHILS % (MANUAL) 0 % (0-2); EOSINOPHILS % (MANUAL) 2 % (0-6); LYMPHOCYTES % (MANUAL) 9 % (13-45); MONOCYTES % (MANUAL) 12 % (3-13); SEGMENTED NEUTROPHILS % (MAN) 44 % (42-78); TOTAL CELLS COUNTED 100
[2017-10-04 08:46] LABS: BAND NEUTROPHILS % (MANUAL) 32 % (3-5)
[2017-10-04 08:47] LABS: PLATELET COMMENT DECREASED; RBC MORPHOLOGY COMMENT NORMO-CYTIC/CHROMIC
[2017-10-04 08:48] LABS: HEMOGLOBIN 10.1 g/dL (12.0-15.5); PLATELET COUNT 71 10^3/uL (150-450)
--- NOTE | 2017-10-04 09:45 | RADIOLOGY REPORT (SQ) ---
EXAM DESCRIPTION: CHEST PA/LAT COMPLETED DATE/TIME: 10/04/2017 9:11 am REASON FOR STUDY: hypoxia and fever COMPARISON: 06/23/2016 NUMBER OF VIEWS: Two view. TECHNIQUE: Frontal and lateral radiographic views of the chest acquired. LIMITATIONS: None. FINDINGS: LUNGS AND PLEURA: Linear scarring in the left costophrenic angle. No pleural effusion. Att enuated blood vessels and flattened jesu-diaphragms. MEDIASTINUM AND HILAR STRUCTURES: No masses. No contour abnormalities. HEART AND VASCULAR STRUCTURES: Heart normal in size and contour. No evidence for failure. BONES: No acute findings. HARDWARE: None in the chest. OTHER: No other significant finding. IMPRESSION: COPD. NO ACUTE RADIOGRAPHIC FINDING IN THE CHEST. TECHNICAL DOCUMENTATION: JOB ID: [id number] [id number]- All Rights Reserved
[2017-10-04] MEDS: AMLODIPINE BESYLATE 5 MG TABLET PO SCH (10:02)
[2017-10-04] MEDS: CIPROFLOXACIN 400 MG/D5W RTU 400 MG/200 ML RTUPB IV SCH (10:02)
[2017-10-04] MEDS: FAMOTIDINE 20 MG TABLET PO SCH ×2 (10:03→21:49)
[2017-10-04] MEDS: ENOXAPARIN SODIUM INJ 40 MG/0.4 ML DISP.SYRIN SUBCUT SCH (10:04)
[2017-10-04] MEDS ORDERED: NORMAL SALINE 1000 ML 1,000 ML IV PRN (10:24)
[2017-10-04] MEDS ORDERED: POTASSIUM CHLORIDE 10 MEQ TABLET.SA PO ONE (11:00)
[2017-10-04] MEDS: METRONIDAZOLE 500 MG TABLET PO SCH ×2 (13:42→21:49)
[2017-10-04] MEDS: OXYCODONE HCL IR 5 MG TABLET PO PRN (13:42)
--- NOTE | 2017-10-04 17:18 | PDOC PROGRESS REPORT ---
Subjective Progress Note for:: 10/04/17 Subjective:: The patient is an 82-year-old female with past medical history of diverticulitis , hypertension, hyperlipidemia, hypothyroidism, restless leg syndrome, arthritis and TIAs who was admitted on 10/03/17 for colitis of the transverse colon, descending colon, sigmoid colon, and rectum. The patient was seen on morning rounds. She was found resting in bed comfortably. She tells me that she has been up walking with physical therapy. She states that her last bowel movement was prior to her coming to the floor yesterday afternoon. She denies nausea or abdominal pain and did tolerate her lunch without trouble today. She does comment that she feels slightly bloated and is certain as to if she is passing gas, however she does continue to have mucus per rectum. She has no new questions or concerns today. Reason For Visit: COLITIS Physical Exam Vital Signs: Temp Pulse Resp BP Pulse Ox 98.1 F 80 18 120/64 96 10/04/17 16:15 10/04/17 16:15 10/04/17 16:15 10/04/17 16:15 10/04/17 16:15 Intake & Output 10/03/17 10/04/17 10/05/17 06:59 06:59 06:59 Intake Total 400 480 Balance 400 480 Weight 87 kg General appearance: PRESENT: no acute distress, cooperative, well-developed, well-nourished, other - Overweight Head exam: PRESENT: atraumatic, normocephalic Eye exam: PRESENT: conjunctiva pink, EOMI, PERRLA. ABSENT: scleral icterus Ear exam: PRESENT: normal external ear exam Mouth exam: PRESENT: moist, tongue midline Neck exam: ABSENT: carotid bruit, JVD, lymphadenopathy, thyromegaly Respiratory exam: PRESENT: clear to auscultation avery, symmetrical, unlabored. ABSENT: rales, rhonchi, wheezes Cardiovascular exam: PRESENT: RRR, +S1, +S2. ABSENT: diastolic murmur, rubs, systolic murmur Pulses: PRESENT: normal dorsalis pedis pul Vascular exam: PRESENT: normal capillary refill GI/Abdominal exam: PRESENT: distended - bloated, normal bowel sounds, soft. ABSENT: guarding, mass, organolmegaly, rebound, tenderness Rectal exam: PRESENT: deferred Extremities exam: PRESENT: full ROM. ABSENT: calf tenderness, clubbing, pedal edema Neurological exam: PRESENT: alert, awake, oriented to person, oriented to place , oriented to time, oriented to situation, CN II-XII grossly intact. ABSENT: motor sensory deficit Psychiatric exam: PRESENT: appropriate affect, normal mood. ABSENT: homicidal ideation, suicidal ideation Skin exam: PRESENT: dry, intact, warm. ABSENT: cyanosis, rash Results Laboratory Results: 10/04/17 06:10 10/04/17 06:10 10/04/17 10/04/17 06:10 06:10 WBC 6.1 RBC 3.26 L Hgb 10.1 L D Hct 30.4 L MCV 93 MCH 31.1 MCHC 33.3 RDW 14.9 H Plt Count 71 L Seg Neutrophils % Not Reportable Lymphocytes % Not Reportable Monocytes % Not Reportable Eosinophils % Not Reportable Basophils % Not Reportable Absolute Neutrophils Not Reportable Absolute Lymphocytes Not Reportable Absolute Monocytes Not Reportable Absolute Eosinophils Not Reportable Absolute Basophils Not Reportable Sodium 138.1 Potassium 3.5 L Chloride 111 H Carbon Dioxide 20 L Anion Gap 7 BUN 19 Creatinine 0.80 Est GFR ( Amer) > 60 Est GFR (Non-Af Amer) > 60 Glucose 77 Calcium 8.5 Impressions: Abdomen/Pelvis CT 10/03/17 00:00 IMPRESSION: 1. No CT evidence of active gastrointestinal hemorrhage. 2. Wall thickening with inflammatory changes at the transverse colon, descending colon, sigmoid colon and rectum, most consistent with colitis and proctitis. 3. Soft tissue stranding adjacent to the pancreatic tail, may be secondary to the above findings. Please correlate with lipase level to exclude superimposed acute pancreatitis. 4. Small hiatal hernia. Chest X-Ray 10/04/17 00:00 IMPRESSION: COPD. NO ACUTE RADIOGRAPHIC FINDING IN THE CHEST. Assessment & Plan - Diagnosis (1) Colitis Is this a current diagnosis for this admission?: Yes Plan: The patient presented with sudden onset abdominal pain and numerous loose stools. ABD/Pelvis CT demonstrates colitis of the transverse colon, descending colon, sigmoid colon and rectum. C. difficile is negative. Blood cultures have no growth at 24 hours. Urine culture: Gram-negative rods 2 sensitivities are pending. The patient is transition to p.o. ciprofloxacin and metronidazole. Antiemetics and pain medications are provided as needed. We will monitor closely for further abdominal distention concerning for ileus. (2) Dehydration Is this a current diagnosis for this admission?: Yes Plan: Resolved; secondary to diarrhea in the setting of colitis. The patient received IV fluid rehydration. She has subsequently lost her IV access and nursing has had difficulty replacing it. The patient is tolerating p.o. fluids. Will hold on further IV fluids at this time and encourage p.o. fluids. Antiemetics as needed. (3) UTI (urinary tract infection) Qualifiers: Urinary tract infection type: acute cystitis Hematuria presence: without hematuria Qualified Code(s): N30.00 - Acute cystitis without hematuria Plan: Urine cultures are growing gram-negative rods. The patient was empirically placed on ciprofloxacin. Will adjust antibiotics as cultures result. (4) Nausea Is this a current diagnosis for this admission?: Yes Plan: Resolved; secondary to #1. Antiemetics as needed. (5) Thrombocytopenia Is this a current diagnosis for this admission?: Yes Plan: Unclear etiology; does appear to be chronic in nature when reviewing historical labs although is further reduce today. Will monitor closely and hold DVT prophylaxis for platelet count less than 100. (6) Hypertension Is this a current diagnosis for this admission?: Yes Plan: The patient's home dose amlodipine is continued. Hydralazine is available as needed. (7) Restless leg syndrome Is this a current diagnosis for this admission?: Yes Plan: We will continue the patient's home medication Requip 1 mg nightly. (8) Hypothyroidism Is this a current diagnosis for this admission?: Yes Plan: We will continue the patient's home dose of levothyroxine. (9) Hyperlipidemia Is this a current diagnosis for this admission?: Yes Plan: We will continue the patient's home dose of simvastatin. - Time Time Spent with patient: 15-24 minutes Medications reviewed and adjusted accordingly: Yes
[2017-10-04] MEDS: ROPINIROLE HCL 1 MG TABLET PO SCH (21:49)
[2017-10-04] MEDS: CIPROFLOXACIN HCL 500 MG TABLET PO SCH (21:49)
[2017-10-04] MEDS: SIMVASTATIN 10 MG TABLET PO SCH (21:49)
[2017-10-05 05:01] LABS: ABSOLUTE EOSINOPHILS # (AUTO) 0.1 10^3/uL (0.0-0.6); ABSOLUTE LYMPHOCYTES (AUTO) 1.1 10^3/uL (0.5-4.7); ABSOLUTE MONOCYTES (AUTO) 0.9 10^3/uL (0.1-1.4); ABSOLUTE NEUT (AUTO) 4.3 10^3/uL (1.7-8.2); BASOPHILS % (AUTO) 0.2 % (0-2); EOSINOPHILS % (AUTO) 1.9 % (0-6); HEMOGLOBIN 10.1 g/dL (12.0-15.5); LYMPHOCYTES % (AUTO) 17.2 % (13-45); MEAN CORPUSCULAR HEMOGLOBIN 31.6 pg (27.0-33.4); MEAN CORPUSCULAR HGB CONC 33.7 g/dL (32.0-36.0); MEAN CORPUSCULAR VOLUME 94 fl (80-97); MONOCYTES % (AUTO) 13.6 % (3-13); RED CELL DISTRIBUTION WIDTH 14.5 % (11.5-14.0); SEGMENTED NEUTROPHILS % (AUTO) 67.1 % (42-78); TOTAL CELLS COUNTED % (AUTO) 100 %; WHITE BLOOD COUNT 6.4 10^3/uL (4.0-10.5)
[2017-10-05 05:16] LABS: BLOOD UREA NITROGEN 12 mg/dL (7-20); CALCIUM 8.8 mg/dL (8.4-10.2); GLUCOSE 82 mg/dL (75-110)
[2017-10-05 05:24] LABS: PLATELET COUNT 69 10^3/uL (150-450)
[2017-10-05 05:36] LABS: ANION GAP 3 (5-19); CARBON DIOXIDE 24 mmol/L (22-30); CHLORIDE 110 mmol/L (98-107); POTASSIUM 3.6 mmol/L (3.6-5.0); SODIUM 137.3 mmol/L (137-145)
[2017-10-05] MEDS: LEVOTHYROXINE SODIUM 0.1 MG TABLET PO SCH (05:53)
[2017-10-05] MEDS: METRONIDAZOLE 500 MG TABLET PO SCH ×3 (05:53→21:20)
[2017-10-05] MEDS: LEVOTHYROXINE SODIUM 0.025 MG TABLET PO SCH (05:53)
[2017-10-05] MEDS: FAMOTIDINE 20 MG TABLET PO SCH ×2 (09:03→21:20)
[2017-10-05] MEDS: CIPROFLOXACIN HCL 500 MG TABLET PO SCH ×2 (09:03→21:20)
[2017-10-05] MEDS: AMLODIPINE BESYLATE 5 MG TABLET PO SCH (09:03)
[2017-10-05] MEDS: MAG HYDROX/AL HYDROX/SIMETH SUSP 30 ML UDCUP PO PRN ×2 (13:41→21:21)
--- NOTE | 2017-10-05 16:26 | PDOC PROGRESS REPORT ---
Subjective Progress Note for:: 10/05/17 Subjective:: The patient is an 82-year-old female with past medical history of diverticulitis , hypertension, hyperlipidemia, hypothyroidism, restless leg syndrome, arthritis and TIAs who was admitted on 10/03/17 for colitis of the transverse colon, descending colon, sigmoid colon, and rectum. The patient was seen on morning rounds. She was found resting in bed comfortably. The patient reports that she is now passing gas and did have a bowel movement overnight with stool present. She is concerned that she has also had 2 or 3 episodes of passing bright red blood with clots per rectum. She states that her pain has improved and that her appetite has returned. Reason For Visit: COLITIS Physical Exam Vital Signs: Temp Pulse Resp BP Pulse Ox 97.6 F 74 16 136/66 H 97 10/05/17 12:04 10/05/17 12:04 10/05/17 12:04 10/05/17 12:04 10/05/17 12:04 Intake & Output 10/04/17 10/05/17 10/06/17 06:59 06:59 06:59 Intake Total 400 808 Balance 400 808 Weight 87 kg 87.2 kg General appearance: PRESENT: no acute distress, well-developed, well-nourished, other - Overweight Head exam: PRESENT: atraumatic, normocephalic Eye exam: PRESENT: conjunctiva pink, EOMI, PERRLA. ABSENT: scleral icterus Ear exam: PRESENT: normal external ear exam Mouth exam: PRESENT: moist, tongue midline Neck exam: ABSENT: carotid bruit, JVD, lymphadenopathy, thyromegaly Respiratory exam: PRESENT: clear to auscultation avery, symmetrical, unlabored. ABSENT: rales, rhonchi, wheezes Cardiovascular exam: PRESENT: RRR, +S1, +S2. ABSENT: diastolic murmur, rubs, systolic murmur Pulses: PRESENT: normal dorsalis pedis pul Vascular exam: PRESENT: normal capillary refill GI/Abdominal exam: PRESENT: distended - bloated; decreased from yesterday, hyperactive bowel sounds, soft. ABSENT: guarding, mass, organolmegaly, rebound , tenderness Rectal exam: PRESENT: deferred Extremities exam: PRESENT: full ROM. ABSENT: calf tenderness, clubbing, pedal edema Neurological exam: PRESENT: alert, awake, oriented to person, oriented to place , oriented to time, oriented to situation, CN II-XII grossly intact. ABSENT: motor sensory deficit Psychiatric exam: PRESENT: appropriate affect, normal mood. ABSENT: homicidal ideation, suicidal ideation Skin exam: PRESENT: dry, intact, warm. ABSENT: cyanosis, rash Results Laboratory Results: 10/05/17 03:46 10/05/17 03:46 10/05/17 10/05/17 03:46 03:46 WBC 6.4 RBC 3.20 L Hgb 10.1 L Hct 30.0 L MCV 94 MCH 31.6 MCHC 33.7 RDW 14.5 H Plt Count 69 L Seg Neutrophils % 67.1 Lymphocytes % 17.2 Monocytes % 13.6 H Eosinophils % 1.9 Basophils % 0.2 Absolute Neutrophils 4.3 Absolute Lymphocytes 1.1 Absolute Monocytes 0.9 Absolute Eosinophils 0.1 Absolute Basophils 0.0 Sodium 137.3 Potassium 3.6 Chloride 110 H Carbon Dioxide 24 Anion Gap 3 L BUN 12 Creatinine 0.76 Est GFR ( Amer) > 60 Est GFR (Non-Af Amer) > 60 Glucose 82 Calcium 8.8 Impressions: Abdomen/Pelvis CT 10/03/17 00:00 IMPRESSION: 1. No CT evidence of active gastrointestinal hemorrhage. 2. Wall thickening with inflammatory changes at the transverse colon, descending colon, sigmoid colon and rectum, most consistent with colitis and proctitis. 3. Soft tissue stranding adjacent to the pancreatic tail, may be secondary to the above findings. Please correlate with lipase level to exclude superimposed acute pancreatitis. 4. Small hiatal hernia. Chest X-Ray 10/04/17 00:00 IMPRESSION: COPD. NO ACUTE RADIOGRAPHIC FINDING IN THE CHEST. Assessment & Plan - Diagnosis (1) Colitis Is this a current diagnosis for this admission?: Yes Plan: Improving. The patient presented with sudden onset abdominal pain and numerous loose stools. ABD/Pelvis CT demonstrates colitis of the transverse colon, descending colon, sigmoid colon and rectum. C. difficile is negative. Blood cultures have no growth at 48 hours. Urine culture: Pansensitive E. coli Continue p.o. ciprofloxacin and metronidazole. Antiemetics and pain medications are provided as needed. Now with slight BRBPR w/ few clots; will monitor Hgb overnight, if stable may d/ c to home. (2) Dehydration Is this a current diagnosis for this admission?: Yes Plan: Resolved; secondary to diarrhea in the setting of colitis. Encourage p.o. fluids. Antiemetics as needed. (3) UTI (urinary tract infection) Qualifiers: Urinary tract infection type: acute cystitis Hematuria presence: without hematuria Qualified Code(s): N30.00 - Acute cystitis without hematuria Plan: Garrido sensitive E coli appropriately placed on cipro. (4) Nausea Is this a current diagnosis for this admission?: Yes Plan: Resolved; secondary to #1. Antiemetics as needed. (5) Thrombocytopenia Is this a current diagnosis for this admission?: Yes Plan: Stable. 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 Will monitor closely and hold DVT prophylaxis for platelet count less than 100. (6) Hypertension Is this a current diagnosis for this admission?: Yes Plan: The patient's home dose amlodipine is continued. Hydralazine is available as needed. (7) Restless leg syndrome Is this a current diagnosis for this admission?: Yes Plan: We will continue the patient's home medication Requip 1 mg nightly. (8) Hypothyroidism Is this a current diagnosis for this admission?: Yes Plan: We will continue the patient's home dose of levothyroxine. (9) Hyperlipidemia Is this a current diagnosis for this admission?: Yes Plan: We will continue the patient's home dose of simvastatin. (10) Anemia Is this a current diagnosis for this admission?: Yes Plan: Stable. Multifactorial secondary to hemodilution and GI losses in the setting of Colitis. Will monitor; if remains stable, pt may be d/c'd to home in the morning. - Time Time Spent with patient: 15-24 minutes Anticipated discharge: Home Within: within 24 hours
[2017-10-05] MEDS: OXYCODONE HCL IR 5 MG TABLET PO PRN (16:55)
[2017-10-05] MEDS: ROPINIROLE HCL 1 MG TABLET PO SCH (21:20)
[2017-10-05] MEDS: SIMVASTATIN 10 MG TABLET PO SCH (21:21)
[2017-10-06] MEDS ORDERED: ONDANSETRON 4 MG TAB.RAPDIS ONE (04:47)
[2017-10-06] MEDS: METRONIDAZOLE 500 MG TABLET PO SCH (04:57)
[2017-10-06] MEDS: LEVOTHYROXINE SODIUM 0.025 MG TABLET PO SCH (04:58)
[2017-10-06] MEDS: LEVOTHYROXINE SODIUM 0.1 MG TABLET PO SCH (04:58)
[2017-10-06] MEDS ORDERED: ONDANSETRON 4 MG TAB.RAPDIS PO PRN (05:11)
[2017-10-06 05:40] LABS: ABSOLUTE EOSINOPHILS # (AUTO) 0.1 10^3/uL (0.0-0.6); ABSOLUTE LYMPHOCYTES (AUTO) 1.1 10^3/uL (0.5-4.7); ABSOLUTE MONOCYTES (AUTO) 0.7 10^3/uL (0.1-1.4); ABSOLUTE NEUT (AUTO) 4.5 10^3/uL (1.7-8.2); BASOPHILS % (AUTO) 0.3 % (0-2); EOSINOPHILS % (AUTO) 2.1 % (0-6); HEMATOCRIT 31.2 % (36.0-47.0); HEMOGLOBIN 10.3 g/dL (12.0-15.5); LYMPHOCYTES % (AUTO) 17.4 % (13-45); MEAN CORPUSCULAR HEMOGLOBIN 30.9 pg (27.0-33.4); MEAN CORPUSCULAR HGB CONC 33.1 g/dL (32.0-36.0); MEAN CORPUSCULAR VOLUME 93 fl (80-97); MONOCYTES % (AUTO) 11.1 % (3-13); RED BLOOD COUNT 3.34 10^6/uL (3.72-5.28); RED CELL DISTRIBUTION WIDTH 14.4 % (11.5-14.0); SEGMENTED NEUTROPHILS % (AUTO) 69.1 % (42-78); TOTAL CELLS COUNTED % (AUTO) 100 %; WHITE BLOOD COUNT 6.5 10^3/uL (4.0-10.5)
[2017-10-06 05:41] LABS: PLATELET COUNT 83 10^3/uL (150-450)
[2017-10-06 05:49] LABS: ANION GAP 8 (5-19); BLOOD UREA NITROGEN 6 mg/dL (7-20); CALCIUM 8.4 mg/dL (8.4-10.2); CARBON DIOXIDE 25 mmol/L (22-30); CHLORIDE 107 mmol/L (98-107); GLUCOSE 86 mg/dL (75-110); POTASSIUM 3.2 mmol/L (3.6-5.0); SODIUM 139.6 mmol/L (137-145)
[2017-10-06 07:57] VITALS: BP 150/72
[2017-10-06] MEDS: FAMOTIDINE 20 MG TABLET PO SCH (10:03)
[2017-10-06] MEDS: AMLODIPINE BESYLATE 5 MG TABLET PO SCH (10:03)
[2017-10-06] MEDS: CIPROFLOXACIN HCL 500 MG TABLET PO SCH (10:03)
[2017-10-06] MEDS: ENOXAPARIN SODIUM INJ 40 MG/0.4 ML DISP.SYRIN SUBCUT SCH (10:04)
--- NOTE | 2017-10-19 08:06 | PDOC DISCHARGE SUMMARY ---
General - Admit/Disc Date/PCP Admission Date/Primary Care Provider: 10/03/17 08:29 CARLOS SEPULVEDA MD Discharge Date: 10/06/17 - Discharge Diagnosis (1) Colitis Is this a current diagnosis for this admission?: Yes (2) Dehydration Is this a current diagnosis for this admission?: Yes (4) Nausea Is this a current diagnosis for this admission?: Yes (5) Thrombocytopenia Is this a current diagnosis for this admission?: Yes (6) Hypertension Is this a current diagnosis for this admission?: Yes (7) Restless leg syndrome Is this a current diagnosis for this admission?: Yes (8) Hypothyroidism Is this a current diagnosis for this admission?: Yes (9) Hyperlipidemia Is this a current diagnosis for this admission?: Yes (10) Anemia Is this a current diagnosis for this admission?: Yes - Additional Information Resuscitation Status: Full Code Discharge Diet: As Tolerated, Regular, Other (Comments) Discharge Activity: Activity As Tolerated, Balance Activity w/Rest, Slowly Increase Activity Prescriptions: Ciprofloxacin HCl [Cipro 500 mg Tablet] 500 mg PO Q12 #24 tablet Metronidazole [Flagyl 500 mg Tablet] 500 mg PO Q8 #36 tablet Ondansetron [Zofran Odt 4 mg Tablet] 4 mg PO Q6HP PRN #16 tab.rapdis PRN Reason: Oxycodone HCl [Oxy-Ir 5 mg Tablet] 5 mg PO Q4HP PRN #12 tablet PRN Reason: Home Medications: Amlodipine Besylate [Norvasc 5 mg Tablet] 5 mg PO DAILY 10/03/17 Gabapentin [Neurontin 300 mg Capsule] 300 mg PO Q8HP PRN 10/03/17 Hydroxychloroquine Sulfate [Plaquenil 200 mg Tablet] 200 mg PO DAILY 10/03/17 Levothyroxine Sodium [Synthroid] 125 mcg PO Q6AM 10/03/17 Omeprazole 20 mg PO DAILY 10/03/17 Ropinirole HCl [Requip] 1 mg PO QHS 10/03/17 Simvastatin [Zocor 20 mg Tablet] 20 mg PO QHS 10/03/17 Acetaminophen [Tylenol 325 mg Tablet] 650 mg PO Q4HP PRN tablet 10/06/17 Ciprofloxacin HCl [Cipro 500 mg Tablet] 500 mg PO Q12 #24 tablet 10/06/17 Metronidazole [Flagyl 500 mg Tablet] 500 mg PO Q8 #36 tablet 10/06/17 Ondansetron [Zofran Odt 4 mg Tablet] 4 mg PO Q6HP PRN #16 tab.rapdis 10/06/17 Oxycodone HCl [Oxy-Ir 5 mg Tablet] 5 mg PO Q4HP PRN #12 tablet 10/06/17 History of Present Illness History of Present Illness: CARISA CAMPOS is a 82 year old female with a past medical history of diverticulitis, hypertension, hyperlipidemia, hypothyroidism, restless leg syndrome, arthritis, TIAs and a recent history of multiple falls at home who presented to the emergency room last evening with a complaint of abdominal pain. She states that her abdominal pain has been present for nearly a year and has gradually worsened over the last 4 months. She has seen her primary care provider for this and had an outpatient CT last week which, per the patient , was normal. The patient states that she has seen Dr. Henley, gastroenterology , in the past and that her PCP was in the process of setting up a new referral. The patient reports that she felt quite constipated yesterday and so took MiraLAX which was followed by greater than 30 watery bowel movements and severe abdominal pain and nausea. She denies fever or emesis. Evaluation in the emergency department revealed thrombocytopenia with a platelet count of 105, dehydration with a BUN of 33 but a normal creatinine a normal lipase and LFTs. CT of the abdomen and pelvis, however, demonstrated wall thickening of the transverse colon, descending colon, sigmoid colon and rectum consistent with colitis and proctitis. She is referred to the hospitalist service for admission. Hospital Course Hospital Course: The patient was admitted with colitis and empirically placed on ciprofloxacin and metronidazole. She received IV fluids while on bowel rest to maintain hydration status. Is provided supportive care with antiemetics and pain medications. The abdominal pain and distention resolved for the following 24- 36 hours. She began passing flatus and had multiple bowel movements notable for blood tinged mucus. She was started on clear diet which was tolerated well and so advanced to cardiac. She was transitioned to p.o. Cipro and Flagyl and observed overnight. She continued to demonstrate improvement and so was discharged home with recommendations to follow up with her primary care provider within 1-2 weeks and with her rubber tester within 4-6 weeks. She was discharged in stable condition, pain-free, tolerating a regular diet, and provided prescriptions for ciprofloxacin, metronidazole, oxycodone, and Zofran. Physical Exam Vital Signs: Temp Pulse Resp BP Pulse Ox 97.6 F 77 18 150/72 H 100 10/06/17 08:57 10/06/17 08:57 10/06/17 08:57 10/06/17 08:57 10/06/17 08:57 General appearance: PRESENT: no acute distress, well-developed, well-nourished Head exam: PRESENT: atraumatic, normocephalic Eye exam: PRESENT: conjunctiva pink, EOMI, PERRLA. ABSENT: scleral icterus Ear exam: PRESENT: normal external ear exam Mouth exam: PRESENT: moist, tongue midline Neck exam: ABSENT: carotid bruit, JVD, lymphadenopathy, thyromegaly Respiratory exam: PRESENT: clear to auscultation avery, symmetrical, unlabored. ABSENT: rales, rhonchi, wheezes Cardiovascular exam: PRESENT: RRR. ABSENT: diastolic murmur, rubs, systolic murmur Pulses: PRESENT: normal dorsalis pedis pul Vascular exam: PRESENT: normal capillary refill GI/Abdominal exam: PRESENT: normal bowel sounds, soft. ABSENT: distended, guarding, mass, organolmegaly, rebound, tenderness Rectal exam: PRESENT: deferred Extremities exam: PRESENT: full ROM. ABSENT: calf tenderness, clubbing, pedal edema Neurological exam: PRESENT: alert, awake, oriented to person, oriented to place , oriented to time, oriented to situation, CN II-XII grossly intact. ABSENT: motor sensory deficit Psychiatric exam: PRESENT: anxious, normal mood. ABSENT: homicidal ideation, suicidal ideation Skin exam: PRESENT: dry, intact, warm. ABSENT: cyanosis, rash Results Laboratory Results: 10/06/17 04:32 10/06/17 04:32 Impressions: Abdomen/Pelvis CT 10/03/17 00:00 IMPRESSION: 1. No CT evidence of active gastrointestinal hemorrhage. 2. Wall thickening with inflammatory changes at the transverse colon, descending colon, sigmoid colon and rectum, most consistent with colitis and proctitis. 3. Soft tissue stranding adjacent to the pancreatic tail, may be secondary to the above findings. Please correlate with lipase level to exclude superimposed acute pancreatitis. 4. Small hiatal hernia. Chest X-Ray 10/04/17 00:00 IMPRESSION: COPD. NO ACUTE RADIOGRAPHIC FINDING IN THE CHEST. Qualifiers PATEINT BEING DISCHARGED WITH ANY OF THE FOLLOWING DIAGNOSIS?: No
== END 2017-10-06 10:59 | disposition home or self-care (01) | DRG 392 ==
LOC: ER 00:12 → EH 08:29 → 5 10-04 01:40
PROVIDERS: ADMIT Emergency Medicine; ATTEND Emergency Medicine
PROC: 3E0F73Z Introduction of Anti-inflammatory into Respiratory Tract, Via Natural or Artificial Opening (ICD-10-PCS; principal; 2017-10-03)
DX: K52.9 Noninfective gastroenteritis and colitis, unspecified (principal); N30.00 Acute cystitis without hematuria; E86.0 Dehydration; I10 Essential (primary) hypertension; E78.5 Hyperlipidemia, unspecified; E03.9 Hypothyroidism, unspecified; G25.81 Restless legs syndrome; M19.90 Unspecified osteoarthritis, unspecified site; K62.89 Other specified diseases of anus and rectum; J45.909 Unspecified asthma, uncomplicated; G43.909 Migraine, unspecified, not intractable, without status migrainosus; K21.9 Gastro-esophageal reflux disease without esophagitis; F32.9 Major depressive disorder, single episode, unspecified; D64.9 Anemia, unspecified; K44.9 Diaphragmatic hernia without obstruction or gangrene; D69.6 Thrombocytopenia, unspecified; B96.20 Unspecified Escherichia coli [E. coli] as the cause of diseases classified elsewhere; Z86.73 Personal history of transient ischemic attack (TIA), and cerebral infarction without residual deficits; Z91.81 History of falling; Z86.718 Personal history of other venous thrombosis and embolism; Z85.41 Personal history of malignant neoplasm of cervix uteri; Z88.2 Allergy status to sulfonamides; Z79.899 Other long term (current) drug therapy; Z86.14 Personal history of Methicillin resistant Staphylococcus aureus infection; Z90.710 Acquired absence of both cervix and uterus; Z96.653 Presence of artificial knee joint, bilateral; Z60.2 Problems related to living alone; Z82.49 Family history of ischemic heart disease and other diseases of the circulatory system; Z80.42 Family history of malignant neoplasm of prostate; Z83.49 Family history of other endocrine, nutritional and metabolic diseases; Z80.51 Family history of malignant neoplasm of kidney
CPT/HCPCS: 36415; 71046; 74178; 80048; 80053; 81001; 83605; 83690; 85025; 86850; 86900; 86901; 87040; 87086; 87088; 87186; 87493; 99285; G8978-GP; G8979-GP; J0744; J1650; J2270; J7030; J7040; S0119

== ENCOUNTER → 2017-12-17 | Outpatient (CLI) | payer MEDICARE, OTHER ==
[2017-12-17 19:00] LABS: ABSOLUTE EOSINOPHILS # (AUTO) 0.1 10^3/uL (0.0-0.6); ABSOLUTE LYMPHOCYTES (AUTO) 1.5 10^3/uL (0.5-4.7); ABSOLUTE MONOCYTES (AUTO) 0.5 10^3/uL (0.1-1.4); ABSOLUTE NEUT (AUTO) 4.8 10^3/uL (1.7-8.2); BASOPHILS % (AUTO) 0.2 % (0-2); EOSINOPHILS % (AUTO) 1.7 % (0-6); HEMATOCRIT 38.5 % (36.0-47.0); HEMOGLOBIN 12.5 g/dL (12.0-15.5); LYMPHOCYTES % (AUTO) 21.3 % (13-45); MEAN CORPUSCULAR HEMOGLOBIN 30.1 pg (27.0-33.4); MEAN CORPUSCULAR HGB CONC 32.4 g/dL (32.0-36.0); MEAN CORPUSCULAR VOLUME 93 fl (80-97); MONOCYTES % (AUTO) 6.6 % (3-13); PLATELET COUNT 131 10^3/uL (150-450); RED BLOOD COUNT 4.15 10^6/uL (3.72-5.28); RED CELL DISTRIBUTION WIDTH 14.6 % (11.5-14.0); SEGMENTED NEUTROPHILS % (AUTO) 70.2 % (42-78); TOTAL CELLS COUNTED % (AUTO) 100 %; WHITE BLOOD COUNT 6.8 10^3/uL (4.0-10.5)
[2017-12-17 19:12] LABS: ALANINE AMINOTRANSFERASE 22 U/L (9-52); ALKALINE PHOSPHATASE 95 U/L (38-126); ASPARTATE AMINO TRANSFERASE 28 U/L (14-36); BILIRUBIN,DIRECT 0.4 mg/dL (0.0-0.4); BILIRUBIN,TOTAL 0.4 mg/dL (0.2-1.3); C-REACTIVE PROTEIN 29.4 mg/L (<10.0); TOTAL PROTEIN 6.4 g/dL (6.3-8.2)
[2017-12-17 19:29] LABS: CARCINOEMBRYONIC ANTIGEN 0.8 ng/mL (<3.0)
== END ==
LOC: OD 16:30
PROVIDERS: ATTEND Internal Medicine Gastroenterology
DX: K62.5 Hemorrhage of anus and rectum (principal); C18.9 Malignant neoplasm of colon, unspecified; K63.5 Polyp of colon; R93.3 Abnormal findings on diagnostic imaging of other parts of digestive tract
CPT/HCPCS: 36415; 80076; 82378; 85025; 86140

== ENCOUNTER → 2018-04-21 | Outpatient (CLI) | payer MEDICARE, OTHER ==
[2018-04-21 16:02] LABS: ABSOLUTE EOSINOPHILS # (AUTO) 0.1 10^3/uL (0.0-0.6); ABSOLUTE LYMPHOCYTES (AUTO) 1.5 10^3/uL (0.5-4.7); ABSOLUTE MONOCYTES (AUTO) 0.7 10^3/uL (0.1-1.4); ABSOLUTE NEUT (AUTO) 4.6 10^3/uL (1.7-8.2); BASOPHILS % (AUTO) 0.4 % (0-2); EOSINOPHILS % (AUTO) 1.8 % (0-6); HEMATOCRIT 33.6 % (36.0-47.0); HEMOGLOBIN 10.6 g/dL (12.0-15.5); LYMPHOCYTES % (AUTO) 21.6 % (13-45); MEAN CORPUSCULAR HEMOGLOBIN 26.3 pg (27.0-33.4); MEAN CORPUSCULAR HGB CONC 31.6 g/dL (32.0-36.0); MEAN CORPUSCULAR VOLUME 83 fl (80-97); MONOCYTES % (AUTO) 10.4 % (3-13); PLATELET COUNT 243 10^3/uL (150-450); RED BLOOD COUNT 4.03 10^6/uL (3.72-5.28); RED CELL DISTRIBUTION WIDTH 16.5 % (11.5-14.0); SEGMENTED NEUTROPHILS % (AUTO) 65.8 % (42-78); TOTAL CELLS COUNTED % (AUTO) 100 %
== END ==
LOC: OD 14:13
PROVIDERS: ATTEND Radiology Radiation Oncology
DX: C54.1 Malignant neoplasm of endometrium (principal)
CPT/HCPCS: 36415; 85025

== ENCOUNTER 2018-05-03 19:36 | Inpatient (IN) | payer MEDICARE, OTHER ==
[2018-05-03] MEDS ORDERED: RINGERS SOLUTION,LACTATED 1,000 ML IV ONE (19:41)
[2018-05-03 20:14] LABS: VENOUS BLOOD HCO3 25.7 mmol/L (20-32); VENOUS BLOOD PCO2 45.2 mmHg (35-63); VENOUS BLOOD PH 7.37 (7.30-7.42)
[2018-05-03 20:15] LABS: ABSOLUTE EOSINOPHILS # (AUTO) 0.1 10^3/uL (0.0-0.6); ABSOLUTE LYMPHOCYTES (AUTO) 0.4 10^3/uL (0.5-4.7); ABSOLUTE MONOCYTES (AUTO) 0.8 10^3/uL (0.1-1.4); ABSOLUTE NEUT (AUTO) 5.4 10^3/uL (1.7-8.2); BASOPHILS % (AUTO) 0.2 % (0-2); EOSINOPHILS % (AUTO) 1.6 % (0-6); HEMATOCRIT 34.4 % (36.0-47.0); LYMPHOCYTES % (AUTO) 6.6 % (13-45); MEAN CORPUSCULAR HEMOGLOBIN 26.7 pg (27.0-33.4); MEAN CORPUSCULAR HGB CONC 31.9 g/dL (32.0-36.0); MEAN CORPUSCULAR VOLUME 84 fl (80-97); MONOCYTES % (AUTO) 11.8 % (3-13); PLATELET COUNT 158 10^3/uL (150-450); RED BLOOD COUNT 4.12 10^6/uL (3.72-5.28); RED CELL DISTRIBUTION WIDTH 17.2 % (11.5-14.0); SEGMENTED NEUTROPHILS % (AUTO) 79.8 % (42-78); TOTAL CELLS COUNTED % (AUTO) 100 %; WHITE BLOOD COUNT 6.8 10^3/uL (4.0-10.5)
--- NOTE | 2018-05-03 20:25 | RADIOLOGY REPORT (SQ) ---
EXAM DESCRIPTION: CHEST SINGLE VIEW COMPLETED DATE/TIME: 05/03/2018 8:16 pm REASON FOR STUDY: sob, fever COMPARISON: 10/04/2017 NUMBER OF VIEWS: One view. TECHNIQUE: Single frontal radiographic view of the chest acquired. LIMITATIONS: None. FINDINGS: LUNGS AND PLEURA: Hyperinflated appearance with apical scar. No acute infiltrate or suspi cious opacity. MEDIASTINUM AND HILAR STRUCTURES: No masses. Contour normal. HEART AND VASCULAR STRUCTURES: Heart normal in size. Normal vasculature. BONES: No acute findings. HARDWARE: None in the chest. OTHER: No other significant finding. IMPRESSION: NO SIGNIFICANT RADIOGRAPHIC FINDING IN THE CHEST. TECHNICAL DOCUMENTATION: JOB ID: [id number] [employer]- All Rights Reserved Reading location - IP/workstation name: [email or web address]
[2018-05-03 20:34] LABS: ALANINE AMINOTRANSFERASE 24 U/L (9-52); ALBUMIN 3.2 g/dL (3.5-5.0); ALKALINE PHOSPHATASE 91 U/L (38-126); ANION GAP 11 (5-19); ASPARTATE AMINO TRANSFERASE 13 U/L (14-36); BILIRUBIN,DIRECT 0.2 mg/dL (0.0-0.4); BILIRUBIN,TOTAL 0.4 mg/dL (0.2-1.3); BLOOD UREA NITROGEN 12 mg/dL (7-20); CALCIUM 8.8 mg/dL (8.4-10.2); CARBON DIOXIDE 24 mmol/L (22-30); CHLORIDE 102 mmol/L (98-107); GLUCOSE 114 mg/dL (75-110); POTASSIUM 4.1 mmol/L (3.6-5.0); SODIUM 136.7 mmol/L (137-145); TOTAL PROTEIN 6.1 g/dL (6.3-8.2)
[2018-05-03] MEDS ORDERED: LEVOFLOXACIN 750 MG/D5W RTU 750 MG/150 ML RTUPB IV ONE (20:42)
--- NOTE | 2018-05-03 20:48 | ER Document Report ---
ED General - General Chief Complaint: Fever Stated Complaint: FEVER Time Seen by Provider: 05/03/18 19:40 Notes: Patient is an 82 year old female with a past medical history of hypertension, hyperlipidemia who presents with 2 days of feeling generally weak, having a cough with production of sputum and feeling short of breath. She was found to be febrile by EMS 101.7F. She reports that this does feel similar to when she has had pneumonia in the past. She has not seen her general doctor regarding today's concerns. Nothing has improved or worsened her symptoms since onset. She does not normally require oxygen at baseline. She denies any dysuria, chest pain, headache, neck pain or abdominal pain. TRAVEL OUTSIDE OF THE [place] IN LAST 30 DAYS: No - Related Data Allergies/Adverse Reactions: Sulfa (Sulfonamide Antibiotics) Adverse Reaction (Intermediate, Verified 10:45) tingling, itching Past Medical History - General Information source: Patient - Social History Smoking Status: Never Smoker Frequency of alcohol use: None Drug Abuse: None Lives with: Family Family History: Hypertension - Mother age 105., Malignancy - Prostate cancer. Father at age 65., Thyroid Disfunction Patient has suicidal ideation: No Patient has homicidal ideation: No - Past Medical History Cardiac Medical History: Reports: Hx DVT, Hx Hypercholesterolemia, Hx Hypertension Denies: Hx Atrial Fibrillation, Hx Congestive Heart Failure, Hx Coronary Artery Disease, Hx Heart Attack, Hx Peripheral Vascular Disease, Hx Pulmonary Embolism, Hx Heart Murmur Pulmonary Medical History: Reports: Hx Asthma, Hx Bronchitis, Hx Pneumonia Denies: Hx COPD, Hx Respiratory Failure, Hx Sleep Apnea, Hx Tuberculosis Neurological Medical History: Reports: Hx Migraine. Denies: Hx Cerebrovascular Accident, Hx Seizures Endocrine Medical History: Reports: Hx Hyperthyroidism, Hx Hypothyroidism. Denies: Hx Graves' Disease Renal/ Medical History: Denies: Hx End Stage Renal Disease, Hx Kidney Stones, Hx Ovarian Cysts, Hx Peritoneal Dialysis, Hx Pelvic Inflammatory Disease Malignancy Medical History: Reports: Hx Cervical Cancer. Denies: Hx Breast Cancer, Hx Leukemia, Hx Lung Cancer, Hx Ovarian Cancer GI Medical History: Reports: Hx Diverticulitis, Hx Gastroesophageal Reflux Disease, Hx Ulcer - 1995. Denies: Hx Crohn's Disease, Hx Hiatal Hernia, Hx Irritable Bowel, Hx Liver Failure, Hx Pancreatitis Musculoskeletal Medical History: Reports Hx Arthritis, Denies Hx Fibromyalgia, Denies Hx Multiple Sclerosis, Denies Hx Muscular Dystrophy Psychiatric Medical History: Reports: Hx Depression Denies: Hx Bipolar Disorder, Hx Dementia, Hx Post Traumatic Stress Disorder, Hx Schizophrenia Traumatic Medical History: Denies: Hx Fractures Infectious Medical History: Reports: Hx MRSA. Denies: Hx HIV Past Surgical History: Reports: Hx Abdominal Surgery - Hysterectomy, Hx Hysterectomy, Hx Orthopedic Surgery - Right foot bunionectomy. Bilateral total knee replacement. Left wrist CORNELIUS, Hx Tonsillectomy, Other. Denies: Hx Appendectomy, Hx Bowel Surgery, Hx Section, Hx Cholecystectomy, Hx Colostomy, Hx Coronary Artery Bypass Graft, Hx Gastric Bypass Surgery, Hx Herniorrhaphy, Hx Mastectomy, Hx Pacemaker, Hx Tubal Ligation - Immunizations Hx Diphtheria, Pertussis, Tetanus Vaccination: Yes Hx Pneumococcal Vaccination: 06/01/11 Review of Systems - Review of Systems Notes: Constitutional: Positive for fever. HENT: Negative for sore throat. Eyes: Negative for visual changes. Cardiovascular: Negative for chest pain. Respiratory: Positive for shortness of breath. Gastrointestinal: Negative for abdominal pain, positive for nausea, vomiting and increased ostomy output Genitourinary: Negative for dysuria. Musculoskeletal: Negative for back pain. Skin: Negative for rash. Neurological: Negative for headaches, weakness or numbness. 10 point ROS negative except as marked above and in HPI. Physical Exam - Vital signs Vitals: Temp Resp BP Pulse Ox 99.9 F 18 149/75 H 90 L 05/03/18 19:45 05/03/18 19:45 05/03/18 19:45 05/03/18 19:45 Interpretation: Hypoxic, Tachypneic Notes: PHYSICAL EXAMINATION: GENERAL: Moderately ill in appearance but in no acute distress HEAD: Atraumatic, normocephalic. EYES: Pupils equal round and reactive to light, extraocular movements intact, sclera anicteric, conjunctiva are normal. ENT: nares patent, oropharynx clear without exudates. Moderately dry mucous membranes. NECK: Normal range of motion, supple without lymphadenopathy LUNGS: Mild tachypnea, slightly diminished in the left upper lobe but breath sounds otherwise clear to auscultation bilaterally. No wheezes rales or rhonchi. HEART: Regular rate and rhythm without murmurs ABDOMEN: Soft, nontender, normoactive bowel sounds. No guarding, no rebound. No masses appreciated. EXTREMITIES: Normal range of motion, no pitting or edema. No cyanosis. NEUROLOGICAL: No focal neurological deficits. Moves all extremities spontaneously and on command. PSYCH: Normal mood, normal affect. SKIN: Warm, Dry, normal turgor, no rashes or lesions noted. Course - Re-evaluation Re-evalutation: 05/03/18 20:44 Presentation of a somewhat ill-appearing 82-year-old woman complaining of cough for the past several days, feeling very weak with associated nausea, vomiting and increased stool output into her ostomy pouch. She has no focal abdominal tenderness on examination. Slight diminished breath sounds in the left upper lobe. Quite dehydrated on examination. Initial vitals from EMS showed hypoxia to 89%. Patient does not have a baseline oxygen dependence. Labs are unremarkable, lactate is normal. Chest x-ray is clear although clinically patient's picture is most consistent with an acute pneumonia particular given her hypoxemia, her cough, sputum production, and absence of any chest pain or pleuritic pain which would suggest a picture of a pulmonary embolus. Moreover her temperature is higher than I would anticipate for acute PE. She has been started on levofloxacin, IV fluids. I discussed with Dr. Clifford who has accepted the patient. - Vital Signs Vital signs: Temp Pulse Resp BP Pulse Ox 98.0 F 79 16 133/67 H 100 05/04/18 00:24 05/04/18 02:00 05/04/18 00:24 05/04/18 00:24 05/04/18 00:24 - Laboratory Result Diagrams: 05/04/18 02:57 05/04/18 02:57 Laboratory results interpreted by me: 05/03/18 05/03/18 05/03/18 19:55 19:55 19:55 Hgb 11.0 L Hct 34.4 L MCH 26.7 L MCHC 31.9 L RDW 17.2 H Seg Neutrophils % 79.8 H Lymphocytes % 6.6 L Absolute Lymphocytes 0.4 L Sodium 136.7 L Glucose 114 H AST 13 L Creatine Kinase 21 L Total Protein 6.1 L Albumin 3.2 L - Diagnostic Test Radiology reviewed: Image reviewed, Reports reviewed Radiology results interpreted by me: 05/03/18 20:44 CXR: No acute infiltrate Discharge - Discharge Clinical Impression: Hypoxia, Nausea vomiting and diarrhea Pneumonia Qualifiers: Pneumonia type: due to unspecified organism Laterality: unspecified laterality Lung location: unspecified part of lung Qualified Code(s): J18.9 - Pneumonia, unspecified organism Sepsis Qualifiers: Sepsis type: sepsis due to unspecified organism Qualified Code(s): A41.9 - Sepsis, unspecified organism Ovarian cancer Qualifiers: Laterality: unspecified laterality Qualified Code(s): C56.9 - Malignant neoplasm of unspecified ovary Condition: Fair Admitting Provider: Hospitalist Unit Admitted: [facility]
[2018-05-03] MEDS ORDERED: IPRATROPIUM/ALBUTEROL 0.5-2.5 MG/3 ML AMPUL NEB PRN ×2 (20:52→20:53)
[2018-05-03] MEDS ORDERED: CHLORPHENIRAMINE MALEATE 4 MG TABLET PO ONE (20:52)
[2018-05-03] MEDS ORDERED: KETOROLAC TROMETHAMINE INJ/PF 30 MG/1 ML SDV IV PRN (20:52)
[2018-05-03] MEDS ORDERED: ACETAMINOPHEN 325 MG TABLET PO PRN (20:52)
[2018-05-03] MEDS ORDERED: OXYCODONE HCL IR 5 MG TABLET PO PRN (20:56)
[2018-05-03] MEDS ORDERED: NORMAL SALINE 1000 ML 1,000 ML IV SCH (21:00)
[2018-05-03 21:30] LABS: NT PRO BNP 57 pg/mL (<450)
[2018-05-03 21:31] LABS: CREATINE KINASE MB < 0.22 ng/mL (<4.55); TROPONIN I < 0.012 ng/mL
[2018-05-03] MEDS ORDERED: CHLORPHENIRAMINE MALEATE 4 MG TABLET ONE (23:10)
[2018-05-03] MEDS ORDERED: FLUTICASONE NASAL SPRAY 50 MCG/SPRY 120 SPRAY/16 GM ONE (23:10)
[2018-05-03] MEDS: HEPARIN SOD (PORCINE) 5,000 UNIT/ML 1 ML SYRINGE SUBCUT SCH (23:11)
--- NOTE | 2018-05-03 23:22 | RADIOLOGY REPORT (SQ) ---
EXAM DESCRIPTION: CT CHEST ANGIOGRAPHY WITHOUT THEN WITH IV CONTRAST COMPLETED DATE/TME: 05/03/2018 00:00 CLINICAL HISTORY: 82 years Female, fever, cough Comparison: CR, 05/03/[address], 08/23/2016, report only. Technique: IV contrast. Coronal and sagittal reformat. 3d reconstruction. This exam was performed according to our departmental dose-optimization program, which includes automated exposure control, adjustment of the mA and/or kV according to patient size and/or use of iterative reconstruction technique.[facility]: Dose Right [facility]: CareDose [facility]: Dose Right [facility]: Teradose 4D [facility]: [employer] LIMITATIONS: Quality of pulmonary arteriogram: Nondiagnostic. 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 There is inadequate evaluation of the pulmonary arterial system. There is no gross evidence of large pulmonary embolus. No right ventricular strain. Clear lungs. Bowel ostomy of the left upper abdominal quadrant. Gallbladder hydrops transverse diameter of 4.0 cm. Small atelectasis or scar bilateral lower lobes. Moderate T12 anterior vertebral compression deformity. Likely benign small left adrenal adenoma. Inferior neck, axillae, mediastinum, lungs, airway, lymphatics, heart, upper abdomen, and musculoskeleton appear otherwise unremarkable. Impression: 1. Inadequate visualization of the pulmonary arterial system due to insufficient pulmonary arterial enhancement. There is no gross evidence of large pulmonary embolus. No right ventricular strain. Consider repeat, alternative, or surveillance interrogation for pulmonary embolus/deep venous thrombosis as clinically warranted. 2. 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
[2018-05-04] MEDS: IPRATROPIUM/ALBUTEROL 0.5-2.5 MG/3 ML AMPUL NEB SCH ×3 (00:24→16:00)
[2018-05-04] MEDS ORDERED: NORMAL SALINE 1000 ML 1,000 ML IV SCH (01:00)
[2018-05-04] MEDS: NORMAL SALINE 1000 ML 1,000 ML IV PRN ×2 (01:00→05:22)
[2018-05-04] MEDS: FLUTICASONE NASAL SPRAY 50 MCG/SPRY 120 SPRAY/16 GM NASL SCH ×4 (02:25→21:50)
[2018-05-04 03:11] LABS: ABSOLUTE LYMPHOCYTES (AUTO) 0.3 10^3/uL (0.5-4.7); ABSOLUTE MONOCYTES (AUTO) 0.6 10^3/uL (0.1-1.4); ABSOLUTE NEUT (AUTO) 3.8 10^3/uL (1.7-8.2); BASOPHILS % (AUTO) 0.1 % (0-2); EOSINOPHILS % (AUTO) 0.3 % (0-6); HEMATOCRIT 31.9 % (36.0-47.0); HEMOGLOBIN 10.2 g/dL (12.0-15.5); LYMPHOCYTES % (AUTO) 7.1 % (13-45); MEAN CORPUSCULAR HGB CONC 32.1 g/dL (32.0-36.0); MEAN CORPUSCULAR VOLUME 84 fl (80-97); MONOCYTES % (AUTO) 12.6 % (3-13); PLATELET COUNT 113 10^3/uL (150-450); RED BLOOD COUNT 3.79 10^6/uL (3.72-5.28); SEGMENTED NEUTROPHILS % (AUTO) 79.9 % (42-78); TOTAL CELLS COUNTED % (AUTO) 100 %; WHITE BLOOD COUNT 4.8 10^3/uL (4.0-10.5)
[2018-05-04 03:20] LABS: ANION GAP 11 (5-19); BLOOD UREA NITROGEN 11 mg/dL (7-20); CALCIUM 8.4 mg/dL (8.4-10.2); CARBON DIOXIDE 22 mmol/L (22-30); CHLORIDE 104 mmol/L (98-107); GLUCOSE 113 mg/dL (75-110); POTASSIUM 4.1 mmol/L (3.6-5.0); SODIUM 136.9 mmol/L (137-145)
[2018-05-04 03:33] LABS: CREATINE KINASE MB < 0.22 ng/mL (<4.55); TROPONIN I < 0.012 ng/mL
[2018-05-04] MEDS: HEPARIN SOD (PORCINE) 5,000 UNIT/ML 1 ML SYRINGE SUBCUT SCH ×3 (05:23→21:45)
--- NOTE | 2018-05-04 05:53 | PDOC H&P ---
History of Present Illness Admission Date/PCP: 05/03/18 21:14 CARLOS SEPULVEDA MD Patient complains of: Productive cough, right pelvic pain History of Present Illness: CARISA CAMPOS is a 82 year old female with past medical history of stage IV ovarian cancer, colostomy, hypertension, thoracic aortic aneurysm and dyslipidemia. Who had received 1 in a series of radiation treatments to the right pelvis 2 days ago. She has subsequently had generalized fatigue, productive cough of yellow sputum subjective fever. In the emergency room she has an unremarkable workup, with CTA chest negative for pneumonia or pulmonary emboli. Denying sore throat, rhinorrhea and GERD. She receives empiric antibiotics and referred to the hospitalist for admission. Past Medical History Cardiac Medical History: Reports: DVT, Hyperlipidema, Hypertension Denies: Atrial Fibrillation, Congestive Heart Failure, Coronary Artery Disease, Myocardial Infarction, Peripheral Vascular Disease, Pulmonary Embolism , Heart Murmur Pulmonary Medical History: Reports: Asthma, Bronchitis, Pneumonia Denies: Chronic Obstructive Pulmonary Disease (COPD), Respiratory Failure, Sleep Apnea, Tuberculosis Neurological Medical History: Reports: Migraine Denies: Seizures Endocrine Medical History: Reports: Hyperthyroidism, Hypothyroidism Renal/ Medical History: Denies: End Stage Renal Disease Malignancy Medical History: Reports: Cervical Cancer Denies: Breast Cancer, Leukemia, Lung Cancer, Ovarian Cancer GI Medical History: Reports: Diverticulitis, Gastroesophageal Reflux Disease Denies: Crohn's Disease, Hiatal Hernia Musculoskeltal Medical History: Reports: Arthritis Denies: Fibromyalgia Psychiatric Medical History: Reports: Depression Denies: Bipolar Disorder, Dementia, Post Traumatic Stress Disorder Hematology: Reports: Anemia Denies: Hemophilia, Sickle Cell Disease Infectious Medical History: Reports: Methicillin-Resistant Staph Aureus Denies: HIV Past Surgical History Past Surgical History: Reports: Hysterectomy, Orthopedic Surgery - Right foot bunionectomy. Bilateral total knee replacement. Left wrist CORNELIUS, Tonsillectomy , Other Denies: Amputation, Appendectomy, Section, Cholecystectomy, Colostomy, Coronary Artery Bypass Graft, Gastric Bypass Surgery, Herniorrhaphy, Mastectomy, Pacemaker, Tubal Ligation Social History Lives with: Family Smoking Status: Never Smoker Frequency of Alcohol Use: None Hx Recreational Drug Use: No Drugs: None Hx Prescription Drug Abuse: No - Advance Directive Resuscitation Status: Full Code Family History Family History: Hypertension - Mother age 105., Malignancy - Prostate cancer. Father at age 65., Thyroid Disfunction Parental Family History Reviewed: Yes Children Family History Reviewed: Yes Sibling(s) Family History Reviewed.: Yes Medication/Allergy Home Medications: Amlodipine Besylate [Norvasc 5 mg Tablet] 5 mg PO DAILY 10/03/17 Gabapentin [Neurontin 300 mg Capsule] 300 mg PO Q8HP PRN 10/03/17 Hydroxychloroquine Sulfate [Plaquenil 200 mg Tablet] 200 mg PO DAILY 10/03/17 Levothyroxine Sodium [Synthroid] 125 mcg PO Q6AM 10/03/17 Omeprazole 20 mg PO DAILY 10/03/17 Ropinirole HCl [Requip] 1 mg PO QHS 10/03/17 Simvastatin [Zocor 20 mg Tablet] 20 mg PO QHS 10/03/17 Acetaminophen [Tylenol 325 mg Tablet] 650 mg PO Q4HP PRN tablet 10/06/17 Ciprofloxacin HCl [Cipro 500 mg Tablet] 500 mg PO Q12 #24 tablet 10/06/17 Metronidazole [Flagyl 500 mg Tablet] 500 mg PO Q8 #36 tablet 10/06/17 Ondansetron [Zofran Odt 4 mg Tablet] 4 mg PO Q6HP PRN #16 tab.rapdis 10/06/17 Oxycodone HCl [Oxy-Ir 5 mg Tablet] 5 mg PO Q4HP PRN #12 tablet 10/06/17 Allergies/Adverse Reactions: Sulfa (Sulfonamide Antibiotics) Adverse Reaction (Intermediate, Verified 10:45) tingling, itching Review of Systems Constitutional: PRESENT: as per HPI, fatigue, night sweats, weakness. ABSENT: chills, fever(s), headache(s), weight gain, weight loss Eyes: ABSENT: visual disturbances Ears: ABSENT: hearing changes Nose, Mouth, and Throat: PRESENT: as per HPI. ABSENT: headache(s) Cardiovascular: ABSENT: chest pain, dyspnea on exertion, edema, orthropnea, palpitations Respiratory: PRESENT: as per HPI, cough, sputum. ABSENT: hemoptysis Gastrointestinal: ABSENT: abdominal pain, constipation, diarrhea, hematemesis, hematochezia, nausea, vomiting Genitourinary: ABSENT: dysuria, hematuria Musculoskeletal: ABSENT: joint swelling Integumentary: ABSENT: rash, wounds Neurological: ABSENT: abnormal gait, abnormal speech, confusion, dizziness, focal weakness, syncope Psychiatric: ABSENT: anxiety, depression, homidical ideation, suicidal ideation Endocrine: ABSENT: cold intolerance, heat intolerance, polydipsia, polyuria Hematologic/Lymphatic: ABSENT: easy bleeding, easy bruising Physical Exam Vital Signs: Temp Pulse Resp BP Pulse Ox 98.0 F 79 16 133/61 H 98 05/04/18 03:39 05/04/18 03:39 05/04/18 03:39 05/04/18 03:39 05/04/18 04:00 Pulse Oximeter Continuous Start: 05/03/18 20: 53 Freq: RTQ4 Status: Active Document 05/04/18 04:00 [facility] (Rec: 05/04/18 05:30 [facility] [id number]) Pulse Oximetry Assessment Oxygen Saturation (92-100) 98 Oxygen Flow Rate (L/min) 2 Oxygen Delivery Method Nasal Cannula Fraction of Inspired Oxygen (FIO2) 28 Equipment Usage Equipment in Use Continuous SpO2 Machine # [id number] Intake & Output 05/02/18 05/03/18 05/04/18 11:59 11:59 11:59 Intake Total 2150 Output Total 0 Balance 2150 Weight 81.7 kg General appearance: PRESENT: no acute distress, well-developed, well-nourished Head exam: PRESENT: atraumatic, normocephalic Eye exam: PRESENT: conjunctiva pink, EOMI, PERRLA. ABSENT: scleral icterus Ear exam: PRESENT: normal external ear exam Mouth exam: PRESENT: moist, tongue midline Neck exam: ABSENT: carotid bruit, JVD, lymphadenopathy, thyromegaly Respiratory exam: PRESENT: clear to auscultation avery. ABSENT: rales, rhonchi, wheezes Cardiovascular exam: PRESENT: RRR. ABSENT: diastolic murmur, rubs, systolic murmur Pulses: PRESENT: normal dorsalis pedis pul Vascular exam: PRESENT: normal capillary refill GI/Abdominal exam: PRESENT: normal bowel sounds, soft, tenderness - Right pelvic pain, other. ABSENT: distended, guarding, mass, organolmegaly, rebound Rectal exam: PRESENT: deferred Extremities exam: PRESENT: full ROM. ABSENT: calf tenderness, clubbing, pedal edema Neurological exam: PRESENT: alert, awake, oriented to person, oriented to place , oriented to time, oriented to situation, CN II-XII grossly intact. ABSENT: motor sensory deficit Psychiatric exam: PRESENT: appropriate affect, normal mood. ABSENT: homicidal ideation, suicidal ideation Skin exam: PRESENT: dry, intact, warm. ABSENT: cyanosis, rash Results Laboratory Results: 05/04/18 02:57 05/04/18 02:57 05/04/18 05/04/18 02:57 02:57 WBC 4.8 RBC 3.79 Hgb 10.2 L Hct 31.9 L MCV 84 MCH 27.0 MCHC 32.1 RDW 18.0 H Plt Count 113 L Seg Neutrophils % 79.9 H Lymphocytes % 7.1 L Monocytes % 12.6 Eosinophils % 0.3 Basophils % 0.1 Absolute Neutrophils 3.8 Absolute Lymphocytes 0.3 L Absolute Monocytes 0.6 Absolute Eosinophils 0.0 Absolute Basophils 0.0 Sodium 136.9 L Potassium 4.1 Chloride 104 Carbon Dioxide 22 Anion Gap 11 BUN 11 Creatinine 0.61 Est GFR ( Amer) > 60 Est GFR (Non-Af Amer) > 60 Glucose 113 H Calcium 8.4 05/04/18 05/04/18 02:57 02:57 Creatine Kinase 23 L CK-MB (CK-2) < 0.22 Troponin I < 0.012 Impressions: Chest X-Ray 05/03/18 19:40 IMPRESSION: NO SIGNIFICANT RADIOGRAPHIC FINDING IN THE CHEST. Assessment & Plan - Diagnosis (1) Acute bronchitis Is this a current diagnosis for this admission?: Yes Plan: Chlorpheniramine, Flonase, albuterol with Atrovent, Levaquin and incentive spirometry (2) Ovarian cancer Qualifiers: Laterality: unspecified laterality Qualified Code(s): C56.9 - Malignant neoplasm of unspecified ovary Is this a current diagnosis for this admission?: Yes Plan: At baseline with right-sided pelvic pain following radiation treatment 48 hours ago. - Time Time Spent: 30 to 50 Minutes
[2018-05-04] MEDS: LEVOFLOXACIN 750 MG/D5W RTU 750 MG/150 ML RTUPB IV SCH (09:44)
[2018-05-04 10:27] LABS: CREATINE KINASE MB 0.23 ng/mL (<4.55)
[2018-05-04 10:38] LABS: TROPONIN I < 0.012 ng/mL
[2018-05-04 10:49] LABS: APPEARANCE,URINE CLEAR; BILIRUBIN,URINE NEGATIVE (NEGATIVE); COLOR,URINE STRAW; GLUCOSE, URINE NEGATIVE (NEGATIVE); KETONES,URINE NEGATIVE (NEGATIVE); LEUKOCYTE ESTERASE,URINE NEGATIVE (NEGATIVE); NITRITE,URINE NEGATIVE (NEGATIVE); PROTEIN,URINE NEGATIVE (NEGATIVE); URINE SPECIFIC GRAVITY 1.006; UROBILINOGEN,URINE NEGATIVE mg/dL (<2.0)
--- NOTE | 2018-05-04 12:38 | PDOC PROGRESS REPORT ---
Subjective Progress Note for:: 05/04/18 Subjective:: Ms. 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 No acute event overnight. Patient says that she still having body malaise and feels that she has a head cold. She denies any shortness of breath or chest pain. Reason For Visit: SOB PE VS PNEUOMONIA Physical Exam Vital Signs: Temp Pulse Resp BP Pulse Ox 98.9 F 67 16 129/53 H 98 05/04/18 07:34 05/04/18 08:16 05/04/18 08:16 05/04/18 07:34 05/04/18 11:17 Pulse Oximeter Continuous Start: 05/03/18 20: 53 Freq: RTQ4 Status: Active Document 05/04/18 11:17 [facility] (Rec: 05/04/18 11:18 [facility] [id number]) Pulse Oximetry Assessment Oxygen Saturation (92-100) 98 Oxygen Flow Rate (L/min) 2 Oxygen Delivery Method Nasal Cannula Fraction of Inspired Oxygen (FIO2) 28 Equipment Usage Equipment in Use Continuous SpO2 Machine # 3 Intake & Output 05/03/18 05/04/18 05/05/18 06:59 06:59 06:59 Intake Total 2350 1150 Output Total 1 Balance 2349 1150 Weight 180 lb 1.883 oz General appearance: PRESENT: no acute distress, well-developed, well-nourished Head exam: PRESENT: atraumatic, normocephalic Eye exam: PRESENT: conjunctiva pink, EOMI, PERRLA. ABSENT: scleral icterus Ear exam: PRESENT: normal external ear exam Mouth exam: PRESENT: moist, tongue midline Neck exam: ABSENT: carotid bruit, JVD, lymphadenopathy, thyromegaly Respiratory exam: PRESENT: clear to auscultation avery. ABSENT: rales, rhonchi, wheezes Cardiovascular exam: PRESENT: RRR. ABSENT: diastolic murmur, rubs, systolic murmur GI/Abdominal exam: PRESENT: normal bowel sounds, soft, other - Colostomy appears unremarkable.. ABSENT: distended, guarding, mass, organolmegaly, rebound, tenderness Rectal exam: PRESENT: deferred Neurological exam: PRESENT: alert, awake, oriented to person, oriented to place , oriented to time, oriented to situation, CN II-XII grossly intact. ABSENT: motor sensory deficit Results Laboratory Results: 05/04/18 02:57 05/04/18 02:57 05/04/18 05/04/18 05/04/18 02:57 02:57 10:30 WBC 4.8 RBC 3.79 Hgb 10.2 L Hct 31.9 L MCV 84 MCH 27.0 MCHC 32.1 RDW 18.0 H Plt Count 113 L Seg Neutrophils % 79.9 H Lymphocytes % 7.1 L Monocytes % 12.6 Eosinophils % 0.3 Basophils % 0.1 Absolute Neutrophils 3.8 Absolute Lymphocytes 0.3 L Absolute Monocytes 0.6 Absolute Eosinophils 0.0 Absolute Basophils 0.0 Sodium 136.9 L Potassium 4.1 Chloride 104 Carbon Dioxide 22 Anion Gap 11 BUN 11 Creatinine 0.61 Est GFR ( Amer) > 60 Est GFR (Non-Af Amer) > 60 Glucose 113 H Calcium 8.4 Urine Color STRAW Urine Appearance CLEAR Urine pH 6.0 Ur Specific Eloy 1.006 Urine Protein NEGATIVE Urine Glucose (UA) NEGATIVE Urine Ketones NEGATIVE Urine Blood NEGATIVE Urine Nitrite NEGATIVE Ur Leukocyte Esterase NEGATIVE Urine WBC (Auto) 0 Urine RBC (Auto) 0 05/04/18 05/04/18 05/04/18 02:57 02:57 09:06 Creatine Kinase 23 L 21 L CK-MB (CK-2) < 0.22 Troponin I < 0.012 05/04/18 09:06 Creatine Kinase CK-MB (CK-2) 0.23 Troponin I < 0.012 Impressions: Chest X-Ray 05/03/18 19:40 IMPRESSION: NO SIGNIFICANT RADIOGRAPHIC FINDING IN THE CHEST. Assessment & Plan - Diagnosis (1) Tracheobronchitis Is this a current diagnosis for this admission?: Yes Plan: Patient's chest x-ray and CT of the chest is unremarkable for pneumonia. She does complain of minimally productive cough with light yellowish sputum. She has been started on Levaquin. Will continue Levaquin for now. This could also be possibly viral. Sputum and blood cultures are pending. Will also check for rapid flu. 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 Patient was unable to complete his chemo before as she was unable to tolerate the side effects. Patient is currently getting radiotherapy and is due for her next radiation tomorrow. (3) Hypertension Is this a current diagnosis for this admission?: Yes Plan: Resume amlodipine and hydrochlorothiazide. (4) Hyperlipidemia Is this a current diagnosis for this admission?: Yes Plan: Resume statin. 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 Continue Synthroid. - Time Time Spent with patient: 25-34 minutes
[2018-05-04 16:34] LABS: A TYPE INFLUENZA AG NEGATIVE (NEGATIVE); B INFLUENZA AG NEGATIVE (NEGATIVE)
[2018-05-04] MEDS: ROPINIROLE HCL 1 MG TABLET PO SCH (21:48)
[2018-05-04] MEDS: SIMVASTATIN 10 MG TABLET PO SCH (21:48)
[2018-05-04] MEDS: TRAZODONE HCL 50 MG TABLET PO SCH (21:48)
[2018-05-04] MEDS ORDERED: (PENDING PHARMACY ID) (Trazodone Hcl [Desyrel] 150 MG) PO SCH (22:00)
[2018-05-05] MEDS: IPRATROPIUM/ALBUTEROL 0.5-2.5 MG/3 ML AMPUL NEB SCH ×3 (00:44→15:58)
[2018-05-05] MEDS: HEPARIN SOD (PORCINE) 5,000 UNIT/ML 1 ML SYRINGE SUBCUT SCH ×3 (05:05→23:14)
[2018-05-05] MEDS: LEVOTHYROXINE SODIUM 0.1 MG TABLET PO SCH (05:16)
[2018-05-05] MEDS: LEVOTHYROXINE SODIUM 0.025 MG TABLET PO SCH (05:17)
[2018-05-05] MEDS ORDERED: (PENDING PHARMACY ID) (Levothyroxine Sodium [Synthroid] 125 MCG) PO SCH (06:00)
[2018-05-05] MEDS ORDERED: PROMETHAZINE HCL INJ 25 MG/1 ML VIAL IV PRN (08:49)
[2018-05-05] MEDS: AMLODIPINE BESYLATE 5 MG TABLET PO SCH (09:49)
[2018-05-05] MEDS: HYDROCHLOROTHIAZIDE 25 MG TABLET PO SCH (09:50)
[2018-05-05] MEDS: LEVOFLOXACIN 750 MG/D5W RTU 750 MG/150 ML RTUPB IV SCH (09:50)
--- NOTE | 2018-05-05 11:45 | PDOC PROGRESS REPORT ---
Subjective Progress Note for:: 05/05/18 Subjective:: Ms. 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 No acute events overnight patient states that her cough is better however is complaining of left-sided back pain, and increased output from her colostomy bag and abdominal cramping. Denies any fever, shortness of breath, chest pain, nausea, vomiting, urinary symptoms Reason For Visit: SOB PE VS PNEUOMONIA Physical Exam Vital Signs: Temp Pulse Resp BP Pulse Ox 97.7 F 72 15 135/71 H 97 05/05/18 07:31 05/05/18 08:34 05/05/18 08:34 05/05/18 07:31 05/05/18 08:34 Pulse Oximeter Continuous Start: 05/03/18 20: 53 Freq: RTQ4 Status: Active Document 05/05/18 08:34 [facility] (Rec: 05/05/18 09:02 [facility] [id number]) Pulse Oximetry Assessment Oxygen Saturation (92-100) 97 Oxygen Flow Rate (L/min) 2 Oxygen Delivery Method Nasal Cannula Fraction of Inspired Oxygen (FIO2) 28 Equipment Usage Equipment in Use Continuous SpO2 Machine # N 3 Intake & Output 05/04/18 05/05/18 05/06/18 06:59 06:59 06:59 Intake Total 2350 2564 Output Total 1 3400 Balance 2349 -836 Weight 81.7 kg 81.9 kg General appearance: PRESENT: no acute distress, well-developed, well-nourished Head exam: PRESENT: atraumatic, normocephalic Eye exam: PRESENT: conjunctiva pink, EOMI, PERRLA. ABSENT: scleral icterus Ear exam: PRESENT: normal external ear exam Mouth exam: PRESENT: moist, tongue midline Neck exam: ABSENT: carotid bruit, JVD, lymphadenopathy, thyromegaly Respiratory exam: PRESENT: clear to auscultation avery. ABSENT: rales, rhonchi, wheezes Cardiovascular exam: PRESENT: RRR. ABSENT: diastolic murmur, rubs, systolic murmur Pulses: PRESENT: normal dorsalis pedis pul Vascular exam: PRESENT: normal capillary refill GI/Abdominal exam: PRESENT: normal bowel sounds, soft, other - Left-sided colostomy bag. Colostomy intact. No abdominal tenderness.. ABSENT: distended , guarding, mass, organolmegaly, rebound, tenderness Rectal exam: PRESENT: deferred Extremities exam: PRESENT: full ROM. ABSENT: calf tenderness, clubbing, pedal edema Neurological exam: PRESENT: alert, awake, oriented to person, oriented to place , oriented to time, oriented to situation, CN II-XII grossly intact. ABSENT: motor sensory deficit Psychiatric exam: PRESENT: appropriate affect, normal mood. ABSENT: homicidal ideation, suicidal ideation Skin exam: PRESENT: dry, intact, warm. ABSENT: cyanosis, rash Results Laboratory Results: 05/04/18 02:57 05/04/18 02:57 05/04/18 05/04/18 05/04/18 02:57 02:57 09:06 Creatine Kinase 23 L 21 L CK-MB (CK-2) < 0.22 Troponin I < 0.012 05/04/18 09:06 Creatine Kinase CK-MB (CK-2) 0.23 Troponin I < 0.012 Impressions: Chest X-Ray 05/03/18 19:40 IMPRESSION: NO SIGNIFICANT RADIOGRAPHIC FINDING IN THE CHEST. Assessment & Plan - Diagnosis (1) Acute bronchitis Is this a current diagnosis for this admission?: Yes Plan: Patient's chest x-ray and CT of the chest is unremarkable for pneumonia. H influenza A and B negative. Rapid flu, sputum, blood cultures negative. (2) Ovarian cancer Qualifiers: Laterality: unspecified laterality Qualified Code(s): C56.9 - Malignant neoplasm of unspecified ovary Is this a current diagnosis for this admission?: Yes Plan: Patient is a known history of ovarian cancer with prior resection and chemotherapy. Patient was unable to complete his chemo before as she was unable to tolerate the side effects. Patient is currently getting radiotherapy. Radiation is scheduled today at 1 PM. Outpatient oncology follow -up (3) Hyperlipidemia Is this a current diagnosis for this admission?: Yes Plan: Continue statins. Diet and lifestyle modification. Outpatient PCP follow-up (4) Hypertension Is this a current diagnosis for this admission?: Yes Plan: Euvolemic and normotensive. Continue hydrochlorothiazide. Adjust medications as needed. 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 (6) Diarrhea Is this a current diagnosis for this admission?: Yes Plan: Continue Levo. Pending stool workup for C. difficile ,White blood cells,Gram stain, ova parasite, culture. Likely due to antibiotics. If C. difficile positive. Antibiotics.
[2018-05-05] MEDS: TRAZODONE HCL 50 MG TABLET PO SCH (23:13)
[2018-05-05] MEDS: SIMVASTATIN 10 MG TABLET PO SCH (23:14)
[2018-05-05] MEDS: ROPINIROLE HCL 1 MG TABLET PO SCH (23:14)
[2018-05-06] MEDS: IPRATROPIUM/ALBUTEROL 0.5-2.5 MG/3 ML AMPUL NEB SCH ×3 (00:19→15:46)
[2018-05-06] MEDS: LEVOTHYROXINE SODIUM 0.025 MG TABLET PO SCH (05:11)
[2018-05-06] MEDS: LEVOTHYROXINE SODIUM 0.1 MG TABLET PO SCH (05:11)
[2018-05-06] MEDS: HEPARIN SOD (PORCINE) 5,000 UNIT/ML 1 ML SYRINGE SUBCUT SCH ×3 (05:12→21:40)
[2018-05-06 05:26] LABS: ABSOLUTE EOSINOPHILS # (AUTO) 0.2 10^3/uL (0.0-0.6); ABSOLUTE LYMPHOCYTES (AUTO) 0.6 10^3/uL (0.5-4.7); ABSOLUTE MONOCYTES (AUTO) 0.5 10^3/uL (0.1-1.4); ABSOLUTE NEUT (AUTO) 1.9 10^3/uL (1.7-8.2); BASOPHILS % (AUTO) 0.4 % (0-2); EOSINOPHILS % (AUTO) 5.3 % (0-6); HEMOGLOBIN 10.1 g/dL (12.0-15.5); LYMPHOCYTES % (AUTO) 17.6 % (13-45); MEAN CORPUSCULAR HEMOGLOBIN 26.8 pg (27.0-33.4); MEAN CORPUSCULAR HGB CONC 32.6 g/dL (32.0-36.0); MEAN CORPUSCULAR VOLUME 82 fl (80-97); MONOCYTES % (AUTO) 17.1 % (3-13); PLATELET COUNT 119 10^3/uL (150-450); RED BLOOD COUNT 3.77 10^6/uL (3.72-5.28); SEGMENTED NEUTROPHILS % (AUTO) 59.6 % (42-78); TOTAL CELLS COUNTED % (AUTO) 100 %; WHITE BLOOD COUNT 3.2 10^3/uL (4.0-10.5)
[2018-05-06 05:37] LABS: ALANINE AMINOTRANSFERASE 19 U/L (9-52); ALKALINE PHOSPHATASE 74 U/L (38-126); ANION GAP 9 (5-19); ASPARTATE AMINO TRANSFERASE 23 U/L (14-36); BILIRUBIN,DIRECT 0.3 mg/dL (0.0-0.4); BILIRUBIN,TOTAL 0.3 mg/dL (0.2-1.3); BLOOD UREA NITROGEN 9 mg/dL (7-20); CALCIUM 8.7 mg/dL (8.4-10.2); CARBON DIOXIDE 26 mmol/L (22-30); CHLORIDE 103 mmol/L (98-107); GLUCOSE 96 mg/dL (75-110); POTASSIUM 3.9 mmol/L (3.6-5.0); SODIUM 137.8 mmol/L (137-145); TOTAL PROTEIN 6.1 g/dL (6.3-8.2)
[2018-05-06] MEDS: AMLODIPINE BESYLATE 5 MG TABLET PO SCH (09:12)
[2018-05-06] MEDS: HYDROCHLOROTHIAZIDE 25 MG TABLET PO SCH (09:12)
[2018-05-06] MEDS: LEVOFLOXACIN 750 MG/D5W RTU 750 MG/150 ML RTUPB IV SCH (09:13)
[2018-05-06] MEDS ORDERED: AMLODIPINE BESYLATE 5 MG TABLET PO ONE (12:50)
--- NOTE | 2018-05-06 13:47 | EKG REPORT ---
SEVERITY:- BORDERLINE ECG - SINUS RHYTHM CONSIDER ANTERIOR INFARCT VS POOR PRECORDIAL LEAD PLACEMENT. : Confirmed by: Teodoro Leahy MD 06-May-2018 13:46:54
--- NOTE | 2018-05-06 14:30 | RADIOLOGY REPORT (SQ) ---
EXAM DESCRIPTION: CTA CHEST COMPLETED DATE/TIME: 05/06/2018 2:13 pm REASON FOR STUDY: Lt Sided Shooting Back Pain COMPARISON: 05/03/2018, 08/23/2016 TECHNIQUE: CT scan of the chest performed using helical scanning technique with dynamic intravenous contrast injection. Images reviewed with lung, soft tissue and bone windows. Reconstructed coronal and sagittal MPR images reviewed. Additional 3 dimensional post-processing performed to develop Maximal Intensity Projection images (DC P). All images stored on PACS. All CT scanners at this facility use dose modulation, iterative reconstruction, and/or weight based d osing when appropriate to reduce radiation dose to as low as reasonably achievable (ALARA). [facility]: Dose Right [facility]: CareDose [facility]: Dose Right [facility]: Teradose 4D [facility]: Synchronicity.co CONTRAST TYPE AND DOSE: contrast/concentration: Isovue 350.00 mg/ml; Total Contrast Delivered: 67.0 ml; Total Saline Delivered: 110.0 ml Contrast bolus optimized for the pulmonary arteries. Not diagnostic for the aorta. RENAL FUNCTION: GFR > 60. RADIATION DOSE: CT Rad equipment meets quality standard of care and radiation dose reduction techniq ues were employed. CTDIvol: 13.3 - 15.0 mGy. DLP: 466 mGy-cm. . LIMITATIONS: None. FINDINGS: LUNGS AND PLEURA: No masses, infiltrates, or pneumothorax. No pleural effusions or pleura l calcifications. AORTA AND GREAT VESSELS: No aneurysm. Contrast bolus not optimized for the aorta. HEART: No pericardial effusion. No significant coronary artery calcifications. PULMONARY ARTERIES: No emboli visualized in the main pulmonary arteries or the segmental branches. HILAR AND MEDIASTINAL STRUCTURES: No identified masses or abnormal nodes. HARDWARE: None in the chest. UPPER ABDOMEN: No significant findings. Limited exam. THYROID AND OTHER SOFT TISSUES: No masses. No adenopathy. BONES: Chronic compression fracture T12. 3D MIPS: Confirm above findings. OTHER: No other significant finding. IMPRESSION: No evidence of pulmonary embolus. COMMENT: Quality ID # [id number]: Final reports with documentation of one or more dose reduction techniques (e.g., Automated exposure control, adjustment of the mA and/or kV according to patient size, use of iterative reconstruction technique) TECHNICAL DOCUMENTATION: JOB ID: [id number] [employer]- All Rights Reserved Reading location - IP/workstation name: [email or web address]
[2018-05-06 15:46] LABS: HEMATOCRIT 33.7 % (36.0-47.0); HEMOGLOBIN 10.7 g/dL (12.0-15.5); MEAN CORPUSCULAR HEMOGLOBIN 26.5 pg (27.0-33.4); MEAN CORPUSCULAR HGB CONC 31.8 g/dL (32.0-36.0); MEAN CORPUSCULAR VOLUME 83 fl (80-97); PLATELET COUNT 137 10^3/uL (150-450); RED BLOOD COUNT 4.04 10^6/uL (3.72-5.28); WHITE BLOOD COUNT 2.8 10^3/uL (4.0-10.5)
--- NOTE | 2018-05-06 17:44 | PDOC PROGRESS REPORT ---
Subjective Subjective:: Complaining of a stabbing left-sided chest pain which resolved and will move to the left upper back. Nature of pain is stabbing and shooting not exacerbated by any movement. Otherwise no acute events overnight. Patient denies any fever chills nausea vomiting shortness of breath diarrhea or constipation Reason For Visit: SOB PE VS PNEUOMONIA Physical Exam Vital Signs: Temp Pulse Resp BP Pulse Ox 97.6 F 77 16 174/84 H 97 05/06/18 07:28 05/06/18 15:46 05/06/18 15:46 05/06/18 07:28 05/06/18 15:46 Pulse Oximeter Continuous Start: 05/03/18 20: 53 Freq: RTQ4 Status: Active Document 05/06/18 15:46 [facility] (Rec: 05/06/18 15:51 [facility] [id number]) Pulse Oximetry Assessment Oxygen Saturation (92-100) 97 Oxygen Flow Rate (L/min) 2 Oxygen Delivery Method Nasal Cannula Equipment Usage Equipment in Use Continuous SpO2 Machine # [id number] Intake & Output 05/05/18 05/06/18 05/07/18 06:59 06:59 06:59 Intake Total 2564 919 372 Output Total 3400 2000 600 Balance -836 -1081 -228 Weight 81.9 kg General appearance: PRESENT: no acute distress, well-developed, well-nourished Head exam: PRESENT: atraumatic, normocephalic Eye exam: PRESENT: conjunctiva pink, EOMI, PERRLA. ABSENT: scleral icterus Ear exam: PRESENT: normal external ear exam Mouth exam: PRESENT: moist, tongue midline Neck exam: ABSENT: carotid bruit, JVD, lymphadenopathy, thyromegaly Respiratory exam: PRESENT: clear to auscultation avery. ABSENT: rales, rhonchi, wheezes Cardiovascular exam: PRESENT: RRR. ABSENT: diastolic murmur, rubs, systolic murmur Pulses: PRESENT: normal dorsalis pedis pul Vascular exam: PRESENT: normal capillary refill GI/Abdominal exam: PRESENT: normal bowel sounds, soft, other - Ostomy site intact. ABSENT: distended, guarding, mass, organolmegaly, rebound, tenderness Rectal exam: PRESENT: deferred Extremities exam: PRESENT: full ROM. ABSENT: calf tenderness, clubbing, pedal edema Neurological exam: PRESENT: alert, awake, oriented to person, oriented to place , oriented to time, oriented to situation, CN II-XII grossly intact. ABSENT: motor sensory deficit Psychiatric exam: PRESENT: appropriate affect, normal mood. ABSENT: homicidal ideation, suicidal ideation Skin exam: PRESENT: dry, intact, warm. ABSENT: cyanosis, rash Results Laboratory Results: 05/06/18 15:36 05/06/18 04:58 05/06/18 05/06/18 05/06/18 04:58 04:58 15:36 WBC 3.2 L 2.8 L RBC 3.77 4.04 Hgb 10.1 L 10.7 L Hct 31.0 L 33.7 L MCV 82 83 MCH 26.8 L 26.5 L MCHC 32.6 31.8 L RDW 18.0 H 18.0 H Plt Count 119 L 137 L Seg Neutrophils % 59.6 Lymphocytes % 17.6 Monocytes % 17.1 H Eosinophils % 5.3 Basophils % 0.4 Absolute Neutrophils 1.9 Absolute Lymphocytes 0.6 Absolute Monocytes 0.5 Absolute Eosinophils 0.2 Absolute Basophils 0.0 Sodium 137.8 Potassium 3.9 Chloride 103 Carbon Dioxide 26 Anion Gap 9 BUN 9 Creatinine 0.71 Est GFR ( Amer) > 60 Est GFR (Non-Af Amer) > 60 Glucose 96 Calcium 8.7 Magnesium 1.7 Total Bilirubin 0.3 AST 23 ALT 19 Alkaline Phosphatase 74 Total Protein 6.1 L Albumin 3.0 L 05/04/18 05/04/18 05/04/18 02:57 02:57 09:06 Creatine Kinase 23 L 21 L CK-MB (CK-2) < 0.22 Troponin I < 0.012 05/04/18 05/06/18 09:06 15:36 Creatine Kinase CK-MB (CK-2) 0.23 Troponin I < 0.012 < 0.012 Impressions: Chest X-Ray 05/03/18 19:40 IMPRESSION: NO SIGNIFICANT RADIOGRAPHIC FINDING IN THE CHEST. Chest/Abdomen CTA 05/06/18 00:00 IMPRESSION: No evidence of pulmonary embolus. Assessment & Plan - Diagnosis (1) Acute bronchitis Is this a current diagnosis for this admission?: Yes Plan: Patient's chest x-ray and CT of the chest is unremarkable for pneumonia. H influenza A and B negative. Rapid flu, sputum, blood cultures negative. Switch to p.o. azithromycin (2) Ovarian cancer Qualifiers: Laterality: unspecified laterality Qualified Code(s): C56.9 - Malignant neoplasm of unspecified ovary Is this a current diagnosis for this admission?: Yes Plan: Patient is a known history of ovarian cancer with prior resection and chemotherapy. Patient was unable to complete his chemo before as she was unable to tolerate the side effects. Patient is currently getting radiotherapy. Outpatient oncology follow-up (3) Hyperlipidemia Is this a current diagnosis for this admission?: Yes Plan: Continue statins. Diet and lifestyle modification. Outpatient PCP follow-up (4) Hypertension Is this a current diagnosis for this admission?: Yes Plan: Not controlled. Increase amlodipine to 10 mg p.o. Continue hydrochlorothiazide. Adjust medications as needed. 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 (6) Diarrhea Is this a current diagnosis for this admission?: Yes Plan: Resolved. C. difficile toxin negative. Stool negative for white blood cells. Preliminary stool culture negative (7) Upper back pain on left side Is this a current diagnosis for this admission?: Yes Plan: Due to the nature of the back pain a cardiac and PE workup was done. EKG, troponin negative and CTA negative for any PE.. Most likely musculoskeletal origin
[2018-05-06] MEDS: TRAZODONE HCL 50 MG TABLET PO SCH (21:40)
[2018-05-06] MEDS: SIMVASTATIN 10 MG TABLET PO SCH (21:59)
[2018-05-06] MEDS: ROPINIROLE HCL 1 MG TABLET PO SCH (21:59)
[2018-05-07] MEDS: IPRATROPIUM/ALBUTEROL 0.5-2.5 MG/3 ML AMPUL NEB SCH ×2 (00:26→09:31)
[2018-05-07 09:24] LABS: ABSOLUTE EOSINOPHILS # (AUTO) 0.2 10^3/uL (0.0-0.6); ABSOLUTE LYMPHOCYTES (AUTO) 0.7 10^3/uL (0.5-4.7); ABSOLUTE MONOCYTES (AUTO) 0.5 10^3/uL (0.1-1.4); ABSOLUTE NEUT (AUTO) 1.7 10^3/uL (1.7-8.2); BASOPHILS % (AUTO) 0.3 % (0-2); EOSINOPHILS % (AUTO) 5.3 % (0-6); HEMATOCRIT 32.9 % (36.0-47.0); HEMOGLOBIN 10.5 g/dL (12.0-15.5); LYMPHOCYTES % (AUTO) 22.2 % (13-45); MEAN CORPUSCULAR HEMOGLOBIN 26.3 pg (27.0-33.4); MEAN CORPUSCULAR HGB CONC 31.8 g/dL (32.0-36.0); MEAN CORPUSCULAR VOLUME 83 fl (80-97); MONOCYTES % (AUTO) 16.7 % (3-13); PLATELET COUNT 131 10^3/uL (150-450); RED BLOOD COUNT 3.97 10^6/uL (3.72-5.28); RED CELL DISTRIBUTION WIDTH 17.6 % (11.5-14.0); SEGMENTED NEUTROPHILS % (AUTO) 55.5 % (42-78); TOTAL CELLS COUNTED % (AUTO) 100 %
[2018-05-07 09:31] LABS: ALANINE AMINOTRANSFERASE 21 U/L (9-52); ALBUMIN 2.9 g/dL (3.5-5.0); ALKALINE PHOSPHATASE 80 U/L (38-126); ANION GAP 7 (5-19); ASPARTATE AMINO TRANSFERASE 14 U/L (14-36); BILIRUBIN,DIRECT 0.3 mg/dL (0.0-0.4); BILIRUBIN,TOTAL 0.3 mg/dL (0.2-1.3); BLOOD UREA NITROGEN 10 mg/dL (7-20); CALCIUM 8.8 mg/dL (8.4-10.2); CARBON DIOXIDE 28 mmol/L (22-30); CHLORIDE 99 mmol/L (98-107); GLUCOSE 94 mg/dL (75-110); POTASSIUM 3.7 mmol/L (3.6-5.0); SODIUM 134.1 mmol/L (137-145); TOTAL PROTEIN 5.6 g/dL (6.3-8.2)
[2018-05-07] MEDS: LEVOTHYROXINE SODIUM 0.025 MG TABLET PO SCH (09:34)
[2018-05-07] MEDS: LEVOTHYROXINE SODIUM 0.1 MG TABLET PO SCH (09:34)
[2018-05-07] MEDS: HEPARIN SOD (PORCINE) 5,000 UNIT/ML 1 ML SYRINGE SUBCUT SCH (09:34)
[2018-05-07] MEDS: AMLODIPINE BESYLATE 5 MG TABLET PO SCH (09:43)
[2018-05-07] MEDS: HYDROCHLOROTHIAZIDE 25 MG TABLET PO SCH (09:48)
[2018-05-07] MEDS ORDERED: AZITHROMYCIN 250 MG TABLET PO SCH (10:00)
[2018-05-07] MEDS ORDERED: AMLODIPINE BESYLATE 10 MG TABLET PO SCH (10:00)
[2018-05-07 12:16] VITALS: BP 133/74
--- NOTE | 2018-05-07 15:27 | PDOC DISCHARGE SUMMARY ---
General - Admit/Disc Date/PCP Admission Date/Primary Care Provider: 05/03/18 21:14 CARLOS SEPULVEDA MD Discharge Date: 05/07/18 - Discharge Diagnosis (1) Acute bronchitis Is this a current diagnosis for this admission?: Yes Summary: Was started on levo and switched to etc. With good response. Patient's chest x- ray and CT of the chest is unremarkable for pneumonia. H influenza A and B negative. Rapid flu, sputum, blood cultures negative. Patient to continue to need 2 more days of azithromycin 250 mg p.o. at home (2) Ovarian cancer Is this a current diagnosis for this admission?: Yes Summary: Patient is a known history of ovarian cancer with prior resection and chemotherapy. Patient was unable to complete his chemo before as she was unable to tolerate the side effects. Patient is currently getting radiotherapy. Outpatient oncology follow-up (3) Hyperlipidemia Is this a current diagnosis for this admission?: Yes Summary: Continue statins. Diet and lifestyle modification. Outpatient PCP follow-up (4) Hypertension Is this a current diagnosis for this admission?: Yes Summary: Euvolemic. Blood pressure not very well controlled amlodipine was increased to 10 mg daily. Good response. Patient was asked to follow-up with her PCP to adjust medication in 1 week. Continued hydrochlorothiazide. (5) Hypothyroidism Is this a current diagnosis for this admission?: Yes (6) Diarrhea Is this a current diagnosis for this admission?: Yes Summary: Workup for stool workup for C. difficile ,White blood cells,Gram stain, ova parasite, culture negative. Resolved (7) Upper back pain on left side Is this a current diagnosis for this admission?: Yes Summary: Due to the nature of the back pain a cardiac and PE workup was done. EKG, troponin negative and CTA negative for any PE.. Most likely musculoskeletal origin - Additional Information Resuscitation Status: Full Code Discharge Diet: As Tolerated Discharge Activity: Activity As Tolerated Prescriptions: Amlodipine Besylate [Norvasc 10 mg Tablet] 10 mg PO DAILY 30 Days #30 tablet Azithromycin [Zithromax 250 mg Tablet] 250 mg PO DAILY 3 Days #3 tablet Home Medications: Dicyclomine HCl [Bentyl 10 mg Capsule] 10 mg PO DAILY 05/04/18 Digoxin [Lanoxin 0.125 mg Tablet] 0.125 mg PO DAILY 05/04/18 Gabapentin [Neurontin 300 mg Capsule] 300 mg PO Q8 05/04/18 Hydrochlorothiazide [Hydrodiuril 25 mg Tablet] 25 mg PO DAILY 05/04/18 Hydroxychloroquine Sulfate [Plaquenil 200 mg Tablet] 200 mg PO DAILY 05/04/18 Levothyroxine Sodium [Synthroid] 125 mcg PO Q6AM 05/04/18 Omeprazole 20 mg PO DAILY 05/04/18 Ropinirole HCl [Requip] 1 mg PO QHS 05/04/18 Simvastatin [Zocor 20 mg Tablet] 20 mg PO QHS 05/04/18 Trazodone HCl [Desyrel] 150 mg PO QHS 05/04/18 Amlodipine Besylate [Norvasc 10 mg Tablet] 10 mg PO DAILY 30 Days #30 tablet 02/16 Azithromycin [Zithromax 250 mg Tablet] 250 mg PO DAILY 3 Days #3 tablet History of Present Illness Patient complains of: Generalized fatigue, productive cough of yellow sputum subjective fever History of Present Illness: CARISA CAMPOS is a 82 year old female Hospital Course Hospital Course: CARISA CAMPOS is a 82 year old female with past medical history of stage IV ovarian cancer, colostomy, hypertension, thoracic aortic aneurysm and dyslipidemia. Who had received 1 in a series of radiation treatments to the right pelvis 2 days ago. She has subsequently had generalized fatigue, productive cough of yellow sputum subjective fever. In the emergency room she has an unremarkable workup, with CTA chest negative for pneumonia or pulmonary emboli. Denying sore throat, rhinorrhea and GERD. She receives empiric antibiotics and referred to the hospitalist for admission. Physical Exam Vital Signs: Temp Pulse Resp BP Pulse Ox 98.0 F 69 12 133/74 H 99 05/07/18 12:16 05/07/18 12:16 05/07/18 12:16 05/07/18 12:16 05/07/18 12:16 Pulse Oximeter Continuous Start: 05/03/18 20: 53 Freq: RTQ4 Status: Complete Document 05/06/18 15:46 [facility] (Rec: 05/06/18 15:51 [facility] [id number]) Pulse Oximetry Assessment Oxygen Saturation (92-100) 97 Oxygen Flow Rate (L/min) 2 Oxygen Delivery Method Nasal Cannula Equipment Usage Equipment in Use Continuous SpO2 Machine # [id number] Intake & Output 05/06/18 05/07/18 05/08/18 06:59 06:59 06:59 Intake Total 919 809 Output Total 1999 900 Balance -1081 -91 General appearance: PRESENT: no acute distress, well-developed, well-nourished Head exam: PRESENT: atraumatic, normocephalic Eye exam: PRESENT: conjunctiva pink, EOMI, PERRLA. ABSENT: scleral icterus Ear exam: PRESENT: normal external ear exam Mouth exam: PRESENT: moist, tongue midline Neck exam: ABSENT: carotid bruit, JVD, lymphadenopathy, thyromegaly Respiratory exam: PRESENT: clear to auscultation avery. ABSENT: rales, rhonchi, wheezes Cardiovascular exam: PRESENT: RRR. ABSENT: diastolic murmur, rubs, systolic murmur Pulses: PRESENT: normal dorsalis pedis pul Vascular exam: PRESENT: normal capillary refill GI/Abdominal exam: PRESENT: normal bowel sounds, soft. ABSENT: distended, guarding, mass, organolmegaly, rebound, tenderness Rectal exam: PRESENT: deferred Extremities exam: PRESENT: full ROM. ABSENT: calf tenderness, clubbing, pedal edema Neurological exam: PRESENT: alert, awake, oriented to person, oriented to place , oriented to time, oriented to situation, CN II-XII grossly intact. ABSENT: motor sensory deficit Psychiatric exam: PRESENT: appropriate affect, normal mood. ABSENT: homicidal ideation, suicidal ideation Skin exam: PRESENT: dry, intact, warm. ABSENT: cyanosis, rash Results Laboratory Results: 05/07/18 05:27 05/07/18 05:27 05/06/18 05/07/18 05/07/18 15:36 05:27 05:27 WBC 2.8 L 3.0 L RBC 4.04 3.97 Hgb 10.7 L 10.5 L Hct 33.7 L 32.9 L MCV 83 83 MCH 26.5 L 26.3 L MCHC 31.8 L 31.8 L RDW 18.0 H 17.6 H Plt Count 137 L 131 L Seg Neutrophils % 55.5 Lymphocytes % 22.2 Monocytes % 16.7 H Eosinophils % 5.3 Basophils % 0.3 Absolute Neutrophils 1.7 Absolute Lymphocytes 0.7 Absolute Monocytes 0.5 Absolute Eosinophils 0.2 Absolute Basophils 0.0 Sodium 134.1 L Potassium 3.7 Chloride 99 Carbon Dioxide 28 Anion Gap 7 BUN 10 Creatinine 0.65 Est GFR ( Amer) > 60 Est GFR (Non-Af Amer) > 60 Glucose 94 Calcium 8.8 Total Bilirubin 0.3 AST 14 ALT 21 Alkaline Phosphatase 80 Total Protein 5.6 L Albumin 2.9 L 05/05/18 16:00 Stool - Stool - Final 05/05/18 16:00 Stool - Stool Stool Culture - Final NO SALMONELLA, SHIGELLA, CAMPYLOBACTER, OR E.COLI 0157 RECOVERED. NEGATIVE FOR SHIGA TOXINS 1&2. 05/04/18 05/04/18 05/04/18 02:57 02:57 09:06 Creatine Kinase 23 L 21 L CK-MB (CK-2) < 0.22 Troponin I < 0.012 05/04/18 05/06/18 09:06 15:36 Creatine Kinase CK-MB (CK-2) 0.23 Troponin I < 0.012 < 0.012 Impressions: Chest X-Ray 05/03/18 19:40 IMPRESSION: NO SIGNIFICANT RADIOGRAPHIC FINDING IN THE CHEST. Chest/Abdomen CTA 05/06/18 00:00 IMPRESSION: No evidence of pulmonary embolus. Qualifiers - * PATIENT BEING DISCHARGED WITH ANY OF THE FOLLOWING DIAGNOSIS: No
== END 2018-05-07 13:17 | disposition home or self-care (01) | DRG 202 ==
LOC: ER 19:36 → EH 21:14 → 3W 05-04 00:17
PROVIDERS: ADMIT Internal Medicine; ATTEND Internal Medicine
PROC: 3E0F73Z Introduction of Anti-inflammatory into Respiratory Tract, Via Natural or Artificial Opening (ICD-10-PCS; principal; 2018-05-04)
DX: J20.9 Acute bronchitis, unspecified (principal); J44.0 Chronic obstructive pulmonary disease with (acute) lower respiratory infection; C56.9 Malignant neoplasm of unspecified ovary; K52.1 Toxic gastroenteritis and colitis; Z90.721 Acquired absence of ovaries, unilateral; E78.00 Pure hypercholesterolemia, unspecified; I10 Essential (primary) hypertension; E03.8 Other specified hypothyroidism; M54.9 Dorsalgia, unspecified; K21.9 Gastro-esophageal reflux disease without esophagitis; M19.90 Unspecified osteoarthritis, unspecified site; Z96.653 Presence of artificial knee joint, bilateral; F32.9 Major depressive disorder, single episode, unspecified; D64.9 Anemia, unspecified; T36.95XA Adverse effect of unspecified systemic antibiotic, initial encounter; G43.909 Migraine, unspecified, not intractable, without status migrainosus; Z88.2 Allergy status to sulfonamides; Z79.899 Other long term (current) drug therapy; Z92.3 Personal history of irradiation; Z93.3 Colostomy status; Z86.718 Personal history of other venous thrombosis and embolism; Z86.14 Personal history of Methicillin resistant Staphylococcus aureus infection; Z82.61 Family history of arthritis; Z82.49 Family history of ischemic heart disease and other diseases of the circulatory system; Z83.3 Family history of diabetes mellitus; Z80.42 Family history of malignant neoplasm of prostate; Z83.49 Family history of other endocrine, nutritional and metabolic diseases
CPT/HCPCS: 36415; 71045; 71275; 80048; 80053; 81001; 82550; 82553; 82803; 83605; 83735; 83880; 84484; 85025; 85027; 87040; 87045; 87205; 87493; 87804; 89055; 93005; 93010; 94640; 94762; 94799; 96360; 99285; J1644; J1956; J2550; J3490; J7030; J7120; J7620

== ENCOUNTER 2018-05-14 10:01 | Emergency (ER) | payer MEDICARE, OTHER ==
[2018-05-14] MEDS ORDERED: NORMAL SALINE 1000 ML 1,000 ML IV ONE (10:18)
[2018-05-14] MEDS ORDERED: DIPHENHYDRAMINE HCL 25 MG CAPSULE PO ONE (10:19)
[2018-05-14] MEDS ORDERED: ACETAMINOPHEN 325 MG TABLET PO ONE (10:19)
--- NOTE | 2018-05-14 10:26 | ER Document Report ---
ED General - General Chief Complaint: Dizziness Stated Complaint: WEAKNESS Time Seen by Provider: 05/14/18 10:05 TRAVEL OUTSIDE OF THE [place] 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 She also notes a sensation of palpitations associated with this. She has been evaluated for her palpitations multiple times in the past and told that these were a result of anxiety she is continued to have occasional episodes like this however for which she has been evaluated one time and no obvious cause was identified. She notes that yesterday during an episode of palpitations she did use nitroglycerin which she was unsure whether or not it helped. She is uncertain why she has this medication. Denies any history of heart attacks in the past, does endorse a history of hypertension. Does have a history of arthritis in addition to her cancer history. Also complains of a low-grade headache, states that it is a frontal headache she generally associates with sinus pressure and congestion. - Related Data Allergies/Adverse Reactions: Sulfa (Sulfonamide Antibiotics) Adverse Reaction (Intermediate, Verified 10:45) tingling, itching Past Medical History - General Information source: Patient, Emergency Med Personnel - Social History Smoking Status: Unknown if Ever Smoked Family History: Hypertension - Mother age 105., Malignancy - Prostate cancer. Father at age 65., Thyroid Disfunction - Past Medical History Cardiac Medical History: Reports: Hx DVT, Hx Hypercholesterolemia, Hx Hypertension Denies: Hx Atrial Fibrillation, Hx Congestive Heart Failure, Hx Coronary Artery Disease, Hx Heart Attack, Hx Peripheral Vascular Disease, Hx Pulmonary Embolism, Hx Heart Murmur Pulmonary Medical History: Reports: Hx Asthma, Hx Bronchitis, Hx Pneumonia Denies: Hx COPD, Hx Respiratory Failure, Hx Sleep Apnea, Hx Tuberculosis Neurological Medical History: Reports: Hx Migraine. Denies: Hx Cerebrovascular Accident, Hx Seizures Endocrine Medical History: Reports: Hx Hyperthyroidism, Hx Hypothyroidism. Denies: Hx Graves' Disease Renal/ Medical History: Denies: Hx End Stage Renal Disease, Hx Kidney Stones, Hx Ovarian Cysts, Hx Peritoneal Dialysis, Hx Pelvic Inflammatory Disease Malignancy Medical History: Reports: Hx Cervical Cancer. Denies: Hx Breast Cancer, Hx Leukemia, Hx Lung Cancer, Hx Ovarian Cancer GI Medical History: Reports: Hx Diverticulitis, Hx Gastroesophageal Reflux Disease, Hx Ulcer - 1995. Denies: Hx Crohn's Disease, Hx Hiatal Hernia, Hx Irritable Bowel, Hx Liver Failure, Hx Pancreatitis Musculoskeletal Medical History: Reports Hx Arthritis, Denies Hx Fibromyalgia, Denies Hx Multiple Sclerosis, Denies Hx Muscular Dystrophy Psychiatric Medical History: Reports: Hx Depression Denies: Hx Bipolar Disorder, Hx Dementia, Hx Post Traumatic Stress Disorder, Hx Schizophrenia Traumatic Medical History: Denies: Hx Fractures Infectious Medical History: Reports: Hx MRSA. Denies: Hx HIV Past Surgical History: Reports: Hx Abdominal Surgery - Hysterectomy, Hx Hysterectomy, Hx Orthopedic Surgery - Right foot bunionectomy. Bilateral total knee replacement. Left wrist CORNELIUS, Hx Tonsillectomy, Other. Denies: Hx Appendectomy, Hx Bowel Surgery, Hx Section, Hx Cholecystectomy, Hx Colostomy, Hx Coronary Artery Bypass Graft, Hx Gastric Bypass Surgery, Hx Herniorrhaphy, Hx Mastectomy, Hx Pacemaker, Hx Tubal Ligation - Immunizations Hx Diphtheria, Pertussis, Tetanus Vaccination: Yes Hx Pneumococcal Vaccination: 06/01/11 Review of Systems - Review of Systems -: Yes All other systems reviewed and negative Physical Exam - Vital signs Vitals: Pulse Resp BP Pulse Ox 77 16 123/63 98 05/14/18 10:06 05/14/18 10:06 05/14/18 10:06 05/14/18 10:06 Interpretation: Normal - General General appearance: Appears well In distress: None - HEENT Head: Normocephalic Eyes: Normal Conjunctiva: Normal Cornea: Normal Extraocular movements intact: Yes Pupils: PERRL - Respiratory Respiratory status: No respiratory distress Chest status: Nontender Breath sounds: Normal Chest palpation: Normal - Cardiovascular Rhythm: Regular Heart sounds: Normal auscultation Murmur: No Friction rub: No Bia's crunch: No - Abdominal Inspection: Other - Ostomy in place in the left lower quadrant with output intact, pink kenneth stoma Distension: No distension Bowel sounds: Normal Tenderness: Nontender Organomegaly: No organomegaly - Back Back: Normal - Extremities General upper extremity: Normal inspection, Nontender, Normal ROM, Normal strength General lower extremity: Normal inspection, Nontender, Normal ROM, Normal strength, Normal weight bearing - Neurological Neuro grossly intact: Yes Cognition: Normal Orientation: AAOx4 [place] Coma Scale Eye Opening: Spontaneous [place] Coma Scale Verbal: Oriented Kimberly Coma Scale Motor: Obeys Commands Kimberly Coma Scale Total: 15 Speech: Normal Cranial nerves: Normal Cerebellar coordination: Normal - Psychological Associated symptoms: Normal affect Course - Re-evaluation Re-evalutation: 05/14/18 10:24 Is an 82-year-old female with a complex past medical history significant for cancer as well as hypertension status post radiation therapy and a colectomy with resultant ostomy creation presents for evaluation of lightheadedness during an episode of making breakfast this morning which resolved without any intervention. She has had a few episodes like this in the past all which resolved on their own. Nothing is made the symptoms better or worse. She does not take any medication today to try and help with this. Denies any fevers chills abdominal pain diarrhea constipation or dysuria. Given the reported palpitations which she had yesterday as well as the weakness today we will proceed with a cardiac rule out, will proceed with screening labs and a chest x-ray as well. Will administer fluid and Tylenol for headache. We will plan for monitoring and reassessment. 05/14/18 11:30 Patient's EKG is relatively unchanged from previous, her palpitations were greater than 3 hours in duration thus essentially with a negative troponin dysfunctions as a rule out. There is no obvious evidence of organ dysfunction. Patient will be discharged home with return precautions to the care of her son. - Vital Signs Vital signs: Temp Pulse Resp BP Pulse Ox 77 23 H 114/83 97 05/14/18 10:06 05/14/18 10:37 05/14/18 10:37 05/14/18 10:37 - Laboratory Result Diagrams: 05/14/18 10:30 05/14/18 10:30 Laboratory results interpreted by me: 05/14/18 05/14/18 10:30 10:30 Hgb 11.1 L Hct 34.8 L MCH 26.8 L MCHC 31.9 L RDW 19.0 H Chloride 110 H Discharge - Discharge Clinical Impression: Lightheaded, Weakness Condition: Good Disposition: HOME, SELF-CARE Instructions: Palpitations (Irregular or Rapid Heartrate) ([facility]), Dizziness ([facility] ) Additional Instructions: You were seen in the emergency department for your dizziness. You had an evaluation including physical exam as well as tests of your blood, chest x-ray. Your EKG was unchanged today. No damage to your heart was identified, your organs appear to be functioning normally. Continue to monitor yourself for any worsening, in case of lightheadedness chest pain shortness of breath call your doctor or return to the emergency room as it may be a more serious condition. Referrals: CARLOS SEPULVEDA MD [Primary Care Provider] - Follow up as needed
[2018-05-14 10:39] LABS: ABSOLUTE EOSINOPHILS # (AUTO) 0.1 10^3/uL (0.0-0.6); ABSOLUTE LYMPHOCYTES (AUTO) 0.8 10^3/uL (0.5-4.7); ABSOLUTE MONOCYTES (AUTO) 0.5 10^3/uL (0.1-1.4); ABSOLUTE NEUT (AUTO) 2.9 10^3/uL (1.7-8.2); EOSINOPHILS % (AUTO) 3.1 % (0-6); HEMATOCRIT 34.8 % (36.0-47.0); HEMOGLOBIN 11.1 g/dL (12.0-15.5); LYMPHOCYTES % (AUTO) 18.5 % (13-45); MEAN CORPUSCULAR HEMOGLOBIN 26.8 pg (27.0-33.4); MEAN CORPUSCULAR HGB CONC 31.9 g/dL (32.0-36.0); MEAN CORPUSCULAR VOLUME 84 fl (80-97); MONOCYTES % (AUTO) 11.7 % (3-13); PLATELET COUNT 150 10^3/uL (150-450); RED BLOOD COUNT 4.14 10^6/uL (3.72-5.28); SEGMENTED NEUTROPHILS % (AUTO) 65.7 % (42-78); TOTAL CELLS COUNTED % (AUTO) 100 %; WHITE BLOOD COUNT 4.5 10^3/uL (4.0-10.5)
[2018-05-14 10:54] LABS: ALBUMIN 3.6 g/dL (3.5-5.0); ANION GAP 8 (5-19); BLOOD UREA NITROGEN 12 mg/dL (7-20); CALCIUM 9.1 mg/dL (8.4-10.2); CARBON DIOXIDE 25 mmol/L (22-30); CHLORIDE 110 mmol/L (98-107); GLUCOSE 80 mg/dL (75-110); POTASSIUM 4.2 mmol/L (3.6-5.0); SODIUM 142.5 mmol/L (137-145)
[2018-05-14 10:55] LABS: ALANINE AMINOTRANSFERASE 23 U/L (9-52); ALKALINE PHOSPHATASE 72 U/L (38-126); ASPARTATE AMINO TRANSFERASE 27 U/L (14-36); BILIRUBIN,DIRECT 0.3 mg/dL (0.0-0.4); BILIRUBIN,TOTAL 0.4 mg/dL (0.2-1.3); TOTAL PROTEIN 6.8 g/dL (6.3-8.2)
--- NOTE | 2018-05-14 11:13 | RADIOLOGY REPORT (SQ) ---
EXAM DESCRIPTION: CHEST 2 VIEWS COMPLETED DATE/TIME: 05/14/2018 11:01 am REASON FOR STUDY: palpitations COMPARISON: CT chest 05/06/2018, to 18 Chest film 05/03/2018, 06/23/2016 EXAM PARAMETERS: NUMBER OF VIEWS: two views TECHNIQUE: Digital Frontal and Lateral radiographic views of the chest acquired. RADIATION DOSE: NA LIMITATIONS: none FINDINGS: LUNGS AND PLEURA: Minimal bibasilar atelectasis or scarring. No acute infiltrates. No pleural effusion or pneumothorax. MEDIASTINUM AND HILAR STRUCTURES: No masses or contour abnormalities. HEART AND VASCULAR STRUCTURES: Heart normal size. No evidence for failure. BONES: No acute findings. HARDWARE: Osteoporotic without acute thoracic compression deformity. Chronic 50% T12 compression def ormity. OTHER: No other significant finding. IMPRESSION: NO ACUTE RADIOGRAPHIC FINDING IN THE CHEST. TECHNICAL DOCUMENTATION: JOB ID: [id number] [employer]- All Rights Reserved Reading location - IP/workstation name: [email or web address]
[2018-05-14 12:17] VITALS: BP 139/85
--- NOTE | 2018-05-14 16:56 | EKG REPORT ---
SEVERITY:- ABNORMAL ECG - SINUS RHYTHM RIGHT AXIS DEVIATION PROBABLE INFERIOR INFARCT, OLD CONSIDER ANTERIOR INFARCT : Confirmed by: Pastora Umanzor 14-May-2018 16:56:08
== END 2018-05-14 12:19 | disposition home or self-care (01) ==
LOC: ER 10:01
DX: R53.1 Weakness (principal); R00.2 Palpitations; R42 Dizziness and giddiness; I10 Essential (primary) hypertension; E78.00 Pure hypercholesterolemia, unspecified; E03.9 Hypothyroidism, unspecified; Z85.3 Personal history of malignant neoplasm of breast; Z85.41 Personal history of malignant neoplasm of cervix uteri; Z95.1 Presence of aortocoronary bypass graft; Z98.84 Bariatric surgery status
CPT/HCPCS: 93005; 99285; 96360; 36415; 85025; 80053; 84484; 71046; 93010; A9270 ×2

== ENCOUNTER 2018-10-23 16:11 | Emergency (ER) | payer MEDICARE, OTHER ==
--- NOTE | 2018-10-23 17:27 | ER Document Report ---
ED Medical Screen (RME) - General Chief Complaint: Dizziness Stated Complaint: WEAKNESS Time Seen by Provider: 10/23/18 17:13 Primary Care Provider: CARLOS SEPULVEDA MD [Primary Care Provider] - Follow up as needed Notes: Patient is a 83-year-old female with history of ovarian cancer that presents to the emergency department for chief complaint of generalized weakness and fatigue. Was advised by her oncologist to come to the emergency department. ROS: Other than noted above, the 12 point review of systems was reviewed with the patient and were negative, all pertinent findings are included in the HPI. PHYSICAL EXAMINATION: Vital signs reviewed. GENERAL: Elderly female, no acute distress HEAD: Atraumatic, normocephalic. EYES: Pupils equal round extraocular movements intact, conjunctiva are normal. ENT: Nares patent NECK: Normal range of motion CV: Heart regular rate and rhythm LUNGS: No respiratory distress Abdomen: Colostomy present, normal-appearing stool Musculoskeletal: Normal range of motion NEUROLOGICAL: Normal speech PSYCH: Normal mood, normal affect. MDM: Patient seen and examined for rapid initial assessment. Vital signs reviewed. A comprehensive ED assessment and evaluation of the patient, analysis of test results and completion of the medical decision making process will be conducted by additional ED providers. *Note is created using voice recognition software and may contain spelling, syntax or grammatical errors. TRAVEL OUTSIDE OF THE [place] IN LAST 30 DAYS: No - Related Data Allergies/Adverse Reactions: Sulfa (Sulfonamide Antibiotics) Adverse Reaction (Intermediate, Verified 10/23/18 16:23) tingling, itching Past Medical History - Past Medical History Cardiac Medical History: Reports: Hx DVT, Hx Hypercholesterolemia, Hx Hypertension Denies: Hx Atrial Fibrillation, Hx Congestive Heart Failure, Hx Coronary Artery Disease, Hx Heart Attack, Hx Peripheral Vascular Disease, Hx Pulmonary Embolism, Hx Heart Murmur Pulmonary Medical History: Reports: Hx Asthma, Hx Bronchitis, Hx Pneumonia Denies: Hx COPD, Hx Respiratory Failure, Hx Sleep Apnea, Hx Tuberculosis Neurological Medical History: Reports: Hx Migraine. Denies: Hx Cerebrovascular Accident, Hx Seizures Endocrine Medical History: Reports: Hx Hyperthyroidism, Hx Hypothyroidism. Denies: Hx Graves' Disease Renal/ Medical History: Denies: Hx End Stage Renal Disease, Hx Kidney Stones, Hx Ovarian Cysts, Hx Peritoneal Dialysis, Hx Pelvic Inflammatory Disease Malignancy Medical History: Reports: Hx Cervical Cancer. Denies: Hx Breast Cancer, Hx Leukemia, Hx Lung Cancer, Hx Ovarian Cancer GI Medical History: Reports: Hx Diverticulitis, Hx Gastroesophageal Reflux Disease, Hx Ulcer - 1995. Denies: Hx Crohn's Disease, Hx Hiatal Hernia, Hx Irritable Bowel, Hx Liver Failure, Hx Pancreatitis Musculoskeltal Medical History: Reports Hx Arthritis, Denies Hx Fibromyalgia, Denies Hx Multiple Sclerosis, Denies Hx Muscular Dystrophy Psychiatric Medical History: Reports: Hx Depression Denies: Hx Bipolar Disorder, Hx Dementia, Hx Post Traumatic Stress Disorder, Hx Schizophrenia Traumatic Medical History: Denies: Hx Fractures Infectious Medical History: Reports: Hx MRSA. Denies: Hx HIV Past Surgical History: Reports: Hx Abdominal Surgery - Hysterectomy, Hx Hysterectomy, Hx Orthopedic Surgery - Right foot bunionectomy. Bilateral total knee replacement. Left wrist CORNELIUS, Hx Tonsillectomy, Other. Denies: Hx Appendectomy, Hx Bowel Surgery, Hx Section, Hx Cholecystectomy, Hx Colostomy, Hx Coronary Artery Bypass Graft, Hx Gastric Bypass Surgery, Hx Herniorrhaphy, Hx Mastectomy, Hx Pacemaker, Hx Tubal Ligation - Immunizations Hx Diphtheria, Pertussis, Tetanus Vaccination: Yes History of Influenza Vaccine for 06/2017 - 10/2017 Season: Yes Influenza Administration Date for 06/2017 - 10/2017 Season: 06/01/17 Physical Exam - Vital signs Vitals: Temp Pulse Resp BP Pulse Ox 97.8 F 69 16 132/70 H 97 10/23/18 16:23 10/23/18 16:23 10/23/18 16:23 10/23/18 16:23 10/23/18 16:23 Course - Vital Signs Vital signs: Temp Pulse Resp BP Pulse Ox 97.8 F 69 16 132/70 H 97 10/23/18 16:23 10/23/18 16:23 10/23/18 16:23 10/23/18 16:23 10/23/18 16:23 Doctor's Discharge - Discharge Referrals: CARLOS SEPULVEDA MD [Primary Care Provider] - Follow up as needed
[2018-10-23 18:15] LABS: ABSOLUTE BASOPHILS # (AUTO) 0.1 10^3/uL (0.0-0.2); ABSOLUTE EOSINOPHILS # (AUTO) 0.1 10^3/uL (0.0-0.6); ABSOLUTE MONOCYTES (AUTO) 0.9 10^3/uL (0.1-1.4); ABSOLUTE NEUT (AUTO) 7.9 10^3/uL (1.7-8.2); BASOPHILS % (AUTO) 0.5 % (0-2); EOSINOPHILS % (AUTO) 0.8 % (0-6); HEMATOCRIT 32.9 % (36.0-47.0); HEMOGLOBIN 10.6 g/dL (12.0-15.5); LYMPHOCYTES % (AUTO) 9.7 % (13-45); MEAN CORPUSCULAR HEMOGLOBIN 26.7 pg (27.0-33.4); MEAN CORPUSCULAR HGB CONC 32.3 g/dL (32.0-36.0); MEAN CORPUSCULAR VOLUME 83 fl (80-97); MONOCYTES % (AUTO) 8.9 % (3-13); PLATELET COUNT 241 10^3/uL (150-450); RED BLOOD COUNT 3.98 10^6/uL (3.72-5.28); RED CELL DISTRIBUTION WIDTH 16.7 % (11.5-14.0); SEGMENTED NEUTROPHILS % (AUTO) 80.1 % (42-78); TOTAL CELLS COUNTED % (AUTO) 100 %; WHITE BLOOD COUNT 9.9 10^3/uL (4.0-10.5)
[2018-10-23 18:26] LABS: APPEARANCE,URINE CLEAR; BILIRUBIN,URINE NEGATIVE (NEGATIVE); COLOR,URINE YELLOW; GLUCOSE, URINE NEGATIVE (NEGATIVE); KETONES,URINE NEGATIVE (NEGATIVE); LEUKOCYTE ESTERASE,URINE TRACE (NEGATIVE); NITRITE,URINE NEGATIVE (NEGATIVE); PROTEIN,URINE NEGATIVE (NEGATIVE); URINE SPECIFIC GRAVITY 1.015; UROBILINOGEN,URINE NEGATIVE mg/dL (<2.0)
[2018-10-23 18:36] LABS: ALANINE AMINOTRANSFERASE 18 U/L (9-52); ALKALINE PHOSPHATASE 140 U/L (38-126); ANION GAP 11 (5-19); ASPARTATE AMINO TRANSFERASE 37 U/L (14-36); BILIRUBIN,DIRECT 0.3 mg/dL (0.0-0.4); BILIRUBIN,TOTAL 0.4 mg/dL (0.2-1.3); BLOOD UREA NITROGEN 20 mg/dL (7-20); CALCIUM 9.4 mg/dL (8.4-10.2); CARBON DIOXIDE 30 mmol/L (22-30); CHLORIDE 101 mmol/L (98-107); CREATINE KINASE 31 U/L (30-135); GLUCOSE 108 mg/dL (75-110); POTASSIUM 3.4 mmol/L (3.6-5.0); SODIUM 141.5 mmol/L (137-145); TOTAL PROTEIN 7.4 g/dL (6.3-8.2)
--- NOTE | 2018-10-23 18:37 | RADIOLOGY REPORT (SQ) ---
EXAM DESCRIPTION: CHEST SINGLE VIEW COMPLETED DATE/TIME: 10/23/2018 6:11 pm REASON FOR STUDY: weakness COMPARISON: 05/14/2018 TECHNIQUE: Single frontal radiographic view of the chest acquired. NUMBER OF VIEWS: One view. LIMITATIONS: None. FINDINGS: LUNGS AND PLEURA: No pneumothorax. No consolidation or pleural effusion. MEDIASTINUM AND HILAR STRUCTURES: Stable. HEART AND VASCULAR STRUCTURES: Stable. BONES: No acute findings. HARDWARE: None in the chest. OTHER: No other significant finding. IMPRESSION: NO ACUTE FINDINGS. TECHNICAL DOCUMENTATION: JOB ID: [id number] [employer]- All Rights Reserved Reading location - IP/workstation name: [email or web address]
--- NOTE | 2018-10-23 19:28 | EKG REPORT ---
SEVERITY:- NORMAL ECG - SINUS RHYTHM : Confirmed by: Teodoro Leahy MD 23-Oct-2018 19:28:13
[2018-10-23] MEDS ORDERED: RINGERS SOLUTION,LACTATED 1,000 ML IV ONE (20:04)
--- NOTE | 2018-10-23 20:10 | ER Document Report ---
ED General - General Chief Complaint: Dizziness Stated Complaint: WEAKNESS Time Seen by Provider: 10/23/18 17:13 Primary Care Provider: CARLOS SEPULVEDA MD [Primary Care Provider] - Follow up as needed Notes: Patient is an 83-year-old female with a past medical history of ovarian cancer currently active but not on treatment, history of ostomy, presents complaining of 2 weeks of on and off weakness, lightheadedness and feelings of near syncope. Patient states that her symptoms tend to come on when she is standing or exerting herself for prolonged periods of time. She states she feels globally weak, somewhat lightheaded and feels like she needs to sit down. She was referred to the emergency department by her oncologist for concerns of possible anemia. She denies chest pain but states she sometimes feels short of breath. Denies focal weakness or numbness. Nothing seems to improve her symptoms other than resting. No history of DVT or pulmonary was. No history of coronary artery disease. TRAVEL OUTSIDE OF THE [place] IN LAST 30 DAYS: No - Related Data Allergies/Adverse Reactions: Sulfa (Sulfonamide Antibiotics) Adverse Reaction (Intermediate, Verified 10/23/18 16:23) tingling, itching Past Medical History - General Information source: Patient - Social History Smoking Status: Never Smoker Frequency of alcohol use: None Drug Abuse: None Lives with: Family Family History: Hypertension - Mother age 105., Malignancy - Prostate cancer. Father at age 65., Thyroid Disfunction Patient has suicidal ideation: No Patient has homicidal ideation: No - Past Medical History Cardiac Medical History: Reports: Hx DVT, Hx Hypercholesterolemia, Hx Hypertension Denies: Hx Atrial Fibrillation, Hx Congestive Heart Failure, Hx Coronary Art katty Disease, Hx Heart Attack, Hx Peripheral Vascular Disease, Hx Pulmonary Embolism, Hx Heart Murmur Pulmonary Medical History: Reports: Hx Asthma, Hx Bronchitis, Hx Pneumonia Denies: Hx COPD, Hx Respiratory Failure, Hx Sleep Apnea, Hx Tuberculosis Neurological Medical History: Reports: Hx Migraine. Denies: Hx Cerebrovascular Accident, Hx Seizures Endocrine Medical History: Reports: Hx Hyperthyroidism, Hx Hypothyroidism. Denies: Hx Graves' Disease Renal/ Medical History: Denies: Hx End Stage Renal Disease, Hx Kidney Stones, Hx Ovarian Cysts, Hx Peritoneal Dialysis, Hx Pelvic Inflammatory Disease Malignancy Medical History: Reports: Hx Cervical Cancer. Denies: Hx Breast Cancer, Hx Leukemia, Hx Lung Cancer, Hx Ovarian Cancer GI Medical History: Reports: Hx Diverticulitis, Hx Gastroesophageal Reflux Disease, Hx Ulcer - 1995. Denies: Hx Crohn's Disease, Hx Hiatal Hernia, Hx Irritable Bowel, Hx Liver Failure, Hx Pancreatitis Musculoskeletal Medical History: Reports Hx Arthritis, Denies Hx Fibromyalgia, Denies Hx Multiple Sclerosis, Denies Hx Muscular Dystrophy Psychiatric Medical History: Reports: Hx Depression Denies: Hx Bipolar Disorder, Hx Dementia, Hx Post Traumatic Stress Disorder, Hx Schizophrenia Traumatic Medical History: Denies: Hx Fractures Infectious Medical History: Reports: Hx MRSA. Denies: Hx HIV Past Surgical History: Reports: Hx Abdominal Surgery - Hysterectomy, Hx Hysterectomy, Hx Orthopedic Surgery - Right foot bunionectomy. Bilateral total knee replacement. Left wrist CORNELIUS, Hx Tonsillectomy, Other. Denies: Hx Appendectomy, Hx Bowel Surgery, Hx Section, Hx Cholecystectomy, Hx Colostomy, Hx Coronary Artery Bypass Graft, Hx Gastric Bypass Surgery, Hx Herniorrhaphy, Hx Mastectomy, Hx Pacemaker, Hx Tubal Ligation - Immunizations Hx Diphtheria, Pertussis, Tetanus Vaccination: Yes Hx Pneumococcal Vaccination: 06/01/11 Review of Systems - Review of Systems Notes: Constitutional: Negative for fever. HENT: Negative for sore throat. Eyes: Negative for visual changes. Cardiovascular: Negative for chest pain. Positive for lightheadedness Respiratory: Positive for shortness of breath. Gastrointestinal: Negative for abdominal pain, vomiting or diarrhea. Genitourinary: Negative for dysuria. Musculoskeletal: Negative for back pain. Skin: Negative for rash. Neurological: Negative for headaches, weakness or numbness. 10 point ROS negative except as marked above and in HPI. Physical Exam - Vital signs Vitals: Temp Pulse Resp BP Pulse Ox 97.8 F 69 16 132/70 H 97 10/23/18 16:23 10/23/18 16:23 10/23/18 16:23 10/23/18 16:23 10/23/18 16:23 Interpretation: Normal Notes: PHYSICAL EXAMINATION: GENERAL: Well-appearing, well-nourished and in no acute distress. HEAD: Atraumatic, normocephalic. EYES: Pupils equal round and reactive to light, extraocular movements intact, sclera anicteric, conjunctiva are normal. ENT: nares patent, oropharynx clear without exudates. Moderately dry mucous membranes. NECK: Normal range of motion, supple without lymphadenopathy LUNGS: Breath sounds clear to auscultation bilaterally and equal. No wheezes rales or rhonchi. HEART: Regular rate and rhythm without murmurs, patient's heart rate increases by 23 bpm when she goes from a sitting to standing position ABDOMEN: Soft, nontender, normoactive bowel sounds. No guarding, no rebound. No masses appreciated. EXTREMITIES: Normal range of motion, no pitting or edema. No cyanosis. NEUROLOGICAL: No focal neurological deficits. Moves all extremities spontaneously and on command. PSYCH: Normal mood, normal affect. SKIN: Warm, Dry, normal turgor, no rashes or lesions noted. Course - Re-evaluation Re-evalutation: 10/23/18 20:06 Presentation of a well-appearing 83-year-old patient laughing and joking with me during exam. I did stay at the bedside with the patient and her daughter for 20 minutes having a very enjoyable conversation about the patient's current symptoms as well as how she has been doing since last time I saw her. We have reviewed that her symptoms are most suggestive of orthostasis and dehydration al though have also reviewed more grave possibilities such as a pulmonary embolus or progression of her disease. After review of our diagnostic options today the patient and her daughter after full understanding of risks and benefits of all approaches have elected to proceed with IV fluids only declining CTA of the chest or further imaging of the abdomen and pelvis to monitor for progression of disease. They do understand that should be missed 1 of these diagnosis the patient can have a more great outcome up to and including . Patient states she would rather receive mild symptom medic care as she is not currently pursuing therapeutic options for her cancer at this time anyhow. She will follow-up with her oncologist. Her laboratories show mild anemia, otherwise unremarkable. At this time will discharge with return precautions and follow-up recommendations. Verbal discharge instructions given a the bedside and opportunity for questions given. Medication warnings reviewed. Patient is in agreement with this plan and has verbalized understanding of return precautions and the need for primary care follow-up in the next 24-72 hours. - Vital Signs Vital signs: Temp Pulse Resp BP Pulse Ox 97.8 F 69 19 132/70 H 97 10/23/18 16:23 10/23/18 16:23 10/23/18 19:09 10/23/18 16:23 10/23/18 19:09 - Laboratory Result Diagrams: 10/23/18 17:55 10/23/18 17:55 Laboratory results interpreted by me: 10/23/18 10/23/18 10/23/18 17:45 17:55 17:55 Hgb 10.6 L Hct 32.9 L MCH 26.7 L RDW 16.7 H Seg Neutrophils % 80.1 H Lymphocytes % 9.7 L Potassium 3.4 L Est GFR (Non-Af Amer) 59 L AST 37 H Alkaline Phosphatase 140 H Ur Leukocyte Esterase TRACE H Urine Ascorbic Acid 40 H - Diagnostic Test Radiology reviewed: Image reviewed, Reports reviewed Radiology results interpreted by me: 10/23/18 20:07 Chest x-ray: No acute infiltrate pneumothorax - EKG Interpretation by Me Additional EKG results interpreted by me: 10/23/18 20:08 Sinus rhythm, rate 69. No ST elevations or depressions. QTC is 429. Discharge - Discharge Clinical Impression: Orthostatic lightheadedness, Dehydration Condition: Good Disposition: HOME, SELF-CARE Additional Instructions: You were seen today for lightheadedness/dizziness. The exact cause of your symptoms is unclear but your workup here is reassuring without any concerning findings. Please follow closely with your primary care physician in the next 1- 3 days. Return if you pass out, have additional episodes of lightheadedness, develop weakness/numbness, have persistent vomiting, chest pain, shortness of breath or any other symptoms that are concerning to you Referrals: CARLOS SEPULVEDA MD [Primary Care Provider] - Follow up as needed
[2018-10-23 22:00] VITALS: BP 122/62
== END 2018-10-23 22:55 | disposition home or self-care (01) ==
LOC: ER 16:11
DX: E86.0 Dehydration (principal); I95.1 Orthostatic hypotension; R42 Dizziness and giddiness; R06.02 Shortness of breath; E78.00 Pure hypercholesterolemia, unspecified; I10 Essential (primary) hypertension; Z88.2 Allergy status to sulfonamides; Z85.41 Personal history of malignant neoplasm of cervix uteri; Z86.718 Personal history of other venous thrombosis and embolism; Z86.14 Personal history of Methicillin resistant Staphylococcus aureus infection; Z90.710 Acquired absence of both cervix and uterus
CPT/HCPCS: 93005; 99284; 96360; 36415; 82550; 85025; 80053; 81001; 84484; 71045; 93010; J7120

== ENCOUNTER 2018-11-01 09:24 | Emergency (ER) | payer MEDICARE, OTHER ==
--- NOTE | 2018-11-01 10:12 | RADIOLOGY REPORT (SQ) ---
EXAM DESCRIPTION: SACRUM AND COCCYX COMPLETED DATE/TIME: 11/01/2018 10:00 am REASON FOR STUDY: coccidynia COMPARISON: None. NUMBER OF VIEWS: Three views. TECHNIQUE: AP, lateral, and tilt views of the sacrum and coccyx. LIMITATIONS: None. FINDINGS: MINERALIZATION: Normal. BONES: No acute fracture or dislocation. No worrisome bone lesions. SOFT TISSUES: No soft tissue swelling. No foreign body. OTHER: No other significant finding. IMPRESSION: NEGATIVE STUDY OF THE SACRUM AND COCCYX. TECHNICAL DOCUMENTATION: JOB ID: [id number] [employer]- All Rights Reserved Reading location - IP/workstation name: [email or web address]
--- NOTE | 2018-11-01 10:24 | ER Document Report ---
ED General - General Chief Complaint: Back Pain Stated Complaint: TAILBONE PAIN Time Seen by Provider: 11/01/18 09:30 Primary Care Provider: CARLOS SEPULVEDA MD [Primary Care Provider] - Follow up in 3-5 days Notes: Patient is a 83-year-old female that presents to the emergency department for chief complaint of tailbone pain, and dysuria. Patient reports that about a week ago she sat too hard on the toilet and since then has had some pain towards her tailbone. She does have a colostomy, and states that she continues to have bloody mucus from her rectum, but that has been going on since her colostomy, without change. She does admit to having dysuri recently as well and is concerned about a possible urinary tract infection. She denies fevers, chills, flank pain, nausea, vomiting. Denies changes in her ostomy output. She did take Tylenol this morning with some relief of her pain. She currently rates her pain as a 3 out of 10 describes as an ache in her tailbone. Past Medical History: Small bowel cancer Past Surgical History: Colostomy Social History: Lives at home, denies alcohol or tobacco use. Family History: Reviewed and noncontributory for presenting illness Allergies: Reviewed, see documented allergy list. REVIEW OF SYSTEMS: Other than noted above, the 12 point review of systems was reviewed with the patient and were negative, all pertinent findings are included in the HPI. PHYSICAL EXAMINATION: Vital signs reviewed, nursing noted reviewed. GENERAL: Elderly female, no acute distress HEAD: Atraumatic, normocephalic. EYES: Eyes appear normal, extraocular movements intact, sclera anicteric, conjunctiva are normal. ENT: nares patent, oropharynx clear without exudates. Moist mucous membranes. NECK: Normal range of motion, supple without lymphadenopathy LUNGS: Breath sounds clear to auscultation bilaterally and equal. No wheezes rales or rhonchi. HEART: Regular rate and rhythm without murmurs ABDOMEN: Soft, nontender, normoactive bowel sounds. No rebound, guarding, or rigidity. No masses appreciated. Colostomy present, appears healthy and intact. No signs of infection EXTREMITIES: Nontender, good range of motion, no pitting or edema. NEUROLOGICAL: No focal neurological deficits. Moves all extremities spontaneously Motor and sensory grossly intact on exam. PSYCH: Normal mood, normal affect. SKIN: Warm, Dry, normal turgor, no rashes or lesions noted on exposed skin TRAVEL OUTSIDE OF THE [place] IN LAST 30 DAYS: No - Related Data Allergies/Adverse Reactions: Sulfa (Sulfonamide Antibiotics) Adverse Reaction (Intermediate, Verified 10/23/18 16:23) tingling, itching Past Medical History - Social History Smoking Status: Never Smoker Family History: Hypertension - Mother age 105., Malignancy - Prostate cancer. Father at age 65., Thyroid Disfunction - Past Medical History Cardiac Medical History: Reports: Hx DVT, Hx Hypercholesterolemia, Hx Hypertension Denies: Hx Atrial Fibrillation, Hx Congestive Heart Failure, Hx Coronary Artery Disease, Hx Heart Attack, Hx Peripheral Vascular Disease, Hx Pulmonary Embolism, Hx Heart Murmur Pulmonary Medical History: Reports: Hx Asthma, Hx Bronchitis, Hx Pneumonia Denies: Hx COPD, Hx Respiratory Failure, Hx Sleep Apnea, Hx Tuberculosis Neurological Medical History: Reports: Hx Migraine. Denies: Hx Cerebrovascular Accident, Hx Seizures Endocrine Medical History: Reports: Hx Hyperthyroidism, Hx Hypothyroidism. Denies: Hx Graves' Disease Renal/ Medical History: Denies: Hx End Stage Renal Disease, Hx Kidney Stones, Hx Ovarian Cysts, Hx Peritoneal Dialysis, Hx Pelvic Inflammatory Disease Malignancy Medical History: Reports: Hx Cervical Cancer. Denies: Hx Breast Cancer, Hx Leukemia, Hx Lung Cancer, Hx Ovarian Cancer GI Medical History: Reports: Hx Diverticulitis, Hx Gastroesophageal Reflux Disease, Hx Ulcer - 1995. Denies: Hx Crohn's Disease, Hx Hiatal Hernia, Hx Irritable Bowel, Hx Liver Failure, Hx Pancreatitis Musculoskeletal Medical History: Reports Hx Arthritis, Denies Hx Fibromyalgia, Denies Hx Multiple Sclerosis, Denies Hx Muscular Dystrophy Psychiatric Medical History: Reports: Hx Depression Denies: Hx Bipolar Disorder, Hx Dementia, Hx Post Traumatic Stress Disorder, Hx Schizophrenia Traumatic Medical History: Denies: Hx Fractures Infectious Medical History: Reports: Hx MRSA. Denies: Hx HIV Past Surgical History: Reports: Hx Abdominal Surgery - Hysterectomy, Hx Hysterectomy, Hx Orthopedic Surgery - Right foot bunionectomy. Bilateral total knee replacement. Left wrist CORNELIUS, Hx Tonsillectomy, Other. Denies: Hx Appendectomy, Hx Bowel Surgery, Hx Section, Hx Cholecystectomy, Hx Colostomy, Hx Coronary Artery Bypass Graft, Hx Gastric Bypass Surgery, Hx Herniorrhaphy, Hx Mastectomy, Hx Pacemaker, Hx Tubal Ligation - Immunizations Hx Diphtheria, Pertussis, Tetanus Vaccination: Yes Hx Pneumococcal Vaccination: 06/01/11 Physical Exam - Vital signs Vitals: Temp Pulse Resp BP Pulse Ox 97.9 F 103 H 16 149/76 H 100 11/01/18 09:28 11/01/18 09:28 11/01/18 09:28 11/01/18 09:28 11/01/18 09:28 Course - Re-evaluation Re-evalutation: Patient seen and examined vital signs reviewed. Laboratory data and imaging were ordered as appropriate for the patient's presenting symptoms and complaint, with consideration of any critical or life threatening conditions that may be associated with their obtained history and exam as noted above. Patient was treated with Tylenol for her pain which did give her some relief Results were reviewed when available and demonstrated negative imaging of the coccyx and sacrum, no fracture, UA was consistent with possible urinary tract infection, will treat and send for culture. The patient was re-evaluated and was stable and improved Evaluation was most consistent with coccydynia, and UTI, will treat for urinary tract infection for 7 days, given a short prescription for [facility] to take for breakthrough pain for her coccydynia. Results were discussed with the patient at this point, after careful consideration I feel that that patient can be discharged from the emergency department, the patient was educated treatments and reasons to return to the emergency department based on their presumed diagnosis as noted above, they were advised to followup with a primary care physician in 2-3 days. Patient was agreeable to plan of care. *Note is created using voice recognition software and may contain spelling, syntax or grammatical errors. Laboratory 11/01/18 11:15 Urine Color YELLOW Urine Appearance TURBID Urine pH 7.0 Ur Specific [place] 1.017 Urine Protein 100 H Urine Glucose (UA) NEGATIVE Urine Ketones NEGATIVE Urine Blood LARGE H Urine Nitrite NEGATIVE Urine Bilirubin NEGATIVE Urine Urobilinogen NEGATIVE Ur Leukocyte Esterase MODERATE H Urine WBC (Auto) 5 Urine RBC (Auto) 12 Urine Ascorbic Acid NEGATIVE Sacrum and Coccyx X-Ray 11/01/18 09:40 IMPRESSION: NEGATIVE STUDY OF THE SACRUM AND COCCYX. - Vital Signs Vital signs: Temp Pulse Resp BP Pulse Ox 98.0 F 78 16 127/69 H 97 11/01/18 13:35 11/01/18 13:35 11/01/18 13:35 11/01/18 13:35 11/01/18 13:35 - Laboratory Laboratory results interpreted by me: 11/01/18 11:15 Urine Protein 100 H Urine Blood LARGE H Ur Leukocyte Esterase MODERATE H Discharge - Discharge Clinical Impression: Coccydynia UTI (urinary tract infection) Qualifiers: Urinary tract infection type: site unspecified Hematuria presence: with hematuria Qualified Code(s): N39.0 - Urinary tract infection, site not specified Condition: Stable Disposition: HOME, SELF-CARE Instructions: Urinary Tract Infection ([facility]) Additional Instructions: Please complete the entire course of antibiotics and follow-up with your primary care physician. If you have worsening pain or symptoms, do not hesitate to return to the emergency department. Prescriptions: RX: Cephalexin Monohydrate [Keflex 500 mg Capsule] 500 mg PO BID 7 Days #14 capsule Hydrocodone/Acetaminophen [[facility] 5-325 mg Tablet] 1 tab PO Q8H PRN #8 tablet PRN Reason: BACK PAIN Referrals: CARLOS SEPULVEDA MD [Primary Care Provider] - Follow up in 3-5 days
[2018-11-01] MEDS ORDERED: ACETAMINOPHEN 325 MG TABLET PO ONE (11:27)
[2018-11-01 11:40] LABS: APPEARANCE,URINE TURBID; BILIRUBIN,URINE NEGATIVE (NEGATIVE); COLOR,URINE YELLOW; GLUCOSE, URINE NEGATIVE (NEGATIVE); KETONES,URINE NEGATIVE (NEGATIVE); LEUKOCYTE ESTERASE,URINE MODERATE (NEGATIVE); NITRITE,URINE NEGATIVE (NEGATIVE); PROTEIN,URINE 100 mg/dL (NEGATIVE); URINE SPECIFIC GRAVITY 1.017; UROBILINOGEN,URINE NEGATIVE mg/dL (<2.0)
[2018-11-01 13:37] VITALS: BP 127/69
== END 2018-11-01 13:41 | disposition home or self-care (01) ==
LOC: ER 09:24
DX: M53.3 Sacrococcygeal disorders, not elsewhere classified (principal); W22.09XA Striking against other stationary object, initial encounter; N39.0 Urinary tract infection, site not specified; K62.5 Hemorrhage of anus and rectum; I10 Essential (primary) hypertension; J45.909 Unspecified asthma, uncomplicated; Z85.41 Personal history of malignant neoplasm of cervix uteri; Z85.068 Personal history of other malignant neoplasm of small intestine; Z93.3 Colostomy status
CPT/HCPCS: 99284; 87086; 87088; 81001; 87186; 72220; A9270

== ENCOUNTER 2018-11-02 10:51 | Emergency (ER) | payer MEDICARE, OTHER ==
[2018-11-02] MEDS ORDERED: NORMAL SALINE 1000 ML 1,000 ML IV ONE ×2 (11:08→14:18)
--- NOTE | 2018-11-02 11:14 | ER Document Report ---
ED General - General Chief Complaint: Abdominal Pain Stated Complaint: ABDOMINAL PAIN Time Seen by Provider: 11/02/18 10:58 Primary Care Provider: CARLOS SEPULVEDA MD [Primary Care Provider] - Follow up in 3-5 days TRAVEL OUTSIDE OF THE [place] IN LAST 30 DAYS: No - HPI Notes: Patient is a 83-year-old female that presents to the emergency department for chief complaint of abdominal pain. Patient reports abdominal pain on her right side that has been intermittent over the last few days but became constant today. She states it is sharp and electrical feeling. Radiates from her upper right abdomen down to her suprapubic region. She states she was diagnosed with a urinary tract infection in the emergency room yesterday. She did take her antibiotics yesterday as well as morning dose today. She reports starting to feel fever he last night with sweats and chills. She did not take her temperature. Patient saw her oncologist Dr. Darling today who referred her to the emergency room for further management. Patient reports some decreased output in her colostomy bag but den ies nausea and vomiting. Past Medical History: Endometrial cancer Past Surgical History: Colostomy Social History: Denies tobacco and alcohol Family History: Reviewed and noncontributory for presenting illness Allergies: Reviewed, see documented allergy list. REVIEW OF SYSTEMS: CONSTITUTIONAL : fever chills diaphoresis No recent illness EENT: No vision changes No congestion No sore throat CARDIOVASCULAR: No chest pain No palpitations RESPIRATORY: No shortness of breath No cough No difficulty breathing GASTROINTESTINAL: abdominal pain No nausea No vomiting No diarrhea GENITOURINARY: No dysuria No hematuria No difficulty urinating MUSCULOSKELETAL: No back pain No leg pain No arm pain SKIN: No rashes No lesions LYMPHATIC: No swollen, enlarged glands. NEUROLOGICAL: No lightheadedness No headache No weakness No paresthesias PSYCHIATRIC: No anxiety No depression PHYSICAL EXAMINATION: Vital signs reviewed, nursing noted reviewed. GENERAL: Well-appearing, well-nourished and in no acute distress. HEAD: Atraumatic, normocephalic. EYES: Eyes appear normal, extraocular movements intact, sclera anicteric, conjunctiva are normal. ENT: nares patent, oropharynx clear without exudates. Moist mucous membranes. NECK: Normal range of motion, supple without lymphadenopathy LUNGS: Breath sounds clear to auscultation bilaterally and equal. No wheezes rales or rhonchi. HEART: Tachycardic rate and regular rhythm without murmurs ABDOMEN: Distended, soft, tenderness on the diffuse left side as well as suprapubic, trace brown stool in colostomy bag. Colostomy pink with no surrounding erythema or bleeding. No rebound, guarding, or rigidity. EXTREMITIES: Nontender, good range of motion, trace pretibial edema bilaterally NEUROLOGICAL: No focal neurological deficits. Moves all extremities spontaneously Motor and sensory grossly intact on exam. PSYCH: Normal mood, normal affect. SKIN: Warm, Dry, normal turgor, no rashes or lesions noted on exposed skin - Related Data Allergies/Adverse Reactions: Sulfa (Sulfonamide Antibiotics) Adverse Reaction (Intermediate, Verified 11:03) tingling, itching Past Medical History - Social History Smoking Status: Never Smoker Frequency of alcohol use: None Drug Abuse: None Family History: Hypertension - Mother age 105., Malignancy - Prostate cancer. Father at age 65., Thyroid Disfunction Patient has suicidal ideation: No Patient has homicidal ideation: No - Past Medical History Cardiac Medical History: Reports: Hx DVT, Hx Hypercholesterolemia, Hx Hypertension Denies: Hx Atrial Fibrillation, Hx Congestive Heart Failure, Hx Coronary Artery Disease, Hx Heart Attack, Hx Peripheral Vascular Disease, Hx Pulmonary Embolism, Hx Heart Murmur Pulmonary Medical History: Reports: Hx Asthma, Hx Bronchitis, Hx Pneumonia Denies: Hx COPD, Hx Respiratory Failure, Hx Sleep Apnea, Hx Tuberculosis Neurological Medical History: Reports: Hx Migraine. Denies: Hx Cerebrovascular Accident, Hx Seizures Endocrine Medical History: Reports: Hx Hyperthyroidism, Hx Hypothyroidism. Denies: Hx Graves' Disease Renal/ Medical History: Denies: Hx End Stage Renal Disease, Hx Kidney Stones, Hx Ovarian Cysts, Hx Peritoneal Dialysis, Hx Pelvic Inflammatory Disease Malignancy Medical History: Reports: Hx Cervical Cancer. Denies: Hx Breast Cancer, Hx Leukemia, Hx Lung Cancer, Hx Ovarian Cancer GI Medical History: Reports: Hx Diverticulitis, Hx Gastroesophageal Reflux Disease, Hx Ulcer - 1995. Denies: Hx Crohn's Disease, Hx Hiatal Hernia, Hx Irri table Bowel, Hx Liver Failure, Hx Pancreatitis Musculoskeletal Medical History: Reports Hx Arthritis, Denies Hx Fibromyalgia, Denies Hx Multiple Sclerosis, Denies Hx Muscular Dystrophy Psychiatric Medical History: Reports: Hx Depression Denies: Hx Bipolar Disorder, Hx Dementia, Hx Post Traumatic Stress Disorder, Hx Schizophrenia Traumatic Medical History: Denies: Hx Fractures Infectious Medical History: Reports: Hx MRSA. Denies: Hx HIV Past Surgical History: Reports: Hx Abdominal Surgery - Hysterectomy, Hx Hysterectomy, Hx Orthopedic Surgery - Right foot bunionectomy. Bilateral total knee replacement. Left wrist CORNELIUS, Hx Tonsillectomy, Other. Denies: Hx Appendectomy, Hx Bowel Surgery, Hx Section, Hx Cholecystectomy, Hx Colostomy, Hx Coronary Artery Bypass Graft, Hx Gastric Bypass Surgery, Hx Herniorrhaphy, Hx Mastectomy, Hx Pacemaker, Hx Tubal Ligation - Immunizations Hx Diphtheria, Pertussis, Tetanus Vaccination: Yes Hx Pneumococcal Vaccination: 06/01/11 Physical Exam - Vital signs Vitals: Resp Pulse Ox 15 95 11/02/18 12:00 11/02/18 12:00 Course - Re-evaluation Re-evalutation: 11/02/18 11:13 Vitals reviewed. Nursing notes reviewed. Patient was started on IV fluids and given Rocephin and Zofran. She is on telemetry monitoring. She does have abdominal distention and poor stool output concerning for possible bowel obstruc tion. CT will be obtained. 11/02/18 13:[address] scan shows stool on the right where patient is tender. She also has a large peristomal hernia. Repeat abdominal exam is unchanged with tenderness on the right upper and lower and suprapubic region, no paristomal tenderness. Patient has not had any stool output concerning for possible obstruction. I did discuss her care with Dr. Modi who will evaluate her in the emergency room. Her lab work shows a mild leukocytosis of 12. After IV fluids patient is no longer tachycardic or tachypneic and has a normal lactic acid and I am not ivan rned for sepsis currently. Laboratory 11/02/18 11/02/18 11/02/18 11:00 11:00 11:00 WBC 12.0 H RBC 4.05 Hgb 10.5 L Hct 32.9 L MCV 81 MCH 26.0 L MCHC 32.0 RDW 17.8 H Plt Count 312 Seg Neutrophils % 89.1 H Lymphocytes % 5.5 L Monocytes % 5.1 Eosinophils % 0.2 Basophils % 0.1 Absolute Neutrophils 10.7 H Absolute Lymphocytes 0.7 Absolute Monocytes 0.6 Absolute Eosinophils 0.0 Absolute Basophils 0.0 PT 15.1 INR 1.13 VBG pH VBG pCO2 VBG HCO3 VBG Base Excess Sodium 137.2 Potassium 4.5 Chloride 102 Carbon Dioxide 27 Anion Gap 8 BUN 22 H Creatinine 0.92 Est GFR ( Amer) > 60 Est GFR (Non-Af Amer) 58 L Glucose 108 POC Glucose Lactic Acid Calcium 9.4 Total Bilirubin 0.7 Direct Bilirubin 0.5 H Neonat Total Bilirubin Not Reportable Neonat Direct Bilirubin Not Reportable Neonat Indirect Bili Not Reportable AST 31 ALT 8 L Alkaline Phosphatase 91 Total Protein 7.0 Albumin 3.7 11/02/18 11/02/18 11/02/18 13:25 13:25 13:25 WBC RBC Hgb Hct MCV MCH MCHC RDW Plt Count Seg Neutrophils % Lymphocytes % Monocytes % Eosinophils % Basophils % Absolute Neutrophils Absolute Lymphocytes Absolute Monocytes Absolute Eosinophils Absolute Basophils PT INR VBG pH 7.36 VBG pCO2 48.1 VBG HCO3 26.5 VBG Base Excess 0.7 Sodium Potassium Chloride Carbon Dioxide Anion Gap BUN Creatinine Est GFR ( Amer) Est GFR (Non-Af Amer) Glucose POC Glucose 87 Lactic Acid 0.7 Calcium Total Bilirubin Direct Bilirubin Neonat Total Bilirubin Neonat Direct Bilirubin Neonat Indirect Bili AST ALT Alkaline Phosphatase Total Protein Albumin Abdomen/Pelvis CT 11/02/18 11:09 IMPRESSION: Large parastomal hernia containing nondilated bowel left upper quadrant. Chest X-Ray 11/02/18 11:09 IMPRESSION: NO ACUTE RADIOGRAPHIC FINDING IN THE CHEST. 11/02/18 14:20 Patient was evaluated in the emergency room by Dr. Modi. He was able to p alpate her ostomy and reports no concern for acute obstruction. Patient will be given magnesium citrate for constipation. Her abdominal tenderness is consistent with stool burden on her right side. Patient encouraged to continue using MiraLAX at home to establish soft stools. She has an appointment in a few days with [facility] for further management of her endometrial cancer which she will keep. Patient has no lactic acid and her vital signs are currently normal. She was advised to continue taking her antibiotic, she has not had enough doses to confirm failed outpatient management. Patient will return to the emergency room for new or worsening symptoms including fevers and vomiting. She is in agreement with plan of care and stable at discharge. 11/02/18 14:38 - Vital Signs Vital signs: Temp Pulse Resp BP Pulse Ox 22 H 129/60 H 96 11/02/18 13:23 11/02/18 13:23 11/02/18 13:23 - Laboratory Result Diagrams: 11/02/18 11:00 11/02/18 11:00 Laboratory results interpreted by me: 11/02/18 11/02/18 11:00 11:00 WBC 12.0 H Hgb 10.5 L Hct 32.9 L MCH 26.0 L RDW 17.8 H Seg Neutrophils % 89.1 H Lymphocytes % 5.5 L Absolute Neutrophils 10.7 H BUN 22 H Est GFR (Non-Af Amer) 58 L Direct Bilirubin 0.5 H ALT 8 L - EKG Interpretation by Me Additional EKG results interpreted by me: 11/02/18 12:13 Interpreted by myself 09/02/2008: Normal sinus rhythm, rate 91, left axis, no ectopy, no STEMI Discharge - Discharge Clinical Impression: Peristomal hernia Urinary tract infection Qualifiers: Urinary tract infection type: site unspecified Hematuria presence: with hematuria Qualified Code(s): N39.0 - Urinary tract infection, site not specified Abdominal pain Qualifiers: Abdominal location: unspecified location Qualified Code(s): R10.9 - Unspecified abdominal pain Constipation Qualifiers: Constipation type: other constipation type Qualified Code(s): K59.09 - Other constipation Condition: Stable Disposition: HOME, SELF-CARE Instructions: Constipation ([facility]), Urinary Tract Infection ([facility]) Additional Instructions: Please return to the emergency department if you have any worsening, or concern of your symptoms. Please return to the emergency department if you develop chest pain, difficulty breathing, severe abdominal pain, or ongoing vomiting. Please follow-up with your primary care physician in 2-3 days and any other recommended physicians. If prescribed, take all medications as directed. If you have any questions or concerns do not hesitate to return the emergency department for evaluation. Use MiraLAX at home for constipation symptoms. You can take 1 capful 1-2 times daily as needed. Keep your appointment at [facility] this week for follow-up Referrals: CARLOS SEPULVEDA MD [Primary Care Provider] - Follow up in 3-5 days
[2018-11-02 11:23] LABS: ABSOLUTE LYMPHOCYTES (AUTO) 0.7 10^3/uL (0.5-4.7); ABSOLUTE MONOCYTES (AUTO) 0.6 10^3/uL (0.1-1.4); ABSOLUTE NEUT (AUTO) 10.7 10^3/uL (1.7-8.2); BASOPHILS % (AUTO) 0.1 % (0-2); EOSINOPHILS % (AUTO) 0.2 % (0-6); HEMATOCRIT 32.9 % (36.0-47.0); HEMOGLOBIN 10.5 g/dL (12.0-15.5); LYMPHOCYTES % (AUTO) 5.5 % (13-45); MEAN CORPUSCULAR VOLUME 81 fl (80-97); MONOCYTES % (AUTO) 5.1 % (3-13); PLATELET COUNT 312 10^3/uL (150-450); RED BLOOD COUNT 4.05 10^6/uL (3.72-5.28); RED CELL DISTRIBUTION WIDTH 17.8 % (11.5-14.0); SEGMENTED NEUTROPHILS % (AUTO) 89.1 % (42-78); TOTAL CELLS COUNTED % (AUTO) 100 %
[2018-11-02 11:26] LABS: INTERNATIONAL RATION (INR) 1.13; PROTHROMBIN TIME 15.1 SEC (11.4-15.4)
[2018-11-02] MEDS ORDERED: CEFTRIAXONE 1 GM/D5W RTU 1 GM/50 ML RTUPB IV ONE (11:30)
[2018-11-02 11:34] LABS: ALANINE AMINOTRANSFERASE 8 U/L (9-52); ALBUMIN 3.7 g/dL (3.5-5.0); ALKALINE PHOSPHATASE 91 U/L (38-126); ANION GAP 8 (5-19); ASPARTATE AMINO TRANSFERASE 31 U/L (14-36); BILIRUBIN,DIRECT 0.5 mg/dL (0.0-0.4); BILIRUBIN,TOTAL 0.7 mg/dL (0.2-1.3); BLOOD UREA NITROGEN 22 mg/dL (7-20); CALCIUM 9.4 mg/dL (8.4-10.2); CARBON DIOXIDE 27 mmol/L (22-30); CHLORIDE 102 mmol/L (98-107); GLUCOSE 108 mg/dL (75-110); POTASSIUM 4.5 mmol/L (3.6-5.0); SODIUM 137.2 mmol/L (137-145)
--- NOTE | 2018-11-02 12:43 | RADIOLOGY REPORT (SQ) ---
EXAM DESCRIPTION: CHEST SINGLE VIEW COMPLETED DATE/TIME: 11/02/2018 12:17 pm REASON FOR STUDY: shortness of breath COMPARISON: None. EXAM PARAMETERS: NUMBER OF VIEWS: One view. TECHNIQUE: Single frontal radiographic view of the chest acquired. RADIATION DOSE: NA LIMITATIONS: None. FINDINGS: LUNGS AND PLEURA: No opacities, masses or pneumothorax. No pleural effusion. MEDIASTINUM AND HILAR STRUCTURES: No masses. Contour normal. HEART AND VASCULAR STRUCTURES: Heart normal in size. Normal vasculature. BONES: No acute findings. HARDWARE: None in the chest. OTHER: No other significant finding. IMPRESSION: NO ACUTE RADIOGRAPHIC FINDING IN THE CHEST. TECHNICAL DOCUMENTATION: JOB ID: [id number] [employer]- All Rights Reserved Reading location - IP/workstation name: [email or web address]
--- NOTE | 2018-11-02 12:59 | EKG REPORT ---
SEVERITY:- OTHERWISE NORMAL ECG - SINUS RHYTHM LEFT AXIS DEVIATION : Confirmed by: Melany Magaña MD 02-Nov-2018 12:59:16
[2018-11-02 13:35] LABS: VENOUS BLOOD BASE EXCESS 0.7 mmol/L; VENOUS BLOOD HCO3 26.5 mmol/L (20-32); VENOUS BLOOD PCO2 48.1 mmHg (35-63); VENOUS BLOOD PH 7.36 (7.30-7.42)
--- NOTE | 2018-11-02 13:41 | RADIOLOGY REPORT (SQ) ---
EXAM DESCRIPTION: CT ABD/PELVIS WITH IV ONLY COMPLETED DATE/TIME: 11/02/2018 1:14 pm REASON FOR STUDY: left side abdominal pain COMPARISON: 06/23/2016 TECHNIQUE: CT scan of the abdomen and pelvis performed using helical scanning technique with dynamic intravenous contrast injection. No oral contrast. Images reviewed with lung, soft tissue, and bone windows. Reconstructed coronal and sagittal MPR images reviewed. Delayed images for evaluation of the urinary system also acquired. All images stored on PACS. All CT scanners at this facility use dose modulation, iterative reconstruction, and/or weight based d osing when appropriate to reduce radiation dose to as low as reasonably achievable (ALARA). [facility]: Dose Right [facility]: CareDose [facility]: Dose Right [facility]: Teradose 4D [facility]: Digitiliti CONTRAST TYPE AND DOSE: contrast/concentration: Isovue 350.00 mg/ml; Total Contrast Delivered: 73.0 ml; Total Saline Delivered: 66.0 ml RENAL FUNCTION: GFR > 60. RADIATION DOSE: CT Rad equipment meets quality standard of care and radiation dose reduction techniq ues were employed. CTDIvol: 10.2 - 14.1 mGy. DLP: 1310 mGy-cm.. LIMITATIONS: None. FINDINGS: LOWER CHEST: No significant findings. No nodules or infiltrates. LIVER: Small benign cyst. SPLEEN: Normal size. No focal lesions. PANCREAS: No masses. No significant calcifications. No adjacent inflammation or peripancreatic fluid collections. Pancreatic duct not dilated. GALLBLADDER: No identified stones by CT criteria. No inflammatory changes to suggest cholecystitis. ADRENAL GLANDS: No significant masses or asymmetry. RIGHT KIDNEY AND URETER: No solid masses. No significant calcifications. No hydronephrosis or hyd roureter. LEFT KIDNEY AND URETER: No solid masses. No significant calcifications. No hydronephrosis or hydr oureter. AORTA AND VESSELS: No aneurysm. RETROPERITONEUM: No retroperitoneal adenopathy, hemorrhage or masses. BOWEL AND PERITONEAL CAVITY: Status post left hemicolectomy with diverting colostomy. Large parastom al hernia containing nondilated bowel. Defect approaches 5 cm. No ascites or free air. APPENDIX: Not visualized. PELVIS: No mass. No free fluid. Normal bladder. ABDOMINAL WALL: See above. BONES: Nothing acute. OTHER: No other significant finding. IMPRESSION: Large parastomal hernia containing nondilated bowel left upper quadrant. TECHNICAL DOCUMENTATION: JOB ID: [id number] Quality ID # [id number]: Final reports with documentation of one or more dose reduction techniques (e.g., Au tomated exposure control, adjustment of the mA and/or kV according to patient size, use of iterative reconstruction technique) 2010 [employer]- All Rights Reserved Reading location - IP/workstation name: [email or web address]
[2018-11-02] MEDS ORDERED: ONDANSETRON HCL INJ/PF 4 MG/2 ML SDV IV ONE (13:56)
[2018-11-02 14:15] LABS: APPEARANCE,URINE SLIGHTLY-CLOUDY; BILIRUBIN,URINE NEGATIVE (NEGATIVE); COLOR,URINE YELLOW; GLUCOSE, URINE NEGATIVE (NEGATIVE); KETONES,URINE NEGATIVE (NEGATIVE); LEUKOCYTE ESTERASE,URINE NEGATIVE (NEGATIVE); NITRITE,URINE NEGATIVE (NEGATIVE); PROTEIN,URINE NEGATIVE (NEGATIVE); URINE SPECIFIC GRAVITY 1.044; UROBILINOGEN,URINE NEGATIVE mg/dL (<2.0)
[2018-11-02] MEDS ORDERED: MAGNESIUM CITRATE 296 ML BOTTLE PO ONE (14:17)
--- NOTE | 2018-11-02 15:28 | PDOC CONSULTATION ---
Consultation Consult Date: 11/02/18 Attending physician:: YVONNE PEPPER Consult reason:: r/o peristomal hernia/obstruction History of Present Illness Admission Date/PCP: CARLOS SEPULVEDA MD Patient complains of: lower abd pain, constipation History of Present Illness: CARISA CAMPOS is a 83 year old female Past Medical History Cardiac Medical History: Reports: DVT, Hyperlipidema, Hypertension Denies: Atrial Fibrillation, Congestive Heart Failure, Coronary Artery Disease, Myocardial Infarction, Peripheral Vascular Disease, Pulmonary Embolism, Heart Murmur Pulmonary Medical History: Reports: Asthma, Bronchitis, Pneumonia Denies: Chronic Obstructive Pulmonary Disease (COPD), Respiratory Failure, Sleep Apnea, Tuberculosis Neurological Medical History: Reports: Migraine Denies: Seizures Endocrine Medical History: Reports: Hyperthyroidism, Hypothyroidism Renal/ Medical History: Denies: End Stage Renal Disease Malignancy Medical History: Reports: Cervical Cancer Denies: Breast Cancer, Leukemia, Lung Cancer, Ovarian Cancer GI Medical History: Reports: Diverticulitis, Gastroesophageal Reflux Disease Denies: Crohn's Disease, Hiatal Hernia Musculoskeltal Medical History: Reports: Arthritis Denies: Fibromyalgia Psychiatric Medical History: Reports: Depression Denies: Bipolar Disorder, Dementia, Post Traumatic Stress Disorder Hematology: Reports: Anemia Denies: Hemophilia, Sickle Cell Disease Infectious Medical History: Reports: Methicillin-Resistant Staph Aureus Denies: HIV Past Surgical History Past Surgical History: Reports: Hysterectomy, Orthopedic Surgery - Right foot bunionectomy. Bilateral total knee replacement. Left wrist CORNELIUS, Tonsillectomy, Other Denies: Amputation, Appendectomy, Section, Cholecystectomy, Colostomy, Coronary Artery Bypass Graft, Gastric Bypass Surgery, Herniorrhaphy, Mastectomy, Pacemaker, Tubal Ligation Social History Smoking Status: Never Smoker Frequency of Alcohol Use: None Hx Recreational Drug Use: No Drugs: None Hx Prescription Drug Abuse: No Family History Family History: Hypertension - Mother age 105., Malignancy - Prostate cancer. Father at age 65., Thyroid Disfunction Parental Family History Reviewed: No Children Family History Reviewed: No Sibling(s) Family History Reviewed.: No Medication/Allergy Home Medications: Dicyclomine HCl [Bentyl 10 mg Capsule] 10 mg PO DAILY 05/04/18 Digoxin [Lanoxin 0.125 mg Tablet] 0.125 mg PO DAILY 05/04/18 Gabapentin [Neurontin 300 mg Capsule] 300 mg PO Q8 05/04/18 Hydrochlorothiazide [Hydrodiuril 25 mg Tablet] 25 mg PO DAILY 05/04/18 Hydroxychloroquine Sulfate [Plaquenil 200 mg Tablet] 200 mg PO DAILY 05/04/18 Levothyroxine Sodium [Synthroid] 125 mcg PO Q6AM 05/04/18 Omeprazole 20 mg PO DAILY 05/04/18 Ropinirole HCl [Requip] 1 mg PO QHS 05/04/18 Simvastatin [Zocor 20 mg Tablet] 20 mg PO QHS 05/04/18 Trazodone HCl [Desyrel] 150 mg PO QHS 05/04/18 Amlodipine Besylate [Norvasc 10 mg Tablet] 10 mg PO DAILY 30 Days #30 tablet 05/07/18 Azithromycin [Zithromax 250 mg Tablet] 250 mg PO DAILY 3 Days #3 tablet 05/07/18 Cephalexin Monohydrate [Keflex 500 mg Capsule] 500 mg PO BID 7 Days #14 capsule 11/01/18 Hydrocodone/Acetaminophen [Alba 5-325 mg Tablet] 1 tab PO Q8H PRN #8 tablet 11/01/18 Allergies/Adverse Reactions: Sulfa (Sulfonamide Antibiotics) Adverse Reaction (Intermediate, Verified 11/02/18 11:03) tingling, itching Review of Systems Constitutional: PRESENT: as per HPI Ears: PRESENT: as per HPI Nose, Mouth, and Throat: PRESENT: as per HPI Breasts: PRESENT: as per HPI Cardiovascular: PRESENT: as per HPI Respiratory: PRESENT: as per HPI Gastrointestinal: PRESENT: bloating, constipation, other - constipation Genitourinary: PRESENT: as per HPI Musculoskeletal: PRESENT: as per HPI Integumentary: PRESENT: as per HPI Neurological: PRESENT: as per HPI Psychiatric: PRESENT: as per HPI Endocrine: PRESENT: as per HPI Hematologic/Lymphatic: PRESENT: as per HPI Allergic/Immunologic: PRESENT: as per HPI Physical Exam Vital Signs: Temp Pulse Resp BP Pulse Ox 24 H 139/68 H 90 L 11/02/18 15:00 11/02/18 14:01 11/02/18 15:00 Intake & Output 11/01/18 11/02/18 11/03/18 06:59 06:59 06:59 Intake Total 1050 Balance 1050 General appearance: PRESENT: no acute distress Head exam: PRESENT: normocephalic Eye exam: PRESENT: EOMI Mouth exam: PRESENT: dry mucosa Neck exam: PRESENT: full ROM Respiratory exam: PRESENT: clear to auscultation avery Cardiovascular exam: PRESENT: RRR, tachycardia Pulses: PRESENT: normal radial pulses, normal femoral pulses Vascular exam: PRESENT: normal capillary refill GI/Abdominal exam: PRESENT: other - no abd tenders both limbs of stoma digitalized to fascia no evidence of obstruction, thick insipated stool both limbs Rectal exam: PRESENT: deferred Extremities exam: PRESENT: full ROM Musculoskeletal exam: PRESENT: ambulatory Neurological exam: PRESENT: alert Skin exam: PRESENT: dry Results Laboratory Results: 11/02/18 11:00 11/02/18 11:00 11/02/18 11/02/18 11/02/18 11:00 11:00 13:25 WBC 12.0 H RBC 4.05 Hgb 10.5 L Hct 32.9 L MCV 81 MCH 26.0 L MCHC 32.0 RDW 17.8 H Plt Count 312 Seg Neutrophils % 89.1 H Lymphocytes % 5.5 L Monocytes % 5.1 Eosinophils % 0.2 Basophils % 0.1 Absolute Neutrophils 10.7 H Absolute Lymphocytes 0.7 Absolute Monocytes 0.6 Absolute Eosinophils 0.0 Absolute Basophils 0.0 VBG pH VBG pCO2 VBG HCO3 VBG Base Excess Sodium 137.2 Potassium 4.5 Chloride 102 Carbon Dioxide 27 Anion Gap 8 BUN 22 H Creatinine 0.92 Est GFR ( Amer) > 60 Est GFR (Non-Af Amer) 58 L Glucose 108 Lactic Acid 0.7 Calcium 9.4 Total Bilirubin 0.7 AST 31 ALT 8 L Alkaline Phosphatase 91 Total Protein 7.0 Albumin 3.7 Urine Color Urine Appearance Urine pH Ur Specific [place] Urine Protein Urine Glucose (UA) Urine Ketones Urine Blood Urine Nitrite Ur Leukocyte Esterase Urine WBC (Auto) Urine RBC (Auto) 11/02/18 11/02/18 13:25 13:45 WBC RBC Hgb Hct MCV MCH MCHC RDW Plt Count Seg Neutrophils % Lymphocytes % Monocytes % Eosinophils % Basophils % Absolute Neutrophils Absolute Lymphocytes Absolute Monocytes Absolute Eosinophils Absolute Basophils VBG pH 7.36 VBG pCO2 48.1 VBG HCO3 26.5 VBG Base Excess 0.7 Sodium Potassium Chloride Carbon Dioxide Anion Gap BUN Creatinine Est GFR ( Amer) Est GFR (Non-Af Amer) Glucose Lactic Acid Calcium Total Bilirubin AST ALT Alkaline Phosphatase Total Protein Albumin Urine Color YELLOW Urine Appearance SLIGHTLY-CLOUDY Urine pH 6.0 Ur Specific [place] 1.044 Urine Protein NEGATIVE Urine Glucose (UA) NEGATIVE Urine Ketones NEGATIVE Urine Blood NEGATIVE Urine Nitrite NEGATIVE Ur Leukocyte Esterase NEGATIVE Urine WBC (Auto) 2 Urine RBC (Auto) 1 Impressions: Abdomen/Pelvis CT 11/02/18 11:09 IMPRESSION: Large parastomal hernia containing nondilated bowel left upper quadrant. Chest X-Ray 11/02/18 11:09 IMPRESSION: NO ACUTE RADIOGRAPHIC FINDING IN THE CHEST. Status: Image reviewed by me - i reviewed ct of abd dilated prox colon secondary to stool parastomal hernia seen without obstruction Assessment & Plan - Plan Summary Plan Summary: pt has appoint with her personnel adviser/oncologist in 2 days due to probable recurrent cancer I see no evidence of stoma obstruction she does have some dehydration and contipation would rx with iv fluid and would try laxative oral
[2018-11-02 16:35] VITALS: BP 131/68
== END 2018-11-02 16:45 | disposition home or self-care (01) ==
LOC: ER 10:51
DX: N39.0 Urinary tract infection, site not specified (principal); K94.09 Other complications of colostomy; K59.09 Other constipation; R10.9 Unspecified abdominal pain; E78.00 Pure hypercholesterolemia, unspecified; E03.9 Hypothyroidism, unspecified; I10 Essential (primary) hypertension; Z88.2 Allergy status to sulfonamides; Z86.718 Personal history of other venous thrombosis and embolism; Z85.41 Personal history of malignant neoplasm of cervix uteri; Z86.14 Personal history of Methicillin resistant Staphylococcus aureus infection; Z90.710 Acquired absence of both cervix and uterus; Z96.653 Presence of artificial knee joint, bilateral
CPT/HCPCS: 93005; 99285; 36415; 87040; 87086; 82962; 85025; 85610; 80053; 81001; 82803; 83605; 71045; 74177; 93010; J3490; J2405; J7030; J0696

== ENCOUNTER 2018-11-03 10:28 | Inpatient (IN) | payer MEDICARE, OTHER ==
[2018-11-03] MEDS ORDERED: NORMAL SALINE 500 ML IV ONE (11:00)
[2018-11-03 11:42] LABS: HEMATOCRIT 26.3 % (36.0-47.0); HEMOGLOBIN 8.5 g/dL (12.0-15.5); MEAN CORPUSCULAR HGB CONC 32.1 g/dL (32.0-36.0); MEAN CORPUSCULAR VOLUME 81 fl (80-97); PLATELET COUNT 257 10^3/uL (150-450); RED BLOOD COUNT 3.26 10^6/uL (3.72-5.28); RED CELL DISTRIBUTION WIDTH 18.2 % (11.5-14.0); WHITE BLOOD COUNT 12.9 10^3/uL (4.0-10.5)
--- NOTE | 2018-11-03 11:50 | RADIOLOGY REPORT (SQ) ---
EXAM DESCRIPTION: CT ABD/PELVIS NO ORAL OR IV COMPLETED DATE/TIME: 11/03/2018 11:25 am REASON FOR STUDY: Abdominal pain COMPARISON: CT abdomen pelvis 11/02/2018, 10/03/2017, 09/01/2016 CT angio chest 05/06/2018 TECHNIQUE: CT scan of the abdomen and pelvis performed without intravenous or oral contrast. Images reviewed with lung, soft tissue, and bone windows. Reconstructed coronal and sagittal MPR images revi ewed. All images stored on PACS. All CT scanners at this facility use dose modulation, iterative reconstruction, and/or weight based d osing when appropriate to reduce radiation dose to as low as reasonably achievable (ALARA). [facility]: Dose Right [facility]: CareDose [facility]: Dose Right [facility]: Teradose 4D [facility]: Smart OrderUp RADIATION DOSE: CT Rad equipment meets quality standard of care and radiation dose reduction techniq ues were employed. CTDIvol: 9.8 mGy. DLP: 534 mGy-cm.mGy. LIMITATIONS: None. FINDINGS: In the left pelvic cul-de-sac, a 5.6 x 5 x 3.3 cm abscess is present, tucked along the inf erior aspect of a diffusely diseased distal sigmoid colon. Adjacent sigmoid colon is markedly abnorm al, with diffuse wall thickening, luminal narrowing, and surrounding inflammation in the pelvic fat. . These findings are worrisome for adhesive diffuse tumor involvement or severe infection/inflammat ion of the distal sigmoid colon. Findings were discussed with Dr. Elizabeth in the emergency room, 1130 hours 11/03/2018. No free intraperitoneal air. No free pelvic fluid. There are multiple small subcentimeter lymph nodes in the presacral fat and along the iliac bifurcati on on axial images 46-55. 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 No CT evidence of bowel obstruction. LOWER CHEST: No significant findings. No nodules or infiltrates. NON-CONTRASTED LIVER, SPLEEN, ADRENALS: Evaluation limited by lack of IV contrast. No identified sign ificant masses. Stable 1 cm cyst left lobe liver axial image 25 PANCREAS: No masses. No peripancreatic inflammatory changes. GALLBLADDER: Radiodense bile from IV contrast yesterday. No pericholecystic fluid or inflammatory ch gemma RIGHT KIDNEY AND URETER: No suspicious masses. Assessment limited by lack of IV contrast. No signif icant calcifications. No hydronephrosis or hydroureter. LEFT KIDNEY AND URETER: No suspicious masses. Assessment limited by lack of IV contrast. No signifi cant calcifications. No hydronephrosis or hydroureter. AORTA AND RETROPERITONEUM: No abdominal aortic aneurysm. Multiple small subcentimeter lymph nodes in the presacral fat in the pelvis BOWEL AND PERITONEAL CAVITY: As above APPENDIX: Not identified PELVIS, BLADDER, AND ABDOMINAL WALL:As above. Post hysterectomy. BONES: Lower lumbar facet arthropathy OTHER: No other significant finding. IMPRESSION: 5.6 x 5 x 3.3 cm pelvic abscess adjacent to markedly abnormal distal sigmoid colon. COMMENT: Pertinent findings on the imaging study reported as a CRITICAL RESULT to SURENDRA Perez t11:30 on 11/03/2018. Category of Critical Result: Pelvic abscess Quality ID # [id number]: Final reports with documentation of one or more dose reduction techniques (e.g., Au tomated exposure control, adjustment of the mA and/or kV according to patient size, use of iterative reconstruction technique) TECHNICAL DOCUMENTATION: JOB ID: [id number] [employer]- All Rights Reserved Reading location - IP/workstation name: [email or web address]
[2018-11-03 12:06] LABS: ABSOLUTE LYMPHOCYTES# (MANUAL) 0.6 10^3/uL (0.5-4.7); ABSOLUTE MONOCYTES # (MANUAL) 0.1 10^3/uL (0.1-1.4); ANISOCYTOSIS 2+; BASOPHILS % (MANUAL) 0 % (0-2); EOSINOPHILS % (MANUAL) 1 % (0-6); LYMPHOCYTES % (MANUAL) 5 % (13-45); MONOCYTES % (MANUAL) 1 % (3-13); OVALOCYTES SLIGHT; PLATELET COMMENT ADEQUATE; POIKILOCYTOSIS SLIGHT; POLYCHROMASIA SLIGHT; SEGMENTED NEUTROPHILS % (MAN) 93 % (42-78); TOTAL CELLS COUNTED 100
[2018-11-03 12:07] LABS: ALANINE AMINOTRANSFERASE 30 U/L (9-52); ALBUMIN 2.7 g/dL (3.5-5.0); ALKALINE PHOSPHATASE 89 U/L (38-126); ANION GAP 10 (5-19); ASPARTATE AMINO TRANSFERASE 22 U/L (14-36); BILIRUBIN,DIRECT 0.4 mg/dL (0.0-0.4); BILIRUBIN,TOTAL 0.7 mg/dL (0.2-1.3); BLOOD UREA NITROGEN 13 mg/dL (7-20); CALCIUM 8.5 mg/dL (8.4-10.2); CARBON DIOXIDE 25 mmol/L (22-30); CHLORIDE 100 mmol/L (98-107); GLUCOSE 94 mg/dL (75-110); LIPASE 13.9 U/L (23-300); SODIUM 134.6 mmol/L (137-145); TOTAL PROTEIN 5.4 g/dL (6.3-8.2)
[2018-11-03] MEDS ORDERED: PIPERACILLIN/TAZOBACTAM 3.375 GM VIAL IV ONE (12:07)
[2018-11-03 13:23] LABS: APPEARANCE,URINE CLEAR; BILIRUBIN,URINE NEGATIVE (NEGATIVE); COLOR,URINE YELLOW; GLUCOSE, URINE NEGATIVE (NEGATIVE); KETONES,URINE TRACE mg/dL (NEGATIVE); LEUKOCYTE ESTERASE,URINE NEGATIVE (NEGATIVE); NITRITE,URINE NEGATIVE (NEGATIVE); PROTEIN,URINE NEGATIVE (NEGATIVE); URINE SPECIFIC GRAVITY 1.012; UROBILINOGEN,URINE NEGATIVE mg/dL (<2.0)
--- NOTE | 2018-11-03 16:43 | RADIOLOGY REPORT (SQ) ---
EXAM DESCRIPTION: CT ABD/PELVIS ORAL ONLY COMPLETED DATE/TIME: 11/03/2018 4:26 pm REASON FOR STUDY: eval abscess - sigmoid COMPARISON: CT abdomen pelvis 11/03/2018, 11/02/2018 TECHNIQUE: CT scan of the abdomen and pelvis performed without intravenous contrast. Patient drank oral contrast. Images reviewed with lung, soft tissue, and bone windows. Reconstructed coronal and s agittal MPR images reviewed. All images stored on PACS. All CT scanners at this facility use dose modulation, iterative reconstruction, and/or weight based d osing when appropriate to reduce radiation dose to as low as reasonably achievable (ALARA). [facility]: Dose Right [facility]: CareDose [facility]: Dose Right [facility]: Teradose 4D [facility]: Smart Digital Map Products RADIATION DOSE: CT Rad equipment meets quality standard of care and radiation dose reduction techniq ues were employed. CTDIvol: 13.0 mGy. DLP: 699 mGy-cm.mGy. LIMITATIONS: None. FINDINGS: Patient drank oral contrast. Oral contrast is seen in nondistended stomach and proximal, mid and distal small bowel loops. Oral contrast has not yet reached the colon. Again, a stomal hernia is present in the left lower quadrant containing multiple nonobstructed small bowel loops. In the left pelvis on axial images 70 through 78, a 5.6 x 5 x 3.3 cm pelvic abscess is present immedi ately adjacent to an abnormally thick walled distal sigmoid colon. This is unchanged from prior stud ies. LOWER CHEST: No significant findings. No nodules or infiltrates. NON-CONTRASTED LIVER, SPLEEN, ADRENALS: Evaluation limited by lack of IV contrast. No identified sign ificant masses. 1 cm cyst left lobe liver. PANCREAS: No masses. No peripancreatic inflammatory changes. GALLBLADDER: Radiodense bile in the gallbladder from CT with IV contrast 11/02/2018 RIGHT KIDNEY AND URETER: No suspicious masses. Assessment limited by lack of IV contrast. No signif icant calcifications. No hydronephrosis or hydroureter. LEFT KIDNEY AND URETER: No suspicious masses. Assessment limited by lack of IV contrast. No signifi cant calcifications. No hydronephrosis or hydroureter. AORTA AND RETROPERITONEUM: No aneurysm. No retroperitoneal masses or adenopathy. BOWEL AND PERITONEAL CAVITY: As above APPENDIX: Not identified PELVIS, BLADDER, AND ABDOMINAL WALL:Left pelvic cul-de-sac abscess. Post hysterectomy. BONES: Lumbar facet arthropathy OTHER: No other significant finding. IMPRESSION: 5.6 x 5 x 3.3 cm pelvic abscess left cul-de-sac COMMENT: Quality ID # [id number]: Final reports with documentation of one or more dose reduction techniques (e.g., Automated exposure control, adjustment of the mA and/or kV according to patient size, use of iterative reconstruction technique) TECHNICAL DOCUMENTATION: JOB ID: [id number] [employer]- All Rights Reserved Reading location - IP/workstation name: [email or web address]
[2018-11-03] MEDS ORDERED: ONDANSETRON HCL INJ/PF 4 MG/2 ML SDV IV ONE (16:47)
[2018-11-03] MEDS ORDERED: MORPHINE SULFATE 10 MG/ML INJ IV ONE (16:47)
--- NOTE | 2018-11-03 18:45 | ER Document Report ---
ED General - General Chief Complaint: Abdominal Pain Stated Complaint: ABDOMINAL PAIN Time Seen by Provider: 11/03/18 10:36 Primary Care Provider: CARLOS SEPULVEDA MD [Primary Care Provider] - Follow up as needed TRAVEL OUTSIDE OF THE [place] IN LAST 30 DAYS: No - HPI Notes: Patient presents to the emergency department for evaluation of abdominal pain. This is actually her third visit in the last 3 days. She has a history of stage IV endometrial cancer. She has an ostomy. This was placed in November 2017. She has had diffuse abdominal pain, right-sided greater than left-sided. She was seen yesterday and was told that it was likely constipation. She tried magnesium citrate at home. She did have 3 ostomy bags filled with output but her pain continues. She states her temperature this morning was 100.3. She denies any nausea or vomiting. She does have a diminished appetite. She denies any urinary symptoms. - Related Data Allergies/Adverse Reactions: Sulfa (Sulfonamide Antibiotics) Adverse Reaction (Intermediate, Verified 11/02/18 11:03) tingling, itching Past Medical History - General Information source: Patient, Relative - Daughter - Social History Smoking Status: Never Smoker Family History: Hypertension - Mother age 105., Malignancy - Prostate cancer. Father at age 65., Thyroid Disfunction Patient has suicidal ideation: No Patient has homicidal ideation: No - Past Medical History Cardiac Medical History: Reports: Hx DVT, Hx Hypercholesterolemia, Hx Hypertension Denies: Hx Atrial Fibrillation, Hx Congestive Heart Failure, Hx Coronary Artery Disease, Hx Heart Attack, Hx Peripheral Vascular Disease, Hx Pulmonary Embolism, Hx Heart Murmur Pulmonary Medical History: Reports: Hx Asthma, Hx Bronchitis, Hx Pneumonia Denies: Hx COPD, Hx Respiratory Failure, Hx Sleep Apnea, Hx Tuberculosis Neurological Medical History: Reports: Hx Migraine. Denies: Hx Cerebrovascular Accident, Hx Seizures Endocrine Medical History: Reports: Hx Hyperthyroidism, Hx Hypothyroidism. Denies: Hx Graves' Disease Renal/ Medical History: Denies: Hx End Stage Renal Disease, Hx Kidney Stones, Hx Ovarian Cysts, Hx Peritoneal Dialysis, Hx Pelvic Inflammatory Disease Malignancy Medical History: Reports: Hx Cervical Cancer. Denies: Hx Breast Cancer, Hx Leukemia, Hx Lung Cancer, Hx Ovarian Cancer GI Medical History: Reports: Hx Diverticulitis, Hx Gastroesophageal Reflux Disease, Hx Ulcer - 1995. Denies: Hx Crohn's Disease, Hx Hiatal Hernia, Hx Irritable Bowel, Hx Liver Failure, Hx Pancreatitis Musculoskeletal Medical History: Reports Hx Arthritis, Denies Hx Fibromyalgia, Denies Hx Multiple Sclerosis, Denies Hx Muscular Dystrophy Psychiatric Medical History: Reports: Hx Depression Denies: Hx Bipolar Disorder, Hx Dementia, Hx Post Traumatic Stress Disorder, Hx Schizophrenia Traumatic Medical History: Denies: Hx Fractures Infectious Medical History: Reports: Hx MRSA. Denies: Hx HIV Past Surgical History: Reports: Hx Abdominal Surgery - Hysterectomy, Hx Hysterectomy, Hx Orthopedic Surgery - Right foot bunionectomy. Bilateral total knee replacement. Left wrist CORNELIUS, Hx Tonsillectomy, Other. Denies: Hx Dimitry endectomy, Hx Bowel Surgery, Hx Section, Hx Cholecystectomy, Hx Colostomy, Hx Coronary Artery Bypass Graft, Hx Gastric Bypass Surgery, Hx Herniorrhaphy, Hx Mastectomy, Hx Pacemaker, Hx Tubal Ligation - Immunizations Hx Diphtheria, Pertussis, Tetanus Vaccination: Yes Hx Pneumococcal Vaccination: 06/01/11 Review of Systems - Review of Systems Constitutional: Chills, Fever, Malaise, Weakness EENT: No symptoms reported Cardiovascular: No symptoms reported Respiratory: No symptoms reported Gastrointestinal: See HPI Musculoskeletal: No symptoms reported Skin: No symptoms reported Hematologic/Lymphatic: No symptoms reported Physical Exam - Vital signs Vitals: Temp Resp BP Pulse Ox 99.1 F 16 123/59 L 92 11/03/18 10:34 11/03/18 10:34 11/03/18 10:34 11/03/18 10:34 - Notes Notes: Vital signs reviewed, please refer to chart. Patient is normocephalic, at raumatic. Pupils equal round, reactive to light. Neck is supple without meningismus. Heart is regular rate and rhythm. Lungs are clear to auscultation bilaterally. Abdomen is soft. Ostomy on the left with pink stoma, small brown liquid stool output. Diffuse tenderness noted throughout without rebound or guarding. Extremities without cyanosis, clubbing, edema. Peripheral pulses are equal. Skin is warm and dry. Patient is awake, alert, neurological exam is nonfocal. Course - Re-evaluation Re-evalutation: 11/03/18 18:41 Patient presents to the emergency department for evaluation. I initially ordered a CT scan without contrast to evaluate further to see if it was her stool burden that was causing this patient's increased pain. I spoke with Dr. Boss, radiologist. She states that after reviewing the scan done yesterday, she is concerned about the possibility of a sigmoid abscess. Initially my plan had been to potentially transfer the patient to [facility], where she had her ostomy. She states she has received some care from surgery here. Unfortunately there are absolutely no beds any hand I did consult surgery, Dr. Gallagher came and evaluated the patient. He states that he does not believe there is any indication for open surgery, but interventional radiology should be involved. The patient was given IV Zosyn. I spoke with Dr. Blanchard, who states that the patient's abscess appears to be something that could be drained here under CT- guidance. He does note that the patient should likely have multiple days of IV antibiotics to "firm up the wall" and make it less likely for complications with this drainage. I then spoke with MELINDA Cummings, about the patient. He will pass on this admission to the night lead software development engineer. - Vital Signs Vital signs: Temp Pulse Resp BP Pulse Ox 99.1 F 22 H 123/59 L 100 11/03/18 10:34 11/03/18 18:01 11/03/18 18:00 11/03/18 18:00 - Laboratory Result Diagrams: 11/03/18 11:09 11/03/18 11:09 Laboratory results interpreted by me: 11/03/18 11/03/18 11/03/18 11:09 11:09 12:45 WBC 12.9 H RBC 3.26 L Hgb 8.5 L Hct 26.3 L MCH 26.0 L RDW 18.2 H Seg Neuts % (Manual) 93 H Lymphocytes % (Manual) 5 L Monocytes % (Manual) 1 L Abs Neuts (Manual) 12.0 H Sodium 134.6 L Total Protein 5.4 L Albumin 2.7 L Lipase 13.9 L Urine Ketones TRACE H Discharge - Discharge Clinical Impression: Pelvic abscess, Acute abscess of female pelvis Condition: Stable Disposition: ADMITTED INPATIENT Admitting Provider: Hospitalist - Spoke with MELINDA Cummings, being deferred to Dr. Solis Referrals: CARLOS SEPULVEDA MD [Primary Care Provider] - Follow up as needed
--- NOTE | 2018-11-03 18:48 | PDOC CONSULTATION ---
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 Her early postop course was complicated by fecal impaction requiring an emergent colectomy with Manriquez's pouch and colostomy. She has been doing fairly since then, unitl recently whan she has been c/o R>L lower abdominal pain and sacral pain while sitting. A CT scan A/P with oral contrast was done today which shows a 5.3 x 5 x 3 cm left pelvic abscess, butted against the sigmoid colon. Past Medical History Cardiac Medical History: Reports: DVT, Hyperlipidema, Hypertension Denies: Atrial Fibrillation, Congestive Heart Failure, Coronary Artery Di sease, Myocardial Infarction, Peripheral Vascular Disease, Pulmonary Embolism, Heart Murmur Pulmonary Medical History: Reports: Asthma, Bronchitis, Pneumonia Denies: Chronic Obstructive Pulmonary Disease (COPD), Respiratory Failure, Sleep Apnea, Tuberculosis Neurological Medical History: Reports: Migraine Denies: Seizures Endocrine Medical History: Reports: Hyperthyroidism, Hypothyroidism Renal/ Medical History: Denies: End Stage Renal Disease Malignancy Medical History: Reports: Cervical Cancer Denies: Breast Cancer, Leukemia, Lung Cancer, Ovarian Cancer GI Medical History: Reports: Diverticulitis, Gastroesophageal Reflux Disease Denies: Crohn's Disease, Hiatal Hernia Musculoskeltal Medical History: Reports: Arthritis Denies: Fibromyalgia Psychiatric Medical History: Reports: Depression Denies: Bipolar Disorder, Dementia, Post Traumatic Stress Disorder Hematology: Reports: Anemia Denies: Hemophilia, Sickle Cell Disease Infectious Medical History: Reports: Methicillin-Resistant Staph Aureus Denies: HIV Past Surgical History Past Surgical History: Reports: Hysterectomy, Orthopedic Surgery - Right foot bunionectomy. Bilateral total knee replacement. Left wrist CORNELIUS, Tonsillectomy, Other Denies: Amputation, Appendectomy, Section, Cholecystectomy, Colostomy, Coronary Artery Bypass Graft, Gastric Bypass Surgery, Herniorrhaphy, Mastectomy, Pacemaker, Tubal Ligation Social History Smoking Status: Never Smoker Frequency of Alcohol Use: None Hx Recreational Drug Use: No Drugs: None Hx Prescription Drug Abuse: No Family History Family History: Hypertension - Mother age 105., Malignancy - Prostate cancer. Father at age 65., Thyroid Disfunction Parental Family History Reviewed: No Children Family History Reviewed: No Sibling(s) Family History Reviewed.: No Medication/Allergy Home Medications: Dicyclomine HCl [Bentyl 10 mg Capsule] 10 mg PO DAILY 05/04/18 Digoxin [Lanoxin 0.125 mg Tablet] 0.125 mg PO DAILY 05/04/18 Gabapentin [Neurontin 300 mg Capsule] 300 mg PO Q8 05/04/18 Hydrochlorothiazide [Hydrodiuril 25 mg Tablet] 25 mg PO DAILY 05/04/18 Hydroxychloroquine Sulfate [Plaquenil 200 mg Tablet] 200 mg PO DAILY 05/04/18 Levothyroxine Sodium [Synthroid] 125 mcg PO Q6AM 05/04/18 Omeprazole 20 mg PO DAILY 05/04/18 Ropinirole HCl [Requip] 1 mg PO QHS 05/04/18 Simvastatin [Zocor 20 mg Tablet] 20 mg PO QHS 05/04/18 Trazodone HCl [Desyrel] 150 mg PO QHS 05/04/18 Amlodipine Besylate [Norvasc 10 mg Tablet] 10 mg PO DAILY 30 Days #30 tablet 05/07/18 Azithromycin [Zithromax 250 mg Tablet] 250 mg PO DAILY 3 Days #3 tablet 05/07/18 Cephalexin Monohydrate [Keflex 500 mg Capsule] 500 mg PO BID 7 Days #14 capsule 11/01/18 Hydrocodone/Acetaminophen [[place] 5-325 mg Tablet] 1 tab PO Q8H PRN #8 tablet 11/01/18 Allergies/Adverse Reactions: Sulfa (Sulfonamide Antibiotics) Adverse Reaction (Intermediate, Verified 12/18 11:03) tingling, itching Physical Exam Vital Signs: Temp Pulse Resp BP Pulse Ox 99.1 F 22 H 123/59 L 100 11/03/18 10:34 11/03/18 18:01 11/03/18 18:00 11/03/18 18:00 Intake & Output 11/02/18 11/03/18 11/04/18 06:59 06:59 06:59 Intake Total 1100 Balance 1100 Weight 80.739 kg General appearance: PRESENT: no acute distress Head exam: PRESENT: atraumatic Eye exam: PRESENT: EOMI Mouth exam: PRESENT: dry mucosa, neck supple Teeth exam: PRESENT: poor dentation Neck exam: PRESENT: full ROM Respiratory exam: PRESENT: clear to auscultation avery Cardiovascular exam: PRESENT: RRR GI/Abdominal exam: PRESENT: diminished bowel sounds, soft, other - left lower a bdominal colostomy with large parastomal hernia Extremities exam: PRESENT: full ROM Musculoskeletal exam: PRESENT: full ROM Neurological exam: PRESENT: alert Results Laboratory Results: 11/03/18 11:09 11/03/18 11:09 11/03/18 11/03/18 11/03/18 11:09 11:09 12:45 WBC 12.9 H RBC 3.26 L Hgb 8.5 L Hct 26.3 L MCV 81 MCH 26.0 L MCHC 32.1 RDW 18.2 H Plt Count 257 Seg Neutrophils % Not Reportable Lymphocytes % Not Reportable Monocytes % Not Reportable Eosinophils % Not Reportable Basophils % Not Reportable Absolute Neutrophils Not Reportable Absolute Lymphocytes Not Reportable Absolute Monocytes Not Reportable Absolute Eosinophils Not Reportable Absolute Basophils Not Reportable Sodium 134.6 L Potassium 4.0 Chloride 100 Carbon Dioxide 25 Anion Gap 10 BUN 13 Creatinine 0.62 Est GFR ( Amer) > 60 Est GFR (Non-Af Amer) > 60 Glucose 94 Calcium 8.5 Total Bilirubin 0.7 AST 22 ALT 30 Alkaline Phosphatase 89 Total Protein 5.4 L Albumin 2.7 L Lipase 13.9 L Urine Color YELLOW Urine Appearance CLEAR Urine pH 6.0 Ur Specific [place] 1.012 Urine Protein NEGATIVE Urine Glucose (UA) NEGATIVE Urine Ketones TRACE H Urine Blood NEGATIVE Urine Nitrite NEGATIVE Ur Leukocyte Esterase NEGATIVE Urine WBC (Auto) 1 Urine RBC (Auto) 2 Impressions: Abdomen/Pelvis CT 11/03/18 13:37 IMPRESSION: 5.6 x 5 x 3.3 cm pelvic abscess left cul-de-sac Assessment & Plan - Diagnosis (1) Pelvic abscess in female Is this a current diagnosis for this admission?: Yes - Plan Summary Plan Summary: A/ left pelvic abscess in female with hx of endometrial cancer. colostomy, and Manriquez's pouch. Pelvic pain and lower abdominal pain CT scan A/P significant for left lower pelvic abscess, near thickened sigmoid colon parastomal hernia P/ No General Surgery intervention contemplated for this patient Rather, Interventional Radiology consultation is recommended for non-invasive drainage of this abscess.
[2018-11-03] MEDS ORDERED: ONDANSETRON HCL INJ/PF 4 MG/2 ML SDV IV PRN (20:16)
[2018-11-03] MEDS ORDERED: MAGNESIUM HYDROXIDE SUSP 30 ML UDCUP PO PRN (20:16)
[2018-11-03] MEDS ORDERED: MAG HYDROX/AL HYDROX/SIMETH SUSP 30 ML UDCUP PO PRN (20:16)
[2018-11-03] MEDS ORDERED: ACETAMINOPHEN 650 MG SUPP.RECT PR PRN (20:21)
[2018-11-03] MEDS ORDERED: LABETALOL HCL INJ 20 MG/4 ML DISP.SYRIN IV PRN (20:21)
[2018-11-03] MEDS ORDERED: HYDRALAZINE HCL INJ/PF 20 MG/1 ML SDV IV PRN (20:21)
[2018-11-03] MEDS ORDERED: PIPERACILLIN/TAZOBACTAM 3.375 GM VIAL IV SCH (20:30)
[2018-11-03] MEDS: POTASSI CL 20 MEQ/D5-1/2NS 1L 1,000 ML IV PRN (22:31)
[2018-11-03] MEDS: FAMOTIDINE INJ/PF 20 MG/2 ML SDV IV SCH (22:32)
[2018-11-03] MEDS: HEPARIN SOD (PORCINE) 5,000 UNIT/ML 1 ML SYRINGE SUBCUT SCH (22:32)
[2018-11-03] MEDS: MORPHINE SULFATE 10 MG/ML INJ IV PRN (23:08)
[2018-11-03] MEDS: PIPERACILLIN SODIUM/TAZOBACTAM 3.375 GM in NORMAL SALINE 100 ML IV SCH (23:09)
[2018-11-04] MEDS: MORPHINE SULFATE 10 MG/ML INJ IV PRN ×2 (02:05→07:50)
--- NOTE | 2018-11-04 03:28 | PDOC H&P ---
History of Present Illness Admission Date/PCP: CARLOS SEPULVEDA MD Patient complains of: Abdominal pain History of Present Illness: CARISA CAMPOS is a 83 year old female who presented to the emergency room with a 4-day history of progressively worsening lower abdominal pain. She had visited the emergency room each day for a total of 3 days for the same problem over the last 3 days. She admits to a now moderately severe, constant, gripping pressure, diffusely over the lower abdomen somewhat worse on the right side than the left side and without radiation. She further admits and associated discomfort in her sacral region when she sits upright but is not present when she is recumbent or standing. She was treated for constipation with magnesium citrate which caused her to have diarrhea but not relieve her discomfort and subsequently she noted a low-grade fever of 100.3 F. Her only additional symptoms have been mild anorexia over the last 2 or 3 days. She denies prior similar episodes and has not identified any other aggravating or ameliorating f actors for her abdominal pain. In the emergency room she was found to have a sigmoid abscess in the left pelvis abutting the sigmoid colon. She was subsequently admitted to the hospital for further evaluation and treatment with surgical consultation to be obtained. Past Medical History Cardiac Medical History: Reports: DVT, Hyperlipidema, Hypertension Denies: Atrial Fibrillation, Congestive Heart Failure, Coronary Artery Disease, Myocardial Infarction, Peripheral Vascular Disease, Pulmonary Embolism, Heart Murmur Pulmonary Medical History: Reports: Asthma, Bronchitis, Pneumonia Denies: Chronic Obstructive Pulmonary Disease (COPD), Respiratory Failure, Sleep Apnea, Tuberculosis EENT Medical History: Reports: None Neurological Medical History: Reports: Migraine, Other - TIA Denies: Hemorrhagic CVA, Ischemic CVA, Multiple Sclerosis, Seizures Endocrine Medical History: Reports: Hyperthyroidism, Hypothyroidism Denies: Diabetes Mellitus Type 1, Diabetes Mellitus Type 2 Renal/ Medical History: Denies: Chronic Kidney Disease, End Stage Renal Disease, Nephrolithiasis Malignancy Medical History: Reports: Cervical Cancer Denies: Breast Cancer, Leukemia, Lung Cancer, Ovarian Cancer GI Medical History: Reports: Diverticulitis, Gastroesophageal Reflux Disease Denies: Crohn's Disease, Hiatal Hernia Musculoskeltal Medical History: Reports: Arthritis Denies: Fibromyalgia, Gout Skin Medical History: Denies: Eczema, Psoriasis Psychiatric Medical History: Reports: Depression Denies: Alcohol Dependency, Bipolar Disorder, Dementia, Post Traumatic Stress Disorder, Substance Abuse, Tobacco Dependency Traumatic Medical History: Reports: None Hematology: Reports: Anemia Denies: Hemophilia, Bleeding Tendencies Infectious Medical History: Reports: Methicillin-Resistant Staph Aureus Denies: Hepatitis B, Hepatitis C, HIV Past Surgical History Past Surgical History: Reports: Colostomy - Manriquez's pouch, Hysterectomy, Orthopedic Surgery - Right foot bunionectomy. Bilateral total knee replacement. Left wrist CORNELIUS, Tonsillectomy Social History Information Source: Patient Lives with: Family Smoking Status: Never Smoker Frequency of Alcohol Use: None Hx Recreational Drug Use: No Drugs: None Hx Prescription Drug Abuse: No - Advance Directive Resuscitation Status: Full Code Surrogate healthcare decision maker:: Her daughter Lydia Family History Family History: Hypertension - Mother age 105., Malignancy - Prostate cancer. Father at age 65., Thyroid Disfunction Parental Family History Reviewed: Yes Children Family History Reviewed: No Sibling(s) Family History Reviewed.: Yes Medication/Allergy Home Medications: Hydrochlorothiazide [Hydrodiuril 25 mg Tablet] 25 mg PO DAILY 05/04/18 Hydroxychloroquine Sulfate [Plaquenil 200 mg Tablet] 200 mg PO DAILY 05/04/18 Levothyroxine Sodium [Synthroid] 125 mcg PO Q6AM 05/04/18 Omeprazole 20 mg PO DAILY 05/04/18 Ropinirole HCl [Requip] 1 mg PO QHS 05/04/18 Simvastatin [Zocor 20 mg Tablet] 20 mg PO QHS 05/04/18 Amlodipine Besylate [Norvasc 10 mg Tablet] 10 mg PO DAILY 30 Days #30 tablet 05/07/18 Cephalexin Monohydrate [Keflex 500 mg Capsule] 500 mg PO BID 7 Days #14 capsule 11/01/18 Hydrocodone/Acetaminophen [[place] 5-325 mg Tablet] 1 tab PO Q8H PRN #8 tablet 11/01/18 Aspirin [Ecotrin 81 mg EC Tablet] 81 mg PO DAILY 11/03/18 Naproxen [Naprosyn] 500 mg PO DAILYP PRN 11/03/18 Pnv No.95/Ferrous Fum/Folic AC [ [place]] 1 each PO DAILY 11/03/18 Allergies/Adverse Reactions: Sulfa (Sulfonamide Antibiotics) Adverse Reaction (Intermediate, Verified 12/18 11:03) tingling, itching Review of Systems Constitutional: PRESENT: fever(s). ABSENT: chills Eyes: ABSENT: visual disturbances, other - Eye pain Ears: ABSENT: hearing changes, other - Ear pain Nose, Mouth, and Throat: ABSENT: mouth pain, sore throat Cardiovascular: ABSENT: chest pain, dyspnea on exertion, palpitations Respiratory: ABSENT: cough, dyspnea Gastrointestinal: PRESENT: abdominal pain - Right lower abdominal pain, diarrhea - After taking laxatives. ABSENT: constipation, nausea, vomiting Genitourinary: PRESENT: other - Sacral pain when sitting. ABSENT: dysuria, hematuria Musculoskeletal: PRESENT: back pain - Sacral pain when sitting as noted above. ABSENT: deformity, joint swelling Integumentary: ABSENT: pruritus, rash Neurological: ABSENT: confusion, convulsions, focal weakness, memory loss Psychiatric: ABSENT: anxiety, depression Endocrine: ABSENT: cold intolerance, heat intolerance Hematologic/Lymphatic: ABSENT: easy bleeding, easy bruising Physical Exam Vital Signs: Temp Pulse Resp BP Pulse Ox 99.1 F 22 H 123/59 L 93 11/03/18 10:34 11/03/18 19:00 11/03/18 18:00 11/03/18 19:00 Intake & Output 11/01/18 11/02/18 11/03/18 23:59 23:59 23:59 Intake Total 1100 Balance 1100 Weight 80.739 kg General appearance: PRESENT: cooperative, mild distress - Due to abdominal discomfort Head exam: PRESENT: atraumatic, normocephalic Eye exam: PRESENT: conjunctiva pink. ABSENT: scleral icterus Ear exam: PRESENT: normal external ear exam. ABSENT: bleeding, drainage Mouth exam: PRESENT: dry mucosa, neck supple Neck exam: ABSENT: thyromegaly, tracheal deviation Respiratory exam: PRESENT: clear to auscultation avery, symmetrical, unlabored Cardiovascular exam: PRESENT: RRR. ABSENT: clicks, gallop, rubs Pulses: PRESENT: normal radial pulses, normal dorsalis pedis pul Vascular exam: PRESENT: normal capillary refill. ABSENT: pallor GI/Abdominal exam: PRESENT: normal bowel sounds, soft, tenderness - Right sided abdominal discomfort without point tenderness Rectal exam: PRESENT: deferred Extremities exam: ABSENT: joint swelling, pedal edema Musculoskeletal exam: PRESENT: full ROM, normal inspection Neurological exam: PRESENT: alert, awake, oriented to person, oriented to place, oriented to time, oriented to situation, CN II-XII grossly intact. ABSENT: motor sensory deficit Psychiatric exam: PRESENT: appropriate affect, normal mood Skin exam: PRESENT: dry, intact, warm. ABSENT: jaundice, rash, urticaria Results Laboratory Results: 11/03/18 11:09 11/03/18 11:09 11/03/18 11/03/18 11/03/18 11:09 11:09 12:45 WBC 12.9 H RBC 3.26 L Hgb 8.5 L Hct 26.3 L MCV 81 MCH 26.0 L MCHC 32.1 RDW 18.2 H Plt Count 257 Seg Neutrophils % Not Reportable Lymphocytes % Not Reportable Monocytes % Not Reportable Eosinophils % Not Reportable Basophils % Not Reportable Absolute Neutrophils Not Reportable Absolute Lymphocytes Not Reportable Absolute Monocytes Not Reportable Absolute Eosinophils Not Reportable Absolute Basophils Not Reportable Sodium 134.6 L Potassium 4.0 Chloride 100 Carbon Dioxide 25 Anion Gap 10 BUN 13 Creatinine 0.62 Est GFR ( Amer) > 60 Est GFR (Non-Af Amer) > 60 Glucose 94 Calcium 8.5 Total Bilirubin 0.7 AST 22 ALT 30 Alkaline Phosphatase 89 Total Protein 5.4 L Albumin 2.7 L Lipase 13.9 L Urine Color YELLOW Urine Appearance CLEAR Urine pH 6.0 Ur Specific [place] 1.012 Urine Protein NEGATIVE Urine Glucose (UA) NEGATIVE Urine Ketones TRACE H Urine Blood NEGATIVE Urine Nitrite NEGATIVE Ur Leukocyte Esterase NEGATIVE Urine WBC (Auto) 1 Urine RBC (Auto) 2 Impressions: Abdomen/Pelvis CT 11/03/18 13:37 IMPRESSION: 5.6 x 5 x 3.3 cm pelvic abscess left cul-de-sac Assessment & Plan - Diagnosis (1) Pelvic abscess in female Is this a current diagnosis for this admission?: Yes Plan: Patient be treated with IV fluids and IV antibiotics with symptomatic and supportive cares as required. Surgical consultation will be obtained for intervention as appropriate. (2) Abdominal pain Qualifiers: Abdominal location: lower abdomen, unspecified Qualified Code(s): R10.30 - Lower abdominal pain, unspecified Is this a current diagnosis for this admission?: Yes Plan: Patient's pain will be managed with morphine sulfate 2-4 mg IV every 2 hours as needed for pain on a sliding scale basis. (3) Essential (primary) hypertension Is this a current diagnosis for this admission?: Yes Plan: Patient's hypertension will be controlled with IV hydralazine and/or IV labetalol until such time as she is able to resume taking oral medications. 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 - Time Time Spent: 30 to 50 Minutes Critical Time spent with patient: Less than 15 minutes Medications reviewed and adjusted accordingly: Yes Anticipated discharge: Other - Assisted living facility - Inpatient Certification Based on my medical assessment, after consideration of the patient's comorbidities, presenting symptoms, or acuity I expect that the services needed warrant INPATIENT care.: Yes I certify that my determination is in accordance with my understanding of Medicare's requirements for reasonable and necessary INPATIENT services [42 CFR 412.3e].: Yes Medical Necessity: Significant Comorbidiites Make Outpatient Treatment Too Risky, Need Close Monitoring Due to Risk of Patient Decompensation, Need for Pain Control, Need for IV Antibiotics, Need for Surgery, Risk of Complication if Not Cared For in Hospital
[2018-11-04] MEDS: PIPERACILLIN SODIUM/TAZOBACTAM 3.375 GM in NORMAL SALINE 100 ML IV SCH ×2 (05:00→12:19)
[2018-11-04] MEDS: HEPARIN SOD (PORCINE) 5,000 UNIT/ML 1 ML SYRINGE SUBCUT SCH ×2 (05:09→13:03)
[2018-11-04] MEDS ORDERED: LEVOTHYROXINE SODIUM 0.05 MG TABLET ONE (05:15)
[2018-11-04] MEDS ORDERED: LEVOTHYROXINE SODIUM 0.05 MG TABLET PO SCH (06:00)
[2018-11-04] MEDS ORDERED: LEVOTHYROXINE SODIUM 0.1 MG TABLET PO SCH (06:00)
[2018-11-04 07:02] LABS: ABSOLUTE EOSINOPHILS # (AUTO) 0.1 10^3/uL (0.0-0.6); ABSOLUTE LYMPHOCYTES (AUTO) 0.6 10^3/uL (0.5-4.7); ABSOLUTE NEUT (AUTO) 7.3 10^3/uL (1.7-8.2); BASOPHILS % (AUTO) 0.1 % (0-2); EOSINOPHILS % (AUTO) 1.1 % (0-6); HEMATOCRIT 24.5 % (36.0-47.0); HEMOGLOBIN 8.1 g/dL (12.0-15.5); LYMPHOCYTES % (AUTO) 7.1 % (13-45); MEAN CORPUSCULAR HEMOGLOBIN 26.4 pg (27.0-33.4); MEAN CORPUSCULAR VOLUME 80 fl (80-97); MONOCYTES % (AUTO) 10.6 % (3-13); PLATELET COUNT 231 10^3/uL (150-450); RED BLOOD COUNT 3.06 10^6/uL (3.72-5.28); RED CELL DISTRIBUTION WIDTH 17.6 % (11.5-14.0); SEGMENTED NEUTROPHILS % (AUTO) 81.1 % (42-78); TOTAL CELLS COUNTED % (AUTO) 100 %
[2018-11-04 07:06] LABS: ANION GAP 7 (5-19); BLOOD UREA NITROGEN 8 mg/dL (7-20); CALCIUM 8.5 mg/dL (8.4-10.2); CARBON DIOXIDE 27 mmol/L (22-30); CHLORIDE 103 mmol/L (98-107); GLUCOSE 86 mg/dL (75-110); POTASSIUM 3.8 mmol/L (3.6-5.0); SODIUM 136.6 mmol/L (137-145)
[2018-11-04 07:18] LABS: FREE T3 1.49 pg/mL (2.77-5.27); FREE T4 (FREE THYROXINE) 0.98 ng/dL (0.78-2.19)
[2018-11-04 07:32] LABS: THYROID STIMULATING HORMONE 3.56 uIU/mL (0.47-4.68)
[2018-11-04] MEDS ORDERED: LEVOTHYROXINE SODIUM INJ/PF 0.1 MG SDV IV SCH (08:00)
--- NOTE | 2018-11-04 09:38 | PDOC PROGRESS REPORT ---
Subjective Progress Note for:: 11/04/18 Subjective:: patient c/o difficulty at urination and abdominal cramplike pain; colostomy working and bag emptied this AM Reason For Visit: SIGMOID ABSCESS Physical Exam Vital Signs: Temp Pulse Resp BP Pulse Ox 97.5 F 74 20 137/62 H 100 11/04/18 07:28 11/04/18 07:28 11/04/18 07:28 11/04/18 07:28 11/04/18 07:28 Intake & Output 11/03/18 11/04/18 11/05/18 06:59 06:59 06:59 Intake Total 2020 480 Output Total 550 Balance 1470 480 Weight 80.8 kg General appearance: PRESENT: mild distress GI/Abdominal exam: PRESENT: distended, soft, other - colostomy pink, parastomal hernia soft Results Laboratory Results: 11/04/18 06:02 11/04/18 06:02 11/03/18 11/03/18 11/03/18 11:09 11:09 12:45 WBC 12.9 H RBC 3.26 L Hgb 8.5 L Hct 26.3 L MCV 81 MCH 26.0 L MCHC 32.1 RDW 18.2 H Plt Count 257 Seg Neutrophils % Not Reportable Lymphocytes % Not Reportable Monocytes % Not Reportable Eosinophils % Not Reportable Basophils % Not Reportable Absolute Neutrophils Not Reportable Absolute Lymphocytes Not Reportable Absolute Monocytes Not Reportable Absolute Eosinophils Not Reportable Absolute Basophils Not Reportable Sodium 134.6 L Potassium 4.0 Chloride 100 Carbon Dioxide 25 Anion Gap 10 BUN 13 Creatinine 0.62 Est GFR ( Amer) > 60 Est GFR (Non-Af Amer) > 60 Glucose 94 Calcium 8.5 Magnesium Total Bilirubin 0.7 AST 22 ALT 30 Alkaline Phosphatase 89 Total Protein 5.4 L Albumin 2.7 L Lipase 13.9 L TSH Free T4 Free T3 pg/mL Urine Color YELLOW Urine Appearance CLEAR Urine pH 6.0 Ur Specific [place] 1.012 Urine Protein NEGATIVE Urine Glucose (UA) NEGATIVE Urine Ketones TRACE H Urine Blood NEGATIVE Urine Nitrite NEGATIVE Ur Leukocyte Esterase NEGATIVE Urine WBC (Auto) 1 Urine RBC (Auto) 2 11/04/18 11/04/18 11/04/18 06:02 06:02 06:02 WBC 9.0 RBC 3.06 L Hgb 8.1 L Hct 24.5 L MCV 80 MCH 26.4 L MCHC 33.0 RDW 17.6 H Plt Count 231 Seg Neutrophils % 81.1 H Lymphocytes % 7.1 L Monocytes % 10.6 Eosinophils % 1.1 Basophils % 0.1 Absolute Neutrophils 7.3 Absolute Lymphocytes 0.6 Absolute Monocytes 1.0 Absolute Eosinophils 0.1 Absolute Basophils 0.0 Sodium 136.6 L Potassium 3.8 Chloride 103 Carbon Dioxide 27 Anion Gap 7 BUN 8 Creatinine 0.68 Est GFR ( Amer) > 60 Est GFR (Non-Af Amer) > 60 Glucose 86 Calcium 8.5 Magnesium 2.2 Total Bilirubin AST ALT Alkaline Phosphatase Total Protein Albumin Lipase TSH 3.56 Free T4 0.98 Free T3 pg/mL 1.49 L Urine Color Urine Appearance Urine pH Ur Specific [place] Urine Protein Urine Glucose (UA) Urine Ketones Urine Blood Urine Nitrite Ur Leukocyte Esterase Urine WBC (Auto) Urine RBC (Auto) Impressions: Abdomen/Pelvis CT 11/03/18 13:37 IMPRESSION: 5.6 x 5 x 3.3 cm pelvic abscess left cul-de-sac Assessment & Plan - Diagnosis (1) Pelvic abscess in female Is this a current diagnosis for this admission?: Yes - Plan Summary Plan Summary: A/ Pelvic abscess against sigmoid WBC normal patient c/o lower abdominal pressure and difficulty at urination P/ IR to perform drainage of pelvic abscess If this cannot be accomplished in this hospital, I would recommend to have the patient transferred to an outside institution where this intervention can be done No General Surgery intervention planned
[2018-11-04] MEDS: FAMOTIDINE INJ/PF 20 MG/2 ML SDV IV SCH (09:45)
[2018-11-04] MEDS: HYDROMORPHONE HCL INJ/PF 2 MG/ML AMPULE IV PRN ×2 (09:51→14:44)
[2018-11-04] MEDS: POTASSI CL 20 MEQ/D5-1/2NS 1L 1,000 ML IV PRN (09:52)
[2018-11-04] MEDS ORDERED: AMLODIPINE BESYLATE 10 MG TABLET PO SCH (10:00)
[2018-11-04] MEDS ORDERED: HYDROCHLOROTHIAZIDE 25 MG TABLET PO SCH (10:00)
[2018-11-04] MEDS ORDERED: HYDROXYCHLOROQUINE SULFATE 200 MG TABLET PO SCH (10:00)
[2018-11-04] MEDS ORDERED: ASPIRIN 81 MG TABLET, ENT COATED PO SCH (10:00)
[2018-11-04 14:58] VITALS: BP 124/63
--- NOTE | 2018-11-04 15:02 | PDOC TRANSFER SUMMARY ---
General Admission Date/PCP: 11/03/18 20:30 CARLOS SEPULVEDA MD Admission Date: 11/03/18 Transfer Date: 11/04/18 Accepting Facility: [facility] Accepting Physician: dr. otis kendrick Resuscitation Status: Full Code - Transfer Diagnosis (1) Pelvic abscess in female Is this a current diagnosis for this admission?: Yes (2) Abdominal pain Is this a current diagnosis for this admission?: Yes (3) Hypertension Is this a current diagnosis for this admission?: Yes (4) Hypothyroidism Is this a current diagnosis for this admission?: Yes - Transfer Medications Home Medications: Hydrochlorothiazide [Hydrodiuril 25 mg Tablet] 25 mg PO DAILY 05/04/18 Hydroxychloroquine Sulfate [Plaquenil 200 mg Tablet] 200 mg PO DAILY 05/04/18 Levothyroxine Sodium [Synthroid] 125 mcg PO Q6AM 05/04/18 Omeprazole 20 mg PO DAILY 05/04/18 Ropinirole HCl [Requip] 1 mg PO QHS 05/04/18 Simvastatin [Zocor 20 mg Tablet] 20 mg PO QHS 05/04/18 Aspirin [Ecotrin 81 mg EC Tablet] 81 mg PO DAILY 11/03/18 Naproxen [Naprosyn] 500 mg PO DAILYP PRN 11/03/18 Pnv No.95/Ferrous Fum/Folic AC [ Caplet] 1 each PO DAILY 11/03/18 Transfer Medications: Current Medications Acetaminophen (Tylenol 650 Mg Supp) 650 mg KY Q4HP PRN PRN Reason: For headache, pain or fever Stop: 12/03/18 20:20 Al Hydrox/Mg Hydrox/Simethicone (Maalox Plus Susp 30 Udcup) 30 ml PO Q6HP PRN PRN Reason: HEARTBURN Stop: 12/03/18 20:15 Amlodipine Besylate (Norvasc 10 Mg Tablet) 10 mg PO DAILY SUZE Stop: 12/04/18 09:59 Last Admin: 11/04/18 09:44 Dose: 10 mg Documented by: Aspirin (Ecotrin 81 Mg Ec Tablet) 81 mg PO DAILY SUZE Stop: 12/04/18 09:59 Last Admin: 11/04/18 09:45 Dose: 81 mg Documented by: Famotidine (Pepcid Inj/Pf 20 Mg/2 Ml Sdv) 20 mg IV Q12 SUZE Stop: 12/03/18 21:59 Last Admin: 11/04/18 09:45 Dose: 20 mg Documented by: Heparin Sodium (Porcine) (Heparin Inj 5,000 Units/Ml 1 Ml Syringe) 5,000 unit SUBCUT Q8 [facility] Stop: 12/03/18 21:59 Last Admin: 11/04/18 13:03 Dose: 5,000 unit Documented by: Hydralazine HCl (Apresoline Inj/Pf 20 Mg/1 Ml Sdv) 20 mg IV Q4HP PRN PRN Reason: Give For Sbp > 160 / Dbp > 100 Stop: 12/03/18 20:20 Hydrochlorothiazide (Hydrodiuril 25 Mg Tablet) 12.5 mg PO DAILY [facility] Stop: 12/04/18 09:59 Last Admin: 11/04/18 09:44 Dose: 12.5 mg Documented by: Hydromorphone HCl (Dilaudid Inj/Pf 2 Mg/Ml Ampule) 1 mg IV Q4HP PRN PRN Reason: FOR PAIN Stop: 11/11/18 09:09 Last Admin: 11/04/18 09:51 Dose: 1 mg Documented by: Hydroxychloroquine Sulfate (Plaquenil 200 Mg Tablet) 200 mg PO DAILY [facility] Stop: 12/04/18 09:59 Last Admin: 11/04/18 09:52 Dose: 200 mg Documented by: Piperacillin Sod/Tazobactam (Sod 3.375 gm/ Sodium Chloride) 100 mls @ 200 mls/hr IV Q6 [facility] Stop: 11/11/18 00:00 Last Infusion: 11/04/18 13:02 Dose: Infused Documented by: Potassium Chloride/Dextrose/Sod Cl (D5-1/2ns 1000 Ml/Kcl 20 Meq Premix Bag) 1,000 mls @ 125 mls/hr IV CONTINUOUS PRN PRN Reason: THIS MED IS NOT "PRN" Stop: 12/03/18 21:01 Last Admin: 11/04/18 09:52 Dose: 125 mls/hr Documented by: Labetalol HCl (Normodyne Inj 20 Mg/4 Ml Syringe) 20 mg IV Q30MP PRN PRN Reason: Give For Sbp >160 or Dbp >100 Stop: 12/03/18 20:20 Levothyroxine Sodium (Synthroid 0.05 Mg Tablet) 0.125 mg PO Q6AM [facility] Stop: 12/04/18 05:59 Last Admin: 11/04/18 05:25 Dose: 0.125 mg Documented by: Magnesium Hydroxide (Milk Of Magnesia 30 Ml Udcup) 30 ml PO HSP PRN PRN Reason: FOR CONSTIPATION Stop: 12/03/18 20:15 Ondansetron HCl (Zofran Inj/Pf 4 Mg/2 Ml Sdv) 4 mg IV Q4HP PRN PRN Reason: FOR NAUSEA/VOMITING Stop: 12/03/18 20:15 Ropinirole HCl (Requip 1 Mg Tablet) 1 mg PO QHS [facility] Stop: 12/04/18 21:59 Simvastatin (Zocor 10 Mg Tablet) 20 mg PO QHS [facility] Stop: 12/04/18 21:59 Sodium Chloride (Saline Flush 2.5 Ml Monoject Prefil Syrin) 2.5 ml IV Q8 [facility] Stop: 12/03/18 21:59 Last Admin: 11/04/18 06:33 Dose: Not Given Documented by: - Allergies Allergies/Adverse Reactions: Sulfa (Sulfonamide Antibiotics) Adverse Reaction (Intermediate, Verified 11/02/18 11:03) tingling, itching Hospital Course Hospital Course: H&P: CARISA CAMPOS is a 83 year old female who presented to the emergency room with a 4-day history of progressively worsening lower abdominal pain. She had visited the emergency room each day for a total of 3 days for the same problem over the last 3 days. She admits to a now moderately severe, constant, gripping pressure, diffusely over the lower abdomen somewhat worse on the right side than the left side and without radiation. She further admits and associated discomfort in her sacral region when she sits upright but is not present when she is recumbent or standing. She was treated for constipation with magnesium citrate which caused her to have diarrhea but not relieve her discomfort and subsequently she noted a low-grade fever of 100.3 F. Her only additional symptoms have been mild anorexia over the last 2 or 3 days. She denies prior similar episodes and has not identified any other aggravating or ameliorating factors for her abdominal pain. In the emergency room she was found to have a sigmoid abscess in the left pelvis abutting the sigmoid colon. She was subseque ntly admitted to the hospital for further evaluation and treatment with surgical consultation to be obtained. HOSPITAL COURSE: 83 y.o. F with a PMH endometrial Ca, hypothyroidism, HTN, HLD, migraines, TIA and MRSA (unknown location). In November 2017 the patient underwent STU/BSO, experienced postop complications of fecal impaction requiring an emergent colectomy and ended up with a colostomy. The patient was doing well until 4 days ago when she began experiencing abdominal pain radiating to her sacrum. Additionally, the patient reports a significant increase in the amount of stool draining from her colostomy bag. She typically drains her colostomy bag every 4 days, she has now been filling the colostomy bag with stool everyday. CT Abd/Pelvis showed a 6x5x3 left cul-de-sac abscess. Admitted to the hospitalist service with surgery consulted for a sigmoid abscess. She was started on IV Zosyn for G(-) coverage. General surgeon did not feel that the patient was a jo rgical candidate, recommended IR. When radiologist was asked about preforming the procedure, she stated she was not comfortable and the patient would be better served at a larger tertiary facility. Luckily, Dr. Otis Kendrick at [facility] accepted the patient and she will be transferred to [place] today. Physical Exam Vital Signs: Temp Pulse Resp BP Pulse Ox 98.5 F 74 16 113/52 L 92 11/04/18 11:29 11/04/18 11:29 11/04/18 11:29 11/04/18 11:29 11/04/18 11:29 Intake & Output 11/03/18 11/04/18 11/05/18 06:59 06:59 06:59 Intake Total 3020 580 Output Total 550 Balance 2470 580 Weight 80.8 kg General appearance: PRESENT: no acute distress, well-developed, well-nourished Eye exam: PRESENT: conjunctiva pink, PERRLA Mouth exam: PRESENT: moist, tongue midline Neck exam: PRESENT: full ROM Respiratory exam: PRESENT: clear to auscultation avery, symmetrical, unlabored Cardiovascular exam: PRESENT: RRR Pulses: PRESENT: normal radial pulses, normal dorsalis pedis pul GI/Abdominal exam: PRESENT: hypoactive bowel sounds, soft, other - COLOSTOMY - DRAINS LIQUID BROWN STOOL. ABSENT: distended Rectal exam: PRESENT: deferred Extremities exam: PRESENT: full ROM Musculoskeletal exam: PRESENT: ambulatory, full ROM Neurological exam: PRESENT: alert, awake, oriented to person, oriented to place, oriented to time, oriented to situation Psychiatric exam: PRESENT: appropriate affect Skin exam: PRESENT: dry, intact, normal color Results Laboratory Results: 11/04/18 06:02 11/04/18 06:02 11/04/18 11/04/18 11/04/18 06:02 06:02 06:02 WBC 9.0 RBC 3.06 L Hgb 8.1 L Hct 24.5 L MCV 80 MCH 26.4 L MCHC 33.0 RDW 17.6 H Plt Count 231 Seg Neutrophils % 81.1 H Lymphocytes % 7.1 L Monocytes % 10.6 Eosinophils % 1.1 Basophils % 0.1 Absolute Neutrophils 7.3 Absolute Lymphocytes 0.6 Absolute Monocytes 1.0 Absolute Eosinophils 0.1 Absolute Basophils 0.0 Sodium 136.6 L Potassium 3.8 Chloride 103 Carbon Dioxide 27 Anion Gap 7 BUN 8 Creatinine 0.68 Est GFR ( Amer) > 60 Est GFR (Non-Af Amer) > 60 Glucose 86 Calcium 8.5 Magnesium 2.2 TSH 3.56 Free T4 0.98 Free T3 pg/mL 1.49 L Impressions: Abdomen/Pelvis CT 11/03/18 13:37 IMPRESSION: 5.6 x 5 x 3.3 cm pelvic abscess left cul-de-sac Status: Imported from PACS
[2018-11-04] MEDS ORDERED: SIMVASTATIN 10 MG TABLET PO SCH (22:00)
[2018-11-04] MEDS ORDERED: ROPINIROLE HCL 1 MG TABLET PO SCH (22:00)
== END 2018-11-04 15:20 | disposition short-term general hospital (02) | DRG 373 ==
LOC: ER 10:28 → EH 20:30 → 2S 21:51
PROVIDERS: ADMIT Emergency Medicine; ATTEND Emergency Medicine
DX: K65.1 Peritoneal abscess (principal); C54.1 Malignant neoplasm of endometrium; I10 Essential (primary) hypertension; E78.5 Hyperlipidemia, unspecified; E06.3 Autoimmune thyroiditis; G43.909 Migraine, unspecified, not intractable, without status migrainosus; Z88.2 Allergy status to sulfonamides; Z93.2 Ileostomy status; Z96.653 Presence of artificial knee joint, bilateral; Z86.14 Personal history of Methicillin resistant Staphylococcus aureus infection; Z82.49 Family history of ischemic heart disease and other diseases of the circulatory system; Z80.42 Family history of malignant neoplasm of prostate; Z83.49 Family history of other endocrine, nutritional and metabolic diseases; Z86.718 Personal history of other venous thrombosis and embolism; Z90.710 Acquired absence of both cervix and uterus; Z79.82 Long term (current) use of aspirin; Z79.899 Other long term (current) drug therapy
CPT/HCPCS: 36415; 71045; 72220; 74176; 74177; 80048; 80053; 81001; 82803; 82962; 83605; 83690; 83735; 84439; 84443; 84481; 85025; 85610; 87040; 87086; 87088; 87186; 93005; 93010; 96361; 96365; 96375; 99284; 99285; J0696; J1170; J1644; J2270; J2405; J2543; J3480; J3490; J7030; J7040; S0028

== ENCOUNTER 2018-11-23 13:07 | Emergency (ER) | payer MEDICARE, OTHER ==
[2018-11-23] MEDS ORDERED: ACETAMINOPHEN 325 MG TABLET PO ONE (14:31)
--- NOTE | 2018-11-23 14:51 | ER Document Report ---
ED General - General Chief Complaint: Fall Stated Complaint: FALL,HEAD PAIN Time Seen by Provider: 11/23/18 14:22 Primary Care Provider: CARLOS SEPULVEDA MD [Primary Care Provider] - Follow up as needed Mode of Arrival: Medic Information source: Patient, Emergency Med Personnel, [facility] Records, Outside Facility Records Notes: 83-year-old female presents via EMS after a slip and fall at [facility]. Patient states that she was on the commode and tried to call for help but when knowing came tried to stand up independently when she slipped on water and struck her head. Patient denies loss of consciousness. She is currently complaining of left-sided headache, left wrist pain and left knee pain. Patient denies any preceding chest pain, shortness of breath, dizziness. She denies any blood thinning medications. TRAVEL OUTSIDE OF THE [place] IN LAST 30 DAYS: No - HPI Onset: Just prior to arrival Onset/Duration: Sudden Quality of pain: Achy, Throbbing Severity: Mild Associated symptoms: Headache. denies: Chest pain, Nausea, Vomiting, Shortness of breath Exacerbated by: Movement Relieved by: Denies Similar symptoms previously: Yes Recently seen / treated by doctor: Yes - Related Data Allergies/Adverse Reactions: Sulfa (Sulfonamide Antibiotics) Adverse Reaction (Intermediate, Verified 11/02/18 11:03) tingling, itching Past Medical History - General Information source: Patient, Emergency Med Personnel, [facility] Records - Social History Smoking Status: Never Smoker Chew tobacco use (# tins/day): No Drug Abuse: None Lives with: Fdc Family History: Hypertension - Mother age 105., Malignancy - Prostate cancer. Father at age 65., Thyroid Disfunction Patient has suicidal ideation: No Patient has homicidal ideation: No - Past Medical History Cardiac Medical History: Reports: Hx DVT, Hx Hypercholesterolemia, Hx Hypertension Denies: Hx Atrial Fibrillation, Hx Congestive Heart Failure, Hx Coronary Artery Disease, Hx Heart Attack, Hx Peripheral Vascular Disease, Hx Pulmonary Embolism, Hx Heart Murmur Pulmonary Medical History: Reports: Hx Asthma, Hx Bronchitis, Hx Pneumonia Denies: Hx COPD, Hx Respiratory Failure, Hx Sleep Apnea, Hx Tuberculosis Neurological Medical History: Reports: Hx Migraine. Denies: Hx Cerebrovascular Accident, Hx Seizures Endocrine Medical History: Reports: Hx Hyperthyroidism, Hx Hypothyroidism. Denies: Hx Diabetes Mellitus Type 1, Hx Diabetes Mellitus Type 2, Hx Graves' Disease Renal/ Medical History: Denies: Hx End Stage Renal Disease, Hx Kidney Stones, Hx Ovarian Cysts, Hx Peritoneal Dialysis, Hx Pelvic Inflammatory Disease Malignancy Medical History: Reports: Hx Cervical Cancer. Denies: Hx Breast Cancer, Hx Leukemia, Hx Lung Cancer, Hx Ovarian Cancer GI Medical History: Reports: Hx Diverticulitis, Hx Gastroesophageal Reflux Dise , Hx Ulcer - 1995. Denies: Hx Crohn's Disease, Hx Hiatal Hernia, Hx Irritable Bowel, Hx Liver Failure, Hx Pancreatitis Musculoskeletal Medical History: Reports Hx Arthritis, Denies Hx Fibromyalgia, Denies Hx Gout, Denies Hx Multiple Sclerosis, Denies Hx Muscular Dystrophy Skin Medical History: Denies Hx Eczema, Denies Hx Psoriasis Psychiatric Medical History: Reports: Hx Depression Denies: Hx Bipolar Disorder, Hx Dementia, Hx Post Traumatic Stress Disorder, Hx Schizophrenia Traumatic Medical History: Denies: Hx Fractures Infectious Medical History: Reports: Hx MRSA. Denies: Hx HIV Past Surgical History: Reports: Hx Abdominal Surgery - Hysterectomy, Hx Colostomy - Manriquez's pouch, Hx Hysterectomy, Hx Orthopedic Surgery - Right foot bunionectomy. Bilateral total knee replacement. Left wrist CORNELIUS, Hx Tonsillectomy, Other. Denies: Hx Appendectomy, Hx Bowel Surgery, Hx Section, Hx Cholecystectomy, Hx Coronary Artery Bypass Graft, Hx Gastric Bypass Surgery, Hx Herniorrhaphy, Hx Mastectomy, Hx Pacemaker, Hx Tubal Ligation - Immunizations Hx Diphtheria, Pertussis, Tetanus Vaccination: Yes Hx Pneumococcal Vaccination: 06/01/11 Review of Systems - Review of Systems Constitutional: Weakness, Recent illness EENT: denies: Blurred vision, Difficulty swallowing Cardiovascular: denies: Chest pain, Palpitations, Dyspnea Respiratory: denies: Cough, Short of breath Gastrointestinal: denies: Abdominal pain, Diarrhea, Nausea, Vomiting Genitourinary: denies: Dysuria, Flank pain Female Genitourinary: No symptoms reported Musculoskeletal: Joint pain, Muscle stiffness. denies: Joint swelling, Leg swelling, Ankle swelling Skin: denies: Rash Hematologic/Lymphatic: No symptoms reported Neurological/Psychological: Headaches. denies: Confusion, Weakness, Lost consciousness -: Yes All other systems reviewed and negative Physical Exam - Vital signs Vitals: Temp Pulse Resp BP Pulse Ox 97.4 F 93 16 135/77 H 100 11/23/18 13:14 11/23/18 13:14 11/23/18 13:14 11/23/18 13:14 11/23/18 13:14 - Notes Notes: PHYSICAL EXAMINATION: GENERAL: Well-appearing, well-nourished and in no acute distress. GCS 15 HEAD: Atraumatic, normocephalic. EYES: Pupils equal round and reactive to light, extraocular movements intact, sclera anicteric, conjunctiva are normal. ENT: Nares patent, oropharynx clear without exudates. Moist mucous membranes. No hemanotympanum . No blood in nares. No dental fracture. NECK: Normal range of motion, supple without lymphadenopathy. Trachea midline LUNGS: Breath sounds clear to auscultation bilaterally and equal. No wheezes rales or rhonchi. HEART: Regular rate and rhythm without murmurs. Pulses intact all throughout. ABDOMEN: Soft, nontender, nondistended abdomen. No guarding, no rebound. No masses appreciated. Musculoskeletal: Normal range of motion, no pitting or edema. No cyanosis. Hip non tender, stable. NEUROLOGICAL: Cranial nerves grossly intact. Normal speech, normal gait. Normal sensory, motor, and reflex exams. PSYCH: Normal mood, normal affect. SKIN: Warm, No active bleeding, no abrasions, ecchymosis. Course - Re-evaluation Re-evalutation: Cervical Spine CT 11/23/18 14:31 IMPRESSION: CHRONIC DEGENERATIVE CHANGES. NO ACUTE FINDINGS. Head CT 11/23/18 14:31 IMPRESSION: No acute intracranial pathology. EVIDENCE OF ACUTE STROKE: NO. Wrist X-Ray 11/23/18 14:31 IMPRESSION: MARKED CHRONIC DEGENERATIVE CHANGES. NO RADIOGRAPHIC EVIDENCE OF ACUTE INJURY. Temp Pulse Resp BP Pulse Ox 98.1 F 92 18 137/82 H 95 11/23/18 16:18 11/23/18 16:20 11/23/18 14:00 11/23/18 16:11 11/23/18 16:11 11/23/18 14:51 Presentation of a well appearing elderly patient in no acute distress, vitals within normal limits after a mechanical fall. Patient denies a syncopal episode as the cause for today's fall. No focal neurologic deficits on exam, no evidence of basilar skull fracture on exam without evidence of hemotympanum, raccoon eyes, or periauricular hematoma. No papilledema. Patient is not on anticoagulation. GCS is 15. No loss of consciousness. No episodes of vomiting. However, based on patient's age a CT of the head has been obtained which is negative for any acute intracranial bleed. Likewise, patient was unable to be clinically cleared due to age by Greer cervical spine criteria. A CT of the cervical spine was also obtained and likewise is negative for any acute fracture. No indication for further imaging of the cervical spine. Patient reports left wrist pain and x-rays were obtained and negative for acute fracture. Chest and abdominal exam are benign without any focal tenderness, shortness of breath, or bruising over the chest or abdominal wall. Patient has no flank tenderness. At this time will discharge with return precautions and follow-up recommendations. Verbal discharge instructions given a the bedside and opportunity for questions given. Medication warnings reviewed. Patient is in agreement with this plan and has verbalized understanding of return precautions and the need for primary care follow-up in the next 24-72 hours. 11/23/18 22:13 - Vital Signs Vital signs: Temp Pulse Resp BP Pulse Ox 98.1 F 92 18 137/82 H 95 11/23/18 16:18 11/23/18 16:20 11/23/18 14:00 11/23/18 16:11 11/23/18 16:11 - Diagnostic Test Radiology reviewed: Image reviewed, Reports reviewed Discharge - Discharge Clinical Impression: Fall Qualifiers: Encounter type: initial encounter Qualified Code(s): W19.XXXA - Unspecified fall, initial encounter Left wrist sprain Qualifiers: Encounter type: initial encounter Qualified Code(s): S63.502A - Unspecified sprain of left wrist, initial encounter Closed head injury Qualifiers: Encounter type: initial encounter Qualified Code(s): S09.90XA - Unspecified injury of head, initial encounter Condition: Good Disposition: SNF-Other Instructions: Head Injury Precautions ([facility]), Wrist Sprain ([facility]) Additional Instructions: You have likely sustained a contusion (bruise) to your head. If you had a CT scan done, it did not show any evidence of serious injury or bleeding. Symptoms to expect from a concussion include nausea, mild to moderate headache, difficulty concentrating or sleeping, and mild lightheadedness. These symptoms should improve over the next few days to weeks. Return to the emergency department or follow-up with your primary care doctor if your symptoms are not improving over this time. Signs of a more serious head injury include vomiting, severe headache, excessive sleepiness or confusion, and weakness or numbness in your face, arms or legs. Return immediately to the Emergency Department if you experience any of these more concerning symptoms. Rest, avoid strenuous physica l or mental activity, and avoid activities that could potentially result in another head injury until all your symptoms from this head injury are completely resolved for at least 2-3 weeks. If you participate in sports, get cleared by your doctor or emr trainer before returning to play. You may take ibuprofen or acetaminophen over the counter according to label instructions for mild headache or scalp soreness. Forms: Elevated Blood Pressure Referrals: CARLOS SEPULVEDA MD [Primary Care Provider] - Follow up as needed
--- NOTE | 2018-11-23 14:57 | RADIOLOGY REPORT (SQ) ---
EXAM DESCRIPTION: CT CERVICAL SPINE WITHOUT COMPLETED DATE/TIME: 11/23/2018 2:48 pm REASON FOR STUDY: fall COMPARISON: None. TECHNIQUE: Axial images acquired through the cervical spine without intravenous contrast. Images re viewed with lung, soft tissue and bone windows. Reconstructed coronal and sagittal MPR images review ed. Images stored on PACS. All CT scanners at this facility use dose modulation, iterative reconstruction, and/or weight based d osing when appropriate to reduce radiation dose to as low as reasonably achievable (ALARA). [facility]: Dose Right [facility]: CareDose [facility]: Dose Right [facility]: Teradose 4D [facility]: [employer] RADIATION DOSE: CT Rad equipment meets quality standard of care and radiation dose reduction techniq ues were employed. CTDIvol: 20.2 mGy. DLP: 416 mGy-cm. mGy. LIMITATIONS: None. FINDINGS: ALIGNMENT: Anatomic. MINERALIZATION: Normal. VERTEBRAL BODIES: No fractures or dislocation. DISCS: Multilevel disc space narrowing with osteophytes. FACETS, LATERAL MASSES, POSTERIOR ELEMENTS: Facet arthropathy. No fractures. No dislocation. No ac isidoro findings. HARDWARE: None in the spine. VISUALIZED RIBS: No fractures. LUNG APICES AND SOFT TISSUES: No significant or acute findings. OTHER: No other significant finding. IMPRESSION: CHRONIC DEGENERATIVE CHANGES. NO ACUTE FINDINGS. TECHNICAL DOCUMENTATION: JOB ID: [id number] Quality ID # [id number]: Final reports with documentation of one or more dose reduction techniques (e.g., Au tomated exposure control, adjustment of the mA and/or kV according to patient size, use of iterative reconstruction technique) 2010 [employer]- All Rights Reserved Reading location - IP/workstation name: [email or web address]
--- NOTE | 2018-11-23 14:58 | RADIOLOGY REPORT (SQ) ---
EXAM DESCRIPTION: CT HEAD WITHOUT COMPLETED DATE/TIME: 11/23/2018 2:48 pm REASON FOR STUDY: fall COMPARISON: 05/13/2017 TECHNIQUE: Axial images acquired through the brain without intravenous contrast. Images reviewed wi th bone, brain and subdural windows. Additional sagittal and coronal reconstructions were generated. Images stored on PACS. All CT scanners at this facility use dose modulation, iterative reconstruction, and/or weight based d osing when appropriate to reduce radiation dose to as low as reasonably achievable (ALARA). [facility]: Dose Right [facility]: CareDose [facility]: Dose Right [facility]: Teradose 4D [facility]: [employer] RADIATION DOSE: CT Rad equipment meets quality standard of care and radiation dose reduction techniq ues were employed. CTDIvol: 53.2 mGy. DLP: 964 mGy-cm. mGy. LIMITATIONS: None. FINDINGS: VENTRICLES: Normal size and contour. CEREBRUM: No masses. No hemorrhage. No midline shift. No evidence for acute infarction. Normal gra y/white matter differentiation. No areas of low density in the white matter. CEREBELLUM: No masses. No hemorrhage. No alteration of density. No evidence for acute infarction. EXTRAAXIAL SPACES: No fluid collections. No masses. ORBITS AND GLOBE: No intra- or extraconal masses. Normal contour of globe without masses. CALVARIUM: No fracture. PARANASAL SINUSES: No fluid or mucosal thickening. SOFT TISSUES: No mass or hematoma. OTHER: No other significant finding. IMPRESSION: No acute intracranial pathology. EVIDENCE OF ACUTE STROKE: NO. COMMENT: Quality ID # 436: Final reports with documentation of one or more dose reduction techniques (e.g., Automated exposure control, adjustment of the mA and/or kV according to patient size, use of iterative reconstruction technique) TECHNICAL DOCUMENTATION: JOB ID: [id number] [employer].- All Rights Reserved Reading location - IP/workstation name: [email or web address]
--- NOTE | 2018-11-23 15:01 | RADIOLOGY REPORT (SQ) ---
EXAM DESCRIPTION: WRIST RIGHT 3 VIEWS COMPLETED DATE/TIME: 11/23/2018 2:54 pm REASON FOR STUDY: fall COMPARISON: None. NUMBER OF VIEWS: Three views. TECHNIQUE: AP, lateral, and oblique radiographic images acquired of the right wrist. LIMITATIONS: None. FINDINGS: MINERALIZATION: Normal. BONES: No acute fracture or dislocation. Calcification versus osseous density adjacent to the ulnar styloid. Marked degenerative changes at the 1st carpometacarpal joint. No worrisome bone lesions. Normal alignment. SOFT TISSUES: No soft tissue swelling. No foreign body. OTHER: No other significant finding. IMPRESSION: MARKED CHRONIC DEGENERATIVE CHANGES. NO RADIOGRAPHIC EVIDENCE OF ACUTE INJURY. TECHNICAL DOCUMENTATION: JOB ID: [id number] [employer]- All Rights Reserved Reading location - IP/workstation name: [email or web address]
[2018-11-23 16:19] VITALS: BP 137/82
== END 2018-11-23 16:24 ==
LOC: ER 13:07
DX: R51 Headache (principal); M25.532 Pain in left wrist; M25.562 Pain in left knee; W01.10XA Fall on same level from slipping, tripping and stumbling with subsequent striking against unspecified object, initial encounter
CPT/HCPCS: 99285; 73110; 70450; 72125; A9270